=== PATIENT | female | born 1960 | race Caucasian/White ===

== ENCOUNTER → 2016-03-23 | Outpatient (CLI) | payer OTHER ==
[~2016-03-23] MED LIST: FAMO20TA5 PO
--- NOTE | 2016-03-23 12:45 | Diagnostic Imaging Report ---
PROCEDURE: US Thyroid. TECHNIQUE: Multiple real-time grayscale images were obtained of the thyroid in various projections. INDICATION: Enlarged thyroid nodule. FINDINGS: The right thyroid lobe is 6.0 x 2.9 x 2.7 cm. The left lobe is 4.8 x 2.0 x 2.1 cm. The thyroid gland is heterogeneous. There is suggestion of a focal mass in the right thyroid lobe measuring 4.5 x 3.1 x 2.7 cm. The borders are not clearly evident and blend somewhat to the adjacent heterogeneous thyroid tissue. Exact comparison to 10/18/2015, exam is difficult as this nodule is not well defined. There is internal vascularity seen. IMPRESSION: Enlarged heterogeneous thyroid gland with prominent area in the right lobe presumably related to a poorly defined underlying mass not well from the rest of the thyroid gland and measures about 4.5 cm. Evaluation with an ultrasound-guided biopsy is suggested. Dictated by: Dictated on workstation # [id number]
== END ==
LOC: RAD 10:31
PROVIDERS: ATTEND Nurse Practitioner Family
DX: E04.9 Nontoxic goiter, unspecified (principal)
CPT/HCPCS: 76536

== ENCOUNTER → 2016-04-10 | Outpatient (CLI) | payer OTHER ==
[~2016-04-10] VITALS: Ht 152.4 cm; Wt 72.6 kg
[~2016-04-10] MED LIST changes: +LIDOCAINE 1% INJ 20 ML (XYLOCAINE) VIAL INJ ONE; +LIDOCAINE 1% INJ 20 ML (XYLOCAINE) VIAL ONE
[2016-04-10 13:15] VITALS: BP 134/72
[2016-04-10 13:41] VITALS: BP 128/80
--- NOTE | 2016-04-10 16:17 | Diagnostic Imaging Report ---
EXAMINATION: US-guided core biopsy-thyroid. INDICATION: Large heterogenous right thyroid lobe with question of an underlying mass. Current history and physical and other medical records are reviewed prior to the procedure. CONSENT: Informed consent was obtained from the patient. The risks, benefits, potential complications and alternatives were reviewed and all questions answered to the patient's satisfaction. The patient's vital signs, cardiac rhythm, and pulse oximetry with observed throughout the procedure by qualified nursing personnel. Sedation/medications: none. FINDINGS: Heterogenous the large solid appearing thyroid mass versus goiter. PROCEDURE: After maximal sterile barrier technique preparation and draping, 1% lidocaine was utilized for local anesthesia. With the patient in supine position, and via anterior approach, a 19-gauge guide needle is introduced into the right thyroid lobe mass under live ultrasound guidance. After confirming adequate positioning with saved ultrasound images, multiple 20 gauge core biopsy specimens were obtained. The patient tolerated the procedure well with no immediate complications. IMPRESSION: Successful US-guided core biopsy of right thyroid lobe/mass. Dictated by: Dictated on workstation # [id number]
== END ==
LOC: RAD 11:50
PROVIDERS: ATTEND Nurse Practitioner Family
DX: E04.1 Nontoxic single thyroid nodule (principal)
CPT/HCPCS: 76942; 88305

== ENCOUNTER 2017-05-12 10:18 | Inpatient (IN) | payer OTHER ==
[~2017-05-12] VITALS: Ht 152.4 cm; Wt 55.8 kg
[~2017-05-12 10:18] MED LIST changes: -LIDOCAINE 1% INJ 20 ML (XYLOCAINE) VIAL INJ ONE; -LIDOCAINE 1% INJ 20 ML (XYLOCAINE) VIAL ONE
--- NOTE | 2017-05-12 11:27 | Diagnostic Imaging Report ---
EXAM: HIP, LEFT, 2 VIEWS INDICATION: Left hip pain. COMPARISON: None. FINDINGS: Examination is mildly limited by internal rotation. Although there are no convincing lucencies seen, there is some irregularity of the cortex of the head neck junction. IMPRESSION: Limited examination. There is indeterminate irregularity of the cortex at the head neck junction. A fracture cannot be excluded. Recommend further evaluation with dedicated cross-sectional imaging. Dictated by: Dictated on workstation # [id number]
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
--- NOTE | 2017-05-12 11:51 | Diagnostic Imaging Report ---
INDICATION: Preoperative, hip fracture. COMPARISON: 10/03/2014 TECHNIQUE: Single frontal radiograph of the chest dated 05/12/2017. FINDINGS: The cardiac silhouette is within normal limits. No significant pulmonary vascular congestion. The lungs are clear of focal pulmonary opacity. No pleural effusion. No pneumothorax. No acute osseous abnormality. IMPRESSION: Stable examination without acute cardiopulmonary abnormality. Dictated by: Dictated on workstation # [id number]
--- NOTE | 2017-05-12 11:58 | Diagnostic Imaging Report ---
INDICATION: Fall, pain. COMPARISON: Radiographs of left hip from same day. TECHNIQUE: Single radiograph of the pelvis dated 05/12/2017. FINDINGS: Acute appearing left subcapital femoral neck fracture is identified. This does not appear significantly displaced. No acute fracture or dislocation. No destructive osseous process. Mild degenerative change of the left hip. The sacroiliac joints appear intact. Pubic symphysis intact. IMPRESSION: Essentially nondisplaced left subcapital femoral neck fracture appearing acute in nature. Report was called to Denia Serrano, [facility] ER by graciela at 11:58 AM. Dictated by: Dictated on workstation # [id number]
[2017-05-12 12:22] LABS: BASOPHILS % (AUTO) 0 % (0-10); EOSINOPHILS # (AUTO) 0.2 10^3/uL (0.0-0.3); EOSINOPHILS % (AUTO) 2 % (0-10); HEMATOCRIT 36 % (35-52); HEMOGLOBIN 12.4 G/DL (11.5-16.0); LYMPHOCYTES # (AUTO) 2.1 X 10^3 (1.0-4.0); LYMPHOCYTES % (AUTO) 22 % (12-44); MEAN CORPUSCULAR HEMOGLOBIN 28 PG (25-34); MEAN CORPUSCULAR HGB CONC 35 G/DL (32-36); MEAN CORPUSCULAR VOLUME 81 FL (80-99); MEAN PLATELET VOLUME 11.1 FL (7.4-10.4); MONOCYTES # (AUTO) 0.5 X 10^3 (0.0-1.0); MONOCYTES % (AUTO) 6 % (0-12); NEUTROPHILS # (AUTO) 6.6 X 10^3 (1.8-7.8); NEUTROPHILS % (AUTO) 70 % (42-75); PLATELET COUNT 211 10^3/uL (130-400); RED BLOOD COUNT 4.38 10^6/uL (4.35-5.85); WHITE BLOOD COUNT 9.5 10^3/uL (4.3-11.0)
[2017-05-12 12:32] LABS: PROTHROMBIN TIME PATIENT 13.3 SEC (12.2-14.7)
[2017-05-12 12:40] LABS: BILIRUBIN,URINE NEGATIVE (NEGATIVE); CLARITY,URINE SLIGHTLY CLOUDY; COLOR,URINE YELLOW; GLUCOSE, URINE (UA) 4+ (NEGATIVE); KETONES,URINE NEGATIVE (NEGATIVE); LEUKOCYTE ESTERASE ,URINE NEGATIVE (NEGATIVE); NITRITE,URINE NEGATIVE (NEGATIVE); PH,URINE 5 (5-9); PROTEIN,URINE 2+ (NEGATIVE); UROBILINOGEN,URINE NORMAL (NORMAL)
[2017-05-12 12:49] LABS: AMORPHOUS SEDIMENT,UR LARGE AMOR URATES /LPF; BACTERIA,URINE FEW /HPF; RBC,URINE 0-2 /HPF
--- NOTE | 2017-05-12 13:32 | Diagnostic Imaging Report ---
PROCEDURE: CT pelvis without contrast. TECHNIQUE: Multiple contiguous axial images were obtained through the pelvis without the use of intravenous contrast. Sagittal and coronal reformations were performed. INDICATION: Fall on left hip. COMPARISON: Left hip radiographs from earlier today. FINDINGS: There is a nondisplaced mildly impacted left subcapital hip fracture. The pelvis and proximal right femur are intact. Mild scattered atherosclerotic calcifications. Holliday catheter. Hysterectomy. The visualized pelvic contents are otherwise unremarkable. IMPRESSION: Mildly impacted left subcapital hip fracture. Dictated by: Dictated on workstation # [id number]
[2017-05-12 14:04] LABS: ALANINE AMINOTRANSFERASE 25 U/L (0-55); ALKALINE PHOSPHATASE 150 U/L (40-136); BILIRUBIN,TOTAL 0.3 MG/DL (0.1-1.0); BUN/CREATININE RATIO 27; CALCIUM 9.3 MG/DL (8.5-10.1); CARBON DIOXIDE 18 MMOL/L (21-32); CHLORIDE 98 MMOL/L (98-107); CREATININE SERUM 0.95 MG/DL (0.60-1.30); GFR ESTIMATED > 60; POTASSIUM 4.1 MMOL/L (3.6-5.0); SODIUM 130 MMOL/L (135-145); TOTAL PROTEIN 8.1 GM/DL (6.4-8.2)
[2017-05-12 14:05] LABS: GLUCOSE 464 MG/DL (70-105)
[2017-05-12] MEDS ORDERED: inSUlin (REGULAR) HUMAN 1 UNIT/0.01 ML (CHARGE PER UNIT) IV STA (14:06)
[2017-05-12] MEDS ORDERED: NS IV 1000 ML 1,000 ML IV ONE (14:06)
[2017-05-12 15:09] VITALS: BP 126/63
[2017-05-12] MEDS ORDERED: CATHETER FLUSH 10 ML SYR IV PRN (15:30)
[2017-05-12] MEDS ORDERED: morphine INJ 4 MG/ML 1 ML (VIAL/SYRINGE) IV PRN (15:30)
[2017-05-12] MEDS: NS IV 1000 ML 1,000 ML IV SCH (15:51)
[2017-05-12] MEDS ORDERED: inSUlin (REGULAR) HUMAN 1 UNIT/0.01 ML (CHARGE PER UNIT) SC SCH (16:00)
--- NOTE | 2017-05-12 16:27 | Admission Progress Note ---
Brief Admission Note Complete H&P must still be completed. Current Records and Clinic Records Reviewed Patient admitted with hip fracture. Possible UTI present on admission, given one dose of PO cipro in ED; pt without allergy, will change to IV rocephin pending culture results. Hyperglycemia; accuchecks AC and HS with sliding scale insulin also AC and HS. Patient will be NPO in AM for surgery. Clinic chart reviewed, patient apparently was former patient of Sarah Mohr APRN, however on 05/04/16 she dropped off a ziplock bag containing all of her medications and stated she wasn't taking them anymore and Sejal Mohr APRN was no longer her provider. Patient reported to ED she had not taken any medication in a few months, however it appears to have been at least 1 year. History from clinic records: -remote history of drug abuse -Type II Diabetes with renal complications -Diabetic Neuropathy -Thyroid Nodule - right -Acquired Hypothyroidism -Severe Hyperlipidemia -HTN -Proteinuria -Renal Insufficiency -Ventral Hernia Will recheck lipids with AM labs. Clinic records indicate patient was referred to Dr. Nascimento, but patient did not keep follow up appointment. Will turn over care to Dr. Chi tomorrow morning. Time Seen by Provider: 16:18 (patient was not seen; chart and clinic chart reviewed) GONZALO NORRIS DO May 12, 2017 16:27
[2017-05-12] MEDS: inSUlin (REGULAR) HUMAN 1 UNIT/0.01 ML (CHARGE PER UNIT) SC SCH ×2 (16:28→21:20)
[2017-05-12] MEDS: cefTRIAXone INJECTION 1,000 MG in NS (IVPB) 100 ML IV SCH (16:33)
[2017-05-12] MEDS ORDERED: INFLUENZA TRIvalent 2017-2018 0.5 ML/45 MCG SYR IM ONE (16:45)
[2017-05-12] MEDS ORDERED: CIPROFLOXACIN 500 MG (CIPRO) TABLET PO SCH (18:00)
[2017-05-12 20:00] VITALS: BP 134/63
[2017-05-12] MEDS ORDERED: FAMOTIDINE 20 MG (PEPCID) TABLET PO SCH (21:00)
[2017-05-12] MEDS: FAMOTIDINE 20 MG (PEPCID) TABLET PO SCH (21:20)
[2017-05-12 23:45] VITALS: BP 156/86
[2017-05-13 03:11] VITALS: BP 135/65
[2017-05-13] MEDS: NS IV 1000 ML 1,000 ML IV SCH ×2 (05:27→06:09)
[2017-05-13] MEDS: inSUlin (REGULAR) HUMAN 1 UNIT/0.01 ML (CHARGE PER UNIT) SC SCH ×4 (05:37→20:56)
[2017-05-13 05:59] LABS: BASOPHILS % (AUTO) 0 % (0-10); EOSINOPHILS # (AUTO) 0.3 10^3/uL (0.0-0.3); EOSINOPHILS % (AUTO) 4 % (0-10); HEMATOCRIT 35 % (35-52); HEMOGLOBIN 11.9 G/DL (11.5-16.0); LYMPHOCYTES # (AUTO) 1.8 X 10^3 (1.0-4.0); LYMPHOCYTES % (AUTO) 24 % (12-44); MEAN CORPUSCULAR HEMOGLOBIN 28 PG (25-34); MEAN CORPUSCULAR HGB CONC 34 G/DL (32-36); MEAN CORPUSCULAR VOLUME 81 FL (80-99); MEAN PLATELET VOLUME 10.9 FL (7.4-10.4); MONOCYTES # (AUTO) 0.5 X 10^3 (0.0-1.0); MONOCYTES % (AUTO) 7 % (0-12); NEUTROPHILS # (AUTO) 4.9 X 10^3 (1.8-7.8); NEUTROPHILS % (AUTO) 65 % (42-75); PLATELET COUNT 198 10^3/uL (130-400); RED BLOOD COUNT 4.25 10^6/uL (4.35-5.85); RED CELL DISTRIBUTION WIDTH 13.6 % (10.0-14.5); WHITE BLOOD COUNT 7.5 10^3/uL (4.3-11.0)
[2017-05-13 06:25] LABS: BUN/CREATININE RATIO 18; CALCIUM 8.9 MG/DL (8.5-10.1); CARBON DIOXIDE 18 MMOL/L (21-32); CHLORIDE 103 MMOL/L (98-107); CHOLESTEROL 424 MG/DL (< 200); CREATININE SERUM 0.71 MG/DL (0.60-1.30); GFR ESTIMATED > 60; GLUCOSE 293 MG/DL (70-105); HDL CHOLESTEROL 32 MG/DL (40-60); MAGNESIUM 1.8 MG/DL (1.8-2.4); POTASSIUM 3.8 MMOL/L (3.6-5.0); SODIUM 132 MMOL/L (135-145); TRIGLYCERIDES 1599 MG/DL (<150); VLDL CHOLESTEROL 320 MG/DL (5-40)
[2017-05-13] MEDS ORDERED: FAMOTIDINE 20MG/2ML IV (PEPCID) IV ONE (07:15)
[2017-05-13 07:27] VITALS: BP 152/74
--- OUTSIDE RECORDS SUMMARY | 2017-05-13 08:57 | XMS REPORT ---
Author Author ROZINA SWANSON [facility] Address [address] [place] [address] Care Team Providers Care Regional Medical Director Name Role Phone ROZINA SWANSON Unavailable PROBLEMS Type Condition ICD9-CM Code MXS76-HQ Code Onset Dates Condition Status SNOMED Code Problem Hypertriglyceridemia E78.1 Active 785705857 Problem Renal insufficiency N28.9 Active 486670791 Problem Acquired hypothyroidism E03.9 Active 012812256 Problem Diabetic polyneuropathy associated with type 2 diabetes mellitus E11.42 Active 61158158 Problem Encounter for well woman exam Z01.419 Active 677274384 Problem Screening for STD (sexually transmitted disease) Z11.3 Active 346570187 Problem Encounter for screening breast examination Z12.39 Active 951784756 Problem Screening mammogram, encounter for Z12.31 Active 352447339 Problem Ventral hernia without obstruction or gangrene K43.9 Active 831804565 Problem Right thyroid nodule E04.1 Active 756195639 Problem Mixed hyperlipidemia E78.2 Active 160797390 Problem Heartburn R12 Active 30292353 Problem Essential hypertension I10 Active 51865202 Problem 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
--- OUTSIDE RECORDS SUMMARY | 2017-05-13 08:57 | XMS REPORT ---
Author Author MATEO BROWN Organization [employer] Address Unknown Phone Unavailable Care Team Providers Care [place] Copyist Name Role Phone MATEO BROWN CP Unavailable Allergies, Adverse Reactions, Alerts Substance Reaction Event Type Victoza 0.6 Mg/0.1 Ml (18 Mg/3 Ml) Pen Injector nausea Non Drug Allergy Problems Problem Type Condition Code Onset Dates Condition Status Problem Essential hypertension I10 Active Problem Hypertriglyceridemia E78.1 Active Problem Type 2 diabetes mellitus with other diabetic kidney complication E11.29 Active Problem Screening for STD (sexually transmitted disease) Z11.3 Active Problem Encounter for screening breast examination Z12.39 Active Problem Encounter for well woman exam Z01.419 Active Problem Acquired hypothyroidism E03.9 Active Problem Renal insufficiency N28.9 Active Problem Screening mammogram, encounter for Z12.31 Active Problem Ventral hernia without obstruction or gangrene K43.9 Active Assessment Mixed hyperlipidemia E78.2 Active Assessment Essential hypertension I10 Active Assessment Type 2 diabetes mellitus with other diabetic kidney complication E11.29 Active Problem Mixed hyperlipidemia E78.2 Active Problem Abnormal thyroid blood test R94.6 Active Assessment Chest pain, unspecified type R07.9 Active Problem Heartburn R12 Active Problem Enlargement of thyroid E04.9 Active Problem Proteinuria, unspecified R80.9 Active Medications Medication Code System Code Instructions Start Date End Date Status Dosage Gemfibrozil [facility] [address]-23 600 MG Orally Twice a day 1 tablet Omeprazole [facility] [address]-55 40 mg Orally Once a day 1 capsule Losartan Potassium [facility] [address]-27 100 MG Orally Once a day 1/2 tablet MetFORMIN HCl ER [facility] [address]-64 500 MG Orally twice a day 2 tablets Garcinia Cambogia-Chromium [facility] 76878-82890 500-200 MG-MCG Orally not defined Levothyroxine Sodium [facility] [address]-40 50 MCG Orally Once a day 1 tablet on an empty stomach in the morning Zetia [facility] [address]-04 10 mg Orally Once a day Dec 09, 2015 1 tablet Glimepiride [facility] [address]-95 1 MG Orally 2 times a day Nov 25, 2015 1 tablet with breakfast or the first main meal of the day One Touch Delica Lancets ND 0 Test Strips One touch Verio Flex .... Glimepiride [facility] [address]-50 1 MG Orally twice a day Nov 25, 2015 1 tablet with meals Crestor [facility] [address]-84 10 mg Orally Once a day Dec 09, 2015 1 tablet Procedures Procedure Coding System Code Date Office Visit, New Pt., Level 4 CPT-4 28639 Dec 09, 2015 Vital Signs Date/Time: Dec 09, 2015 Cardiac Monitoring Heart Rate 88 bpm Weight 154 lbs Height 61.5 in BMI 28.62 Index Blood Pressure Diastolic 72 mmHg Blood Pressure Systolic 142 mmHg Results No Known Results Summary Purpose [employer] Submission
--- OUTSIDE RECORDS SUMMARY | 2017-05-13 08:57 | XMS REPORT ---
Author Author ROZINA SWANSON [facility] Address [address] [place] [address] Care Team Providers Care Bowl Turner Name Role Phone ROZINA SWANSON Unavailable PROBLEMS Type Condition ICD9-CM Code [id number] Code Onset Dates Condition Status SNOMED Code Problem Hypertriglyceridemia E78.1 Active 392787555 Problem Renal insufficiency N28.9 Active 538160732 Problem Acquired hypothyroidism E03.9 Active 751680724 Problem Diabetic polyneuropathy associated with type 2 diabetes mellitus E11.42 Active 81811091 Problem Encounter for well woman exam Z01.419 Active 983726594 Problem Screening for STD (sexually transmitted disease) Z11.3 Active 453931371 Problem Encounter for screening breast examination Z12.39 Active 193172191 Problem Screening mammogram, encounter for Z12.31 Active 444282243 Problem Ventral hernia without obstruction or gangrene K43.9 Active 108472771 Problem Right thyroid nodule E04.1 Active 566813253 Problem Mixed hyperlipidemia E78.2 Active 595238469 Problem Heartburn R12 Active 34024331 Problem Essential hypertension I10 Active 18628673 Problem Type 2 diabetes mellitus with other diabetic kidney complication E11.29 Active 60102763 Problem Abnormal thyroid blood test R94.6 Active 722748963 Problem Proteinuria, unspecified R80.9 Active 88991735 Problem Enlargement of thyroid E04.9 Active 5467152 ALLERGIES Unknown Allergies SOCIAL HISTORY No smoking Hx information available PLAN OF CARE VITAL SIGNS MEDICATIONS Unknown Medications RESULTS No Results PROCEDURES No Known procedures IMMUNIZATIONS No Known Immunizations
--- OUTSIDE RECORDS SUMMARY | 2017-05-13 08:57 | XMS REPORT ---
Author Author ROZINA SWANSON Organization [employer] Address Unknown Phone Unavailable Care Team Providers Care Bulb Grader Name Role Phone ROZINA SWANSON CP Unavailable Allergies No Known Allergies Problems Problem Type Condition Code Onset Dates [...] hernia without obstruction or gangrene K43.9 Active Problem Mixed hyperlipidemia E78.2 Active Problem Abnormal thyroid blood test R94.6 Active Problem Heartburn R12 Active Problem Enlargement of thyroid E04.9 Active Problem Proteinuria, unspecified R80.9 Active Medications Medication Code System Code Instructions Start Date End Date Status Dosage MetFORMIN HCl ER [facility] [address]-95 500 MG Orally twice a day 2 tablets Results No Known Results Summary Purpose eClinicalWorks Submission
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
--- OUTSIDE RECORDS SUMMARY | 2017-05-13 08:58 | XMS REPORT ---
Author Author ROZINA SWANSON Organization [employer] Address Unknown Phone Unavailable Care Team Providers Care Setter Cold Rolling Machine Name Role Phone ROZINA SWANSON CP Unavailable [...] Instructions Start Date End Date Status Dosage Levothyroxine Sodium [facility] [address]-15 50 MCG Orally Once a day 1 tablet on an empty stomach in the morning Results No Known Results Summary Purpose eClinicalWorks Submission
--- OUTSIDE RECORDS SUMMARY | 2017-05-13 08:58 | XMS REPORT ---
Author Author YAHIR LERMA [employer] Address Unknown Phone Unavailable Care Team Providers Care Prosthetic Aides Teacher Name Role Phone YAHIR LERMA CP Unavailable Allergies, Adverse Reactions, Alerts Substance Reaction Event Type Victoza 0.6 Mg/0.1 Ml (18 Mg/3 Ml) Pen Injector nausea Non Drug Allergy Problems Problem Type Condition Code Onset Dates Condition Status Assessment Dental examination Z01.20 Active Medications Medication Code System Code Instructions Start Date End Date Status Dosage Amoxicillin [facility] [address]-52 500 MG Orally 3 times a day Oct 07, 2015 Oct 14, 2015 1 capsule Procedures Procedure Coding System Code Date INTRAORL-PERIAPICAL 1 FILM 80210 CPT-4 D0220 Oct 07, 2015 LTD ORAL EVALUATION - PROBLEM FOCUS CPT-4 D0140 Oct 07, 2015 Vital Signs Date/Time: Oct 07, 2015 Blood Pressure Diastolic 107 mmHg Blood Pressure Systolic 151 mmHg Height 61.5 in Results No Known Results Summary Purpose eClinicalWorks Submission
--- OUTSIDE RECORDS SUMMARY | 2017-05-13 08:58 | XMS REPORT ---
Author Author ROZINA SWANSON [facility] Address [address] [place] [address] Care Team Providers Care Electrician Substation Name Role Phone ROZINA SWANSON Unavailable PROBLEMS Type Condition ICD9-CM Code [id number] Code Onset Dates Condition Status SNOMED Code Problem Type 2 diabetes mellitus with other diabetic kidney complication E11.29 Active 94479182 Problem Renal insufficiency N28.9 Active 156973520 Problem Hypertriglyceridemia E78.1 Active 399701193 Problem Encounter for well woman exam Z01.419 Active 143454427 Problem Screening for STD (sexually transmitted disease) Z11.3 Active 970319086 Problem Ventral hernia without obstruction or gangrene K43.9 Active 330316912 Problem Acquired hypothyroidism E03.9 Active 382336914 Problem Encounter for screening breast examination Z12.39 Active 933112113 Problem Screening mammogram, encounter for Z12.31 Active 518769755 Assessment Renal insufficiency N28.9 21 Nov, 2015 Active 01504235 Problem Abnormal thyroid blood test R94.6 Active 580414750 Problem Heartburn R12 Active 70320388 Problem Enlargement of thyroid E04.9 Active 6710377 Problem Proteinuria, unspecified R80.9 Active 09253620 Problem Mixed hyperlipidemia E78.2 Active 693953606 Problem Essential hypertension I10 Active 64377350 ALLERGIES Unknown Allergies SOCIAL HISTORY No smoking Hx information available PLAN OF CARE VITAL SIGNS MEDICATIONS Unknown Medications RESULTS Name Result Date Reference Range CMP 2015-11-23 Glucose, Serum 475 65-99 BUN 29 6-24 Creatinine, Serum 1.02 0.57-1.00 eGFR If NonAfricn Am 63 >59 eGFR If Africn Am 72 >59 BUN/Creatinine Ratio 28 9-23 Sodium, Serum 132 134-144 Potassium, Serum 5.2 3.5-5.2 Chloride, Serum 92 97-108 Carbon Dioxide, Total 19 18-29 Calcium, Serum 9.7 8.7-10.2 Protein, Total, Serum 7.6 6.0-8.5 Albumin, Serum 4.6 3.5-5.5 Globulin, Total 3.0 1.5-4.5 A/G Ratio 1.5 1.1-2.5 Bilirubin, Total 0.2 0.0-1.2 Alkaline Phosphatase, S 110 39-117 AST (SGOT) 18 0-40 ALT (SGPT) 28 0-32 PROCEDURES Procedure Date Ordered Related Diagnosis Body Site COMPREHEN METABOLIC PANEL Nov 23, 2015 VENIPUNCT, ROUTINE* Nov 23, 2015 IMMUNIZATIONS No Known Immunizations
--- OUTSIDE RECORDS SUMMARY | 2017-05-13 08:58 | XMS REPORT ---
Author Author ROZINA SWANSON [facility] Address [address] [place] [address] Care Team Providers Care Commissioner Of Internal Revenue Name Role Phone ROZINA SWANSON Unavailable PROBLEMS Type Condition ICD9-CM Code [id number] Code Onset Dates Condition Status SNOMED Code Problem Hypertriglyceridemia E78.1 Active 971941613 Problem Acquired hypothyroidism E03.9 Active 085167759 Problem Renal insufficiency N28.9 Active 095976474 Problem Diabetic polyneuropathy associated with type 2 diabetes mellitus E11.42 Active 19137189 Problem Encounter for well woman exam Z01.419 Active 265680127 Problem Screening mammogram, encounter for Z12.31 Active 380991165 Problem Ventral hernia without obstruction or gangrene K43.9 Active 985366051 Problem Screening for STD (sexually transmitted disease) Z11.3 Active 299540642 Problem Encounter for screening breast examination Z12.39 Active 384076464 Problem Right thyroid nodule E04.1 Active 220372401 Problem Enlargement of thyroid E04.9 Active 1118747 Problem Heartburn R12 Active 61894679 Problem Proteinuria, unspecified R80.9 Active 82531518 Problem Mixed hyperlipidemia E78.2 Active 970641710 Problem Essential hypertension I10 Active 41765906 Problem Abnormal thyroid blood test R94.6 Active 167039523 Problem Type 2 diabetes mellitus with other diabetic kidney complication E11.29 Active 89629727 ALLERGIES Substance Reaction Event Type Date Status Victoza 0.6 Mg/0.1 Ml (18 Mg/3 Ml) Pen Injector nausea Non Drug Allergy Feb, Active SOCIAL HISTORY No smoking Hx information available PLAN OF CARE Activity Details Follow Up 4 Weeks Reason:neuropathy VITAL SIGNS Height 61.5 in 2016-02-16 Weight 155.0 lbs 2016-02-16 Temperature 97.9 degrees Fahrenheit 2016-02-16 Heart Rate 86 bpm 2016-02-16 Respiratory Rate 20 2016-02-16 BMI 28.81 kg/m2 2016-02-16 Blood pressure systolic 118 mmHg 2016-02-16 Blood pressure diastolic 72 mmHg 2016-02-16 MEDICATIONS Medication Instructions Dosage Frequency Start Date End Date Duration Status Omeprazole 40 mg Orally Once a day 1 capsule 24h 30 day(s) Active Levothyroxine Sodium 50 MCG Orally Once a day 1 tablet on an empty stomach in the morning 24h Active Glimepiride 1 MG Orally 2 times a day 1 tablet with breakfast or the first main meal of the day 12h Nov, 30 day(s) Active One Touch Delica Lancets Test Strips .... Active Lovastatin 40 mg Orally Once a day 1 tablet with a meal 24h 90 days Active Gabapentin 300 MG Orally at bedtime 1 capsule Feb, Active Crestor 10 mg Orally Once a day 1 tablet 24h Dec, Active Zetia 10 mg Orally Once a day 1 tablet 24h Dec, Active Fish Oil 1200 MG Orally twice a day 2 capsule 12h Active Gemfibrozil 600 MG Orally Twice a day 1 tablet 12h Active MetFORMIN HCl ER 500 MG Orally twice a day 2 tablets 12h Active Losartan Potassium 100 MG Orally Once a day 1/2 tablet 24h Active RESULTS Name Result Date Reference Range A1C (IN HOUSE) 2016-02-16 A1C IN HOUSE 9.0% 4.3 - 5.6 % Previous A1c 9.5% Lot [id number] Exp date TSH 2016-02-16 TSH 3.520 0.450-4.500 LIPID PANEL 2016-02-16 Cholesterol, Total 164 100-199 Triglycerides 367 0-149 HDL Cholesterol 32 >39 VLDL Cholesterol Ady 73 5-40 LDL Cholesterol Calc 59 0-99 Comment: [facility] 2016-02-16 Glucose, Serum 137 65-99 BUN 19 6-24 Creatinine, Serum 0.65 0.57-1.00 eGFR If NonAfricn Am 101 >59 eGFR If Africn Am 116 >59 BUN/Creatinine Ratio 29 9-23 Sodium, Serum 141 134-144 Potassium, Serum 4.7 3.5-5.2 Chloride, Serum 100 96-106 Carbon Dioxide, Total 21 18-29 Calcium, Serum 9.8 8.7-10.2 Protein, Total, Serum 7.5 6.0-8.5 Albumin, Serum 4.9 3.5-5.5 Globulin, Total 2.6 1.5-4.5 A/G Ratio 1.9 1.1-2.5 Bilirubin, Total <0.2 0.0-1.2 Alkaline Phosphatase, S 99 39-117 AST (SGOT) 27 0-40 ALT (SGPT) 24 0-32 PROCEDURES Procedure Date Ordered Related Diagnosis Body Site GLYCATED HEMOGLOBIN TEST Feb 16, 2016 ASSAY THYROID STIM HORMONE Feb 16, 2016 COMPREHEN METABOLIC PANEL Feb 16, 2016 LIPID PANEL Feb 16, 2016 Office Visit, Est Pt., Level 4 Feb 16, 2016 VENIPUNCT, ROUTINE* Feb 16, 2016 IMMUNIZATIONS No Known Immunizations
--- OUTSIDE RECORDS SUMMARY | 2017-05-13 08:58 | XMS REPORT ---
Author Author ROZINA SWANSON [facility] eClinicalWorks Address Unknown Phone Unavailable Care Team Providers Care Ict Account Manager Name Role Phone ROZINA SWANSON CP Unavailable Allergies No Known Allergies Problems Problem Type Condition Code Onset Dates Condition Status Assessment Enlargement of thyroid E04.9 Active Problem Essential hypertension I10 Active Problem Proteinuria, unspecified R80.9 Active Problem Type 2 diabetes mellitus with other diabetic kidney complication E11.29 Active Problem Mixed hyperlipidemia E78.2 Active Problem Enlargement of thyroid E04.9 Active Problem Heartburn R12 Active Problem Abnormal thyroid blood test R94.6 Active Medications No Known Medications Results No Known Results Summary Purpose eClinicalWorks Submission
--- OUTSIDE RECORDS SUMMARY | 2017-05-13 08:58 | XMS REPORT ---
Author Author ROZINA SWANSON [facility] Address [address] [place] [address] Care Team Providers Care Trash Collector Supervisor Name Role Phone ROZINA SWANSON Unavailable PROBLEMS Type Condition ICD9-CM Code [id number] Code Onset Dates Condition Status SNOMED Code Problem Type 2 diabetes mellitus with other diabetic kidney complication E11.29 Active 46366760 Problem Renal insufficiency N28.9 Active 792253923 Problem Hypertriglyceridemia E78.1 Active 079276402 Problem Encounter for well woman exam Z01.419 Active 521604907 Problem Screening for STD (sexually transmitted disease) Z11.3 Active 264537697 Problem Ventral hernia without obstruction or gangrene K43.9 Active 008685995 Problem Acquired hypothyroidism E03.9 Active 109124666 Problem Encounter for screening breast examination Z12.39 Active 731687351 Problem Screening mammogram, encounter for Z12.31 Active 919980618 Problem Abnormal thyroid blood test R94.6 Active 180291724 Problem Heartburn R12 Active 98013507 Problem Enlargement of thyroid E04.9 Active 5210812 Problem Proteinuria, unspecified R80.9 Active 89382741 Problem Mixed hyperlipidemia E78.2 Active 116454307 Problem Essential hypertension I10 Active 40884528 ALLERGIES Unknown Allergies SOCIAL HISTORY No smoking Hx information available PLAN OF CARE VITAL SIGNS MEDICATIONS Medication Instructions Dosage Frequency Start Date End Date Duration Status Glimepiride 1 MG Orally twice a day 1 tablet with breakfast or the first main meal of the day 12h 23 Nov, 2015 Active RESULTS No Results PROCEDURES No Known procedures IMMUNIZATIONS No Known Immunizations
--- OUTSIDE RECORDS SUMMARY | 2017-05-13 08:58 | XMS REPORT ---
Author Author ROZINA SWANSON [facility] eClinicalWorks Address Unknown Phone Unavailable Care Team Providers Care Program Eligibility Specialist Name Role Phone ROZINA SWANSON CP Unavailable [...] Instructions Start Date End Date Status Dosage Glimepiride [facility] [address]-34 1 MG Orally twice a day-Must keep appt for further refills Nov 25, 2015 1 tablet with meals Results No Known Results Summary Purpose eClinicalWorks Submission
--- OUTSIDE RECORDS SUMMARY | 2017-05-13 08:58 | XMS REPORT ---
Author Author ROZINA SWANSON [facility] Address [address] [place] [address] Care Team Providers Care Retail Key Holder Name Role Phone ROZINA SWANSON Unavailable PROBLEMS Type Condition ICD9-CM Code [id number] Code Onset Dates Condition Status SNOMED Code Problem Hypertriglyceridemia E78.1 Active 498837567 Problem Renal insufficiency N28.9 Active 606570034 Problem Acquired hypothyroidism E03.9 Active 377096020 Problem Diabetic polyneuropathy associated with type 2 diabetes mellitus E11.42 Active 73508549 Problem Encounter for well woman exam Z01.419 Active 335343908 Problem Screening for STD (sexually transmitted disease) Z11.3 Active 988864764 Problem Encounter for screening breast examination Z12.39 Active 770037757 Problem Screening mammogram, encounter for Z12.31 Active 118753338 Problem Ventral hernia without obstruction or gangrene K43.9 Active 028753593 Problem Right thyroid nodule E04.1 Active 516677639 Problem Mixed hyperlipidemia E78.2 Active 334957742 Problem Heartburn R12 Active 54560780 Problem Essential hypertension I10 Active 93969427 Problem Type 2 diabetes mellitus with other diabetic kidney complication E11.29 Active 44742681 Problem Abnormal thyroid blood test R94.6 Active 298490712 Problem Proteinuria, unspecified R80.9 Active 24064716 Problem Enlargement of thyroid E04.9 Active 9929120 ALLERGIES Unknown Allergies SOCIAL HISTORY No smoking Hx information available PLAN OF CARE VITAL SIGNS MEDICATIONS Medication Instructions Dosage Frequency Start Date End Date Duration Status Zetia 10 mg Orally Once a day 1 tablet 24h Dec, Active RESULTS No Results PROCEDURES No Known procedures IMMUNIZATIONS No Known Immunizations
--- OUTSIDE RECORDS SUMMARY | 2017-05-13 08:58 | XMS REPORT ---
Author Author ROZINA SWANSON [facility] Address [address] [place] [address] Care Team Providers Care Broke Beater Operator Name Role Phone ROZINA SWANSON Unavailable PROBLEMS Type Condition ICD9-CM Code [id number] Code Onset Dates Condition Status SNOMED Code Problem Hypertriglyceridemia E78.1 Active 603523074 Problem Renal insufficiency N28.9 Active 605347940 Problem Acquired hypothyroidism E03.9 Active 485037506 Problem Diabetic polyneuropathy associated with type 2 diabetes mellitus E11.42 Active 05302586 Problem Encounter for well woman exam Z01.419 Active 000912843 Problem Screening for STD (sexually transmitted disease) Z11.3 Active 712061323 Problem Encounter for screening breast examination Z12.39 Active 635910667 Problem Screening mammogram, encounter for Z12.31 Active 267289869 Problem Ventral hernia without obstruction or gangrene K43.9 Active 451364897 Problem Right thyroid nodule E04.1 Active 855769727 Problem Mixed hyperlipidemia E78.2 Active 599867489 Problem Heartburn R12 Active 45415493 Problem Essential hypertension I10 Active 36043457 Problem Type 2 diabetes mellitus with other diabetic kidney complication E11.29 Active 40814360 Problem Abnormal thyroid blood test R94.6 Active 513345216 Problem Proteinuria, unspecified R80.9 Active 27981487 Problem Enlargement of thyroid E04.9 Active 2682965 ALLERGIES Unknown Allergies SOCIAL HISTORY No smoking Hx information available PLAN OF CARE VITAL SIGNS MEDICATIONS Medication Instructions Dosage Frequency Start Date End Date Duration Status MetFORMIN HCl ER 500 MG Orally twice a day 2 tablets 12h Active RESULTS No Results PROCEDURES No Known procedures IMMUNIZATIONS No Known Immunizations
--- OUTSIDE RECORDS SUMMARY | 2017-05-13 08:58 | XMS REPORT ---
Author Author ROZINA SWANSON Organization e[employer] Address Unknown Phone Unavailable Care Team Providers Care Front Desk Admin Name Role Phone ROZINA SWANSON CP Unavailable [...] Active Problem Proteinuria, unspecified R80.9 Active Medications No Known Medications Results No Known Results Summary Purpose eClinicalWorks Submission
--- OUTSIDE RECORDS SUMMARY | 2017-05-13 08:58 | XMS REPORT ---
Author Author ROZINA SWANSON [facility] eClinicalWorks Address Unknown Phone Unavailable Care Team Providers Care Progressive Care Manager Name Role Phone ROZINA SWANSON CP Unavailable Allergies, Adverse Reactions, Alerts Substance Reaction Event Type Victoza 0.6 Mg/0.1 Ml (18 Mg/3 Ml) Pen Injector nausea Non Drug Allergy Problems Problem Type Condition Code Onset Dates Condition Status Assessment Type 2 diabetes mellitus with other diabetic kidney complication E11.29 Active Problem Enlargement of thyroid E04.9 Active Assessment Essential hypertension I10 Active Problem Type 2 diabetes mellitus with other diabetic kidney complication E11.29 Active Problem Essential hypertension I10 Active Problem Hypertriglyceridemia E78.1 Active Problem Abnormal thyroid blood test R94.6 Active Problem Mixed hyperlipidemia E78.2 Active Problem Proteinuria, unspecified R80.9 Active Problem Heartburn R12 Active Assessment Enlargement of thyroid E04.9 Active Assessment Abnormal thyroid blood test R94.6 Active Assessment Heartburn R12 Active Assessment Mixed hyperlipidemia E78.2 Active Assessment Proteinuria, unspecified R80.9 Active Medications Medication Code System Code Instructions Start Date End Date Status Dosage One Touch Delica Lancets ND 0 Test Strips One touch Verio Flex .... Omeprazole [facility] [address]-50 40 mg Orally Once a day [address] [facility] [address]-37 600 MG Orally Twice a day Oct 21, 2015 1 tablet Levothyroxine Sodium [facility] [address]-78 50 MCG Orally Once a day Oct 21, 2015 1 tablet on an empty stomach in the morning MetFORMIN HCl ER [facility] [address]-10 500 MG Orally twice a day 1 tablet daily x 7 days then 1 bid x 7 days, then2 am and 1 pm x 7 days then 2 tabs bid Lisinopril [facility] [address]-90 10 mg Orally Once a day 1 tablet Garcinia Cambogia-Chromium [facility] [address]84 500-200 MG-MCG Orally not defined Lovastatin [facility] [address]-98 40 mg Orally Once a day Oct 27, 2015 1 tablet with a meal Procedures Procedure Coding System Code Date Office Visit, Est Pt., Level 5 CPT-4 97466 Oct 27, 2015 Vital Signs Date/Time: Oct 27, 2015 Cardiac Monitoring Heart Rate 90 bpm Weight 143.6 lbs Height 61.5 in BMI 26.69 Index Blood Pressure Diastolic 84 mmHg Blood Pressure Systolic 132 mmHg Results No Known Results Summary Purpose eClinicalWorks Submission
--- OUTSIDE RECORDS SUMMARY | 2017-05-13 08:58 | XMS REPORT ---
Author Author ROZINA SWANSON [facility] Address [address] [place] [address] Care Team Providers Care Director Home Health Name Role Phone ROZINA SWANSON Unavailable PROBLEMS Type Condition ICD9-CM Code [id number] Code Onset Dates Condition Status SNOMED Code Problem Hypertriglyceridemia E78.1 Active 877680932 Problem Renal insufficiency N28.9 Active 932205328 Problem Acquired hypothyroidism E03.9 Active 464873995 Problem Diabetic polyneuropathy associated with type 2 diabetes mellitus E11.42 Active 92320846 Problem Encounter for well woman exam Z01.419 Active 528662031 Problem Screening for STD (sexually transmitted disease) Z11.3 Active 956107918 Problem Encounter for screening breast examination Z12.39 Active 863798071 Problem Screening mammogram, encounter for Z12.31 Active 162284415 Problem Ventral hernia without obstruction or gangrene K43.9 Active 229828830 Problem Right thyroid nodule E04.1 Active 553059724 Problem Mixed hyperlipidemia E78.2 Active 538225700 Problem Heartburn R12 Active 24695764 Problem Essential hypertension I10 Active 14270084 Problem Type 2 diabetes mellitus with other diabetic kidney complication E11.29 Active 32273274 Problem Abnormal thyroid blood test R94.6 Active 562252316 Problem Proteinuria, unspecified R80.9 Active 36282308 Problem Enlargement of thyroid E04.9 Active 2469247 ALLERGIES Substance Reaction Event Type Date Status Victoza 0.6 Mg/0.1 Ml (18 Mg/3 Ml) Pen Injector nausea Non Drug Allergy 18 Mar, 2016 Active SOCIAL HISTORY No smoking Hx information available PLAN OF CARE Activity Details Follow Up 2 Months Reason:DM VITAL SIGNS Height 61.5 in 2016-03-21 Weight 156.7 lbs 2016-03-21 Temperature 97.8 degrees Fahrenheit 2016-03-21 Heart Rate 86 bpm 2016-03-21 Respiratory Rate 18 2016-03-21 BMI 29.13 kg/m2 2016-03-21 Blood pressure systolic 131 mmHg 2016-03-21 Blood pressure diastolic 67 mmHg 2016-03-21 MEDICATIONS Medication Instructions Dosage Frequency Start Date End Date Duration Status Levothyroxine Sodium 50 MCG Orally Once a day 1 tablet on an empty stomach in the morning 24h 90 Active Gemfibrozil 600 MG Orally Twice a day 1 tablet 12h Active MetFORMIN HCl ER 500 MG Orally twice a day 2 tablets 12h Active Fish Oil 1200 MG Orally twice a day 2 capsule 12h Active Crestor 10 mg Orally Once a day 1 tablet 24h Dec, Active Gabapentin 300 MG Orally at bedtime 1 capsule Active Lovastatin 40 mg Orally Once a day 1 tablet with a meal 24h 90 days Active Losartan Potassium 100 MG Orally Once a day 1/2 tablet 24h Active Omeprazole 40 mg Orally Once a day 1 capsule 24h 30 day(s) Active Zetia 10 mg Orally Once a day 1 tablet 24h Dec, Active One Touch Delica Lancets Test Strips .... Active Glimepiride 1 MG Orally 2 times a day 1 tablet with breakfast or the first main meal of the day 12h Nov, 30 day(s) Active RESULTS Name Result Date Reference Range LIPID PANEL 2016-03-21 Cholesterol, Total 271 100-199 Triglycerides 536 0-149 HDL Cholesterol 31 >39 VLDL Cholesterol Ady 5-40 LDL Cholesterol Calc 0-99 Comment: CMP 2016-03-21 Glucose, Serum 101 65-99 BUN 22 6-24 Creatinine, Serum 0.93 0.57-1.00 eGFR If NonAfricn Am 70 >59 eGFR If Africn Am 81 >59 BUN/Creatinine Ratio 24 9-23 Sodium, Serum 141 134-144 Potassium, Serum 4.5 3.5-5.2 Chloride, Serum 98 96-106 Carbon Dioxide, Total 20 18-29 Calcium, Serum 10.4 8.7-10.2 Protein, Total, Serum 7.6 6.0-8.5 Albumin, Serum 5.1 3.5-5.5 Globulin, Total 2.5 1.5-4.5 A/G Ratio 2.0 1.1-2.5 Bilirubin, Total 0.3 0.0-1.2 Alkaline Phosphatase, S 106 39-117 AST (SGOT) 31 0-40 ALT (SGPT) 27 0-32 Ultrasound : Thyroid 2016-03-23 PROCEDURES Procedure Date Ordered Related Diagnosis Body Site COMPREHEN METABOLIC PANEL Mar 21, 2016 LIPID PANEL Mar 21, 2016 VENIPUNCT, ROUTINE* Mar 21, 2016 Office Visit, Est Pt., Level 5 Mar 21, 2016 IMMUNIZATIONS No Known Immunizations
--- OUTSIDE RECORDS SUMMARY | 2017-05-13 08:58 | XMS REPORT ---
Author Author ROZINA SWANSON Organization [employer] Address Unknown Phone Unavailable Care Team Providers Care Fire Management Specialist Name Role Phone ROZINA SWANSON CP Unavailable Allergies No Known Allergies Problems Problem Type Condition Code Onset Dates Condition Status Problem Essential hypertension I10 Active Problem Proteinuria, unspecified R80.9 Active Problem Type 2 diabetes mellitus with other diabetic kidney complication E11.29 Active Problem Mixed hyperlipidemia E78.2 Active Problem Enlargement of thyroid E04.9 Active Problem Heartburn R12 Active Problem Abnormal thyroid blood test R94.6 Active Medications Medication Code System Code Instructions Start Date End Date Status Dosage Levothyroxine Sodium [facility] [address]-83 50 MCG Orally Once a day Oct 21, 2015 1 tablet on an empty stomach in the morning Gemfibrozil [facility] [address]-08 600 MG Orally Twice a day Oct 21, 2015 1 tablet Results No Known Results Summary Purpose [employer] Submission
--- OUTSIDE RECORDS SUMMARY | 2017-05-13 08:58 | XMS REPORT ---
Author Author ROZINA SWANSON [facility] Address [address] [place] [address] Care Team Providers Care Packaging Inspector Name Role Phone ROZINA SWANSON Unavailable PROBLEMS Type Condition ICD9-CM Code [id number] Code Onset Dates Condition Status SNOMED Code Problem Type 2 diabetes mellitus with other diabetic kidney complication E11.29 Active 51655642 Problem Renal insufficiency N28.9 Active 484642693 Problem Hypertriglyceridemia E78.1 Active 903995144 Problem Encounter for well woman exam Z01.419 Active 247700527 Problem Screening for STD (sexually transmitted disease) Z11.3 Active 087893077 Problem Ventral hernia without obstruction or gangrene K43.9 Active 781822374 Problem Acquired hypothyroidism E03.9 Active 243943865 Problem Encounter for screening breast examination Z12.39 Active 364940155 Problem Screening mammogram, encounter for Z12.31 Active 183699510 Problem Abnormal thyroid blood test R94.6 Active 626048079 Problem Heartburn R12 Active 40623289 Problem Enlargement of thyroid E04.9 Active 6354589 Problem Proteinuria, unspecified R80.9 Active 65881032 Problem Mixed hyperlipidemia E78.2 Active 385163997 Problem Essential hypertension I10 Active 93876274 ALLERGIES Unknown Allergies SOCIAL HISTORY No smoking Hx information available PLAN OF CARE VITAL SIGNS MEDICATIONS Medication Instructions Dosage Frequency Start Date End Date Duration Status Glimepiride 1 MG Orally 2 times a day 1 tablet with breakfast or the first main meal of the day 12h 23 Nov, 2015 30 day(s) Active RESULTS No Results PROCEDURES No Known procedures IMMUNIZATIONS No Known Immunizations
--- OUTSIDE RECORDS SUMMARY | 2017-05-13 08:59 | XMS REPORT ---
Author Author TELLO CARTER [facility] [employer] Address Unknown Phone Unavailable Care Team Providers Care Tool Marker Name Role Phone TELLO CARTER CP Unavailable Allergies No Known Allergies Problems [...]
--- OUTSIDE RECORDS SUMMARY | 2017-05-13 08:59 | XMS REPORT ---
Author Author ROZINA SWANSON [facility] Address [address] [place] [address] Care Team Providers Care Steel Analyst Name Role Phone ROZINA SWANSON Unavailable PROBLEMS Type Condition ICD9-CM Code [id number]-CY Code Onset Dates Condition Status SNOMED Code Problem Hypertriglyceridemia E78.1 Active 217724988 Problem Renal insufficiency N28.9 Active 690176900 Problem Acquired hypothyroidism E03.9 Active 177365982 Problem Diabetic polyneuropathy associated with type 2 diabetes mellitus E11.42 Active 97819210 Problem Encounter for well woman exam Z01.419 Active 775788811 Problem Screening for STD (sexually transmitted disease) Z11.3 Active 404994581 Problem Encounter for screening breast examination Z12.39 Active 906135064 Problem Screening mammogram, encounter for Z12.31 Active 302575485 Problem Ventral hernia without obstruction or gangrene K43.9 Active 138580307 Problem Right thyroid nodule E04.1 Active 997160366 Problem Mixed hyperlipidemia E78.2 Active 359128887 Problem Heartburn R12 Active 35510697 Problem Essential hypertension I10 Active 05475094 Problem Type 2 diabetes mellitus with other diabetic kidney complication E11.29 Active 45323786 Problem Abnormal thyroid blood test R94.6 Active 759179847 Problem Proteinuria, unspecified R80.9 Active 06291898 Problem Enlargement of thyroid E04.9 Active 7904091 ALLERGIES Unknown Allergies SOCIAL HISTORY No smoking Hx information available PLAN OF CARE VITAL SIGNS MEDICATIONS Medication Instructions Dosage Frequency Start Date End Date Duration Status MetFORMIN HCl ER 500 MG Orally twice a day 2 tablets 12h Active Levothyroxine Sodium 50 MCG Orally Once a day 1 tablet on an empty stomach in the morning 24h 30 days Active RESULTS No Results PROCEDURES No Known procedures IMMUNIZATIONS No Known Immunizations
--- OUTSIDE RECORDS SUMMARY | 2017-05-13 08:59 | XMS REPORT ---
Author Author ROZINA SWANSON [facility] Address [address] [place] [address] Care Team Providers Care Cvt Rn Name Role Phone ROZINA SWANSON Unavailable PROBLEMS Type Condition ICD9-CM Code QZI83-TO Code Onset Dates Condition Status SNOMED Code Problem Hypertriglyceridemia E78.1 Active 270386321 Problem Renal insufficiency N28.9 Active 021596715 Problem Acquired hypothyroidism E03.9 Active 342419322 Problem Diabetic polyneuropathy associated with type 2 diabetes mellitus E11.42 Active 99487921 Problem Encounter for well woman exam Z01.419 Active 300752919 Problem Screening for STD (sexually transmitted disease) Z11.3 Active 675590744 Problem Encounter for screening breast examination Z12.39 Active 575104498 Problem Screening mammogram, encounter for Z12.31 Active 956758454 Problem Ventral hernia without obstruction or gangrene K43.9 Active 203253145 Problem Right thyroid nodule E04.1 Active 237209280 Problem Mixed hyperlipidemia E78.2 Active 131995079 Problem Heartburn R12 Active 96599961 Problem Essential hypertension I10 Active 99029338 Problem Type 2 diabetes mellitus with other diabetic kidney complication E11.29 Active 49897851 Problem Abnormal thyroid blood test R94.6 Active 604313177 Problem Proteinuria, unspecified R80.9 Active 59786244 Problem Enlargement of thyroid E04.9 Active 7170982 ALLERGIES Unknown Allergies SOCIAL HISTORY No smoking Hx information available PLAN OF CARE VITAL SIGNS MEDICATIONS Unknown Medications RESULTS Name Result Date Reference Range Ultrasound : Guide for Biopsy 2016-04-10 PROCEDURES No Known procedures IMMUNIZATIONS No Known Immunizations
--- OUTSIDE RECORDS SUMMARY | 2017-05-13 08:59 | XMS REPORT | Continuity of Care Document ---
Author Author [facility] Address Unknown Phone Unavailable Allergies Active Description Code Type Severity Reaction Onset Reported/Identified Relationship to Patient Clinical Status Yes Adama Inhibitors Drug Allergy 10/26/2010 Yes lisinopril Drug Allergy 10/26/2010 Yes Victoza 0.6 mg/0.1 mL (18 mg/3 mL) Pen Injector Drug Allergy 2011 Yes No Known Drug Allergies [id number] Drug Allergy Unknown N/A 10/03/2014 Medications There is no data. Problems Date Dx Coded Attending Type Code Diagnosis Diagnosed By 10/26/2010 250.00 DIABETES MELLITUS TYPE 2 10/26/2010 272.4 HYPERLIPIDEMIA 10/26/2010 401.9 HYPERTENSION ( SYSTEMIC) 10/26/2010 V69.2 sexually active with persons at risk for HIV-related disease 10/26/2010 250.00 DIABETES MELLITUS TYPE 2 10/26/2010 272.4 HYPERLIPIDEMIA 10/26/2010 401.9 HYPERTENSION ( SYSTEMIC) 10/26/2010 V69.2 sexually active with persons at risk for HIV-related disease 10/26/2010 TELLO CARTER DO 250.00 DIABETES MELLITUS TYPE 2 10/26/2010 TELLO CARTER DO 272.4 HYPERLIPIDEMIA 10/26/2010 TELLO CARTER DO 401.9 HYPERTENSION (SYSTEMIC) 10/26/2010 TELLO CARTER DO V69.2 sexually active with persons at risk for HIV-related disease 02/28/2011 786.50 UNSPECIFIED CHEST PAIN 02/28/2011 786.50 UNSPECIFIED CHEST PAIN 02/28/2011 TELLO CARTER DO 786.50 UNSPECIFIED CHEST PAIN 05/07/2011 244.9 UNSPECIFIED ACQUIRED HYPOTHYROIDISM 05/07/2011 780.79 OTHER MALAISE AND FATIGUE 05/07/2011 244.9 UNSPECIFIED ACQUIRED HYPOTHYROIDISM 05/07/2011 780.79 OTHER MALAISE AND FATIGUE 05/07/2011 TELLO CARTER DO 244.9 UNSPECIFIED ACQUIRED HYPOTHYROIDISM 05/07/2011 TELLO CARTER DO 780.79 OTHER MALAISE AND FATIGUE 02/15/2012 057.9 VIRAL EXANTHEM UNSPECIFIED 02/15/2012 782.1 RASH 02/15/2012 TELLO CARTER DO 057.9 VIRAL EXANTHEM UNSPECIFIED 02/15/2012 TELLO CARTER DO 782.1 RASH 06/04/2012 TELLO CARTER DO K 239.3 BREAST MASS 06/04/2012 TELLO CARTER DO Barbara 611.71 BREAST PAIN 10/03/2014 Ot 240.9 10/03/2014 Ot 723.1 10/03/2014 Ot 611.71 10/03/2014 Ot 611.72 10/03/2014 DALLAS BURKS DO Ot 250.00 DIAB GENNARO WO COMPL, TYPE II OR UNSPEC TY 10/03/2014 DALLAS BURKS DO Ot 786.50 CHEST PAIN NOS 10/03/2014 DALLAS BURKS DO Ot 786.59 CHEST PAIN NEC 10/03/2014 DALLAS BURKS DO Ot V15.81 HX OF PAST NONCOMPLIANCE 10/03/2014 Ot 240.9 10/03/2014 Ot 723.1 10/03/2014 Ot 611.71 10/03/2014 Ot 611.72 10/04/2014 Ot 240.9 10/04/2014 Ot 723.1 10/04/2014 Ot 611.71 10/04/2014 Ot 611.72 10/06/2014 DALLAS BURKS DO Ot 250.00 10/06/2014 DALLAS BURKS DO Ot 786.50 10/06/2014 DALLAS BURKS DO Ot 786.59 10/06/2014 DALLAS BURKS DO Ot V15.81 02/12/2015 Ot 240.9 02/12/2015 Ot 723.1 02/12/2015 Ot 611.71 02/12/2015 Ot 611.72 10/18/2015 MADLJOSE JUANA L VOCAL TEACHER Ot I10 ESSENTIAL (PRIMARY) HYPERTENSION 10/19/2015 MADL ROZINA L VOCAL TEACHER Ot I10 ESSENTIAL (PRIMARY) HYPERTENSION 10/19/2015 MADLJOSE JUANA L VOCAL TEACHER Ot I10 ESSENTIAL (PRIMARY) HYPERTENSION 10/21/2015 Ot 611.71 MASTODYNIA 10/21/2015 Ot 611.72 LUMP OR MASS IN BREAST 10/21/2015 MADL, ROZINA L VOCAL TEACHER Ot I10 ESSENTIAL (PRIMARY) HYPERTENSION 10/24/2015 MADL, ROZINA L VOCAL TEACHER Ot I10 ESSENTIAL (PRIMARY) HYPERTENSION 11/16/2015 Ot 611.71 MASTODYNIA 11/16/2015 Ot 611.72 LUMP OR MASS IN BREAST 11/16/2015 MADL, ROZINA L VOCAL TEACHER Ot I10 ESSENTIAL (PRIMARY) HYPERTENSION 11/24/2015 Ot 611.71 MASTODYNIA 11/24/2015 Ot 611.72 LUMP OR MASS IN BREAST 11/24/2015 MADL, ROZINA L VOCAL TEACHER Ot I10 ESSENTIAL (PRIMARY) HYPERTENSION 11/25/2015 TERRENCE MONTALVO APRN Ot Z12.31 ENCNTR SCREEN MAMMOGRAM FOR MALIGNANT NE 03/23/2016 Ot 611.71 MASTODYNIA 03/23/2016 Ot 611.72 LUMP OR MASS IN BREAST 03/23/2016 MADL, ROZINA L VOCAL TEACHER Ot I10 ESSENTIAL (PRIMARY) HYPERTENSION 03/23/2016 TERRENCE MONTALVO APRN Ot Z12.31 ENCNTR SCREEN MAMMOGRAM FOR MALIGNANT NE 03/28/2016 MADL, ROZINA L VOCAL TEACHER Ot E04.9 NONTOXIC GOITER, UNSPECIFIED 04/05/2016 MADL, ROZINA L VOCAL TEACHER Ot E04.9 NONTOXIC GOITER, UNSPECIFIED 04/05/2016 Ot 611.71 MASTODYNIA 04/05/2016 Ot 611.72 LUMP OR MASS IN BREAST 04/05/2016 MADL, ROZINA L VOCAL TEACHER Ot I10 ESSENTIAL (PRIMARY) HYPERTENSION 04/05/2016 TERRENCE MONTALVO APRN Ot Z12.31 ENCNTR SCREEN MAMMOGRAM FOR MALIGNANT NE 04/05/2016 MADL, ROZINA L VOCAL TEACHER Ot E04.9 NONTOXIC GOITER, UNSPECIFIED 04/06/2016 MADL, ROZINA L VOCAL TEACHER Ot E04.9 NONTOXIC GOITER, UNSPECIFIED 05/03/2016 MADL, ROZINA L VOCAL TEACHER Ot E04.9 NONTOXIC GOITER, UNSPECIFIED 05/03/2016 MADL, ROZINA L VOCAL TEACHER Ot E04.1 NONTOXIC SINGLE THYROID NODULE 05/08/2016 ROZINA SWANSON VOCAL TEACHER Ot E04.1 NONTOXIC SINGLE THYROID NODULE 03/11/2017 ROZINA SWANSONP Ot E04.1 NONTOXIC SINGLE THYROID NODULE Procedures Code Description [place] [address] A1C (IN-HOUSE) 02/15/2012 98323 ROUTINE VENIPUNCTURE 02/18/2012 29493 MAMMOGRAM DX, THOMAS 02/18/2012 78729 MAMMOGRAM, SCREENING 02/18/2012 60533 A1C (RML) 02/19/2012 55561 TSH 02/19/2012 01180 CMP 02/19/2012 0841060 GFR CALC (RESULT ONLY) 02/19/2012 94174 CBC 02/19/2012 12042 LIPID PANEL 02/19/2012 Results There is no data. Encounters ACCT No. Visit Date/Time Discharge Status Pt. Type Provider Facility Loc./Unit Complaint [id number] 02/18/2012 08:02:00 02/18/2012 23:59:59 CLS Outpatient TELLO CARTER DO [id number] 02/15/2012 10:47:00 02/15/2012 23:59:59 CLS Outpatient [id number] 09/11/2011 08:12:00 09/11/2011 23:59:59 CLS Outpatient [id number] 04/10/2016 11:50:00 04/10/2016 23:59:59 CLS Outpatient ROZINA SWANSON VOCAL TEACHER [facility] RAD RT THYROID NODULE [id number] 03/23/2016 10:31:00 03/23/2016 23:59:59 CLS Outpatient TORYAnujROZINA Anuj VOCAL TEACHER [facility] RAD ENLARGEMENT OF THYROID [id number] 11/24/2015 10:31:00 11/24/2015 23:59:59 CLS Outpatient TERRENCE MONTALVO APRN [facility] RAD SCREENING [id number] 10/18/2015 08:39:00 10/18/2015 23:59:59 CLS Outpatient KIKI ROZINA L VOCAL TEACHER [facility] RAD ESSENTIAL HTN [id number] 10/03/2014 19:35:00 10/03/2014 22:45:00 DIS Emergency DALLAS BURKS DO [facility] ER CHEST PAIN [id number] 06/04/2012 09:29:00 Document Registration [id number] 12/21/2009 11:56:00 Document Registration
--- OUTSIDE RECORDS SUMMARY | 2017-05-13 08:59 | XMS REPORT ---
Author Author ROZINA SWANSON [facility] Address [address] [place] [address] Care Team Providers Care Hourly Caregiver Name Role Phone ROZINA SWANSON Unavailable PROBLEMS Type Condition ICD9-CM Code [id number] Code Onset Dates Condition Status SNOMED Code Problem Hypertriglyceridemia E78.1 Active 554376567 Problem Renal insufficiency N28.9 Active 975397660 Problem Acquired hypothyroidism E03.9 Active 745469951 Problem Diabetic polyneuropathy associated with type 2 diabetes mellitus E11.42 Active 75944813 Problem Encounter for well woman exam Z01.419 Active 320715412 Problem Screening for STD (sexually transmitted disease) Z11.3 Active 938515095 Problem Encounter for screening breast examination Z12.39 Active 703621316 Problem Screening mammogram, encounter for Z12.31 Active 493886530 Problem Ventral hernia without obstruction or gangrene K43.9 Active 149000404 Problem Right thyroid nodule E04.1 Active 618024307 Problem Mixed hyperlipidemia E78.2 Active 455340125 Problem Heartburn R12 Active 98500736 Problem Essential hypertension I10 Active 02153650 Problem Type 2 diabetes mellitus with other diabetic kidney complication E11.29 Active 10448845 Problem Abnormal thyroid blood test R94.6 Active 298828216 Problem Proteinuria, unspecified R80.9 Active 52076609 Problem Enlargement of thyroid E04.9 Active 2408806 ALLERGIES No Information SOCIAL HISTORY Never Assessed [...]
--- OUTSIDE RECORDS SUMMARY | 2017-05-13 08:59 | XMS REPORT ---
Author Author ROIZNA SWANSON Organization [employer] Address Unknown Phone Unavailable Care Team Providers Care Director Child Name Role Phone ROZINA SWANSON CP Unavailable [...]
--- OUTSIDE RECORDS SUMMARY | 2017-05-13 08:59 | XMS REPORT ---
Author Author ROZINA SWANSON [facility] Address [address] [place] [address] Care Team Providers Care Printing Supervisor Name Role Phone ROZINA SWANSON Unavailable PROBLEMS Type Condition ICD9-CM Code [id number] Code Onset Dates Condition Status SNOMED Code Problem Hypertriglyceridemia E78.1 Active 052546065 Problem Renal insufficiency N28.9 Active 092543489 Problem Acquired hypothyroidism E03.9 Active 888541205 Problem Diabetic polyneuropathy associated with type 2 diabetes mellitus E11.42 Active 38506103 Problem Encounter for well woman exam Z01.419 Active 553059979 Problem Screening for STD (sexually transmitted disease) Z11.3 Active 443748005 Problem Encounter for screening breast examination Z12.39 Active 733756224 Problem Screening mammogram, encounter for Z12.31 Active 820151165 Problem Ventral hernia without obstruction or gangrene K43.9 Active 466934731 Problem Right thyroid nodule E04.1 Active 377356695 Problem Mixed hyperlipidemia E78.2 Active 515976838 Problem Heartburn R12 Active 95365134 Problem Essential hypertension I10 Active 81570047 Problem Type 2 diabetes mellitus with other diabetic kidney complication E11.29 Active 86921604 Problem Abnormal thyroid blood test R94.6 Active 424626212 Problem Proteinuria, unspecified R80.9 Active 03561263 Problem Enlargement of thyroid E04.9 Active 7724294 ALLERGIES Unknown Allergies SOCIAL HISTORY No smoking Hx information available PLAN OF CARE VITAL SIGNS MEDICATIONS Medication Instructions Dosage Frequency Start Date End Date Duration Status Gabapentin 300 MG Orally at bedtime 1 capsule Active RESULTS No Results PROCEDURES No Known procedures IMMUNIZATIONS No Known Immunizations
--- OUTSIDE RECORDS SUMMARY | 2017-05-13 08:59 | XMS REPORT ---
Author Author ROZINA SWANSON [facility] Address [address] [place] [address] Care Team Providers Care Treating Plant Supervisor Name Role Phone ROZINA SWANSON Unavailable PROBLEMS Type Condition ICD9-CM Code HTO51-XT Code Onset Dates Condition Status SNOMED Code Problem Hypertriglyceridemia E78.1 Active 173219731 Problem Renal insufficiency N28.9 Active 402676462 Problem Acquired hypothyroidism E03.9 Active 768173807 Problem Diabetic polyneuropathy associated with type 2 diabetes mellitus E11.42 Active 64221758 Problem Encounter for well woman exam Z01.419 Active 977704489 Problem Screening for STD (sexually transmitted disease) Z11.3 Active 251874992 Problem Encounter for screening breast examination Z12.39 Active 959479196 Problem Screening mammogram, encounter for Z12.31 Active 188376329 Problem Ventral hernia without obstruction or gangrene K43.9 Active 790732035 Problem Right thyroid nodule E04.1 Active 996728418 Problem Mixed hyperlipidemia E78.2 Active 149729063 Problem Heartburn R12 Active 69167359 Problem Essential hypertension I10 Active 02527014 Problem Type 2 diabetes mellitus with other diabetic kidney complication E11.29 Active 64869061 Problem Abnormal thyroid blood test R94.6 Active 942758547 Problem Proteinuria, unspecified R80.9 Active 87604474 Problem Enlargement of thyroid E04.9 Active 9334420 ALLERGIES No Information SOCIAL HISTORY Never Assessed PLAN OF CARE VITAL SIGNS MEDICATIONS Medication Instructions Dosage Frequency Start Date End Date Duration Status Gemfibrozil 600 MG Orally Twice a day 1 tablet 12h 30 days Active RESULTS No Results PROCEDURES [...] hypothyroidism Medical History [place] of eyes in 2012 noted during eye exam Medical History renal insufiency Medical History abdominal hernia Surgical History hysterectomy Surgical History hernia Surgical History tonsils Surgical History appendix Surgical History section Hospitalization History Surgery(s)/Childbirth(s) only
--- OUTSIDE RECORDS SUMMARY | 2017-05-13 08:59 | XMS REPORT ---
Author Author ROZINA SWANSON [facility] eClinicalWorks Address Unknown Phone Unavailable Care Team Providers Care Composing Machine Operator Name Role Phone ROZINA SWANSON CP Unavailable [...] for STD (sexually transmitted disease) Z11.3 Active Assessment Mixed hyperlipidemia E78.2 Active Problem Encounter for screening breast examination Z12.39 Active Assessment Acquired hypothyroidism E03.9 Active Assessment Renal insufficiency N28.9 Active Problem Encounter for well woman exam Z01.419 Active Problem Acquired hypothyroidism E03.9 Active Problem Renal insufficiency N28.9 Active Problem Screening mammogram, encounter for Z12.31 Active Problem Ventral hernia without obstruction or gangrene K43.9 Active Assessment Proteinuria, unspecified R80.9 Active Assessment Type 2 diabetes mellitus with other diabetic kidney complication E11.29 Active Assessment Enlargement of thyroid E04.9 Active Assessment Heartburn R12 Active Problem Mixed hyperlipidemia E78.2 Active Problem Abnormal thyroid blood test R94.6 Active Assessment Essential hypertension I10 Active Problem Heartburn R12 Active Problem Enlargement of thyroid E04.9 Active Problem Proteinuria, unspecified R80.9 Active Medications Medication Code System Code Instructions Start Date End Date Status Dosage Omeprazole [facility] [address]-08 40 mg Orally Once a day 1 capsule Levothyroxine Sodium [facility] [address]-63 50 MCG Orally Once a day 1 tablet on an empty stomach in the morning Glimepiride [facility] [address]-76 1 MG Orally twice a day Nov 25, 2015 1 tablet with meals MetFORMIN HCl ER [facility] [address]-65 500 MG Orally twice a day 2 tablets Gemfibrozil [facility] [address]-64 600 MG Orally Twice a day 1 tablet Lovastatin [facility] [address]-28 40 mg Orally Once a day 1 tablet with a meal Vivienne Wagner-Chromium [facility] 42507-44582 500-200 MG-MCG Orally not defined One Touch Delica Lancets [facility] 0 Test Strips One touch Verio Flex .... Losartan Potassium [facility] [address]-16 100 MG Orally Once a day 1/2 tablet Procedures Procedure Coding System Code Date Office Visit, Est Pt., Level 4 CPT-4 55648 Dec 01, 2015 VENIPUNCT, ROUTINE* CPT-4 01343 Dec 01, 2015 COMPREHEN METABOLIC PANEL CPT-4 48638 Dec 01, 2015 Vital Signs Date/Time: Dec 01, 2015 Cardiac Monitoring Heart Rate 90 bpm Weight 148.5 lbs Height 61.5 in BMI 27.60 Index Blood Pressure Diastolic 76 mmHg Blood Pressure Systolic 134 mmHg Results Name Result Date Reference Range Unit Abnormality Flag ROUTINE VENIPUNCTURE CMP ----Sodium, Serum 140 20151201 134-144 mmol/L ----BUN/Creatinine Ratio 28 20151201 9-23 H ----Chloride, Serum 99 20151201 97-108 mmol/L ----Potassium, Serum 4.6 20151201 3.5-5.2 mmol/L ----Calcium, Serum 10.5 20151201 8.7-10.2 mg/dL H ----Protein, Total, Serum 7.7 20151201 6.0-8.5 g/dL ----Carbon Dioxide, Total 21 20151201 18-29 mmol/L ----A/G Ratio 1.8 20151201 1.1-2.5 ----eGFR If NonAfricn Am 92 [id number] >59 mL/min/1.73 ----Bilirubin, Total 0.3 14975737 0.0-1.2 mg/dL ----eGFR If Africn Am 106 [id number] >59 mL/min/1.73 ----BUN 21 20151201 6-24 mg/dL ----Albumin, Serum 4.9 20151201 3.5-5.5 g/dL ----Globulin, Total 2.8 [id number] 1.5-4.5 g/dL ----Creatinine, Serum 0.74 20151201 0.57-1.00 mg/dL ----ALT (SGPT) 50 20151201 0-32 IU/L H ----Glucose, Serum 174 20151201 65-99 mg/dL H ----Alkaline Phosphatase, S 104 20151201 39-117 IU/L ----AST (SGOT) 39 20151201 0-40 IU/L Summary Purpose eClinicalWorks Submission
--- OUTSIDE RECORDS SUMMARY | 2017-05-13 08:59 | XMS REPORT ---
Author Author ROZINA SWANSON [facility] eClinicalWorks Address Unknown Phone Unavailable Care Team Providers Care Hotel Guest Service Agent Name Role Phone ROZINA SWANSON CP Unavailable Allergies, Adverse Reactions, Alerts Substance Reaction Event Type Victoza 0.6 Mg/0.1 Ml (18 Mg/3 Ml) Pen Injector nausea Non Drug Allergy Problems Problem Type Condition Code Onset Dates Condition Status Assessment Proteinuria, unspecified R80.9 Active Assessment Essential hypertension I10 Active Assessment Type 2 diabetes mellitus with other diabetic kidney complication E11.29 Active Problem Essential hypertension I10 Active Problem Proteinuria, unspecified R80.9 Active Problem Type 2 diabetes mellitus with other diabetic kidney complication E11.29 Active Problem Mixed hyperlipidemia E78.2 Active Problem Enlargement of thyroid E04.9 Active Problem Heartburn R12 Active Problem Abnormal thyroid blood test R94.6 Active Assessment Enlargement of thyroid E04.9 Active Assessment Mixed hyperlipidemia E78.2 Active Assessment Abnormal thyroid blood test R94.6 Active Assessment Heartburn R12 Active Medications Medication Code System Code Instructions Start Date End Date Status Dosage Lucilainia Karlosogia-Chromium [facility] 9[address]54-[address]195 500-200 MG-MCG Orally not defined One Touch Delica Lancets [facility] 0 Test Strips One touch Verio Flex Oct 13, 2015 .... Omeprazole [facility] [address]-07 40 mg Orally Once a day Oct 13, 2015 1 capsule Lisinopril [facility] [address]-29 10 mg Orally Once a day Oct 13, 2015 1 tablet MetFORMIN HCl ER [facility] [address]-02 500 MG Orally twice a day Oct 13, 2015 1 tablet daily x 7 days then 1 bid x 7 days, then2 am and 1 pm x 7 days then 2 tabs bid Amoxicillin [facility] [address]-96 500 MG Orally 3 times a day Oct 07, 2015 Oct 14, 2015 1 capsule Procedures Procedure Coding System Code Date Office Visit, Est Pt., Level 5 CPT-4 81360 Oct 13, 2015 VENIPUNCT, ROUTINE* CPT-4 51796 Oct 13, 2015 MICROALBUMIN, SEMIQUANT CPT-4 56898 Oct 13, 2015 ASSAY OF URINE CREATININE CPT-4 17410 Oct 13, 2015 GLYCATED HEMOGLOBIN TEST CPT-4 22188 Oct 13, 2015 LIPID PANEL CPT-4 91206 Oct 13, 2015 COMPLETE CBC W/AUTO DIFF WBC CPT-4 25243 Oct 13, 2015 IMMUNOASSAY,INFECTIOUS AGENT CPT-4 31593 Oct 13, 2015 COMPREHEN METABOLIC PANEL CPT-4 10119 Oct 13, 2015 MICROALBUMIN, QUANTITATIVE CPT-4 56185 Oct 13, 2015 ASSAY OF FREE THYROXINE CPT-4 44494 Oct 13, 2015 ASSAY THYROID STIM HORMONE CPT-4 76629 Oct 13, 2015 Vital Signs Date/Time: Oct 13, 2015 Cardiac Monitoring Heart Rate 98 bpm Weight 150.6 lbs Height 61.5 in BMI 27.99 Index Blood Pressure Diastolic 102 mmHg Blood Pressure Systolic 172 mmHg Results No Known Results Summary Purpose eClinicalWorks Submission
--- OUTSIDE RECORDS SUMMARY | 2017-05-13 08:59 | XMS REPORT ---
Author Author ROZINA SWANSON [facility] Address [address] [place] [address] Care Team Providers Care Community Relations Advisor Name Role Phone ROZINA SWANSON Unavailable PROBLEMS Type Condition ICD9-CM Code [id number] Code Onset Dates Condition Status SNOMED Code Problem Type 2 diabetes mellitus with other diabetic kidney complication E11.29 Active 84007990 Problem Renal insufficiency N28.9 Active 867962224 Problem Hypertriglyceridemia E78.1 Active 148974996 Problem Encounter for well woman exam Z01.419 Active 294898645 Problem Screening for STD (sexually transmitted disease) Z11.3 Active 204669522 Problem Ventral hernia without obstruction or gangrene K43.9 Active 612212711 Problem Acquired hypothyroidism E03.9 Active 254902549 Problem Encounter for screening breast examination Z12.39 Active 707436246 Problem Screening mammogram, encounter for Z12.31 Active 048681149 Assessment Renal insufficiency N28.9 19 Nov, 2016 Active 882113657 Problem Abnormal thyroid blood test R94.6 Active 950731834 Problem Heartburn R12 Active 32878285 Problem Enlargement of thyroid E04.9 Active 1094667 Problem Proteinuria, unspecified R80.9 Active 81738102 Problem Mixed hyperlipidemia E78.2 Active 728963261 Problem Essential hypertension I10 Active 96892358 ALLERGIES Unknown Allergies SOCIAL HISTORY No smoking Hx information available PLAN OF CARE VITAL SIGNS MEDICATIONS Unknown Medications RESULTS No Results PROCEDURES No Known procedures IMMUNIZATIONS No Known Immunizations
--- NOTE | 2017-05-13 11:38 | History & Physicial (CHS) ---
HPI History of Present Illness: 56 yo F that presented to ER after fall on Saturday morning. Patient states that she was standing on a stool to change the time on the clock when she feel off the stool. Patient states that she landed on her Left hip and scraped her hand. Denies hitting her head. States that her pain is well controlled right now. Patient states that she has been diagnosed with HTN and DM in the past but that she stopped all medications last year. Source: patient, family, old records Exam Limitations: no limitations Date seen by provider: May 13, 2017 Time Seen by Provider: 10:15 Attending Physician Yelena Christine DO [facility] [place] Consult Date of Admission May 12, 2017 at 12:30 Home Medications Home Medications Reviewed patient Home Medication Reconciliation Form Allergies Coded Allergies: liraglutide (Verified Allergy, Mild, NAUSEA, 05/12/17) AYH-Sudloi-Ddnlln Hx Patient Social History Living Status: Lives at home with Alcohol Use: Denies Use Recreational Drug Use: No Smoking Status: Former Smoker Former smoker/When Quit: Oct 28, 2006 Recent Foreign Travel: No Contact w/other who traveled: No Recent Infectious Disease Expo: No Physical Abuse Screen: No Sexual Abuse: No Past Medical History HTN NIDDM Thyroid Goiter Family Medical History Family History: Alcoholism Arthritis Asthma Cardiovascular disease Congenital heart disease Coronary thrombosis Dementia Diabetes mellitus Hypertension Myocardial infarction Parkinson's disease Respiratory disorder Thyroid disease Visual disorder Review of Systems ([facility]) Constitutional: no symptoms reported EENTM: no symptoms reported Respiratory: no symptoms reported, No cough, No dyspnea on exertion, No short of breath Cardiovascular: no symptoms reported, No chest pain, No palpitations Gastrointestinal: no symptoms reported, No abdominal pain, No constipation, No diarrhea, No melena, No nausea Genitourinary: No dysuria, frequency, No hematuria : No Musculoskeletal: joint pain (Occassional left hip pain) Skin: no symptoms reported Psychiatric/Neurological: No Symptoms Reported, Denies Anxiety, Denies Depressed, Denies Weakness Reviewed Test Results Reviewed Test Results Lab Laboratory Tests Test 05/12/17 11:50 05/12/17 12:30 05/12/17 13:07 05/12/17 14:59 Range/Units White Blood Count 9.5 4.3-11.0 10^3/uL Red Blood Count 4.38 4.35-5.85 10^6/uL Hemoglobin 12.4 11.5-16.0 G/DL Hematocrit 36 35-52 % Mean Corpuscular Volume 81 80-99 FL Mean Corpuscular Hemoglobin 28 25-34 PG Mean Corpuscular Hemoglobin Concent 35 32-36 G/DL Red Cell Distribution Width 14.0 10.0-14.5 % Platelet Count 211 130-400 10^3/uL Mean Platelet Volume 11.1 H 7.4-10.4 FL Neutrophils (%) (Auto) 70 42-75 % Lymphocytes (%) (Auto) 22 12-44 % Monocytes (%) (Auto) 6 0-12 % Eosinophils (%) (Auto) 2 0-10 % Basophils (%) (Auto) 0 0-10 % Neutrophils # (Auto) 6.6 1.8-7.8 X 10^3 Lymphocytes # (Auto) 2.1 1.0-4.0 X 10^3 Monocytes # (Auto) 0.5 0.0-1.0 X 10^3 Eosinophils # (Auto) 0.2 0.0-0.3 10^3/uL Basophils # (Auto) 0.0 0.0-0.1 10^3/uL Prothrombin Time 13.3 12.2-14.7 SEC INR Comment 1.0 0.8-1.4 Activated Partial Thromboplast Time 26 24-35 SEC Urine Color YELLOW Urine Clarity SLIGHTLY CLOUDY Urine pH 5 5-9 Urine Specific Teague 1.015 L 1.016-1.022 Urine Protein 2+ H NEGATIVE Urine Glucose (UA) 4+ H NEGATIVE Urine Ketones NEGATIVE NEGATIVE Urine Nitrite NEGATIVE NEGATIVE Urine Bilirubin NEGATIVE NEGATIVE Urine Urobilinogen NORMAL NORMAL MG/DL Urine Leukocyte Esterase NEGATIVE NEGATIVE Urine RBC (Auto) NEGATIVE NEGATIVE Urine RBC 0-2 /HPF Urine WBC 5-10 H /HPF Urine Crystals PRESENT H /LPF Urine Amorphous Sediment LARGE СВЕТЛАНА URATES H /LPF Urine Bacteria FEW H /HPF Urine Casts NONE /LPF Urine Mucus NEGATIVE /LPF Urine Culture Indicated YES Sodium Level 130 L 135-145 MMOL/L Potassium Level 4.1 3.6-5.0 MMOL/L Chloride Level 98 98-107 MMOL/L Carbon Dioxide Level 18 L 21-32 MMOL/L Anion Gap 14 5-14 MMOL/L Blood Urea Nitrogen 26 H 7-18 MG/DL Creatinine 0.95 0.60-1.30 MG/DL Estimat Glomerular Filtration Rate > 60 BUN/Creatinine Ratio 27 Glucose Level 464 *H 70-105 MG/DL Calcium Level 9.3 8.5-10.1 MG/DL Total Bilirubin 0.3 0.1-1.0 MG/DL Aspartate Amino Transf (AST/SGOT) 20 5-34 U/L Alanine Aminotransferase (ALT/SGPT) 25 0-55 U/L Alkaline Phosphatase 150 H 40-136 U/L Total Protein 8.1 6.4-8.2 GM/DL Albumin 4.0 3.2-4.5 GM/DL Thyroid Stimulating Hormone (TSH) 2.12 0.35-4.94 UIU/ML Glucometer 296 H 70-110 MG/DL Test 05/12/17 15:15 05/12/17 19:22 05/12/17 20:36 05/13/17 01:28 Range/Units Glucometer 292 H 329 H 358 H 236 H 70-110 MG/DL Test 05/13/17 05:26 05/13/17 10:33 Range/Units White Blood Count 7.5 4.3-11.0 10^3/uL Red Blood Count 4.25 L 4.35-5.85 10^6/uL Hemoglobin 11.9 11.5-16.0 G/DL Hematocrit 35 35-52 % Mean Corpuscular Volume 81 80-99 FL Mean Corpuscular Hemoglobin 28 25-34 PG Mean Corpuscular Hemoglobin Concent 34 32-36 G/DL Red Cell Distribution Width 13.6 10.0-14.5 % Platelet Count 198 130-400 10^3/uL Mean Platelet Volume 10.9 H 7.4-10.4 FL Neutrophils (%) (Auto) 65 42-75 % Lymphocytes (%) (Auto) 24 12-44 % Monocytes (%) (Auto) 7 0-12 % Eosinophils (%) (Auto) 4 0-10 % Basophils (%) (Auto) 0 0-10 % Neutrophils # (Auto) 4.9 1.8-7.8 X 10^3 Lymphocytes # (Auto) 1.8 1.0-4.0 X 10^3 Monocytes # (Auto) 0.5 0.0-1.0 X 10^3 Eosinophils # (Auto) 0.3 0.0-0.3 10^3/uL Basophils # (Auto) 0.0 0.0-0.1 10^3/uL Sodium Level 132 L 135-145 MMOL/L Potassium Level 3.8 3.6-5.0 MMOL/L Chloride Level 103 98-107 MMOL/L Carbon Dioxide Level 18 L 21-32 MMOL/L Anion Gap 11 5-14 MMOL/L Blood Urea Nitrogen 13 7-18 MG/DL Creatinine 0.71 0.60-1.30 MG/DL Estimat Glomerular Filtration Rate > 60 BUN/Creatinine Ratio 18 Glucose Level 293 H 70-105 MG/DL Calcium Level 8.9 8.5-10.1 MG/DL Magnesium Level 1.8 1.8-2.4 MG/DL Triglycerides Level 1599 H <150 MG/DL Cholesterol Level 424 H < 200 MG/DL LDL Cholesterol Direct 88 1-129 MG/DL VLDL Cholesterol 320 H 5-40 MG/DL HDL Cholesterol 32 L 40-60 MG/DL Glucometer 302 H 70-110 MG/DL Radiology Date of Exam: 05/12/17 CT PELVIS WO PROCEDURE: CT pelvis without contrast. TECHNIQUE: Multiple contiguous axial images were obtained through the pelvis without the use of intravenous contrast. Sagittal and coronal reformations were performed. INDICATION: Fall on left hip. COMPARISON: Left hip radiographs from earlier today. FINDINGS: There is a nondisplaced mildly impacted left subcapital hip fracture. The pelvis and proximal right femur are intact. Mild scattered atherosclerotic calcifications. Holliday catheter. Hysterectomy. The visualized pelvic contents are otherwise unremarkable. IMPRESSION: Mildly impacted left subcapital hip fracture. Physical Exam-([facility]) Physical Exam Vital Signs VS - Last 72 Hours, by Label 05/12/17 05/12/17 05/12/17 05/12/17 10:35 13:25 15:01 15:09 Temp 98.5 97.1 Pulse 97 82 87 97 Resp 20 20 20 20 B/P (MAP) 148/91 (110) 135/89 (110) 131/70 126/63 (84) Pulse Ox 99 99 98 98 O2 Delivery Room Air 05/12/17 05/12/17 05/12/17 05/13/17 16:04 20:00 23:45 03:11 Temp 77.1 97.9 97.7 Pulse 99 95 91 Resp 16 16 14 B/P (MAP) 134/63 (86) 156/86 (109) 135/65 (88) Pulse Ox 97 97 96 O2 Delivery Room Air Room Air Room Air Room Air 05/13/17 05/13/17 07:27 09:00 Temp 99.2 Pulse 86 Resp 20 B/P (MAP) 152/74 (100) Pulse Ox 95 O2 Delivery Room Air Room Air Capillary Refill : Less Than 3 SecondsLess Than 3 Seconds General Appearance: WD/WN, no apparent distress HEENT: PERRL/EOMI Neck: non-tender, full range of motion, supple Respiratory: chest non-tender, no respiratory distress, no accessory muscle use Cardiovascular: normal peripheral pulses, regular rate, rhythm, no edema, no murmur Gastrointestinal: normal bowel sounds, non tender, soft, no organomegaly, no pulsatile mass Back: no CVA tenderness, no vertebral tenderness Extremities: no pedal edema, no calf tenderness, normal capillary refill, other (Left hip with point tenderness) Neurologic/Psychiatric: 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 health clinician II-XII nml as tested, no motor/sensory deficits, alert, normal mood/affect, oriented x 3 Skin: normal color, warm/dry Lymphatic: no adenopathy Assessment/Plan Assessment/Plan Admission Status: Inpatient Order (span 2 midnights) Reason for Inpatient Admission: Surgery to repair left hip fracture (1) Closed left hip fracture Status: Acute Assessment & Plan: - Plan for surgery today - Will have Rehab evaluate patient in AM Qualifiers: Qualified Codes: S72.002A - Fracture of unspecified part of neck of left femur, initial encounter for closed fracture (2) HTN (hypertension) Status: Chronic Assessment & Plan: - Continue to monitor, Will likely need medication at discharge Qualifiers: Qualified Codes: I10 - Essential (primary) hypertension (3) Non-insulin dependent type 2 diabetes mellitus Status: Chronic Assessment & Plan: - A1c pending - SSI ordered (4) Thyroid goiter Status: Chronic Clinical Quality Measures DVT/VTE Risk/Contraindication: Risk Factor Score Per Nursin RFS Level Per Nursing on Admit: 4+=Very High Copy Copies To 1: ANDREW PLATT MD, HOLLY R MD May 13, 2017 11:37
[2017-05-13 12:00] VITALS: BP 151/67
[2017-05-13] MEDS ORDERED: LACTATED RINGERS 1,000 ML IV PRN (12:00)
[2017-05-13] MEDS: ONDANSETRON 4 MG/2 ML (SDV) Z0FRAN IV PRN (12:29)
[2017-05-13 12:31] LABS: AMPHETAMINE SCREEN, URINE NEGATIVE (NEGATIVE); BARBITURATE SCREEN URINE NEGATIVE (NEGATIVE); BENZODIAZEPINES SCREEN URINE NEGATIVE (NEGATIVE); CANNABINOID SCREEN, URINE NEGATIVE (NEGATIVE); COCAINE SCREEN URINE NEGATIVE (NEGATIVE); METHADONE STAT NEGATIVE (NEGATIVE); METHAMPHETAMINE SCREEN URINE S NEGATIVE (NEGATIVE); OPIATE SCREEN URINE NEGATIVE (NEGATIVE); OXYCODONE STAT NEGATIVE (NEGATIVE); PROPOXYPHENE STAT NEGATIVE (NEGATIVE); TRICYCLIC ANTIDEPRESSANTS SCRE NEGATIVE (NEGATIVE)
[2017-05-13] MEDS ORDERED: morphine INJ 10 MG/ML 1ML (SYR OR VIAL) ONE (16:04)
[2017-05-13] MEDS ORDERED: MEPERIDINE (DEMEROL) INJ 50 MG/ML ONE (16:04)
[2017-05-13] MEDS: cefTRIAXone INJECTION 1,000 MG in NS (IVPB) 100 ML IV SCH (16:08)
[2017-05-13 16:30] VITALS: BP 130/78
[2017-05-13] MEDS ORDERED: MIDAZOLAM 2 MG/2 ML (VERSED) VIAL ONE (16:47)
[2017-05-13] MEDS ORDERED: fentaNYL INJECTION 100 MCG/2 ML AMP ONE (16:47)
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
[2017-05-13] MEDS ORDERED: proPOfol 200 MG/20 ML (DIPRIVAN) VIAL IV ONE (18:05)
[2017-05-13] MEDS ORDERED: PHENYLEPHRINE 100 MCG/ML 10 ML (ANESTHESIA) SYR ONE (18:06)
[2017-05-13] MEDS ORDERED: ROCURONIUM 10 MG/ML 5 ML SYRINGE IV ONE (18:06)
[2017-05-13] MEDS ORDERED: SEVOFLURANE (ULTANE) 15 ML INHAL SOLN ONE (18:06)
[2017-05-13] MEDS ORDERED: ONDANSETRON 4 MG/2 ML (SDV) Z0FRAN ONE (18:06)
[2017-05-13] MEDS ORDERED: SUCCINYLCHOLINE INJ 100 MG/5 ML SYR ONE (18:06)
[2017-05-13] MEDS ORDERED: HYDROmorphone (DILAUDID) 2 MG/ML VIAL IVP PRN (18:30)
[2017-05-13] MEDS ORDERED: ONDANSETRON 4 MG/2 ML (SDV) Z0FRAN IVP PRN (18:30)
[2017-05-13] MEDS ORDERED: MEPERIDINE (DEMEROL) INJ 50 MG/ML IVP PRN (18:30)
[2017-05-13] MEDS: morphine INJ 10 MG/ML 1ML (SYR OR VIAL) IVP PRN ×3 (18:30→18:38)
--- NOTE | 2017-05-13 18:33 | Progress Note-Post Operative ---
Post-Operative Progess Note Surgeon (s)/Supervisor Grips (s) Surgeon SHEYLA TREJO DO Supervisor Grips: None Pre-Operative Diagnosis Valgus impacted fracture Left femoral neck, Garden type 1 Post-Operative Diagnosis Same Procedure & Operative Findings Date of Procedure 05/13/17 Procedure Performed/Findings Procedure: In Situ fixation valgus impacted fracture Left femoral neck. Complications: None Disposition: Stable, to PACU Anesthesia Type GETA Estimated Blood Loss Estimated blood loss (mL): 25 mL Specimens/Packing Specimens Removed None SHEYLA TREJO DO May 13, 2017 18:33
--- NOTE | 2017-05-13 18:40 | Diagnostic Imaging Report ---
INDICATION: Left hip pinning. FINDINGS: Two spot intraoperative views demonstrate 3 screws in the left femoral neck fracture. Fracture fragments are in excellent alignment. Joint space appears unremarkable. A total of 138 seconds of fluoroscopy time was utilized. IMPRESSION: Intraoperative fluoroscopy for pinning of the left femoral neck fracture. Dictated by: Dictated on workstation # [id number]
[2017-05-13] MEDS: LACTATED RINGERS 1,000 ML IV SCH (19:59)
[2017-05-13] MEDS: ceFAZolin 2 GM IV Premixed 50 ML IV SCH (20:00)
[2017-05-13 20:44] VITALS: BP 175/81
[2017-05-13] MEDS: FAMOTIDINE 20 MG (PEPCID) TABLET PO SCH (20:56)
[2017-05-14] VITALS: BP 132/65
[2017-05-14] MEDS: ONDANSETRON 4 MG/2 ML (SDV) Z0FRAN IV PRN ×2 (02:05→08:48)
[2017-05-14] MEDS: ACETAMINOPHEN 325 MG TABLET/CAPLET (TYLENOL) PO PRN ×3 (02:06→16:05)
[2017-05-14] MEDS: ceFAZolin 2 GM IV Premixed 50 ML IV SCH ×2 (03:11→10:39)
[2017-05-14] MEDS: LACTATED RINGERS 1,000 ML IV SCH (03:55)
[2017-05-14 04:00] VITALS: BP 146/69
[2017-05-14] MEDS: inSUlin (REGULAR) HUMAN 1 UNIT/0.01 ML (CHARGE PER UNIT) SC SCH ×4 (06:11→20:47)
[2017-05-14 06:32] LABS: BASOPHILS % (AUTO) 0 % (0-10); EOSINOPHILS # (AUTO) 0.1 10^3/uL (0.0-0.3); EOSINOPHILS % (AUTO) 1 % (0-10); HEMATOCRIT 33 % (35-52); HEMOGLOBIN 11.1 G/DL (11.5-16.0); LYMPHOCYTES # (AUTO) 1.5 X 10^3 (1.0-4.0); LYMPHOCYTES % (AUTO) 19 % (12-44); MEAN CORPUSCULAR HEMOGLOBIN 28 PG (25-34); MEAN CORPUSCULAR HGB CONC 34 G/DL (32-36); MEAN CORPUSCULAR VOLUME 83 FL (80-99); MEAN PLATELET VOLUME 10.9 FL (7.4-10.4); MONOCYTES # (AUTO) 0.5 X 10^3 (0.0-1.0); MONOCYTES % (AUTO) 6 % (0-12); NEUTROPHILS # (AUTO) 6.1 X 10^3 (1.8-7.8); NEUTROPHILS % (AUTO) 75 % (42-75); PLATELET COUNT 187 10^3/uL (130-400); RED BLOOD COUNT 3.97 10^6/uL (4.35-5.85); RED CELL DISTRIBUTION WIDTH 13.6 % (10.0-14.5); WHITE BLOOD COUNT 8.2 10^3/uL (4.3-11.0)
[2017-05-14 06:50] LABS: ALANINE AMINOTRANSFERASE 19 U/L (0-55); ALBUMIN 3.5 GM/DL (3.2-4.5); ALKALINE PHOSPHATASE 103 U/L (40-136); BILIRUBIN,TOTAL 0.3 MG/DL (0.1-1.0); BUN/CREATININE RATIO 12; CALCIUM 8.8 MG/DL (8.5-10.1); CARBON DIOXIDE 22 MMOL/L (21-32); CHLORIDE 102 MMOL/L (98-107); CREATININE SERUM 0.76 MG/DL (0.60-1.30); GFR ESTIMATED > 60; GLUCOSE 281 MG/DL (70-105); POTASSIUM 3.7 MMOL/L (3.6-5.0); SODIUM 133 MMOL/L (135-145); TOTAL PROTEIN 6.5 GM/DL (6.4-8.2)
[2017-05-14 08:00] VITALS: BP 160/79
[2017-05-14] MEDS: ENOXAPARIN 40 MG/0.4 ML (LOVENOX) SYR SC SCH (08:31)
[2017-05-14] MEDS: NS IV 1000 ML 1,000 ML IV SCH (08:41)
--- NOTE | 2017-05-14 10:16 | Physical Therapy Evaluation ---
PT Evaluation-General Medical Diagnosis Admission Date May 12, 2017 at 12:30 Medical Diagnosis: left hip fracture Onset Date: May 12, 2017 Therapy Diagnosis Therapy Diagnosis: debility Height/Weight Height (Feet): 5 Height (Inches): 0.00 Weight (Pounds): 123 Weight (Ounces): 0.0 Precautions Precautions/Isolations: Fall Prevention, Standard Precautions Weight Bear Status Right Lower Extremity: Right Full Weight Bearing Left Lower Extremity: Left Non Weight Bearing Referral Physician: Alek Reason for Referral: Evaluation/Treatment Medical History Pertinent Medical History: DM, HTN Additional Medical History patient has ceased taking her DM medication, taking blood sugars, etc. months prior Current History ED secondary to fall at home adjusting a wall clock. Reviewed History: Yes Social History Home: Single Level Current Living Status: Spouse Entry Into Home: Stairs With Railing PT Steps Into Home: 2 Prior/Core FIM Prior Level of Function Functional [place] Measure 0=Not Assessed/NA 4=Minimal Assistance 1=Total Assistance 5=Supervision or Setup 2=Maximal Assistance 6=Modified [place] 3=Moderate Assistance 7=Complete [place] Bed Mobility: 7 Transfers (B,C,W/C) (FIM): 7 Gait: 7 PT Evaluation-Current Subjective Patient rates left LE pain 5/10. Pain Numeric Pain Scale: 5-Moderate Pain Location: Left Location Body Site: Hip Pain Description: Acute Objective Patient Orientation: Normal For Age Problem Solving: Good Attachments: IV ROM/Strength ROM Lower Extremities bilateral LE WNL Strength Lower Extremities right knee flexion/extension 5/5; hip flexion 5/5; DF/PF 5/5 left LE WN Integumentary/Posture Integumentary refer to nursing notes Bowel Incontinence: No Bladder Incontinence: No Posture WNL Neuromuscular (Tone, Coordination, Reflexes) grossly intact Sensory Vision: Wears Glasses Hearing: Functional Sensation Right Lower Extremit: Intact Sensation Left Lower Extremity: Intact Transfers Functional [place] Measure 0=Not Assessed/NA 4=Minimal Assistance 1=Total Assistance 5=Supervision or Setup 2=Maximal Assistance 6=Modified [place] 3=Moderate Assistance 7=Complete [place] Transfers (B, C, W/C) (FIM): 5 Scootin Rollin Supine to/from Sit: 5 Sit to/from Stand: 5 Gait Mode of Locomotion: Walk Anticipated Mode of Locomotion: Walk Gait (FIM): 1 Distance (FIM): 1=up to 49 ft Distance: 30' Gait Level of Assist: 5 Gait Assistive Device: FWW Comments/Gait Description Patient is able to comply with NWB left LE Balance Sitting Static: Normal Sitting Dynamic: Normal Standing Static: Good Standing Dynamic: Good Assessment/Needs 56 y.o. female, will benefit from skilled PT to address functional mobility to return to home safely with spouse. Patient is currently at [facility]. Rehab Potential: Good PT Jail Goals Newsroom Intern Goals PT Jail Goals Time Frame: May 22, 2017 Transfers (B,C,W/C) (FIM): 5 Gait (FIM): 2 Gait distance (FIM): 9=010-65 ft Distance: 75' Gait Level of Assist: 5 Gait Assistive Device: FWW Stairs (FIM): 2 # of Steps: 2 Stairs Level Of Assist: 5 PT Plan Treatment/Plan Treatment Plan: Continue Plan of Care Treatment Plan: Education, Functional Activity Melonie, Functional Strength, Gait , Safety, Therapeutic Exercise, Transfers Treatment Duration: May 22, 2017 Frequency: 11 times per week Estimated Hrs Per Day: .5 hour per day Patient and/or Family Agrees t: Yes Safety Risks/Education Patient Education: Gait Training Teaching Recipient: Patient Teaching Methods: Demonstration, Discussion Response to Teaching: Verbalize Understanding, Return Demonstration Discharge Recommendations Therapy D/C Recommendations: Home w/ Family Support Time/GCodes Time In: 820 Time Out: 840 Total Billed Treatment Time: 20 Total Billed Treatment 1 visit EVMod 20 min MART GRAHAM PT May 14, 2017 10:16
[2017-05-14] MEDS: LOSARTAN 50 MG (COZAAR) TAB PO SCH (10:39)
--- NOTE | 2017-05-14 11:18 | Progress Note (SOAP) ---
Subjective Subjective/Events-last exam Patient states that she is doing well this AM. Pain is well controlled. Tolerating diet. BM last night Review of Systems Date Seen by Provider: May 14, 2017 Time Seen by Provider: 10:11 Pulmonary: No Dyspnea, Cough Cardiovascular: No: Chest Pain, Palpitations Gastrointestinal: No: Nausea, Vomiting, Abdominal Pain Objective Exam Last Set of Vital Signs Vital Signs Date Time Temp Pulse Resp B/P (MAP) Pulse Ox O2 Delivery O2 Flow Rate FiO2 05/14/17 09:23 Room Air 05/14/17 08:00 98.4 95 20 160/79 (106) 95 Capillary Refill : Less Than 3 SecondsLess Than 3 Seconds I&O Intake and Output 05/14/17 00:00 Intake Total 1200 ml Output Total 4365 ml Balance -3165 ml Intake Oral 1200 ml Output Urine Total 4365 ml General: Alert, Oriented X3, Cooperative, No Acute Distress HEENT: Mucous Memb Moist/[place] Neck: Supple, No JVD Lungs: Clear to Auscultation, Normal Air Movement Heart: Regular Rate, No Murmurs Abdomen: Normal Bowel Sounds, Soft, No Tenderness, No Masses Extremities: No Edema, No Tenderness/Swelling Results/Procedures Lab Laboratory Tests 05/13/17 12:15: Urine Opiates Screen NEGATIVE, Urine Oxycodone Screen NEGATIVE, Urine Methadone Screen NEGATIVE, Urine Propoxyphene Screen NEGATIVE, Urine Barbiturates Screen NEGATIVE, Ur Tricyclic Antidepressants Screen NEGATIVE, Urine Phencyclidine Screen NEGATIVE, Urine Amphetamines Screen NEGATIVE, Urine Methamphetamines Screen NEGATIVE, Urine Benzodiazepines Screen NEGATIVE, Urine Cocaine Screen NEGATIVE, Urine Cannabinoids Screen NEGATIVE 05/13/17 16:08: Glucometer 255H 05/13/17 20:44: Glucometer 394H 05/14/17 05:28: Glucometer 287H 05/14/17 05:40: White Blood Count 8.2, Red Blood Count 3.97L, Hemoglobin 11.1L, Hematocrit 33L, Mean Corpuscular Volume 83, Mean Corpuscular Hemoglobin 28, Mean Corpuscular Hemoglobin Concent 34, Red Cell Distribution Width 13.6, Platelet Count 187, Mean Platelet Volume 10.9H, Neutrophils (%) (Auto) 75, Lymphocytes (%) (Auto) 19 , Monocytes (%) (Auto) 6, Eosinophils (%) (Auto) 1, Basophils (%) (Auto) 0, Neutrophils # (Auto) 6.1, Lymphocytes # (Auto) 1.5, Monocytes # (Auto) 0.5, Eosinophils # (Auto) 0.1, Basophils # (Auto) 0.0, Sodium Level 133L, Potassium Level 3.7, Chloride Level 102, Carbon Dioxide Level 22, Anion Gap 9, Blood Urea Nitrogen 9, Creatinine 0.76, Estimat Glomerular Filtration Rate > 60, BUN/ Creatinine Ratio 12, Glucose Level 281H, Calcium Level 8.8, Total Bilirubin 0.3 , Aspartate Amino Transf (AST/SGOT) 13, Alanine Aminotransferase (ALT/SGPT) 19, Alkaline Phosphatase 103, Total Protein 6.5, Albumin 3.5 Microbiology 05/12/17 Urine Culture - Preliminary, Resulted Neda Braga Neg (DRUG PURCHASER) Radiology Date of Exam: 05/12/17 CT PELVIS WO PROCEDURE: CT pelvis without contrast. TECHNIQUE: Multiple contiguous axial images were obtained through the pelvis without the use of intravenous contrast. Sagittal and coronal reformations were performed. INDICATION: Fall on left hip. COMPARISON: Left hip radiographs from earlier today. FINDINGS: There is a nondisplaced mildly impacted left subcapital hip fracture. The pelvis and proximal right femur are intact. Mild scattered atherosclerotic calcifications. Holliday catheter. Hysterectomy. The visualized pelvic contents are otherwise unremarkable. IMPRESSION: Mildly impacted left subcapital hip fracture. Assessment/Plan Assessment/Plan Admission Status: Inpatient Order (span 2 midnights) Reason for Inpatient Admission: Post op from surgery (1) Closed left hip fracture Status: Acute Assessment & Plan: - Rehab consult today, PT to work with patient - Continue IS - Switch to PO meds, will add bowel medications Qualifiers: Qualified Codes: S72.002A - Fracture of unspecified part of neck of left femur, initial encounter for closed fracture (2) HTN (hypertension) Status: Chronic Assessment & Plan: - Restart Losartan 50 mg Daily, continue to monitor blood pressure Qualifiers: Qualified Codes: I10 - Essential (primary) hypertension (3) Non-insulin dependent type 2 diabetes mellitus Status: Chronic Assessment & Plan: - A1c 13.1, Will add PO meds when patient transfers to rehab - Continue SSI - DM ed (4) Thyroid goiter Status: Chronic (5) UTI (urinary tract infection) Status: Acute Assessment & Plan: - Continue antibiotics for total of 5 days Qualifiers: Qualified Codes: N30.01 - Acute cystitis with hematuria Clinical Quality Measures DVT/VTE Risk/Contraindication: Risk Factor Score Per Nursin RFS Level Per Nursing on Admit: 4+=Very High ANDREW PLATT MD May 14, 2017 11:18 am
[2017-05-14 12:00] VITALS: BP 127/61
--- NOTE | 2017-05-14 13:14 | Occupational Therapy Eval ---
OT Evaluation-General/PLF Medical Diagnosis Admission Date May 12, 2017 at 12:30 Medical Diagnosis: left hip fracture Onset Date: May 12, 2017 Therapy Diagnosis Therapy Diagnosis: decreased self care skills Height/Weight Height (Feet): 5 Height (Inches): 0.00 Weight (Pounds): 123 Weight (Ounces): 0.0 Precautions Precautions/Isolations: Fall Prevention, Standard Precautions Safety Interventions: Bed Exit Alarm, Reorient-PRN Weight Bear Status Weight Bearing Restriction: Non Weight Bearing Location Restriction: L LE Referral Physician: Alek Medical History Pertinent Medical History: DM, HTN Additional Medical History High cholesterol, hernia repair, GERD Current History Pt had fall at home with left hip fracture. NWB left LE. Reviewed History: Yes Social History Home: Single Level Current Living Status: Spouse Entry Into Home: Stairs With Railing Steps Into Home: 3 ADL-Prior Level of Function ADL PLOF Comments Pt reports being independent with basic self care and mobility. Does not use any assistive devices. Spouse assists with storm door maker. DME/Equipment: Tub/Shower Drive Self: No OT Current Status Subjective Pt agreeable to therapy. Would like to sit up in the chair. Pt has no c/o pain. Mental Status/Objective Patient Orientation: Person, Place, Situation Attachments: IV Current Glasses/Contacts: Yes Hearing Aids: No Dentures/Partials: Yes Hand Dominance: Right Upper Extremity ROM Grossly WFL Upper Extremity Coordination Intact Upper Extremity Strength Grossly 4/5 ADL-Treatment ADL-Current Pt supine to sit with minimal assistance and cues for technique. Pt sit to stand with supervision, skilled cues for hand placement. Transfer to chair with CGA using FWW, able to maintain NWB left LE. Education provided regarding ADL safety and role of OT. Pt states understanding and is in agreement with plan of care. Pt sitting in chair with needs met after session. Functional [place] Measure 0=Not Assessed/NA 4=Minimal Assistance 1=Total Assistance 5=Supervision or Setup 2=Maximal Assistance 6=Modified [place] 3=Moderate Assistance 7=Complete IndependenceIRFPAI Quality Coding Scale 6 Independent with activity with or without an assistive device 5 Patient requires set up or clean up by helper. Patient completes activity by themselves 4 Supervision or touching assist (CGA). [place] provide cues , steadying assist 3 The helper provides less than half the effort to complete the activity 2 The helper provides more than half the effort to complete the activity 1 Dependent. The helper does all the effort to complete an activity 7 Patient refused to complete or attempt activity 9 The patient did not perform the activity before the current illness or injury 88 Not attempted due to Medical conditions or safety concerns Eating (FIM): 5 (Pt reports no difficulty feeding herself) Transfers (B, C, W/C) (FIM): 4 Education OT Patient Education: Rehab process Teaching Recipient: Patient Teaching Methods: Discussion Response to Teaching: Verbalize Understanding OT Short Term Goals Short Term Goals 1=Demonstrate adherence to instructed precautions during ADL tasks. 2=Patient will verbalize/demonstrate understanding of assistive devices/ modifications for ADL. 3=Patient will improve strength/tolerance for activity to enable patient to perform ADL's. OT Nuclear Supervising Operator Goals Nuclear Supervising Operator Goals Time Frame: May 28, 2017 Grooming(FIM): 6 Bathing(FIM): 5 Upper Body Dressing(FIM): 6 Lower Body Dressing(FIM): 5 Toileting(FIM): 6 Toilet/Commode Transfer(FIM): 6 Additional Goals: 2-Verbalize Understanding, 3-ImproveStrength/Melonie 1=Demonstrate adherence to instructed precautions during ADL tasks. 2=Patient will verbalize/demonstrate understanding of assistive devices/ modifications for ADL. 3=Patient will improve strength/tolerance for activity to enable patient to perform ADL's. OT Education/Plan Problem List/Assessment Assessment: Decreased Activ Tolerance, Dependent Transfers, Impaired Self-Care Skills Pt to benefit from skilled OT intervention for ADL training, transfers, strengthening, and home safety education to maximize level of function and allow safe discharge plan. Discharge Recommendations Plan/Recommendations: Continue POC Treatment Plan/Plan of Care Treatment,Training & Education: Yes Patient would benefit from OT for education, treatment and training to promote independence in ADL's, mobility, safety and/or upper extremity function for ADL' s. Plan of Care: ADL Retraining, Functional Mobility, UE Funct Exercise/Act Treatment Duration: May 28, 2017 Frequency: 5 times per week Estimated Hrs Per Day: .25 hour per day Rehab Potential: Good Time/GCodes Start Time: 10:43 Stop Time: 11:05 Total Time Billed (hr/min): 22 Billed Treatment Time 1 visit, DILEEP(22minutes) PATY CONNELL OT May 14, 2017 13:14
--- NOTE | 2017-05-14 14:47 | Anesthesia-General Post-Op ---
General Patient Condition Mental Status/LOC: Same as Preop Cardiovascular: Satisfactory Nausea/Vomiting: Absent Respiratory: Satisfactory Pain: Controlled Complications: Absent Post Op Complications Complications None Follow Up Care/Instructions Patient Instructions None needed. Anesthesia/Patient Condition Patient Condition Patient is doing well, had some nausea earlier but better now, no complaints, stable vital signs, no apparent adverse anesthesia problems. ALVARO SOLIS DO May 14, 2017 14:47
--- NOTE | 2017-05-14 15:41 | Physical Therapy Daily Note ---
PT Daily Note-Current Subjective Pt laying Supine in bed upon arrival. Pt reports pain of 5/10 in L hip with activity. Pt agrees to PT. Pain Numeric Pain Scale: 5-Moderate Pain Location: Left Location Body Site: Hip Pain Description: Ache Mental Status Patient Orientation: Person, Place, Situation Transfers Functional [place] Measure 0=Not Assessed/NA 4=Minimal Assistance 1=Total Assistance 5=Supervision or Setup 2=Maximal Assistance 6=Modified [place] 3=Moderate Assistance 7=Complete IndependenceIRFPAI Quality Coding Scale 6 Independent with activity with or without an assistive device 5 Patient requires set up or clean up by helper. Patient completes activity by themselves 4 Supervision or touching assist (CGA). [place] provide cues , steadying assist 3 The helper provides less than half the effort to complete the activity 2 The helper provides more than half the effort to complete the activity 1 Dependent. The helper does all the effort to complete an activity 7 Patient refused to complete or attempt activity 9 The patient did not perform the activity before the current illness or injury 88 Not attempted due to Medical conditions or safety concerns Weight Bearing Right Lower Extremity: Right Full Weight Bearing Left Lower Extremity: Left Non Weight Bearing Exercises Supine Ex: Ankle pumps, Quad Set, Heel Slides, Hip abd/add Supine Reps: 10 Treatments Pt gives MICROFILMER medical history upon arrival. MICROFILMER has pt complete Supine Ex in bed. Pt asks MICROFILMER questions such as reps of EX to complete, if its okay that there is an increase in pain with Ex & when can pt go belly dancing or horseback riding? Pt rests at end of Ex with all needs met. Assessment Current Status: Good Progress Pt able to complete Supine Ex. MICROFILMER goes over hip precautions with pt. PT Nursing Home Goals Bleacher Lard Goals PT Bleacher Lard Goals Time Frame: May 22, 2017 Transfers (B,C,W/C) (FIM): 5 Gait (FIM): 2 Gait distance (FIM): 9=517-53 ft Distance: 75' Gait Level of Assist: 5 Gait Assistive Device: FWW Stairs (FIM): 2 # of Steps: 2 Stairs Level Of Assist: 5 PT Plan Problem List Problem List: Activity Tolerance, Functional Strength, Safety, Balance, Gait, Transfer Treatment/Plan Treatment Plan: Continue Plan of Care Treatment Plan: Education, Functional Activity Melonie, Functional Strength, Gait , Safety, Therapeutic Exercise, Transfers Treatment Duration: May 22, 2017 Frequency: 11 times per week Estimated Hrs Per Day: .5 hour per day Patient and/or Family Agrees t: Yes Safety Risks/Education Patient Education: Transfer Techniques, Correct Positioning, Safety Issues Teaching Recipient: Patient Teaching Methods: Discussion Response to Teaching: Verbalize Understanding Time/GCodes Time In: 1430 Time Out: 1455 Total Billed Treatment Time: 25 Total Billed Treatment 1, EX (15m) & FA (10m) LEIGHA NUNEZ MICROFILMER May 14, 2017 15:41
[2017-05-14] MEDS: cefTRIAXone INJECTION 1,000 MG in NS (IVPB) 100 ML IV SCH (16:06)
[2017-05-14 16:50] VITALS: BP 142/65
--- NOTE | 2017-05-14 17:56 | Progress Note-Standard ---
Standard Progress Note Progress Notes/Assess & Plan Date Seen by Provider: May 14, 2017 Time Seen by Provider: 17:45 Progress/Assessment & Plan Pt ELVIRA, pain controlled, no overnight events, no complaints. VSSAF Labs stable: Hb at 11.1 Abd soft/NT Pulm: breathing well on RA LLE: dressing left hip c/d/i, all compartments soft/compressible, motor/ sensation grossly intact, foot well perfused. S/P in situ fixation valgus impacted fracture Left femoral neck, POD#1 Continue PT/OT, strict NWB LLE Lovenox for VTE prophylaxis Bowel regimen ISB/SCDs Orthopedically stable D/C planning: case management. SHEYLA TREJO DO May 14, 2017 17:56
[2017-05-14 20:00] VITALS: BP 127/72
[2017-05-14] MEDS: FAMOTIDINE 20 MG (PEPCID) TABLET PO SCH (20:47)
[2017-05-14] MEDS: oxyCODONE/APAP 5/325MG (PERCOCET 5) TABLET PO PRN (20:47)
[2017-05-15 00:35] VITALS: BP 131/64
[2017-05-15] MEDS: oxyCODONE/APAP 5/325MG (PERCOCET 5) TABLET PO PRN ×3 (02:33→17:40)
[2017-05-15 04:00] VITALS: BP 128/66
[2017-05-15 06:00] LABS: BASOPHILS % (AUTO) 0 % (0-10); EOSINOPHILS # (AUTO) 0.3 10^3/uL (0.0-0.3); EOSINOPHILS % (AUTO) 4 % (0-10); HEMATOCRIT 31 % (35-52); HEMOGLOBIN 10.3 G/DL (11.5-16.0); LYMPHOCYTES % (AUTO) 27 % (12-44); MEAN CORPUSCULAR HEMOGLOBIN 28 PG (25-34); MEAN CORPUSCULAR HGB CONC 33 G/DL (32-36); MEAN CORPUSCULAR VOLUME 84 FL (80-99); MEAN PLATELET VOLUME 10.3 FL (7.4-10.4); MONOCYTES # (AUTO) 0.6 X 10^3 (0.0-1.0); MONOCYTES % (AUTO) 8 % (0-12); NEUTROPHILS # (AUTO) 4.6 X 10^3 (1.8-7.8); NEUTROPHILS % (AUTO) 61 % (42-75); PLATELET COUNT 163 10^3/uL (130-400); RED BLOOD COUNT 3.71 10^6/uL (4.35-5.85); RED CELL DISTRIBUTION WIDTH 13.5 % (10.0-14.5); WHITE BLOOD COUNT 7.4 10^3/uL (4.3-11.0)
[2017-05-15] MEDS: inSUlin (REGULAR) HUMAN 1 UNIT/0.01 ML (CHARGE PER UNIT) SC SCH ×4 (06:02→20:27)
[2017-05-15 06:21] LABS: ALANINE AMINOTRANSFERASE 14 U/L (0-55); ALBUMIN 3.3 GM/DL (3.2-4.5); ALKALINE PHOSPHATASE 106 U/L (40-136); BILIRUBIN,TOTAL 0.4 MG/DL (0.1-1.0); BUN/CREATININE RATIO 14; CALCIUM 8.7 MG/DL (8.5-10.1); CARBON DIOXIDE 23 MMOL/L (21-32); CHLORIDE 103 MMOL/L (98-107); CREATININE SERUM 0.74 MG/DL (0.60-1.30); GFR ESTIMATED > 60; GLUCOSE 291 MG/DL (70-105); POTASSIUM 3.5 MMOL/L (3.6-5.0); SODIUM 136 MMOL/L (135-145)
[2017-05-15] MEDS: LOSARTAN 50 MG (COZAAR) TAB PO SCH (07:53)
[2017-05-15] MEDS: ENOXAPARIN 40 MG/0.4 ML (LOVENOX) SYR SC SCH (07:53)
[2017-05-15 08:00] VITALS: BP 112/54
[2017-05-15] MEDS ORDERED: KCL 20 MEQ TAB (K-DUR) PO NR (09:49)
--- NOTE | 2017-05-15 10:05 | Physical Therapy Daily Note ---
PT Daily Note-Current Subjective Pt laying Supine in bed upon arrival. Pt agrees to PT. ORDER SCHEDULE CLERK gives pt HEP for Supine Ex that have been worked on during tx per pt's request. Pain Numeric Pain Scale: 5-Moderate Pain Location: Left Location Body Site: Hip Pain Description: Ache Mental Status Patient Orientation: Person, Place, Situation Transfers Functional [place] Measure 0=Not Assessed/NA 4=Minimal Assistance 1=Total Assistance 5=Supervision or Setup 2=Maximal Assistance 6=Modified [place] 3=Moderate Assistance 7=Complete IndependenceIRFPAI Quality Coding Scale 6 Independent with activity with or without an assistive device 5 Patient requires set up or clean up by helper. Patient completes activity by themselves 4 Supervision or touching assist (CGA). [place] provide cues , steadying assist 3 The helper provides less than half the effort to complete the activity 2 The helper provides more than half the effort to complete the activity 1 Dependent. The helper does all the effort to complete an activity 7 Patient refused to complete or attempt activity 9 The patient did not perform the activity before the current illness or injury 88 Not attempted due to Medical conditions or safety concerns Scootin Supine to/from Sit: 4 Sit to/from Stand: 5 Weight Bearing Right Lower Extremity: Right Full Weight Bearing Left Lower Extremity: Left Non Weight Bearing Gait Training Distance (FIM): 1=up to 49 ft Distance: 40' Gait Level of Assist: 5 Gait Persons Needed: 1 Gait Assistive Device: FWW Pt has hopping gait due to NWB on LLE. Pt fatigues easily and reports increasing WBing through UE. Exercises Seated Therapy Exercises: Sit to stand Treatments Pt transfers from Supine to EOB at A then EOB to Standing at OCCUPATIONAL HYGIENIST using FWW. Pt ambulates in hallway using FWW at SBA before returning to room to rest. Pt transfers back to Supine in bed using R hooking of LLE to lift into bed independently. Pt & ORDER SCHEDULE CLERK verbally go over Supine Ex HEP given. Pt resting in bed at end of tx with all needs met. Assessment Current Status: Good Progress Pt ambulates farther and transferring better than previous tx. PT Administrative Officer Goals Administrative Officer Goals PT Administrative Officer Goals Time Frame: May 22, 2017 Transfers (B,C,W/C) (FIM): 5 Gait (FIM): 2 Gait distance (FIM): 6=627-77 ft Distance: 75' Gait Level of Assist: 5 Gait Assistive Device: FWW Stairs (FIM): 2 # of Steps: 2 Stairs Level Of Assist: 5 PT Plan Problem List Problem List: Activity Tolerance, Functional Strength, Gait, Transfer Treatment/Plan Treatment Plan: Continue Plan of Care Treatment Plan: Education, Functional Activity Melonie, Functional Strength, Gait , Safety, Therapeutic Exercise, Transfers Treatment Duration: May 22, 2017 Frequency: 11 times per week Estimated Hrs Per Day: .5 hour per day Patient and/or Family Agrees t: Yes Safety Risks/Education Patient Education: Gait Training, Transfer Techniques, Issued Written HEP, Correct Positioning, Safety Issues Teaching Recipient: Patient Teaching Methods: Discussion Response to Teaching: Verbalize Understanding Time/GCodes Time In: 850 Time Out: 915 Total Billed Treatment Time: 25 Total Billed Treatment 1, GT (15m) & FA (10m) LEIGHA NUNEZ PTA May 15, 2017 10:04
--- NOTE | 2017-05-15 11:30 | Occupational Ther Daily Note ---
OT Current Status-Daily Note Subjective Pt alert, lying in bed. Pt agreed to therapy. No c/o pain at this time. Pt stated that she was going home tomorrow and had to make phone calls to make sure she had everything she needed. Mental Status/Objective Patient Orientation: Person, Place, Time, Situation Functional [place] Measure 0=Not Assessed/NA 4=Minimal Assistance 1=Total Assistance 5=Supervision or Setup 2=Maximal Assistance 6=Modified [place] 3=Moderate Assistance 7=Complete [place] ADL-Treatment Pt was able to go from supine to sitting EOB with min A using bedrail and HOB raised. Pt then completed sponge bath on EOB after set up. Pt was able to reach all areas except lower legs. Leaning side to side to reach buttocks. Pt was able to don/doff pants over feet then assist to hike pants over hips. Using FWW pt was able to stand and adhere to wt bearing status though would lose balance easily when attempting to hike pants over hips. Pt stated that she had someone who had a pediatric ophthalmologist that she could use. Pt was educated on equipment needed for lower body dressing. Pt appeared worried about leaving hospital and discussed all aspects with PIÑA. After therapy, pt lying in bed with call light/phone in reach. All needs met in room. Bathing (FIM): 4 Bathing Location: L Arm, R Arm, L Upper Leg, R Upper Leg, Chest, Abdomen, Buttocks, Perineal Area Upper Body (FIM): 5 (After setup, pt able to complete.) Lower Body Dressing (FIM): 3 Education OT Patient Education: Use of adapted equipment Teaching Recipient: Patient Teaching Methods: Discussion Response to Teaching: Verbalize Understanding, Reinforcement Needed OT Short Term Goals Short Term Goals 1=Demonstrate adherence to instructed precautions during ADL tasks. 2=Patient will verbalize/demonstrate understanding of assistive devices/ modifications for ADL. 3=Patient will improve strength/tolerance for activity to enable patient to perform ADL's. OT Retirement Goals Retirement Goals Time Frame: May 28, 2017 Grooming(FIM): 6 Bathing(FIM): 5 Upper Body Dressing(FIM): 6 Lower Body Dressing(FIM): 5 Toileting(FIM): 6 Toilet/Commode Transfer(FIM): 6 Additional Goals: 2-Verbalize Understanding, 3-ImproveStrength/Melonie 1=Demonstrate adherence to instructed precautions during ADL tasks. 2=Patient will verbalize/demonstrate understanding of assistive devices/ modifications for ADL. 3=Patient will improve strength/tolerance for activity to enable patient to perform ADL's. OT Education/Plan Problem List/Assessment Pt to benefit from skilled OT intervention for ADL training, transfers, strengthening, and home safety education to maximize level of function and allow safe discharge plan. Discharge Recommendations Plan/Recommendations: Continue POC Treatment Plan/Plan of Care Patient would benefit from OT for education, treatment and training to promote independence in ADL's, mobility, safety and/or upper extremity function for ADL' s. Plan of Care: ADL Retraining, Functional Mobility, UE Funct Exercise/Act Treatment Duration: May 28, 2017 Frequency: 5 times per week Estimated Hrs Per Day: .25 hour per day Rehab Potential: Good Time/GCodes Start Time: 10:30 Stop Time: 11:26 Total Time Billed (hr/min): 56 Billed Treatment Time 1 visit-ADL 4 (56 min) MALIK GODOY May 15, 2017 11:30
--- NOTE | 2017-05-15 11:46 | Progress Note (SOAP) ---
Subjective Subjective/Events-last exam Patient doing well in PT. States that pain is well controlled. Tolerating PO diet, no BM since surgery. Review of Systems Date Seen by Provider: May 15, 2017 Time Seen by Provider: 10:05 Pulmonary: No Dyspnea, No Cough Cardiovascular: No: Chest Pain, Palpitations, Edema Gastrointestinal: Constipation, No: Nausea, Vomiting, Diarrhea Musculoskeletal: leg pain Objective Exam Last Set of Vital Signs Vital Signs Date Time Temp Pulse Resp B/P (MAP) Pulse Ox O2 Delivery O2 Flow Rate FiO2 05/15/17 08:00 99.1 89 20 112/54 (73) 96 Room Air Capillary Refill : Less Than 3 SecondsLess Than 3 Seconds I&O Intake and Output 05/15/17 00:00 Intake Total 3070 ml Output Total 780 ml Balance 2290 ml Intake Oral 2120 ml IV Total 950 ml Output Urine Total 780 ml # Voids 7 # Bowel Movements 1 General: Alert, Oriented X3, Cooperative, No Acute Distress Lungs: Clear to Auscultation, Normal Air Movement Heart: Regular Rate, No Murmurs Abdomen: Normal Bowel Sounds, Soft, No Tenderness, No Masses Extremities: No Edema, No Tenderness/Swelling Neuro: Normal Speech, Sensation Intact, Cranial Nerves 3-12 NL Results/Procedures Lab Laboratory Tests 05/14/17 15:59: Glucometer 304H 05/14/17 20:30: Glucometer 245H 05/15/17 05:46: Glucometer 284H 05/15/17 05:50: White Blood Count 7.4, Red Blood Count 3.71L, Hemoglobin 10.3L, Hematocrit 31L, Mean Corpuscular Volume 84, Mean Corpuscular Hemoglobin 28, Mean Corpuscular Hemoglobin Concent 33, Red Cell Distribution Width 13.5, Platelet Count 163, Mean Platelet Volume 10.3, Neutrophils (%) (Auto) 61, Lymphocytes (%) (Auto) 27 , Monocytes (%) (Auto) 8, Eosinophils (%) (Auto) 4, Basophils (%) (Auto) 0, Neutrophils # (Auto) 4.6, Lymphocytes # (Auto) 2.0, Monocytes # (Auto) 0.6, Eosinophils # (Auto) 0.3, Basophils # (Auto) 0.0, Sodium Level 136, Potassium Level 3.5L, Chloride Level 103, Carbon Dioxide Level 23, Anion Gap 10, Blood Urea Nitrogen 10, Creatinine 0.74, Estimat Glomerular Filtration Rate > 60, BUN/ Creatinine Ratio 14, Glucose Level 291H, Calcium Level 8.7, Total Bilirubin 0.4 , Aspartate Amino Transf (AST/SGOT) 13, Alanine Aminotransferase (ALT/SGPT) 14, Alkaline Phosphatase 106, Total Protein 6.0L, Albumin 3.3 05/15/17 10:58: Glucometer 281H Microbiology 05/13/17 MRSA Screen - Final, Complete MRSA not isolated 05/12/17 Urine Culture - Final, Complete Staph, 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 TECHNIQUE: Multiple contiguous axial images were obtained through the pelvis without the use of intravenous contrast. Sagittal and coronal reformations were performed. INDICATION: Fall on left hip. COMPARISON: Left hip radiographs from earlier today. FINDINGS: There is a nondisplaced mildly impacted left subcapital hip fracture. The pelvis and proximal right femur are intact. Mild scattered atherosclerotic calcifications. Holliday catheter. Hysterectomy. The visualized pelvic contents are otherwise unremarkable. IMPRESSION: Mildly impacted left subcapital hip fracture. Assessment/Plan Assessment/Plan (1) Closed left hip fracture Status: Acute Assessment & Plan: - Continue daily PT, IRF eval complete and they recommend patient go home with PT - Continue IS, encourage OOB - Pain well controlled on PO meds Qualifiers: Qualified Codes: S72.002A - Fracture of unspecified part of neck of left femur, initial encounter for closed fracture (2) HTN (hypertension) Status: Chronic Assessment & Plan: - Restart Losartan 50 mg Daily, continue to monitor blood pressure Qualifiers: Qualified Codes: I10 - Essential (primary) hypertension (3) Non-insulin dependent type 2 diabetes mellitus Status: Chronic Assessment & Plan: - A1c 13.1, Start Metformin at discharge - Continue SSI - DM ed (4) Thyroid goiter Status: Chronic Assessment & Plan: - Outpatient workup (5) UTI (urinary tract infection) Status: Acute Assessment & Plan: - Continue antibiotics for total of 5 days Qualifiers: Qualified Codes: N30.01 - Acute cystitis with hematuria (6) Normocytic anemia Status: Acute Assessment & Plan: - LIkely 2/2 to surgery, no signs of active bleeding - Continue to monitor Clinical Quality Measures DVT/VTE Risk/Contraindication: Risk Factor Score Per Nursin RFS Level Per Nursing on Admit: 4+=Very High ANDREW PLATT MD May 15, 2017 11:46
[2017-05-15 11:53] VITALS: BP 151/74
[2017-05-15] MEDS: cefTRIAXone INJECTION 1,000 MG in NS (IVPB) 100 ML IV SCH (15:29)
--- NOTE | 2017-05-15 15:43 | Physical Therapy Daily Note ---
PT Daily Note-Current Subjective Pt asleep Supine in bed upon arrival. Pt agrees to Supine Ex from HEP. Pain Numeric Pain Scale: 5-Moderate Pain Location: Left Location Body Site: Hip Pain Description: Ache Mental Status Patient Orientation: Person, Place, Situation Transfers Functional [place] Measure 0=Not Assessed/NA 4=Minimal Assistance 1=Total Assistance 5=Supervision or Setup 2=Maximal Assistance 6=Modified [place] 3=Moderate Assistance 7=Complete IndependenceIRFPAI Quality Coding Scale 6 Independent with activity with or without an assistive device 5 Patient requires set up or clean up by helper. Patient completes activity by themselves 4 Supervision or touching assist (CGA). [place] provide cues , steadying assist 3 The helper provides less than half the effort to complete the activity 2 The helper provides more than half the effort to complete the activity 1 Dependent. The helper does all the effort to complete an activity 7 Patient refused to complete or attempt activity 9 The patient did not perform the activity before the current illness or injury 88 Not attempted due to Medical conditions or safety concerns Weight Bearing Right Lower Extremity: Right Full Weight Bearing Left Lower Extremity: Left Non Weight Bearing Exercises Supine Ex: Ankle pumps, Quad Set, Glut sets, Heel Slides, Short Arc Quads, Straight leg raise, Hip abd/add Supine Reps: 10 Treatments Pt completes Supine Ex from HEP given this morning. Pt takes a couple short rest breaks during EX. Pt rests Supine in bed at end of tx with all needs met. Assessment Current Status: Good Progress Pt needs VC to stay on task/focus during tx. Pt reports pain difficult to get to push herself. PT Intermediate Goals Intermediate Goals PT Section Crews Activities Clerk Goals Time Frame: May 22, 2017 Transfers (B,C,W/C) (FIM): 5 Gait (FIM): 2 Gait distance (FIM): 5=041-50 ft Distance: 75' Gait Level of Assist: 5 Gait Assistive Device: FWW Stairs (FIM): 2 # of Steps: 2 Stairs Level Of Assist: 5 PT Plan Problem List Problem List: Activity Tolerance, Functional Strength, Safety, Balance, Gait, Transfer Treatment/Plan Treatment Plan: Continue Plan of Care Treatment Plan: Education, Functional Activity Melonie, Functional Strength, Gait , Safety, Therapeutic Exercise, Transfers Treatment Duration: May 22, 2017 Frequency: 11 times per week Estimated Hrs Per Day: .5 hour per day Patient and/or Family Agrees t: Yes Safety Risks/Education Patient Education: Issued Written HEP, Correct Positioning, Safety Issues Teaching Recipient: Patient Teaching Methods: Discussion Response to Teaching: Verbalize Understanding Time/GCodes Time In: 1307 Time Out: 1332 Total Billed Treatment Time: 25 Total Billed Treatment 1, EX x2 (25m) LEIGHA NUNEZ INCLUSION SPECIALIST May 15, 2017 15:43
[2017-05-15 16:00] VITALS: BP 147/56
[2017-05-15 19:46] VITALS: BP 133/60
[2017-05-15] MEDS: SENNA W/DOCUSATE (SENOKOT S) TABLET PO SCH (20:26)
[2017-05-15] MEDS: FAMOTIDINE 20 MG (PEPCID) TABLET PO SCH (20:26)
[2017-05-16 00:05] VITALS: BP 145/68
[2017-05-16] MEDS: oxyCODONE/APAP 5/325MG (PERCOCET 5) TABLET PO PRN ×2 (01:49→08:39)
[2017-05-16] MEDS: inSUlin (REGULAR) HUMAN 1 UNIT/0.01 ML (CHARGE PER UNIT) SC SCH ×2 (05:39→12:07)
[2017-05-16 05:53] LABS: BASOPHILS % (AUTO) 0 % (0-10); EOSINOPHILS # (AUTO) 0.3 10^3/uL (0.0-0.3); EOSINOPHILS % (AUTO) 4 % (0-10); HEMATOCRIT 31 % (35-52); HEMOGLOBIN 10.5 G/DL (11.5-16.0); LYMPHOCYTES % (AUTO) 26 % (12-44); MEAN CORPUSCULAR HEMOGLOBIN 28 PG (25-34); MEAN CORPUSCULAR HGB CONC 34 G/DL (32-36); MEAN CORPUSCULAR VOLUME 83 FL (80-99); MEAN PLATELET VOLUME 10.5 FL (7.4-10.4); MONOCYTES # (AUTO) 0.6 X 10^3 (0.0-1.0); MONOCYTES % (AUTO) 7 % (0-12); NEUTROPHILS # (AUTO) 4.6 X 10^3 (1.8-7.8); NEUTROPHILS % (AUTO) 62 % (42-75); PLATELET COUNT 170 10^3/uL (130-400); RED BLOOD COUNT 3.74 10^6/uL (4.35-5.85); RED CELL DISTRIBUTION WIDTH 13.5 % (10.0-14.5); WHITE BLOOD COUNT 7.4 10^3/uL (4.3-11.0)
[2017-05-16 06:39] LABS: ALANINE AMINOTRANSFERASE 21 U/L (0-55); ALBUMIN 3.4 GM/DL (3.2-4.5); ALKALINE PHOSPHATASE 139 U/L (40-136); BILIRUBIN,TOTAL 0.4 MG/DL (0.1-1.0); BUN/CREATININE RATIO 14; CALCIUM 9.3 MG/DL (8.5-10.1); CARBON DIOXIDE 21 MMOL/L (21-32); CHLORIDE 101 MMOL/L (98-107); CREATININE SERUM 0.71 MG/DL (0.60-1.30); GFR ESTIMATED > 60; GLUCOSE 307 MG/DL (70-105); POTASSIUM 4.1 MMOL/L (3.6-5.0); SODIUM 133 MMOL/L (135-145); TOTAL PROTEIN 6.5 GM/DL (6.4-8.2)
[2017-05-16 08:30] VITALS: BP 110/57
[2017-05-16] MEDS: LOSARTAN 50 MG (COZAAR) TAB PO SCH (08:38)
[2017-05-16] MEDS: ENOXAPARIN 40 MG/0.4 ML (LOVENOX) SYR SC SCH (08:38)
[2017-05-16] MEDS: SENNA W/DOCUSATE (SENOKOT S) TABLET PO SCH (08:39)
--- NOTE | 2017-05-16 11:28 | Physical Therapy Daily Note ---
PT Daily Note-Current Subjective Patient agrees to PT. Pain Numeric Pain Scale: 5-Moderate Pain Location: Left Location Body Site: Hip Pain Description: Acute Mental Status Patient Orientation: Normal For Age Transfers Functional [place] Measure 0=Not Assessed/NA 4=Minimal Assistance 1=Total Assistance 5=Supervision or Setup 2=Maximal Assistance 6=Modified [place] 3=Moderate Assistance 7=Complete IndependenceIRFPAI Quality Coding Scale 6 Independent with activity with or without an assistive device 5 Patient requires set up or clean up by helper. Patient completes activity by themselves 4 Supervision or touching assist (CGA). [place] provide cues , steadying assist 3 The helper provides less than half the effort to complete the activity 2 The helper provides more than half the effort to complete the activity 1 Dependent. The helper does all the effort to complete an activity 7 Patient refused to complete or attempt activity 9 The patient did not perform the activity before the current illness or injury 88 Not attempted due to Medical conditions or safety concerns Transfers (B, C, W/C) (FIM): 5 Scootin Rollin Supine to/from Sit: 5 Sit to/from Stand: 5 Weight Bearing Right Lower Extremity: Right Full Weight Bearing Left Lower Extremity: Left Non Weight Bearing Gait Training Gait (FIM): 2 Distance (FIM): 2=893-79 ft Distance: 125' Gait Level of Assist: 5 Gait Assistive Device: FWW Patient is able to comply with NWB left LE without difficulty Exercises Supine Ex: Ankle pumps, Quad Set, Heel Slides Seated Therapy Exercises: Ankle pumps, Long arc quads Seated Reps: 10 Assessment Reviewed HEP with patient. Patient tolerated treatment well and, from a PT standpoint, patient is safe to return to home with family. PT [place]ter Goals Group Home Goals PT Group Home Goals Time Frame: May 22, 2017 Transfers (B,C,W/C) (FIM): 5 Gait (FIM): 2 Gait distance (FIM): 3=460-61 ft Distance: 75' Gait Level of Assist: 5 Gait Assistive Device: FWW Stairs (FIM): 2 # of Steps: 2 Stairs Level Of Assist: 5 PT Plan Treatment/Plan Treatment Plan: Continue Plan of Care Treatment Plan: Education, Functional Activity Melonie, Functional Strength, Gait , Safety, Therapeutic Exercise, Transfers Treatment Duration: May 22, 2017 Frequency: 11 times per week Estimated Hrs Per Day: .5 hour per day Patient and/or Family Agrees t: Yes Time/GCodes Time In: 1020 Time Out: 1033 Total Billed Treatment Time: 13 Total Billed Treatment 1 visit GT 13 min MART GRAHAM PT May 16, 2017 11:28
--- NOTE | 2017-05-16 11:30 | Discharge Summary ---
Diagnosis/Chief Complaint Date of Admission May 12, 2017 at 12:30 pm Date of Discharge 05/16/2017 Admission Diagnosis Admission Diagnosis Left closed hip fracture HTN NIDDM Thyroid Goiter UTI Normocytic Anemia Discharge Diagnosis See Above Chief Complaint/HPI Chief Complaint/HPI 56 yo F that presented to ER after fall on Saturday morning. Patient states that she was standing on a stool to change the time on the clock when she feel off the stool. Patient states that she landed on her Left hip and scraped her hand. Denies hitting her head. States that her pain is well controlled right now. Patient states that she has been diagnosed with HTN and DM in the past but that she stopped all medications last year. Discharge Summary-Simple/Stand Consultations Ortho Surgery Discharge Physical Examination Allergies: Coded Allergies: liraglutide (Verified Allergy, Mild, NAUSEA, 05/12/17) Vitals & I&Os Vital Sign - Last 12Hours Date Time Temp Pulse Resp B/P (MAP) Pulse Ox O2 Delivery O2 Flow Rate FiO2 05/16/17 09:09 96.8 05/16/17 08:30 93 18 110/57 (74) 95 Room Air Intake and Output 05/16/17 00:00 Intake Total 1020 ml Balance 1020 ml General Appearance: Alert, Oriented X3, Cooperative, No Acute Distress HEENT: Mucous Memb Moist/[place] Respiratory: Clear to Auscultation, Normal Air Movement Cardiovascular: Regular Rate, No Murmurs Abdominal: Normal Bowel Sounds, Soft, No Tenderness, No Hepatosplenomegaly, No Masses Extremities: No Edema, No Tenderness/Swelling Neuro: Normal Speech, Sensation Intact, Cranial Nerves 3-12 NL Psych/Mental Status: Mental Status NL, Mood NL Hospital Course See final discharge diagnosis. Labs A1c 13.1 Radiology Reviewed Date of Exam: 05/12/17 CT PELVIS WO PROCEDURE: CT pelvis without contrast. TECHNIQUE: Multiple contiguous axial images were obtained through the pelvis without the use of intravenous contrast. Sagittal and coronal reformations were performed. INDICATION: Fall on left hip. COMPARISON: Left hip radiographs from earlier today. FINDINGS: There is a nondisplaced mildly impacted left subcapital hip fracture. The pelvis and proximal right femur are intact. Mild scattered atherosclerotic calcifications. Holliday catheter. Hysterectomy. The visualized pelvic contents are otherwise unremarkable. IMPRESSION: Mildly impacted left subcapital hip fracture. Discussion & Recommendations 56 yo F that fell in her home and suffered a left hip fracture Left Hip fracture: Repaired during admission. Patient was doing well and was evaluated for IRF and did not qualify for services. She did well with PT and the plan was to D/c patient with home health for PT. She will have outpatient followup with ortho surgery HTN: Prior to admission patient has stopped taking all her medications for about the last year. Blood pressure was uncontrolled upon admission. She was restarted on Losartan NIDDM: A1c during admission was 13.1. Will restart metformin. DM nurse educator saw patient during admission. Glucometer to pick pack worker at clinic. Discussed with patient that she will likely need insulin but she would like to start with pills at this time. Thryoid Goiter: Will review records and has outpatient followup Normocytic Anemia: likely 2/2 to surgery. Discharge Condition at discharge stable Instructions to patient/family Please see electronic discharge instructions given to patient. Discharge Medications Reviewed and agree with Discharge Medication list on patient's Discharge Instruction sheet Clinical Quality Measures DVT/VTE Risk/Contraindication: Risk Factor Score Per Nursin RFS Level Per Nursing on Admit: 4+=Very High Copy Copies To 1: ANDREW PLATT MD, HOLLY R MD May 16, 2017 11:30
[2017-05-16] MEDS ORDERED: METF500T8 PO (11:37)
[2017-05-16] MEDS ORDERED: LOSA50TA36 PO (11:37)
--- NOTE | 2017-05-16 11:45 | D/C HH Face to Face Order ---
D/C Face to Face Orders Instructions for Patient Patient Instructions/FollowUp: - You will have a follow up appt with Dr Chi on May 23 @ 140 PM Physician to follow Patient: Alon Discharge Diet for Home: ADA Diet Patient Problems: Left hip fracture Non insulin dependent DM HTN Debilty Goals for Patient: - Improved mobility and self indepence Patient Data-Allergies,Ht & Wt Patient Allergies: Coded Allergies: liraglutide (Verified Allergy, Mild, NAUSEA, 05/12/17) Height (Feet): 5 Height (Inches): 0.00 Weight (Pounds): 123 Weight (Ounces): 0.0 Home Health Need/Face to Face Date of Face to Face: May 16, 2017 Clinical Findings: Generalized weakness and fatigue, Instability, Muscle weakness, Unsteady gait I have seen Pt [id number]: Yes Discharged To: Home Diagnosis/Conditions: Left hip fracture Non Insulin Dependent DM HTN Problems/Diagnosis/Condition: Patient is Homebound due to: [place] fall risk due to instabilty, Muscle weakness Homebound Status Due to the above stated illness, injury or surgical procedure (medical condition or diagnosis) and associated clinical findings, the patient is homebound because of his/her inability to leave home except with aid of a supportive device and/or person AND leaving the home requires a considerable and taxing effort or is medically contraindicated. Pt req the following assistanc: Aid of another person, Walker Home Health Nursing Orders Home Health Services Order: Nursing Services, Hides And Skins Colorer-Evaluate & Treat, Physical Therapy-Evaluate & Treat Home Health Infusion Therapy Line Start Date: May 12, 2017 Line Start Time: 1150 Site Location: Forearm Therapy Orders Therapy Orders: OT (must have SN or PT order), Physical Therapy, PT to assess for OT Therapy Specific Orders: Teach enviro modifications/safety, Increase strength/ endurance, Restore ROM Certify Stmt I certify that this patient is under my care and that I, a nurse practitioner or a physician; a museum assistant working with me, had a face to face encounter that - meets the physician face to face encounter requirements with this patient as dated. ANDREW CHI MD May 16, 2017 11:45 am
[2017-05-16 12:30] VITALS: BP 141/63
[2017-05-16 13:35] VITALS: BP 141/63
--- NOTE | 2017-05-21 00:24 | OPERATIVE REPORT ---
DATE OF SERVICE: 05/13/2017 PREOPERATIVE DIAGNOSIS: Valgus impacted fracture of left femoral neck, [place] type 1. POSTPROCEDURE DIAGNOSIS: Valgus impacted fracture of left femoral neck, [place] type 1. PROCEDURE PERFORMED: In situ fixation of valgus impacted fracture of left femoral neck. ATTENDING SURGEON: Dr. Sheyla Gaston. IMPLANTS: Three Synthes partially threaded, cannulated screws; 26.5 mm partially threaded screws and one 7.3 mm partially threaded screw. ANESTHESIA: General endotracheal. ESTIMATED BLOOD LOSS: 20 mL. COMPLICATIONS: None. SPECIMENS: None. DRAINS: None. BRIEF HISTORY AND INDICATIONS: The patient is a 56-year-old female who sustained a mechanical fall from standing height onto her left hip on 05/12/2017. She subsequently had severe left hip pain and inability to bear weight or ambulate on her left lower extremity. She subsequently presented to [facility] ED for evaluation. Upon presentation, plain radiographs of the patient's left hip demonstrated a valgus impacted fracture of the left femoral neck. I discussed the nature of the patient's injury in detail with her including the natural history and prognosis as well as the indications for surgery. I discussed the surgical plan in detail including the risks, benefits, potential complications and expected outcomes. The risks that were discussed included bleeding, infection, malunion, nonunion, potential avascular necrosis of the femoral head, hardware irritation or failure, and potential need for secondary surgical procedures. Upon presentation, her left lower extremity was stable otherwise, she did have pain with any attempted range of motion, motor and sensory function was grossly intact. Her skin was intact and there were no open wounds and her left foot was well perfused. PROCEDURE NOTE: After correctly identifying the patient as the patient in the preoperative holding area and after her left hip was appropriately marked, she was transferred to the operating room. Once in the operating room, she had successful induction of general endotracheal anesthesia. Then, she was transferred to radiolucent fracture table and placed in the supine position. All bony prominences were meticulously padded. Both of her lower extremities were secured to the fracture table and well-padded in a standard fashion. Her extremities were placed in a scissor position. AP and lateral C-arm fluoroscopic images confirmed acceptable position of the fracture prior to prepping the extremity for surgery. The left leg was then prepped and draped in the routine sterile fashion. Prior to making incisions, we completed an operating room timeout with all parties involved in the case and agreement and verified appropriate infusion of prophylactic antibiotics. Using a 10 blade scalpel, I made a small incision of approximately 3 cm in length on the proximal lateral aspect of the greater trochanter incising through the skin and subcutaneous tissue. Bovie cautery was then used to incise through the fascia of the IT band exposing the proximal lateral femur. Then, under fluoroscopic guidance, 3 guide pins for the partially threaded cannulated screw set were inserted into the femoral head and neck in the inverted triangle position to the appropriate depth. All screw lengths were measured and the screws were put in sequentially with the 7.3 mm partially threaded screw in the inferior position and two 6.5 mm partially threaded screws in the superior position both anterior and posterior to complete the inverted triangle. We achieved very good purchase with all screws and the screws were inserted to the appropriate depth. All of the screws were confirmed to be in the appropriate position within the femoral head and neck through C-arm fluoroscopic views. The wound was then irrigated with copious sterile saline followed by standard closure including 0 Vicryl for the deep fascia, 2-0 Vicryl for the subcutaneous tissue and terence for the skin. The patient had a sterile dressing applied followed by being awakened and extubated in the operative room without complications. She was transferred to the PACU in stable condition and she tolerated this procedure quite well. All counts were correct at the end of the case. Job ID: [id number] DocumentID: [id number] Dictated Date: 05/20/2017 16:54:57 Asbestos Microscopist Date: 05/21/2017 00:23:54 Dictated By: SHEYLA REYES
== END 2017-05-16 13:35 | disposition home health service (06) | DRG 481 ==
LOC: EDUNIT# 10:18 → ER 10:20 → 4TH 12:30
PROVIDERS: ADMIT Family Medicine; ATTEND Family Medicine
PROC: 0QS704Z Reposition Left Upper Femur with Internal Fixation Device, Open Approach (ICD-10-PCS; principal; 2017-05-13 17:01)
DX: S72.012A Unspecified intracapsular fracture of left femur, initial encounter for closed fracture (principal); N30.01 Acute cystitis with hematuria; I10 Essential (primary) hypertension; E11.9 Type 2 diabetes mellitus without complications; E78.00 Pure hypercholesterolemia, unspecified; E04.9 Nontoxic goiter, unspecified; K21.9 Gastro-esophageal reflux disease without esophagitis; Z87.891 Personal history of nicotine dependence; D64.9 Anemia, unspecified; W19.XXXA Unspecified fall, initial encounter
CPT/HCPCS: 36415; 51702; 71045; 72170; 72192; 73502; 80048; 80053; 80061; 80306; 81000; 82962; 83036; 83735; 84443; 85025; 85610; 85730; 86850; 86900; 86901; 87077; 87081; 87088; 87186; 93005; 94664; 96374

== ENCOUNTER 2017-08-20 08:18 | Outpatient (RCR) | payer OTHER ==
[~2017-08-20 08:18] MED LIST changes: +LOSA50TA36 PO; +METF500T8 PO
== END 2017-09-02 14:41 | disposition home or self-care (01) ==
PROVIDERS: ATTEND Orthopaedic Surgery Orthopaedic Trauma
DX: S72.012D Unspecified intracapsular fracture of left femur, subsequent encounter for closed fracture with routine healing (principal); W19.XXXD Unspecified fall, subsequent encounter

== ENCOUNTER 2017-10-15 05:35 | Outpatient (CLI) | payer SELFPAY ==
[~2017-10-15] VITALS: Ht 152.4 cm; Wt 59.0 kg
[2017-10-15] MEDS ORDERED: CALC600T12 PO (09:40)
[2017-10-15] MEDS ORDERED: GLIM1TAB PO (09:40)
[2017-10-15] MEDS ORDERED: MULT-35 PO (09:40)
[2017-10-15] MEDS ORDERED: CHOL500049 PO (09:40)
[2017-10-15] MEDS ORDERED: METF10002 PO (09:40)
== END 2017-10-15 09:47 | disposition home or self-care (01) ==
LOC: PREOP 05:35
PROVIDERS: ATTEND Surgery
DX: Z01.818 Encounter for other preprocedural examination (principal)

== ENCOUNTER → 2018-04-07 | Outpatient (CLI) | payer MEDICAID ==
[~2018-04-07] MED LIST changes: +CALC600T12 PO; +CHOL500049 PO; +GLIM1TAB PO; -LOSA50TA36 PO; +LOSA50TA63 PO; +METF-399 PO; +MULT-35 PO; +PANT40TA2 PO
--- NOTE | 2018-04-07 15:34 | Diagnostic Imaging Report ---
PROCEDURE: US Thyroid. TECHNIQUE: Multiple real-time grayscale images were obtained of the thyroid in various projections. INDICATION: Thyroid nodule. COMPARISON: Comparison is made with prior thyroid ultrasound from 03/23/2016. FINDINGS: The right lobe of the thyroid measures 5.7 x 3.1 x 3.3 cm and the left lobe measures 4.7 x 2.1 x 2.4 cm. Both lobes again show marked parenchymal heterogeneity. The previously noted nodule in the right lobe measures approximately 5.0 x 3.1 x 3.0 cm compared with 4.5 x 3.1 x 2.7 cm. No other masses are identified. IMPRESSION: Right lobe thyroid nodule is similar to perhaps slightly increased when compared with study from 2017. Continued followup could be performed to confirm stability. Dictated by: Dictated on workstation # [id number]
== END ==
LOC: RAD 14:17
PROVIDERS: ATTEND Family Medicine
DX: E04.1 Nontoxic single thyroid nodule (principal)
CPT/HCPCS: 76536

== ENCOUNTER → 2018-12-12 | Outpatient (CLI) | payer OTHER ==
--- NOTE | 2018-12-12 12:58 | Diagnostic Imaging Report ---
INDICATION: Routine screening. COMPARISON: Comparison is made with prior mammograms 11/24/2015 and 06/04/2012. 2-D and 3-D bilateral screening mammography was performed. The current study was also evaluated with a Computer Aided Detection (CAD) system. 3-D tomosynthesis was also performed and reviewed. FINDINGS: Both breasts remain heterogeneously dense, limiting the sensitivity of mammography. Previously noted circumscribed nodules in upper outer right breast are not well seen on today's exam. No new mass or malignant appearing microcalcifications are identified. Axillae are unremarkable. IMPRESSION: No mammographic features suspicious for malignancy are identified. ACR BI-RADS Category 1: Negative. Result letter will be mailed to the patient. Note: At least 10% of breast cancer is not imaged by mammography. Dictated by: Dictated on workstation # [id number]
== END ==
LOC: RAD 10:24
PROVIDERS: ATTEND Family Medicine
DX: Z12.31 Encounter for screening mammogram for malignant neoplasm of breast (principal)
CPT/HCPCS: 77067

== ENCOUNTER 2019-02-15 17:47 | Emergency (ER) | payer MEDICAID, OTHER ==
[~2019-02-15] VITALS: Ht 152 cm; Wt 73.0 kg
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
--- NOTE | 2019-02-15 18:44 | Diagnostic Imaging Report ---
PATIENT HISTORY: Productive cough and shortness of air. TECHNIQUE: Two views of the chest. COMPARISON: 05/12/2017 FINDINGS: The lung volumes are normal. No focal consolidation is seen. No large pleural effusion or pneumothorax is seen. The cardiomediastinal silhouette is normal in size and contour. No acute osseous abnormality is seen. IMPRESSION: No acute pulmonary abnormality seen. Dictated by: Dictated on workstation # [id number]
[2019-02-15] MEDS ORDERED: LEVOFLOXACIN 750 MG TAB (LEVAQUIN) PO ONE (18:45)
[2019-02-15] MEDS ORDERED: predniSONE 20 MG TAB PO ONE (18:45)
[2019-02-15] MEDS ORDERED: CEFU250T80 PO (18:56)
[2019-02-15] MEDS ORDERED: PRD20T PO (18:56)
[2019-02-15] MEDS ORDERED: LEVOFLOXACIN 500 MG TAB (LEVAQUIN) ONE (18:57)
[2019-02-15 19:02] VITALS: BP 145/76
== END 2019-02-15 19:02 | disposition home or self-care (01) ==
LOC: EDUNIT# 17:47 → ER 17:48
DX: J44.1 Chronic obstructive pulmonary disease with (acute) exacerbation (principal); I10 Essential (primary) hypertension; E11.9 Type 2 diabetes mellitus without complications; E78.00 Pure hypercholesterolemia, unspecified; K21.9 Gastro-esophageal reflux disease without esophagitis; F41.9 Anxiety disorder, unspecified; F32.9 Major depressive disorder, single episode, unspecified; Z88.8 Allergy status to other drugs, medicaments and biological substances; Z79.84 Long term (current) use of oral hypoglycemic drugs; Z87.891 Personal history of nicotine dependence; Z90.49 Acquired absence of other specified parts of digestive tract; Z90.710 Acquired absence of both cervix and uterus; Z90.89 Acquired absence of other organs; Z82.49 Family history of ischemic heart disease and other diseases of the circulatory system
CPT/HCPCS: 71046; 87804

== ENCOUNTER → 2019-04-01 | Outpatient (CLI) | payer MEDICAID ==
[~2019-04-01] MED LIST changes: +CEFU250T80 PO; -GLIM1TAB PO; +GLIM1TAB2 PO; +LIDOCAINE 1% INJ 20 ML 20 ML VIAL INJ ONE; +METF500T19 PO; -METF500T8 PO; +PRD20T PO
--- NOTE | 2019-04-01 11:13 | Diagnostic Imaging Report ---
PROCEDURE: US Thyroid. TECHNIQUE: Multiple real-time grayscale images were obtained of the thyroid in various projections. INDICATION: Hypothyroidism. Patient presented for thyroid biopsy. COMPARISON: Correlation is made with prior thyroid ultrasounds dating back to 2017. FINDINGS: Right lobe of thyroid is enlarged measuring 6.3 x 2.9 x 3.0 cm. Left lobe is enlarged measuring 5.3 x 1.8 x 1.9 cm. Both lobes show marked parenchymal heterogeneity. The area of heterogeneous and slightly decreased echogenicity in the lower pole of the right lobe posteriorly appears very similar to prior ultrasounds. This is the area of concern on outside ultrasound. This is unchanged. Since this has not changed, biopsy was not performed. No discrete mass is seen within the right or left lobe. IMPRESSION: Thyromegaly and thyroid heterogeneity. Thyroid is similar in appearance to prior exams dating back to 2017. No discrete mass is detected. The area of concern noted on outside ultrasound most likely represents heterogeneous thyroid tissue. Even so, follow-up thyroid ultrasound in six months is recommended to show continued stability. Dictated by: Dictated on workstation # [id number]
== END ==
LOC: RAD 07:20
PROVIDERS: ATTEND Family Medicine
DX: E01.0 Iodine-deficiency related diffuse (endemic) goiter (principal); E07.89 Other specified disorders of thyroid
CPT/HCPCS: 76536

== ENCOUNTER 2019-08-25 16:50 | Emergency (ER) | payer MEDICAID ==
[~2019-08-25] VITALS: Ht 152 cm; Wt 75.2 kg
[~2019-08-25 16:50] MED LIST changes: -GLIM1TAB2 PO; +GLIM1TAB4 PO; -LIDOCAINE 1% INJ 20 ML 20 ML VIAL INJ ONE; +METF-865 PO; -METF500T19 PO
[2019-08-25 17:29] LABS: BASOPHILS % (AUTO) 0 % (0-10); EOSINOPHILS # (AUTO) 0.4 10^3/uL (0.0-0.3); EOSINOPHILS % (AUTO) 5 % (0-10); HEMATOCRIT 38 % (35-52); HEMOGLOBIN 12.4 G/DL (11.5-16.0); LYMPHOCYTES # (AUTO) 2.8 X 10^3 (1.0-4.0); LYMPHOCYTES % (AUTO) 31 % (12-44); MEAN CORPUSCULAR HEMOGLOBIN 27 PG (25-34); MEAN CORPUSCULAR HGB CONC 33 G/DL (32-36); MEAN CORPUSCULAR VOLUME 82 FL (80-99); MEAN PLATELET VOLUME 10.4 FL (7.4-10.4); MONOCYTES # (AUTO) 0.5 X 10^3 (0.0-1.0); MONOCYTES % (AUTO) 6 % (0-12); NEUTROPHILS # (AUTO) 5.3 X 10^3 (1.8-7.8); NEUTROPHILS % (AUTO) 58 % (42-75); PLATELET COUNT 209 10^3/uL (130-400)
[2019-08-25 17:40] LABS: ALBUMIN 4.4 GM/DL (3.2-4.5); CHLORIDE 102 MMOL/L (98-107); POTASSIUM 4.4 MMOL/L (3.6-5.0); SODIUM 134 MMOL/L (135-145)
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
[2019-08-25 17:41] LABS: CALCIUM 9.8 MG/DL (8.5-10.1)
[2019-08-25 17:42] LABS: GLUCOSE 143 MG/DL (70-105)
[2019-08-25 17:43] LABS: TOTAL PROTEIN 8.1 GM/DL (6.4-8.2)
[2019-08-25 17:44] LABS: BILIRUBIN,TOTAL 0.4 MG/DL (0.1-1.0); CARBON DIOXIDE 19 MMOL/L (21-32)
[2019-08-25 17:46] LABS: ALKALINE PHOSPHATASE 118 U/L (40-136); GFR ESTIMATED > 60
[2019-08-25 17:47] LABS: BUN/CREATININE RATIO 17
[2019-08-25 17:49] LABS: ALANINE AMINOTRANSFERASE 24 U/L (0-55)
[2019-08-25 18:07] LABS: BILIRUBIN,URINE NEGATIVE (NEGATIVE); CLARITY,URINE CLEAR; COLOR,URINE YELLOW; GLUCOSE, URINE (UA) 3+ (NEGATIVE); KETONES,URINE NEGATIVE (NEGATIVE); LEUKOCYTE ESTERASE ,URINE NEGATIVE (NEGATIVE); NITRITE,URINE NEGATIVE (NEGATIVE); PH,URINE 5.5 (5-9); PROTEIN,URINE 2+ (NEGATIVE)
[2019-08-25 18:25] LABS: FREE T4 (FREE THYROXINE) 0.81 NG/DL (0.70-1.48)
[2019-08-25 18:27] LABS: BACTERIA,URINE TRACE /HPF
[2019-08-25 18:28] LABS: AMORPHOUS SEDIMENT,UR FEW AMOR URATES /LPF; SQUAMOUS EPITHELIAL CELL,UR 0-2 /HPF; YEAST,URINE FEW /HPF
[2019-08-25] MEDS ORDERED: KETOROLAC 30 MG/ML VIAL IVP ONE (18:45)
[2019-08-25 19:11] VITALS: BP 143/77
--- OUTSIDE RECORDS SUMMARY | 2019-08-25 22:07 | XMS REPORT ---
Author Author Nieves LEMOS Organization [facility] Address [address] [place] [address] Care Team Providers Care Chronic Manager Name Role Phone CHIKIS LEMOS Unavailable PROBLEMS Type Condition ICD9-CM Code FGH17-XA Code Onset Dates Condition S tatus SNOMED Code Problem Essential hypertension I10 Active 04180614 Problem Type 2 diabetes mellitus with other diabetic kid bela complication E11.29 Active 93959199 Problem Mixed hyperlipidemia E78.2 Active 892141677 Problem Ventral hernia without obstruction or gangrene K43 .9 Active 780413705 Problem Acquired hypothyroidism E03.9 Active 454844729 Problem Vitamin D deficiency E55.9 Active 52052312 Problem Memory loss R41.3 Active 17355761 6 Problem Polyneuropathy G62.9 Active 26181 000 Problem Thyroid nodule E04.1 Active 01324 5005 Problem Non-insulin dependent type 2 diabetes mellitus E11 .9 Active 62918908 Problem Primary osteoarthritis of left hip M16.12 Active [id number] Problem Diabetic polyneuropathy associated with type 2 d iabetes mellitus E11.42 Active 32014530 Problem Moderate episode of recurrent major depressive disorder F33.1 Active 199459092 Problem Dementia without behavioral disturbance, unspeci fied dementia type F03.90 Active 82108104 Problem Gastroesophageal reflux disease without esophagitis K21.9 Active 493372357 Problem BMI 30.0-30.9,adult Z68.30 Active 141588354 ALLERGIES No Information ENCOUNTERS Encounter Location Date Diagnosis [facility] [address] [facility] [id number] [address] [place] [id number] 04 Aug, 2019 [facility] [address] [facility] [id number] [address] [place] [id number] 14 Jul, 2019 [facility] [address] [facility] [id number] [address] [place] [id number] 08 Jul, 2019 [facility] [address] [id number] [address] [place] [id number] Jun, [facility] [address] [id number] [address] [place] [phone] Jun, [facility] [address] [id number] [address] [place] [id number] Jun, [facility] [address] [id number] [address] [place] [phone] Jun, Moderate episode of recurren t major depressive disorder F33.1 [facility] [address] [id number] [address] [place] [id number] Jun, [facility] [address] [id number] [address] [place] [phone] Jun, Type 2 diabetes mellitus wit h other diabetic kidney complication E11.29 [facility] [address] [id number] [address] [place] [phone] Jun, Type 2 diabetes mellitus wit h other diabetic kidney complication E11.29 and Essential hypertension I10 [facility] [address] [id number] [address] [place] [id number] Jun, Moderate episode of recurren t major depressive disorder F33.1 [facility] [address] [id number] [address] [place] [id number] Jun, [facility] [address] [id number] [address] [place] [phone] Jun, Primary osteoarthritis of le ft hip M16.12 and Well woman exam with routine gynecological exam Z01.419 [facility] [address] [id number] [address] [place] [phone] May, [facility] [address] [id number] [address] [place] [phone] May, Moderate episode of recurren t major depressive disorder F33.1 [facility] [address] [id number] [address] [place] [phone] Apr, Moderate episode of recurren t major depressive disorder F33.1 [place] [address] [facility] [id number] [address] [place] [id number] Apr, Thyroid nodule E04.1 [place] [address] [facility] [id number] [address] [place] [id number] Apr, [place] [address] [facility] [id number] [address] [place] [id number] Mar, Well woman exam with routine gynecological exam Z01.419 [place] [address] [facility] [id number] [address] [place] [id number] Mar, Dementia without behavioral disturbance, unspecified dementia type F03.90 and Moderate episode of recurrent major depressive disorder F33.1 [place] [address] [facility] [id number] [address] [place] [phone] Mar, Memory loss R41.3 ; Dementia without behavioral disturbance, unspecified dementia type F03.90 ; Non-insulin dependent type 2 diabetes mellitus E11.9 ; Vitamin D deficiency E55.9 ; Primary osteoarthritis of left hip M16.12 and BMI 30.0-30.9,adult Z68.30 [place] [address] [facility] [id number] [address] [place] [id number] Feb, Moderate episode of recurren t major depressive disorder F33.1 and Dementia without behavioral disturbance, unspecified dementia type F03.90 [place] [address] [facility] [id number] [address] [place] [phone] Feb, Type 2 diabetes mellitus wit h other diabetic kidney complication E11.29 ; Non-insulin dependent type 2 diabetes mellitus E11.9 ; Essential hypertension I10 ; Thyroid nodule E04.1 ; Memory loss R41.3 and BMI 30.0- 30.9,adult Z68.30 [place] [address] [facility] [id number] [address] [place] [address] Jan, Hx of fracture of left hip Z 87.81 ; Primary osteoarthritis of left hip M16.12 ; Type 2 diabetes mellitus with other diabetic kidney complication E11.29 ; Non-insulin dependent type 2 diabetes mellitus E11.9 ; Essential hypertension I10 ; Vitamin D deficiency E55.9 ; Thyroid nodule E04.1 and BMI 29.0-29.9,adult Z68.29 [facility] [address] [id number] [address] [place] [id number] Jan, [place] [address] [id number] [address] [place] [phone] Jan, [place] [address] [facility] [id number] [address] [place] [id number] Jan, Moderate episode of recurren t major depressive disorder F33.1 and Dementia without behavioral disturbance, unspecified dementia type F03.90 [place] [address] [facility] [id number] [address] [place] [address] Jan, Acquired hypothyroidism E03. 9 [place] [address] [facility] [id number] [address] [place] [address] Jan, Encounter for immunization Z 23 [place] [address] [id number] [address] [place] [phone] Dec, [place] [address] [facility] [id number] [address] [place] [id number] Dec, Dementia without behavioral disturbance, unspecified dementia type F03.90 and Moderate episode of recurrent major depressive disorder F33.1 [place] [address] [facility] [id number] [address] [place] [id number] 14 Dec, 2018 Screening for STD sexually t ransmitted disease Z11.3 [place] [address] [id number] [address] [place] [id number] Dec, Screening for STD sexually t ransmitted disease Z11.3 [place] [address] [facility] [id number] [address] [place] [address] Dec, Well woman exam with routine gynecological exam Z01.419 ; Screening for breast cancer Z12.39 ; Type 2 diabetes mellitus with other diabetic kidney complication E11.29 ; Non-insulin dependent type 2 diabetes mellitus E11.9 ; Thyroid nodule E04.1 and BMI 29.0-29.9,adult Z68.29 [facility] [address] [id number] [address] [place] [phone] Nov, [facility] [address] [id number] [address] [place] [id number] Nov, Acquired hypothyroidism E03. 9 [facility] [address] [id number] [address] [place] [id number] Nov, [facility] [address] [id number] [address] [place] [id number] Nov, [facility] [address] [id number] [address] [place] [phone] Nov, [facility] [address] [id number] [address] [place] [phone] Nov, [facility] [address] [id number] [address] [place] [id number] Nov, [facility] [address] [id number] [address] [place] [id number] Nov, Thyroid nodule E04.1 [facility] [address] [id number] [address] [place] [id number] 03 Nov, 2018 Left hip pain M25.552 ; Type 2 diabetes mellitus with other diabetic kidney complication E11.29 ; Mixed hyperlipidemia E78.2 ; Essential hypertension I10 and Foc-mxsd-ffzo 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 associated with diabetes mellitus due to underlying condition E08.3599 [facility] [address] [id number] [address] [place] [id number] Oct, Dementia without behavioral disturbance, unspecified dementia type F03.90 and Moderate episode of recurrent major depressive disorder F33.1 [facility] [address] [id number] [address] [place] [id number] Oct, Right thyroid nodule E04.1 [facility] [address] [id number] [address] [place] [phone] Oct, Right thyroid nodule E04.1 ; Acute right ankle pain M25.571 ; BMI 30.0-30.9,adult Z68.30 ; Type 2 diabetes mellitus with other diabetic kidney complication E11.29 ; Essential hypertension I10 ; Acquired hypothyroidism E03.9 and Hemoptysis R04.2 [facility] [address] [id number] [address] [place] [id number] Oct, [facility] [address] [id number] [address] [place] [id number] Sep, [facility] [address] [id number] [address] [place] [address] Sep, Acute right ankle pain M25.5 71 ; Type 2 diabetes mellitus with other diabetic kidney complication E11.29 ; Essential hypertension I10 ; Acquired hypothyroidism E03.9 ; Hemoptysis R04.2 ; BMI 30.0-30.9,adult Z68.30 and Dementia without behavioral disturbance, unspecified dementia type F03.90 [facility] [address] [id number] [address] [place] [id number] Sep, [facility] [address] [id number] [address] [place] [id number] Sep, [facility] [address] [id number] [address] [place] [id number] Sep, Moderate episode of recurren t major depressive disorder F33.1 and Dementia without behavioral disturbance, unspecified dementia type F03.90 [facility] [address] [id number] [address] [place] [phone] Aug, [facility] [address] [id number] [address] [place] [phone] Aug, [facility] [address] [id number] [address] [place] [id number] Aug, [facility] [address] [id number] [address] [place] [phone] Aug, [facility] [address] [facility] [id number] [address] [place] [id number] Aug, [facility] [address] [facility] [id number] [address] [place] [id number] July, Exercise counseling Z71.82 [facility] [address] [facility] [id number] [address] [place] [id number] July, Acquired hypothyroidism E03. 9 ; Neck muscle spasm M62.838 and Thyroid nodule E04.1 [facility] [address] [id number] [address] [place] [phone] July, [place] [address] [facility] [id number] [address] [place] [id number] July, Vitamin D deficiency E55.9 a nd Acquired hypothyroidism E03.9 [place] [address] [facility] [id number] [address] [place] [phone] July, [facility] [address] [facility] [id number] [address] [place] [id number] July, Dementia without behavioral disturbance, unspecified dementia type F03.90 and Moderate episode of recurrent major depressive disorder F33.1 [place] [address] [facility] [id number] [address] [place] [id number] July, Cough R05 ; Vitamin D defici ency E55.9 ; Type 2 diabetes mellitus with other diabetic kidney complication E11.29 and Mixed hyperlipidemia E78.2 [place] [address] [facility] [id number] [address] [place] [id number] July, Vitamin D deficiency E55.9 ; Type 2 diabetes mellitus with other diabetic kidney complication E11.29 and Mixed hyperlipidemia E78.2 [place] [address] [facility] [id number] [address] [place] [id number] July, Exercise counseling Z71.82 [facility] [address] [facility] [id number] [address] [place] [phone] July, [facility] [address] [facility] [id number] [address] [place] [phone] July, Cough R05 [place] [address] [id number] [address] [place] [id number] July, Exercise counseling Z71.82 [facility] [address] [facility] [id number] [address] [place] [phone] July, [place] [address] [facility] [id number] [address] [place] [id number] July, [place] [address] [facility] [id number] [address] [place] [address] July, Cough R05 ; Type 2 diabetes mellitus with other diabetic kidney complication E11.29 ; BMI 30.0-30.9,adult Z68.30 ; Mixed hyperlipidemia E78.2 ; Essential hypertension I10 and Acquired hypothyroidism E03.9 [place] [address] [facility] [id number] [address] [place] [id number] Jun, [place] [address] [facility] [id number] [address] [place] [id number] Jun, Dementia without behavioral disturbance, unspecified dementia type F03.90 and Moderate episode of recurrent major depressive disorder F33.1 [place] [address] [facility] [id number] [address] [place] [id number] Jun, [place] [address] [facility] [id number] [address] [place] [id number] Jun, Exercise counseling Z71.82 [place] [address] [facility] [id number] [address] [place] [phone] Jun, [place] [address] [id number] [address] [place] [phone] Jun, [place] [address] [facility] [id number] [address] [place] [phone] Jun, [place] [address] [facility] [id number] [address] [place] [phone] Jun, Moderate episode of recurren t major depressive disorder F33.1 and Dementia without behavioral disturbance, unspecified dementia type F03.90 [facility] [address] [id number] [address] [place] [id number] Jun, [facility] [address] [facility] [id number] [address] [place] [phone] May, [facility] [address] [id number] [address] [place] [phone] May, [facility] [address] [id number] [address] [place] [id number] May, Type 2 diabetes mellitus wit h other diabetic kidney complication E11.29 [facility] [address] [id number] [address] [place] [phone] May, [facility] [address] [facility] [id number] [address] [place] [id number] May, [facility] [address] [facility] [id number] [address] [place] [id number] May, Type 2 diabetes mellitus wit h other diabetic kidney complication E11.29 [facility] [address] [id number] [address] [place] [phone] May, [facility] [address] [facility] [id number] [address] [place] [id number] May, [facility] [address] [facility] [id number] [address] [place] [phone] May, [facility] [address] [facility] [id number] [address] [place] [address] May, Type 2 diabetes mellitus wit h other diabetic kidney complication E11.29 ; Right thyroid nodule E04.1 ; Essential hypertension I10 and Acquired hypothyroidism E03.9 [facility] [address] [facility] [id number] [address] [place] [id number] 18 Apr, 2018 Right thyroid nodule E04.1 [facility] [address] [facility] [id number] [address] [place] [id number] 07 Apr, 2018 Thyroid mass E07.9 [place] [address] [facility] [id number] [address] [place] [id number] 04 Apr, 2018 Vitamin D deficiency E55.9 [place] [address] [facility] [id number] [address] [place] [id number] Mar, Non-insulin dependent type 2 diabetes mellitus E11.9 ; Moderate episode of recurrent major depressive disorder F33.1 ; Gastroesophageal reflux disease without esophagitis K21.9 ; Dementia without behavioral disturbance, unspecified dementia type F03.90 ; Right thyroid nodule E04.1 and Vitamin D deficiency E55.9 [place] [address] [facility] [id number] [address] [place] [id number] Mar, Moderate episode of recurren t major depressive disorder F33.1 and Dementia without behavioral disturbance, unspecified dementia type F03.90 [place] [address] [facility] [id number] [address] [place] [address] Mar, Dementia without behavioral disturbance, unspecified dementia type F03.90 and Moderate episode of recurrent major depressive disorder F33.1 [place] [address] [facility] [id number] [address] [place] [id number] Feb, [place] [address] [facility] [id number] [address] [place] [phone] Feb, Dementia without behavioral disturbance, unspecified dementia type F03.90 and Moderate episode of recurrent major depressive disorder F33.1 [place] [address] [facility] [id number] [address] [place] [id number] Jan, Dementia without behavioral disturbance, unspecified dementia type F03.90 and Moderate episode of recurrent major depressive disorder F33.1 [place] [address] [facility] [id number] [address] [place] [id number] Jan, Non-insulin dependent type 2 diabetes mellitus E11.9 ; Memory loss R41.3 ; Vitamin D deficiency E55.9 ; Moderate episode of recurrent major depressive disorder F33.1 ; Diabetic polyneuropathy associated with type 2 diabetes mellitus E11.42 and Tremor R25.1 [place] [address] [id number] [address] [place] [address] Jan, Dementia without behavioral disturbance, unspecified dementia type F03.90 [facility] [address] [id number] [address] [place] [phone] Dec, Vitamin D deficiency E55.9 [facility] [address] [id number] [address] [place] [id number] Dec, [facility] [address] [id number] [address] [place] [phone] Dec, Vitamin D deficiency E55.9 [facility] [address] [id number] [address] [place] [id number] Dec, [facility] [address] [facility] [id number] [address] [place] [id number] Dec, [facility] [address] [facility] [id number] [address] [place] [id number] Oct, [facility] [address] [id number] [address] [place] [id number] Oct, Non-insulin dependent type 2 diabetes mellitus E11.9 ; Memory loss R41.3 and Mixed hyperlipidemia E78.2 [facility] [address] [facility] [id number] [address] [place] [id number] Oct, [place] [address] [facility] [id number] [address] [place] [phone] Sep, [facility] [address] [id number] [address] [place] [address] Sep, Vitamin D deficiency E55.9 [facility] [address] [id number] [address] [place] [id number] Sep, [facility] [address] [facility] [id number] [address] [place] [address] Aug, Non-insulin dependent type 2 diabetes mellitus E11.9 ; Vitamin D deficiency E55.9 ; Memory loss R41.3 ; Polyneuropathy G62.9 ; Status post fracture of hip Z87.81 and Rectal bleeding K62.5 [place] [id number] [place] [address] July, Vitamin D deficiency E55.9 [place] [address] [place] [id number] [address] [place] [id number] July, Tongue swelling R22.0 [facility] [address] [place], [place] [address] [place] [address] July, [place] [address] [place] [address] July, Tongue swelling R22.0 [place] [address] [place] [address] July, Non-insulin dependent type 2 diabetes mellitus E11.9 ; Mixed hyperlipidemia E78.2 ; Closed fracture of left hip, sequela S72.002S ; Wheezing R06.2 ; Thyromegaly E01.0 and Dizziness R42 [place] [address] [place] [id number] [address] [place] [address] July, Non-insulin dependent type 2 diabetes mellitus E11.9 [place] [address] [place] [id number] [address] [place] [address] July, Non-insulin dependent type 2 diabetes mellitus E11.9 ; Mixed hyperlipidemia E78.2 ; Closed fracture of left hip, sequela S72.002S ; Wheezing R06.2 ; Thyromegaly E01.0 and Dizziness R42 [place] [address] [place] [address] Jun, [place] [address] [address] Jun, [place] [address] [place] [id number] [address] [place] [address] May, Type 2 diabetes mellitus wit h other diabetic kidney complication E11.29 ; Diabetic polyneuropathy associated with type 2 diabetes mellitus E11.42 ; Mixed hyperlipidemia E78.2 ; Essential hypertension I10 and Closed fracture of left hip with routine healing, subsequent encounter S72.002D [facility] [address] [facility] [id number] [address] [place] [id number] May, [facility] [address] [facility] [id number] [address] [place] [id number] May, [facility] [address] [facility] [id number] [address] [place] [id number] May, [facility] [address] [facility] [id number] [address] [place] [id number] Apr, [facility] [address] [facility] [id number] [address] [place] [id number] Apr, Mixed hyperlipidemia E78.2 [facility] [address] [facility] [id number] [address] [place] [id number] Apr, Type 2 diabetes mellitus wit h other diabetic kidney complication E11.29 [facility] [address] [facility] [id number] [address] [place] [id number] Mar, Right thyroid nodule E04.1 [facility] [address] [facility] [id number] [address] [place] [phone] Mar, [facility] [address] [facility] [id number] [address] [place] [phone] Mar, [facility] [address] [facility] [id number] [address] [place] [phone] Mar, Diabetic polyneuropathy asso ciated with type 2 diabetes mellitus E11.42 [facility] [address] [facility] [id number] [address] [place] [id number] Mar, Essential hypertension I10 ; Type 2 diabetes mellitus with other diabetic kidney complication E11.29 ; Heartburn R12 ; Mixed hyperlipidemia E78.2 ; Acquired hypothyroidism E03.9 ; Renal insufficiency N28.9 ; Diabetic polyneuropathy associated with type 2 diabetes mellitus E11.42 and Enlargement of thyroid E04.9 [facility] [address] [id number] [address] [place] [phone] Mar, [facility] [address] [facility] [id number] [address] [place] [id number] Mar, Acquired hypothyroidism E03. 9 [facility] [address] [facility] [id number] [address] [place] [phone] 15 Feb, 2016 Essential hypertension I10 ; Type 2 diabetes mellitus with other diabetic kidney complication E11.29 ; Heartburn R12 ; Enlargement of thyroid E04.9 ; Mixed hyperlipidemia E78.2 ; Acquired hypothyroidism E03.9 ; Renal insufficiency N28.9 and Diabetic polyneuropathy associated with type 2 diabetes mellitus E11.42 [facility] [address] [facility] [id number] [address] [place] [id number] 07 Feb, 2016 [facility] [address] [facility] [id number] [address] [place] [phone] Jan, [facility] [address] [facility] [id number] [address] [place] [phone] Jan, [facility] [address] [facility] [id number] [address] [place] [phone] Jan, [facility] [address] [facility] [id number] [address] [place] [phone] Dec, Chest pain, unspecified type R07.9 ; Essential hypertension I10 ; Mixed hyperlipidemia E78.2 and Type 2 diabetes mellitus with other diabetic kidney complication E11.29 [facility] [address] [facility] [id number] [address] [place] [phone] 05 Dec, 2015 [facility] [address] [facility] [id number] [address] [place] [id number] 30 Nov, 2015 [facility] [address] [facility] [id number] [address] [place] [id number] Nov, [facility] [address] [facility] [id number] [address] [place] [id number] Nov, Essential hypertension I10 ; Type 2 diabetes mellitus with other diabetic kidney complication E11.29 ; Proteinuria, unspecified R80.9 ; Heartburn R12 ; Enlargement of thyroid E04.9 ; Mixed hyperlipidemia E78.2 ; Acquired hypothyroidism E03.9 and Renal insufficiency N28.9 [place] [address] [facility] [id number] [address] [place] [id number] Nov, [place] [address] [place] [id number] [address] [place] [id number] Nov, [place] [address] [facility] [id number] [address] [place] [phone] Nov, [place] [address] [facility] [id number] [address] [place] [phone] Nov, Renal insufficiency N28.9 [place] [id number] [place] [id number] Nov, Renal insufficiency N28.9 [place] [address] [place] [id number] [address] [place] [phone] 16 Nov, 2015 Encounter for well woman exa m Z01.419 ; Screening for STD sexually transmitted disease Z11.3 ; Encounter for screening breast examination Z12.39 ; Screening mammogram, encounter for Z12.31 and Ventral hernia without obstruction or gangrene K43.9 [place] [address] [place] [phone] 13 Nov, 2015 Essential hypertension I10 ; Type 2 diabetes mellitus with other diabetic kidney complication E11.29 ; Proteinuria, unspecified R80.9 ; Heartburn R12 ; Enlargement of thyroid E04.9 ; Mixed hyperlipidemia E78.2 ; Acquired hypothyroidism E03.9 and Renal insufficiency N28.9 [place] [address] [place] [id number] [address] [place] [phone] Oct, Essential hypertension I10 ; Type 2 diabetes mellitus with other diabetic kidney complication E11.29 ; Proteinuria, unspecified R80.9 ; Heartburn R12 ; Abnormal thyroid blood test R94.6 ; Enlargement of thyroid E04.9 and Mixed hyperlipidemia E78.2 [place] [address] [place] [id number] [address] [place] [phone] Oct, [facility] [address] [facility] [id number] [address] [place] [id number] Oct, Enlargement of thyroid E04.9 [facility] [address] [id number] [address] [place] [phone] Oct, [facility] [address] [facility] [id number] [address] [place] [phone] Oct, Essential hypertension I10 ; Type 2 diabetes mellitus with other diabetic kidney complication E11.29 ; Proteinuria, unspecified R80.9 ; Heartburn R12 ; Abnormal thyroid blood test R94.6 ; Mixed hyperlipidemia E78.2 and Enlargement of thyroid E04.9 [facility] [address] [id number] [address] [place] [id number] 05 Oct, 2015 Dental examination Z01.20 [facility] [address] [facility] [id number] [address] [place] [phone] 14 Jun, 2014 [facility] [address] [facility] [id number] [address] [place] [phone] 13 Jun, 2014 [facility] [address] [facility] [id number] [address] [place] [phone] Jun, [facility] [address] [facility] [id number] [address] [place] [phone] May, [facility] [address] [facility] [id number] [address] [place] [phone] May, [facility] [address] [facility] [id number] [address] [place] [phone] Feb, [facility] [address] [facility] [id number] [address] [place] [phone] Feb, [facility] [address] [facility] [id number] [address] [place] [phone] Feb, [facility] [address] [facility] [id number] [address] [place] [id number] Feb, [facility] [address] [id number] [address] [place] [address], [place] [phone] 14 Feb, 2012 [facility] [address] [id number] [address] [place] [address], [place] [phone] 14 Feb, 2012 [facility] [address] [id number] [address] [place] [address], [place] [phone] Feb, [facility] [address] [id number] [address] [place] [address], [place] [phone] Feb, [facility] [address] [id number] [address] [place] [address], [place] [id number] Dec, [facility] [address] [id number] [address] [place] [address], [place] [phone] Dec, [facility] [address] [id number] [address] [place] [address], [place] [id number] Dec, [facility] [address] [id number] [address] [place] [address], [place] [id number] Dec, [facility] [address] [id number] [address] [place] [address], [place] [id number] Sep, [facility] [address] [id number]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
--- OUTSIDE RECORDS SUMMARY | 2019-08-25 22:07 | XMS REPORT ---
Author Author [employer] 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 [employer] [facility] [employer] [facility] Address [address] [place] [address] Care Team Providers Care Rn Procedures Name Role Phone MADL, ROZINA Unavailable Unavailable YAHIR LERMA Unavailable Unavailable MADL, ROZINA Unavailable MADL, ROZINA Unavailable MATEO BROWN Unavailable Unavailable NO, LOCAL PHYSICIAN Unavailable Unavailable MADL, ROZINA Unavailable MADL, ROZINA Unavailable MADL, ROZINA Unavailable MADL, ROZINA Unavailable MADL, ROZINA Unavailable MADL, ROZINA Unavailable MADL, ROZINA Unavailable MADL, ROZINA Unavailable MADL, ROZINA Unavailable SHEYLA TREJO Unavailable GAULT, ANDREW Unavailable MADL, ROZINA Unavailable GAULT, ANDREW Unavailable GAULT, ANDREW Unavailable GAULT, ANDREW Unavailable GAULT, ANDREW Unavailable GAULT, ANDREW Unavailable GAULT, ANDREW Unavailable zzRATHINAMANICKAM, NATASHA Unavailable zzRATHINAMANICKAM, NATASHA Unavailable GAULT, ANDREW Unavailable BOCANEGRA DO, SREE D Unavailable Unavailable GAULT, ANDREW Unavailable [facility] Unavailable [phone] GAULT, ANDREW Unavailable GAULT, ANDREW Unavailable DALLAS BURKS DO Unavailable Unavailable GAULT, ANDREW Unavailable TERRENCE MONTALVO STONECUTTER HAND Unavailable Unavailable CHIKIS LEMOS MD Unavailable Unavailable ROZINA SWANSON Unavailable Unavailable GAULT, ANDREW Unavailable GAULT, ANDREW Unavailable GAULT, ANDREW Unavailable GAULT, ANDREW Unavailable GAULT, ANDREW Unavailable GAULT, ANDREW Unavailable GAULT, ANDREW Unavailable GAULT, ANDREW Unavailable BONE, RODGER Unavailable BONE, RODGER Unavailable GAULT, ANDREW Unavailable BONE, RODGER Unavailable GAULT, ANDREW Unavailable Unavailable Migration, Doctor Unavailable Unavailable Migration, Doctor Unavailable Unavailable CHIKIS LEMOS Unavailable VALERIE CASANOVA Unavailable GAULT, ANDREW Unavailable DALLAS BURKS DO Unavailable Unavailable TERRENCE MONTALVO STONECUTTER HAND Unavailable Unavailable ROZINA SWANSONP Unavailable Unavailable GONZALO NORRIS DO Unavailable Unavailable GONZALO NORRIS DO Unavailable Unavailable ANDREW PLATT MD Unavailable Unavailable MANUEL CORONADO MARJORIE K Unavailable Unavailable EVERETT ESPINAL APRN Unavailable Unavailable EVERETT ESPINAL APRN Unavailable Unavailable [facility] PCP SHEYLA TREJO DO Unavailable Unavailable Unavailable Unavailable GAULT, ANDREW Unavailable GAULT, ANDREW Unavailable GAULT, ANDREW Unavailable GAULT, ANDREW Unavailable CHIKIS LEMOS Unavailable CHIKIS LEMOS Unavailable ANDREW PLATT Unavailable Unavailable Unavailable Unavailable Unavailable Unavailable Unavailable Unavailable Unavailable Unavailable Unavailable Allergies Normalized Allergy Reported Date of Reaction(s) Care Provider Facility Allergy Type classification allergen Allergy Onset Propensity to Unclassified cilantro 09-19-2017 - hives [facility] reactions (1 of [facility] source.) [place] ([address]) Allergy to liraglutide liraglutide 05-12-2017 - Nausea alone MAR JANNETTE Not Available Substance (22 Translations: DO MYRNA (12142) sources.) [ liraglutide] Drug Allergy Angiotensin 2 losartan 09-19-2017 - [facility] (1 source.) Receptor Translations: swelling [address] [facility] Blockers (ARB) [ losartan] of [facility] (35355) DA (17 Unclassified No Known Drug 10-03-2014 - no information CHIKIS LEMOS Not Available sources.) Allergies MD (07271) Medications Current Medications Medication Ingredient Drug Dose Dates Status Sig Sig Care Class(es) (Normalized) (Original) Provid er 8 hr acetaminoph no 1300 Active no Arthritis no acetaminoph en information mg information Pain 650 M G name en 650 mg Translation Orally every extended s: [ 8 hrs 2 release Arthritis tablets as oral tablet Pain 650 needed 8h (2 MG, Active sources.) Arthritis Pain 650 MG] no Calcium Phosphate 600 mg Active take 1 no no information Translation Binder, tablet by information name (1 source.) s: [ Calcium mouth twice Calcium 600 daily at MG] mealtime canaglifloz canaglifloz Sodium-Gluc 100 mg 05-30-19 Active no Invokana 100 no in 100 mg in ose 19 information mg 1 tablet na me oral tablet Translation Cotransport May, (1 source.) s: [ er 2 30 day(s) Invokana Inhibitor Active 100 mg] citalopram Citalopram Serotonin 5 mg Active no no no 10 mg oral Translation Reuptake information information name tablet (1 s: [ Celexa Inhibitor source.) 10 mg] no Daily no Active no no no information Vitamins information information information na me (3 for Women - sources.) Active no Daily no name inform Vitamins ation for Women - Active omeprazole Omeprazole Proton Pump Active take 1 no no 40 mg / / Sodium Inhibitor capsule by information name sodium Bicarbonate mouth once bicarbonate Translation daily 1100 mg s: [ oral Omeprazole- capsule (1 Sodium source.) Bicarbonate 40-1100 MG] [place] [address] 07-20-19 Active take 1 no no information (Ergocalcif information [IU] 18 capsule by info rmation name (1 source.) tiffanie) 06112 mouth every UNIT week Completed/Discontinued Medications Medication Ingredient Drug Dose Dates Status Sig Sig Care Class(es) (Normalized) (Original) Provid er calcium calcium no 1500 no no Calcium no carbonate carbonate information mg informat information Carbo kyree name 1500 mg Translation ion Active 600 oral tablet s: [ ORAL Daily (5 Calcium 600 sources.) MG, Calcium 600 MG] 1500 mg Active no Calcium no name inform 600 MG ation Orally Twice a day 1 tablet with meals 12h Active cefuroxime Cefuroxime Cephalospor 02-16-20 Complete no Cefur oxime no 250 mg oral in 19 - d information Axetil na me tablet (1 Antibacteri 02-16-20 Discontinued source.) al 19 - 250 ORAL 02-16-20 Twice A Day 20 12February 15, 2019 6:56pm (One-Time) no Cholecalcif Vitamin D no no Cholecalcife no information tiffanie informat information rol (Vitamin name (1 source.) ion D3) Active 35438 [place] [address] Complete take 1 Cholecalcife (n o information tiffanie information [IU] d capsule by rol (Carissa min phone) (2 (Vitamin mouth every D3) (Vitamin sources.) D3) week, then D) 50,000 (Vitamin D) take 1 Unit Capsule 50,000 Unit capsule by 50,000 Unit Capsule mouth ORAL Weekly no Multivitami no Complete take 1 Multivitamin (n o information n (Daily information d tablet by (Daily phone) (2 Multiple mouth once Multiple sources.) Vitamin) 1 daily, then Vitamin) 1 Each Tablet take 1 Each Tablet tablet by 1 Each ORAL mouth Daily no Multivitami no no no Multivitamin no information n information informat information Active 1 name (1 source.) preparation ion ORAL Daily pantoprazol pantoprazol Proton Pump 40 mg 10-23-19 Complete take 1 Pantoprazole Sree e 40 mg e Inhibitor 18 - d tablet by Sodium D delayed 10-23-19 mouth once (Protonix) Bocanegra release 18 daily 40 Mg (no oral tablet Tablet.dr Tyler phone) (2 Mg ORAL sources.) Daily 30 Tab 10/22/17 Problems Active Problems Problem Normalized Date Last Normalized Normalized Provider James nuñez Classification Problem(s) Recorded Problem Problem Sta tus Duration Residual Acquired Episodic Active PETER ESPINAL [facility] Via codes; absence of [place] unclassified both cervix Hospital - (7 sources.) and uterus [place] (18211) Residual Acquired Episodic Active PETER ESPINAL [facility] Via codes; absence of [place] unclassified other organs Hospital - (7 sources.) [place] (39496) Residual Acquired Episodic Active PETER ESPINAL [facility] Via codes; absence of [place] unclassified other Hospital - (7 sources.) specified [place] parts of (28714) digestive tract Allergic Allergy status Episodic Active PETER ESPINAL [facility] V ia reactions (7 to other [facility] sources.) drugs, Hospital - medicaments [place] and biological (95526) substances status Deficiency and Anemia, Episodic Active GONZALO [facility] Via other anemia unspecified BARN[place]GE , DO Mcgrawi (13 sources.) Hospital - [place] (34849) Anxiety Anxiety Chronic Active PETER ESPINAL [facility] Via disorders (7 disorder, [place] sources.) unspecified Hospital - [place] (57416) Other and Benign Episodic Active SREE BOCANEGRA , [facility] Via unspecified neoplasm of [facility] benign rectum Hospital - neoplasm (13 [place] sources.) (30095) Chronic Chronic Chronic Active PETER ESPINAL [facility] Via obstructive obstructive [facility] pulmonary pulmonary Hospital - disease and disease with [place] bronchiectasis (acute) (19474) (8 sources.) exacerbation Translations: [ Acute exacerbation of chronic obstructive pulmonary disease] Diabetes Diabetes no information Active SHEYLA TREJO Via Chr isti mellitus mellitus [facility] Hospital without without [place] complication complication (59374) (3 sources.) Residual Family history Episodic Active EVERETT ESPINAL [facility] V ia codes; of ischemic [facility] unclassified heart disease Hospital - (7 sources.) and other [place] diseases of (41575) the circulatory system Other Fracture of Episodic Active [facility] [place] Via fractures (1 bone of hip [facility] [place] source.) region [address] Hospital (72721) Gastritis and Gastritis, Episodic Active SREE BOCANEGRA , [facility] Via duodenitis (13 unspecified, DO [place] sources.) without Hospital - bleeding [place] (56897) Other custodial Episodic Active SREE BOCANEGRA , [facility] Via aftercare (11 (current) use DO [place] sources.) of oral Hospital - hypoglycemic [place] drugs (59366) Noninfectious Noninfective Episodic Active SREE BOCANEGRA , [facility] Via gastroenteriti gastroenteriti DO Yenifer s (13 s and colitis, Hospital - sources.) unspecified [place] (20159) Deficiency and Normocytic Episodic Active SHEYLA TREJO Via C hristi other anemia anemia 35446 Hospital (4 sources.) Translations: [place] [ Normocytic (00922) anemia] Screening and Personal Episodic Active GONZALO [facility] Via history of history of BARNIDGE , DO [place]en[place] mental health nicotine Hospital - and substance dependence [place] abuse codes (95904) (20 sources.) Residual Personal Episodic Active DALLAS BURKS [facility] Via codes; history of , DO [place] unclassified noncompliance Hospital - (4 sources.) with medical [place] treatment, (61148) presenting hazards to health Other Personal Episodic Active SREE BOCANEGRA , [facility] Via infections; history of [place] including other Hospital - parasitic (13 infectious and [place] sources.) parasitic (51972) diseases Other diseases Renal Epis[facility] kidney and impairment [address] [facility] ureters (16 Translations: of [facility] sources.) [ Renal [place] (01942) insufficiency, Renal insufficiency] Hemorrhoids Residual Episodic Active SREE BOCANEGRA , [facility] Vi a (13 sources.) hemorrhoidal DO [place] skin tags [facility] [address] (09621) External cause Unspecified Episodic Active GONZALO [facility] V ia codes: Fall (8 fall, initial BARNIDGE , DO Yenifer sources.) encounter Hospital - Translations: [place] [ UNSPECIFIED (46840) FALL, SUBSEQUENT ENCOUNTER] Urinary tract Urinary tract Episodic Active GONZALO [facility] Via infections (17 infectious BARNIDGE , DO Yenifer sources.) disease Hospital - Translations: [place] [ ACUTE (45070) CYSTITIS WITH HEMATURIA, Urinary tract infection] Past or Other Problems Problem Normalized Date Last Normalized Normalized Provider Fa cility Classification Problem(s) Recorded Problem Problem Sta tus Duration 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 SREEEV BOCANEGRA , Not Available aftercare (9 (current) use DO (71028) sources.) of oral hypoglycemic drugs Nonmalignant Lump or mass Episodic Completed CHIKIS LEMOS No t Available breast in breast MD (89321) conditions (9 Translations: sources.) [ MASTODYNIA] Disorders of Pure no information no information GONZALO Not Available lipid hypercholester BARNIDGE , DO (45884) metabolism (9 olemia, sources.) unspecified External Unspecified no information no information GONZALO Not Available Injury - Fall fall, BARNIDGE , DO (86126) (20 sources.) subsequent encounter Translations: [ UNSPECIFIED FALL, INITIAL ENCOUNTER] Procedures Procedure Normalized Procedure Procedure Result Performer Facility Date 08-27-2017 25 hydroxy includes no information no name [facility] fractions if performed [facility] (09932) 10-22-2017 Administration of no information SREE BOCANEGRA Vi a [facility] anesthesia [place] (57680) 08-27-2017 Collection venous no information no name Count includes the [facility] blood venipuncture [facility] (42332) 02-15-2019 Diagnostic radiography no information no name [place] [facility] of chest, combined [facility] (17016) and lateral 10-22-2017 Esophagogastroduodenos no information SREE JUAREZ R Via [facility] copy [place] (71182) 08-27-2017 Hemoglobin no information no name [facility] ealt glycosylated a1c [facility] (60078) 12-26-2017 LAB NOT BILLED BY no information no name Count includes the [facility] (14539) 01-20-2018 Psychiatric diagnostic no information no name Counts Include [address] [facility] evaluation [facility] (79214) 01-31-2018 Psychological testing no information no name [facility] admn by tech pr hr [facility] (06621) 02-05-2018 Psychotherapy no information no name On License Of [facility] Health w/patient 60 minutes [facility] (05560) 05-13-2017 REPOSITION LEFT UPPER no information no name V CH Via [facility] FEMUR WITH INT FIX Hospital - [place] (32346) REPOSITION LEFT UPPER no information no name Not Avai lable (21415) FEMUR WITH INT FIX Immunizations Normalized Immunization Date Notes Care Provider Facili ty Immunization NEGATED: Highlighted 05-15-2017 - no information SHEYLA TREJO [address] [facility] row has not 05-15-2017 [place] (61117) occurred! influenza virus vaccine, split virus (incl. purified surface antigen)-retired CODE influenza, seasonal, 01-02-2019 no information no name [facility] (34840) pneumococcal 01-02-2019 no information no name Counts Include [address] [facility] polysaccharide [facility] vaccine, 23 valent [facility] (22151) Results Test Name Value Interpretation Reference Range Date Time Fa cility (Normalized) (Normalized) (Medline Reference) other on null no information no information (no code) Via [facility] (14123) metabolic panel on null Sodium no information (no code) Via [facility] (34693) not yet categorized on 2019-08-06 Exp date 02/2021 (no code) [facility] (22039) Lot 9.6~8.7~0610 (no code) [facility] (40952) not yet categorized on 2019-03-12 A:C (IN HOUSE) 12/21~clear~yell (no code) [facility] ow~150 mg/L~50 [facility] mg/ dL~>300 mg/g [facility] (34864) Lot # [id number] (no code) [facility] (34615) MICROALBUMIN High Abnormal (no code) [facility] (06411) not yet categorized on 2019-02-05 Exp date 01-22 (no code) [facility] (63582) Lot 8.7~10.1~[id number] (no code) [facility] 4 [facility] (55394) not yet categorized on 2018-12-03 Clinical no information (N) [facility] information [facility] (18369) COMMENT no information (no code) [facility] (63785) Date of previous no information (N) [facility] biopsy [facility] (15730) Date of previous no information (N) [facility] PAP smear [facility] (05924) Last menstrual no information (N) [facility] period start [facility] date [facility] (40368) laboratory on 2018-12-03 Bacteria SEE NOTE (no code) [facility] identified Aer [facility] cx Nom (Genital [facility] specimen) (01808) Prosthetic Assistant Cyto no information (N) [facility] stain Nom [facility] (Cvx/Vag) [ID] [facility] (22239) HPV E6+E7 mRNA Not Detected (N) [facility] GERRI+probe Ql [facility] (Cvx) [facility] (40151) Microscopic no information (N) [facility] observation Cyto [facility] stain Nom (Cvx) [facility] (23982) Specimen source Cervix (N) [facility] Cyto stain Nom [facility] (Cvx/Vag) [facility] (54947) Statement of no information (N) [facility] adequacy Cyto [facility] (Cvx/Vag) [facility] [Interp] (07765) not yet categorized on 2018-12-02 Control neg~+ (no code) [facility] (79561) Exp date 07/21 (no code) [facility] (44114) Exp date 01/2019 (no code) [facility] (38100) Lot # [id number] (no code) [facility] (57162) Lot # [id number] (no code) [facility] (70708) not yet categorized on 2018-11-04 Exp date 05/2020 (no code) [facility] (49554) Lot 10.1~10.5~0993 (no code) [facility] (00680) laboratory on 2018-07-15 Albumin 4.4 g/dL (N) 3.4 - 5.4 g/dL Counts Include [facility] [Mass/Vol] [facility] (32893) Albumin DL <= 20 49.4 mg/dL (N) 0.2 - 1.9 mg/dL [facility] mg/L (U) [facility] [Mass/Vol] [facility] (52432) Albumin/Creatini 1074 (H) On License Of [facility] Hea lth ne (U) [Mass [facility] () Albumin/Globulin 1.5 {ratio} (N) 1 - 2.5 {ratio} Comm [facility] [Mass ratio] [facility] (96802) ALP [Catalytic 99 U/L (N) 44 - 147 U/L On License Of [facility] Health activity/Vol] [facility] () ALT [Catalytic 12 U/L (N) 4 - 40 U/L Community ealt activity/Vol] [facility] (84271) AST [Catalytic 15 U/L (N) 10 - 34 U/L On License Of [facility] Health activity/Vol] [facility] () Basophils (Bld) 0.038 10*3/uL (N) 0 - 0.3 10*3/uL [facility] Health [#/Vol] [facility] () Basophils/100 0.4 % (N) 0.5 - 1 % On License [facility] He alth WBC (Bld) [facility] () Bilirubin 0.4 mg/dL (N) 0.1 - 1.2 mg/dL Counts Include [address] [facility] [Mass/Vol] [facility] (27795) Calcidiol 21 ng/mL (L) 20 - 50 ng/mL [facility] [Mass/Vol] [facility] (12837) Calcium 9.6 mg/dL (N) 8.5 - 10.2 mg/dL [facility] [Mass/Vol] [facility] (42802) Chloride 98 mmol/L (N) 95 - 106 mmol/L Counts Include [facility] [Moles/Vol] [facility] (10520) Cholesterol 251 mg/dL (H) 180 - 200 mg/dL Counts Include [address] [facility] [Mass/Vol] [facility] (53370) Cholesterol in 36 mg/dL (L) [facility] HDL [Mass/Vol] [facility] (32990) Cholesterol in 0 mg/dL (no code) 0 - 100 mg/dL [facility] LDL [Mass/Vol] [facility] (48430) Cholesterol non 215 mg/dL (H) [facility] HDL [Mass/Vol] [facility] (28857) Cholesterol.tota 7.0 {ratio} (H) On License Of [facility] He lt l/Cholesterol in [facility] HDL [Mass ratio] [facility] (81669) CO2 [Moles/Vol] 23 mmol/L (N) 23 - 29 mmol/L [facility] (86931) Creatinine (U) 46 mg/dL (N) [facility] h [Mass/Vol] [facility] (99120) Creatinine 0.80 mg/dL (N) [facility] h [Mass/Vol] [facility] (34255) Eosinophils 0.385 10*3/uL (N) 0.05 - 0.5 [facility] alth (Bld) [#/Vol] 10*3/uL [facility] (00807) Eosinophils/100 4.1 % (N) 1 - 4 % Counts Include [facility] WBC (Bld) [facility] (38876) Erythrocyte 13.8 % (N) 11.6 - 14.6 % [facility] ealth distribution [facility] width (RBC) [facility] [Ratio] (89708) Free T4 0.8 ng/dL (N) 0.9 - 2.2 ng/dL Counts Include [facility] [Mass/Vol] [facility] (78862) GFR/1.73 sq M 96 (N) 90 - 120 [facility] predicted among mL/min/{1.73_m2} mL/min/{1.73_m2} [facility] MDRD [facility] (S/P/Bld) [Vol (09547) rate/Area] GFR/1.73 sq 82 (N) 90 - 120 [facility] th M.predicted MDRD mL/min/{1.73_m2} mL/min/{1.73_m2} [facility] (S/P/Bld) [Vol [facility] rate/Area] (46052) Globulin (S) 2.9 g/dL (N) 2 - 3.5 g/dL [facility] ealth [Mass/Vol] [facility] (52941) Glucose 144 mg/dL (H) 60 - 125 mg/dL Counts Include [address] [facility] [Mass/Vol] [facility] (90967) HbA1c (Bld) 9.5 (H) [facility] [Mass fraction] [facility] (38260) Hematocrit (Bld) 37.6 % (N) 36.1 - 50.3 % [facility] [[facility]] [facility] (13026) Hemoglobin (Bld) 12.1 g/dL (N) 12.1 - 17.2 g/dL [facility] [Mass/Vol] [facility] (38299) Lymphocytes 2.98 10*3/uL (N) 0.9 - 2.9 [facility] lth (Bld) [#/Vol] 10*3/uL [facility] (06099) Lymphocytes/100 31.7 % (N) 20 - 40 % Counts Include [facility] WBC (Bld) [facility] (68802) MCH (RBC) 27.4 pg (N) 27 - 31 pg [facility] th [Entitic mass] [facility] (26990) MCHC (RBC) 32.2 g/dL (N) 32 - 36 g/dL [facility] [Mass/Vol] [facility] (92069) MCV (RBC) 85.1 fL (N) 80 - 100 fL [facility] lt [Entitic vol] [facility] (53427) Monocytes (Bld) 0.649 10*3/uL (N) 0.3 - 0.9 [facility] Health [#/Vol] 10*3/uL [facility] (86225) Monocytes/100 6.9 % (N) 2 - 8 % [facility] alth WBC (Bld) [facility] (75602) Neutrophils 5.349 10*3/uL (N) 1.7 - 7 10*3/uL [facility] (Bld) [#/Vol] [facility] (09134) Neutrophils/100 56.9 % (N) 40 - 60 % Counts Include [address] [facility] WBC (Bld) [facility] (54176) Platelet mean 10.7 fL (N) 7.2 - 11.7 fL [facility] volume (Bld) [facility] [Entitic vol] [facility] (07090) Platelets (Bld) 229 10*3/uL (N) 150 - 450 On License Of [facility] Health [#/Vol] 10*3/uL [facility] (24333) Potassium 4.3 mmol/L (N) 3.7 - 5.2 mmol/L [facility] [Moles/Vol] [facility] (58612) Protein 7.3 g/dL (N) 6.4 - 8.3 g/dL Counts Include [address] [facility] [Mass/Vol] [facility] (23499) RBC (Bld) 4.42 10*6/uL (N) 4.2 - 6.1 Community He[facility] lth [#/Vol] 10*6/uL [facility] (09057) Sodium 131 mmol/L (L) 135 - 145 mmol/L [facility] [Moles/Vol] [facility] (76323) Triglyceride 1410 mg/dL (H) 0 - 150 mg/dL Counts Include [facility] [Mass/Vol] [facility] (10960) TSH Qn 5.03 m[IU]/L (H) 0.4 - 4 m[IU]/L [facility] (34405) Urea nitrogen 24 mg/dL (N) 7 - 20 mg/dL Counts Include [facility] At [facility] [Mass/Vol] [facility] (96283) Urea NOT APPLICABLE (no code) [facility] nitrogen/Creatin [facility] (51770[facility] WBC (Bld) 9.4 10*3/uL (N) 3.5 - 10.5 On License Of [facility] Heal th [#/Vol] 10*3/uL [facility] (44851) not yet categorized on 2018-05-08 Exp date 12/2019 (no code) [facility] (72891) Lot 10.5~8.8~0941 (no code) [facility] (20534) other on 2018-01-29 Exp date 05/2019 (no code) [facility] (29805) Lot 8.8~7.9~0856 (no code) [facility] (59423) capillary blood glucose measurement by glucometer (mass/volume) on 2017-10-22 Glucose mass 128 mg/dL (H) 60 - 125 mg/dL [facility] (59997) other on 2017-08-27 Calcidiol mass 24 ng/mL (L) 20 - 50 ng/mL Not Avai lable conc (11351) Exp date (no code) no information Lot 7.9~9.0~0856 (no code) no information urinalysis on 2017-07-04 Albumin DL <= 20 28.5 mg/dL (N) 0.2 - 1.9 mg/dL no i nformation mg/L mass conc (U) Creatinine mass 101 mg/dL (N) no information conc (U) thyroid on 2017-07-04 T4 free mass 1.0 ng/dL (N) 0.9 - 2.2 ng/dL [facility] (08125) Thyrotropin Qn 5.02 m[IU]/L (H) 0.4 - 4 m[IU]/L [facility] (69301) other on 2017-07-04 Albumin/Globulin 1.4 (N) [facility] lt mass ratio [facility] (40397) Cholesterol in no information (no code) [facility] LDL mass [facility] (60493) Cholesterol non 342 (H) [facility] HDL mass [facility] (91978) Cholesterol.tota 9.8 (H) [facility] l/Cholesterol in [facility] HDL mass ratio [facility] (62167) Globulin 2.9 (N) [facility] Calculated mass [facility] (S) [facility] (43157) MICROALBUMIN/CRE 282 (H) no informatio n ATININE RATIO, RANDOM URINE metabolic panel on 2017-07-04 Albumin mass 4.1 g/dL (N) 3.4 - 5.4 g/dL [facility] (26976) ALP enzyme 112 U/L (N) 44 - 147 U/L On [facility]th act[facility] (77962) ALT enzyme 16 U/L (N) 4 - 40 U/L [facility] act/[facility] (99168) AST enzyme 14 U/L (N) 10 - 34 U/L [facility] act/[facility] (33246) Bilirubin mass 0.3 mg/dL (N) 0.1 - 1.2 mg/dL [facility] (21922) Calcium mass 9.5 mg/dL (N) 8.5 - 10.2 mg/dL [facility] (54811) Chloride molar 105 mmol/L (N) 95 - 106 mmol/L [facility] (70396) CO2 molar conc 22 mmol/L (N) 23 - 29 mmol/L [facility] (16523) Creatinine mass 0.72 mg/dL (N) [facility] (79247) GFR/1.73 sq M 109 (N) 90 - 120 [facility] predicted among mL/min/{1.73_m2} mL/min/{1.73_m2} [facility] MDRD [facility] rate/area (57934) (S/P/Bld) GFR/1.73 sq 94 (N) 90 - 120 [facility].predicted MDRD mL/min/{1.73_m2} mL/min/{1.73_m2} [facility] rate/area [facility] (58024) Glucose mass 177 mg/dL (H) 60 - 125 mg/dL [facility] (30934) Potassium molar 4.5 mmol/L (N) 3.7 - 5.2 mmol/L [facility] (01433) Protein mass 7.0 g/dL (N) 6.4 - 8.3 g/dL [facility] (68727) Sodium molar 136 mmol/L (N) 135 - 145 mmol/L [facility] (05185) Urea nitrogen 21 mg/dL (N) 7 - 20 mg/dL [facility] (26834) Urea NOT APPLICABLE (no code[facility]in [facility] (61310) cardiac on 2017-07-04 Cholesterol in 39 mg/dL (L) [facility] HDL mass [facility] (87382) Cholesterol mass 381 mg/dL (H) 180 - 200 mg/dL [facility] (36177) Triglyceride 1611 mg/dL (H) 0 - 150 mg/dL [facility] (18099) other on 2016-03-22 Albumin/Globulin 2.0 {ratio} (no code) 1 - 2.5 {ratio} 7 Not Available [Mass ratio] 09:52-0500 (71745) Cholesterol in Comment (no code) 03-22-2016 Not Availab le VLDL [Mass/Vol] 09:52-0500 (00772) Globulin (S) 2.5 g/dL (no code) 2 - 3.5 g/dL 03-22-2016 Not Av ailable [Mass/Vol] 09:52-0500 (56880) metabolic panel on 2016-03-22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
--- OUTSIDE RECORDS SUMMARY | 2019-08-25 22:07 | XMS REPORT ---
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 Name Role Phone ANDREW PLATT Unavailable PROBLEMS Type Condition ICD9-CM Code [id number] Code Onset Dates Condition S tatus SNOMED Code Problem Essential hypertension I10 Active 63416409 Problem Type 2 diabetes mellitus with other diabetic kid bela complication E11.29 Active 12174640 Problem Mixed hyperlipidemia E78.2 Active 319152892 Problem Ventral hernia without obstruction or gangrene K43 .9 Active 384984694 Problem Acquired hypothyroidism E03.9 Active 723705604 Problem Vitamin D deficiency E55.9 Active 87564979 Problem Memory loss R41.3 Active 18453368 6 Problem Polyneuropathy G62.9 Active 55461 000 Problem Thyroid nodule E04.1 Active 76038 5005 Problem Non-insulin dependent type 2 diabetes mellitus E11 .9 Active 25788483 Problem Primary osteoarthritis of left hip M16.12 Active [id number] Problem Diabetic polyneuropathy associated with type 2 d iabetes mellitus E11.42 Active 62904087 Problem Moderate episode of recurrent major depressive disorder F33.1 Active 854365129 Problem Dementia without behavioral disturbance, unspeci fied dementia type F03.90 Active 08560537 Problem Gastroesophageal reflux disease without esophagitis K21.9 Active 206540354 Problem BMI 30.0-30.9,adult Z68.30 Active 054590074 ALLERGIES No Information ENCOUNTERS Encounter Location Date Diagnosis [facility] [address] [facility] [id number] [address] [place] [address] Aug, [facility] [address] [facility] [id number] [address] [place] [address] July, [facility] [address] [facility] [id number] [address] [place] [address] Jun, [facility] [address] [id number] [address] [place] [address] Jun, [facility] [address] [id number] [address] [place] [address] Jun, [facility] [address] [id number] [address] [place] [address] Jun, Moderate episode of recurren t major depressive disorder F33.1 [facility] [address] [id number] [address] [place] [address] Jun, [facility] [address] [id number] [address] [place] [address] Jun, Type 2 diabetes mellitus wit h other diabetic kidney complication E11.29 [facility] [address] [id number] [address] [place] [address] Jun, Type 2 diabetes mellitus wit h other diabetic kidney complication E11.29 and Essential hypertension I10 [facility] [address] [id number] [address] [place] [address] Jun, Moderate episode of recurren t major depressive disorder F33.1 [facility] [address] [id number] [address] [place] [address] Jun, [facility] [address] [id number] [address] [place] [address] Jun, Primary osteoarthritis of le ft hip M16.12 and Well woman exam with routine gynecological exam Z01.419 [facility] [address] [id number] [address] [place] [address] May, [facility] [address] [id number] [address] [place] [address] May, Moderate episode of recurren t major depressive disorder F33.1 [facility] [address] [id number] [address] [place] [address] Apr, Moderate episode of recurren t major depressive disorder F33.1 [facility] [address] [place] [id number] [address] [place] [address] 06 Apr, 2019 Thyroid nodule E04.1 [place] [address] [address] Apr, [place] [address] [address] Mar, Well woman exam with routine gynecological exam Z01.419 [place] [address] [address] Mar, Dementia without behavioral disturbance, unspecified dementia type F03.90 and Moderate episode of recurrent major depressive disorder F33.1 [place] [address] [address] Mar, Memory loss R41.3 ; Dementia without behavioral disturbance, unspecified dementia type F03.90 ; Non-insulin dependent type 2 diabetes mellitus E11.9 ; Vitamin D deficiency E55.9 ; Primary osteoarthritis of left hip M16.12 and BMI 30.0-30.9,adult Z68.30 [place] [address] [place] [id number] [address] [place] [address] 11 Feb, 2019 Moderate episode of recurren t major depressive disorder F33.1 and Dementia without behavioral disturbance, unspecified dementia type F03.90 [place] [address] [place] [id number] [address] [place] [address] 05 Feb, 2019 Type 2 diabetes mellitus wit h other diabetic kidney complication E11.29 ; Non-insulin dependent type 2 diabetes mellitus E11.9 ; Essential hypertension I10 ; Thyroid nodule E04.1 ; Memory loss R41.3 and BMI 30.0- 30.9,adult Z68.30 [place] [address] [address] Jan, Hx of fracture of left hip Z 87.81 ; Primary osteoarthritis of left hip M16.12 ; Type 2 diabetes mellitus with other diabetic kidney complication E11.29 ; Non-insulin dependent type 2 diabetes mellitus E11.9 ; Essential hypertension I10 ; Vitamin D deficiency E55.9 ; Thyroid nodule E04.1 and BMI 29.0-29.9,adult Z68.29 [place] [address] [id number] [address] [place] [address] Jan, [place] [address] [id number] [address] [place] [address] Jan, [place] [address] [id number] [address] [place] [address] Jan, Moderate episode of recurren t major depressive disorder F33.1 and Dementia without behavioral disturbance, unspecified dementia type F03.90 [place] [address] [id number] [address] [place] [address] 12 Jan, 2019 Acquired hypothyroidism E03. 9 [place] [address] [id number] [address] [place] [address] Jan, Encounter for immunization Z 23 [place] [address] [id number] [address] [place] [address] Dec, [place] [address] [id number] [address] [place] [address] Dec, Dementia without behavioral disturbance, unspecified dementia type F03.90 and Moderate episode of recurrent major depressive disorder F33.1 [place] [address] [id number] [address] [place] [address] 14 Dec, 2018 Screening for STD sexually t ransmitted disease Z11.3 [place] [address] [id number] [address] [place] [address] 09 Dec, 2018 Screening for STD sexually t ransmitted disease Z11.3 [place] [address] [id number] [address] [place] [address] Dec, Well woman exam with routine gynecological exam Z01.419 ; Screening for breast cancer Z12.39 ; Type 2 diabetes mellitus with other diabetic kidney complication E11.29 ; Non-insulin dependent type 2 diabetes mellitus E11.9 ; Thyroid nodule E04.1 and BMI 29.0-29.9,adult Z68.29 [place] [address] [id number] [address] [place] [address] Nov, [facility] [address] [id number] [address] [place] [address] Nov, Acquired hypothyroidism E03. 9 [facility] [address] [id number] [address] [place] [address] Nov, [facility] [address] [id number] [address] [place] [address] Nov, [facility] [address] [id number] [address] [place] [address] Nov, [facility] [address] [id number] [address] [place] [address] Nov, [facility] [address] [id number] [address] [place] [address] Nov, [facility] [address] [facility] [id number] [address] [place] [address] Nov, Thyroid nodule E04.1 [facility] [address] [id number] [address] [place] [address] 03 Nov, 2018 Left hip pain M25.552 ; Type 2 diabetes mellitus with other diabetic kidney complication E11.29 ; Mixed hyperlipidemia E78.2 ; Essential hypertension I10 and Nqu-wjsj-ydqd 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 associated with diabetes mellitus due to underlying condition E08.3599 [facility] [address] [facility] [id number] [address] [place] [address] Oct, Dementia without behavioral disturbance, unspecified dementia type F03.90 and Moderate episode of recurrent major depressive disorder F33.1 [facility] [address] [facility] [id number] [address] [place] [address] Oct, Right thyroid nodule E04.1 [facility] [address] [facility] [id number] [address] [place] [address] Oct, Right thyroid nodule E04.1 ; Acute right ankle pain M25.571 ; BMI 30.0-30.9,adult Z68.30 ; Type 2 diabetes mellitus with other diabetic kidney complication E11.29 ; Essential hypertension I10 ; Acquired hypothyroidism E03.9 and Hemoptysis R04.2 [facility] [address] [id number] [address] [place] [address] Oct, [facility] [address] [id number] [address] [place] [address] Sep, [facility] [address] [id number] [address] [place] [address] Sep, Acute right ankle pain M25.5 71 ; Type 2 diabetes mellitus with other diabetic kidney complication E11.29 ; Essential hypertension I10 ; Acquired hypothyroidism E03.9 ; Hemoptysis R04.2 ; BMI 30.0-30.9,adult Z68.30 and Dementia without behavioral disturbance, unspecified dementia type F03.90 [facility] [address] [facility] [id number] [address] [place] [address] Sep, [facility] [address] [id number] [address] [place] [address] Sep, [facility] [address] [facility] [id number] [address] [place] [address] Sep, Moderate episode of recurren t major depressive disorder F33.1 and Dementia without behavioral disturbance, unspecified dementia type F03.90 [facility] [address] [id number] [address] [place] [address] Aug, [facility] [address] [id number] [address] [place] [address] Aug, [facility] [address] [id number] [address] [place] [address] Aug, [facility] [address] [facility] [id number] [address] [place] [address] Aug, [facility] [address] [facility] [id number] [address] [place] [address] Aug, [facility] [address] [facility] [id number] [address] [place] [address] July, Exercise counseling Z71.82 [facility] [address] [facility] [id number] [address] [place] [address] July, Acquired hypothyroidism E03. 9 ; Neck muscle spasm M62.838 and Thyroid nodule E04.1 [facility] [address] [facility] [id number] [address] [place] [address] July, [facility] [address] [facility] [id number] [address] [place] [address] July, Vitamin D deficiency E55.9 a nd Acquired hypothyroidism E03.9 [facility] [address] [facility] [id number] [address] [place] [address] July, [place] [address] [facility] [id number] [address] [place] [address] July, Dementia without behavioral disturbance, unspecified dementia type F03.90 and Moderate episode of recurrent major depressive disorder F33.1 [place] [address] [facility] [id number] [address] [place] [address] July, Cough R05 ; Vitamin D defici ency E55.9 ; Type 2 diabetes mellitus with other diabetic kidney complication E11.29 and Mixed hyperlipidemia E78.2 [place] [address] [facility] [id number] [address] [place] [address] July, Vitamin D deficiency E55.9 ; Type 2 diabetes mellitus with other diabetic kidney complication E11.29 and Mixed hyperlipidemia E78.2 [facility] [address] [facility] [id number] [address] [place] [address] July, Exercise counseling Z71.82 [facility] [address] [facility] [id number] [address] [place] [address] July, [facility] [address] [facility] [id number] [address] [place] [address] July, Cough R05 [facility] [address] [id number] [address] [place] [address] July, Exercise counseling Z71.82 [facility] [address] [id number] [address] [place] [address] July, [facility] [address] [id number] [address] [place] [address] July, [facility] [address] [facility] [id number] [address] [place] [address] July, Cough R05 ; Type 2 diabetes mellitus with other diabetic kidney complication E11.29 ; BMI 30.0-30.9,adult Z68.30 ; Mixed hyperlipidemia E78.2 ; Essential hypertension I10 and Acquired hypothyroidism E03.9 [facility] [address] [id number] [address] [place] [address] Jun, [facility] [address] [facility] [id number] [address] [place] [address] Jun, Dementia without behavioral disturbance, unspecified dementia type F03.90 and Moderate episode of recurrent major depressive disorder F33.1 [facility] [address] [id number] [address] [place] [address] Jun, [facility] [address] [facility] [id number] [address] [place] [address] Jun, Exercise counseling Z71.82 [place] [address] [id number] [address] [place] [address] Jun, [facility] [address] [id number] [address] [place] [address] Jun, [facility] [address] [id number] [address] [place] [address] Jun, [facility] [address] [facility] [id number] [address] [place] [address] Jun, Moderate episode of recurren t major depressive disorder F33.1 and Dementia without behavioral disturbance, unspecified dementia type F03.90 [facility] [address] [id number] [address] [place] [address] Jun, [facility] [address] [id number] [address] [place] [address] May, [facility] [address] [id number] [address] [place] [address] May, [facility] [address] [id number] [address] [place] [address] May, Type 2 diabetes mellitus wit h other diabetic kidney complication E11.29 [facility] [address] [id number] [address] [place] [address] May, [facility] [address] [id number] [address] [place] [address] May, [facility] [address] [id number] [address] [place] [address] May, Type 2 diabetes mellitus wit h other diabetic kidney complication E11.29 [facility] [address] [id number] [address] [place] [address] May, [facility] [address] [id number] [address] [place] [address] May, [facility] [address] [id number] [address] [place] [address] May, [facility] [address] [id number] [address] [place] [address] May, Type 2 diabetes mellitus wit h other diabetic kidney complication E11.29 ; Right thyroid nodule E04.1 ; Essential hypertension I10 and Acquired hypothyroidism E03.9 [facility] [address] [id number] [address] [place] [address] 18 Apr, 2018 Right thyroid nodule E04.1 [facility] [address] [facility] [id number] [address] [place] [address] 07 Apr, 2018 Thyroid mass E07.9 [facility] [address] [facility] [id number] [address] [place] [address] Apr, Vitamin D deficiency E55.9 [facility] [address] [facility] [id number] [address] [place] [address] Mar, Non-insulin dependent type 2 diabetes mellitus E11.9 ; Moderate episode of recurrent major depressive disorder F33.1 ; Gastroesophageal reflux disease without esophagitis K21.9 ; Dementia without behavioral disturbance, unspecified dementia type F03.90 ; Right thyroid nodule E04.1 and Vitamin D deficiency E55.9 [place] [address] [id number] [address] [place] [address] Mar, Moderate episode of recurren t major depressive disorder F33.1 and Dementia without behavioral disturbance, unspecified dementia type F03.90 [place] [address] [facility] [id number] [address] [place] [address] Mar, Dementia without behavioral disturbance, unspecified dementia type F03.90 and Moderate episode of recurrent major depressive disorder F33.1 [place] [address] [facility] [id number] [address] [place] [address] Feb, [place] [address] [id number] [address] [place] [address] Feb, Dementia without behavioral disturbance, unspecified dementia type F03.90 and Moderate episode of recurrent major depressive disorder F33.1 [place] [address] [facility] [id number] [address] [place] [address] Jan, Dementia without behavioral disturbance, unspecified dementia type F03.90 and Moderate episode of recurrent major depressive disorder F33.1 [place] [address] [id number] [address] [place] [address] Jan, Non-insulin dependent type 2 diabetes mellitus E11.9 ; Memory loss R41.3 ; Vitamin D deficiency E55.9 ; Moderate episode of recurrent major depressive disorder F33.1 ; Diabetic polyneuropathy associated with type 2 diabetes mellitus E11.42 and Tremor R25.1 [place] [address] [facility] [id number] [address] [place] [address] Jan, Dementia without behavioral disturbance, unspecified dementia type F03.90 [facility] [address] [id number] [address] [place] [address] Dec, Vitamin D deficiency E55.9 [facility] [address] [id number] [address] [place] [address] Dec, [facility] [address] [id number] [address] [place] [address] Dec, Vitamin D deficiency E55.9 [facility] [address] [id number] [address] [place] [address] Dec, [facility] [address] [id number] [address] [place] [address] Dec, [facility] [address] [facility] [id number] [address] [place] [address] Oct, [facility] [address] [facility] [id number] [address] [place] [address] Oct, Non-insulin dependent type 2 diabetes mellitus E11.9 ; Memory loss R41.3 and Mixed hyperlipidemia E78.2 [place] [address] [id number] [address] [place] [address] Oct, [facility] [address] [facility] [id number] [address] [place] [address] Sep, [place] [address] [facility] [id number] [address] [place] [address] Sep, Vitamin D deficiency E55.9 [facility] [address] [id number] [address] [place] [address] Sep, [facility] [address] [facility] [id number] [address] [place] [address] Aug, Non-insulin dependent type 2 diabetes mellitus E11.9 ; Vitamin D deficiency E55.9 ; Memory loss R41.3 ; Polyneuropathy G62.9 ; Status post fracture of hip Z87.81 and Rectal bleeding K62.5 [facility] [id number] [place] [address] July, Vitamin D deficiency E55.9 [facility] [address] [place] [id number] [address] [place] [address] July, Tongue swelling R22.0 [facility] [address] [id number] [place] [address] July, [facility] [address] [place] [id number] [address] [place] [address] July, Tongue swelling R22.0 [facility] [address] [place] [address] July, Non-insulin dependent type 2 diabetes mellitus E11.9 ; Mixed hyperlipidemia E78.2 ; Closed fracture of left hip, sequela S72.002S ; Wheezing R06.2 ; Thyromegaly E01.0 and Dizziness R42 [facility] [address] [place] [address] July, Non-insulin dependent type 2 diabetes mellitus E11.9 [facility] [address] [place] [address] July, Non-insulin dependent type 2 diabetes mellitus E11.9 ; Mixed hyperlipidemia E78.2 ; Closed fracture of left hip, sequela S72.002S ; Wheezing R06.2 ; Thyromegaly E01.0 and Dizziness R42 [facility] [address] [place] [address] Jun, [facility] [address] [place] [address] Jun, [facility] [address] [place] [id number] [address] [place] [address] May, Type 2 diabetes mellitus wit h other diabetic kidney complication E11.29 ; Diabetic polyneuropathy associated with type 2 diabetes mellitus E11.42 ; Mixed hyperlipidemia E78.2 ; Essential hypertension I10 and Closed fracture of left hip with routine healing, subsequent encounter S72.002D [facility] [address] [facility] [id number] [address] [place] [address] May, [facility] [address] [facility] [id number] [address] [place] [id number] May, [facility] [address] [facility] [id number] [address] [place] [id number] May, [facility] [address] [facility] [facility] [id number] [address] [place] [id number] Apr, [facility] [address] [facility] [id number] [address] [place] [address] Apr, Mixed hyperlipidemia E78.2 [facility] [address] [facility] [id number] [address] [place] [address] Apr, Type 2 diabetes mellitus wit h other diabetic kidney complication E11.29 [facility] [address] [place] [id number] [address] [place] [id number] Mar, Right thyroid nodule E04.1 [facility] [address] [facility] [id number] [address] [place] [phone] Mar, [facility] [address] [facility] [id number] [address] [place] [id number] Mar, [facility] [address] [place] [id number] [address] [place] [address] Mar, Diabetic polyneuropathy asso ciated with type 2 diabetes mellitus E11.42 [facility] [address] [facility] [id number] [address] [place] [address] Mar, Essential hypertension I10 ; Type 2 diabetes mellitus with other diabetic kidney complication E11.29 ; Heartburn R12 ; Mixed hyperlipidemia E78.2 ; Acquired hypothyroidism E03.9 ; Renal insufficiency N28.9 ; Diabetic polyneuropathy associated with type 2 diabetes mellitus E11.42 and Enlargement of thyroid E04.9 [facility] [address] [facility] [id number] [address] [place] [address] Mar, [facility] [address] [facility] [id number] [address] [place] [phone] Mar, Acquired hypothyroidism E03. 9 [facility] [address] [facility] [id number] [address] [place] [id number] Feb, Essential hypertension I10 ; Type 2 diabetes mellitus with other diabetic kidney complication E11.29 ; Heartburn R12 ; Enlargement of thyroid E04.9 ; Mixed hyperlipidemia E78.2 ; Acquired hypothyroidism E03.9 ; Renal insufficiency N28.9 and Diabetic polyneuropathy associated with type 2 diabetes mellitus E11.42 [facility] [address] [facility] [id number] [address] [place] [address] Feb, [facility] [address] [facility] [id number] [address] [place] [phone] Jan, [facility] [address] [place] [id number] [address] [place] [phone] Jan, [facility] [address] [facility] [id number] [address] [place] [phone] Jan, [facility] [address] [facility] [id number] [address] [place] [address] Dec, Chest pain, unspecified type R07.9 ; Essential hypertension I10 ; Mixed hyperlipidemia E78.2 and Type 2 diabetes mellitus with other diabetic kidney complication E11.29 [facility] [address] [facility] [id number] [address] [place] [phone] Dec, [facility] [address] [facility] [id number] [address] [place] [id number] 30 Nov, 2015 [facility] [address] [facility] [id number] [address] [place] [phone] Nov, [facility] [address] [facility] [id number] [address] [place] [address] Nov, Essential hypertension I10 ; Type 2 diabetes mellitus with other diabetic kidney complication E11.29 ; Proteinuria, unspecified R80.9 ; Heartburn R12 ; Enlargement of thyroid E04.9 ; Mixed hyperlipidemia E78.2 ; Acquired hypothyroidism E03.9 and Renal insufficiency N28.9 [facility] [address] [facility] [id number] [address] [place] [phone] Nov, [facility] [address] [facility] [id number] [address] [place] [phone] Nov, [facility] [address] [facility] [id number] [address] [place] [phone] Nov, [facility] [address] [facility] [id number] [address] [place] [id number] Nov, Renal insufficiency N28.9 [facility] [address] [facility] [id number] [address] [place] [id number] Nov, Renal insufficiency N28.9 [place] [address] [facility] [id number] [address] [place] [id number] 16 Nov, 2015 Encounter for well woman exa m Z01.419 ; Screening for STD sexually transmitted disease Z11.3 ; Encounter for screening breast examination Z12.39 ; Screening mammogram, encounter for Z12.31 and Ventral hernia without obstruction or gangrene K43.9 [place] [id number] [place] [address] Nov, Essential hypertension I10 ; Type 2 diabetes mellitus with other diabetic kidney complication E11.29 ; Proteinuria, unspecified R80.9 ; Heartburn R12 ; Enlargement of thyroid E04.9 ; Mixed hyperlipidemia E78.2 ; Acquired hypothyroidism E03.9 and Renal insufficiency N28.9 [facility] [address] [facility] [id number] [address] [place] [phone] Oct, Essential hypertension I10 ; Type 2 diabetes mellitus with other diabetic kidney complication E11.29 ; Proteinuria, unspecified R80.9 ; Heartburn R12 ; Abnormal thyroid blood test R94.6 ; Enlargement of thyroid E04.9 and Mixed hyperlipidemia E78.2 [facility] [address] [facility] [id number] [address] [place] [phone] Oct, [facility] [address] [facility] [id number] [address] [place] [id number] Oct, Enlargement of thyroid E04.9 [facility] [address] [id number] [address] [place] [id number] Oct, [facility] [address] [facility] [id number] [address] [place] [id number] Oct, Essential hypertension I10 ; Type 2 diabetes mellitus with other diabetic kidney complication E11.29 ; Proteinuria, unspecified R80.9 ; Heartburn R12 ; Abnormal thyroid blood test R94.6 ; Mixed hyperlipidemia E78.2 and Enlargement of thyroid E04.9 [facility] [address] [id number] [address] [place] [id number] 05 Oct, 2015 Dental examination Z01.20 [facility] [address] [facility] [id number] [address] [place] [id number] 14 Jun, 2014 [facility] [address] [facility] [id number] [address] [place] [id number] 13 Jun, 2014 [facility] [address] [facility] [id number] [address] [place] [phone] Jun, [facility] [address] [facility] [id number] [address] [place] [phone] May, [facility] [address] [facility] [id number] [address] [place] [phone] May, [facility] [address] [facility] [id number] [address] [place] [phone] 18 Feb, 2012 [facility] [address] [id number] [address] [place] [id number] 18 Feb, 2012 [facility] [address] [facility] [id number] [address] [place] [phone] Feb, [facility] [address] [facility] [id number] [address] [place] [phone] 17 Feb, 2012 [facility] [address] [facility] [id number] [address] [place] [id number] 14 Feb, 2012 [facility] [address] [id number] [address] [place] [address], [place] [id number] 14 Feb, 2012 [facility] [address] [id number] [address] [place] [address], [place] [address] Feb, [facility] [address] [id number] [address] [place] [address], [place] [id number] Feb, [facility] [address] [id number] [address] [place] [address], [place] [address] Dec, [facility] [address] [id number] [address] [place] [address], [place] [address] Dec, [facility] [address] [id number] [address] [place] [address], [place] [address] Dec, [facility] [address] [id number] [address] [place] [address], [place] [address] Dec, [facility] [address] [id number] [address] [place] [address], [place] [address] Sep, [facility] [address] [id number] [address] [place] [address], [place] [address] Sep, [facility] [address] [id number] [address] [place] [address], [place] [address] Sep, [facility] [address] [id number] [address] [place] [address], [place] [id number] 24 Jun, 2011 [facility] [address] [id number] [address] [place] [address], [place] [address] May, [facility] [address] [id number] [address] [place] [address], [place] [id number] 08 May, 2011 [facility] [address] [id number] [address] [place] [address], [place] [address] May, [facility] [address] [id number] [address] [place] [address], [place] [address] 05 May, 2011 [facility] [address] [id number] [address] [place] [address], [place] [id number] May, [facility] [address] [id number] [address] [place] [id number] Apr, [facility] [address] [id number] [address] [place] [id number] Mar, [facility] [address] [id number] [address] [place] [id number] Mar, [facility] [address] [id number] [address] [place] [id number] Mar, [facility] [address] [id number] [address] [place] [id number] Mar, [facility] [address] [id number] [address] [place] [id number] Feb, [facility] [address] [id number] [address] [place] [id number] Feb, [facility] [address] [id number] [address] [place] [id number] Feb, [facility] [address] [id number] [address] [place] [id number] Feb, [facility] [address] [id number] [address] [place] [id number] Feb, [facility] [address] [id number] [address] [place] [phone] Feb, [facility] [address] [id number] [address] [place] [phone] Feb, [facility] [address] [id number] [address] [place] [id number] Feb, IMMUNIZATIONS No Known Immunizations SOCIAL HISTORY Never Assessed REASON FOR VISIT PA [employer]-Approved PLAN OF CARE VITAL SIGNS MEDICATIONS Unknown Medications RESULTS No Results PROCEDURES No Known procedures INSTRUCTIONS MEDICATIONS ADMINISTERED No Known Medications MEDICAL (GENERAL) HISTORY Type Description Date Medical History type 2 diabetes Medical History heart attack (unconfirmed) Medical History thyroid nodule/goiter via will start medication and recheck 2-3 months [...]
--- OUTSIDE RECORDS SUMMARY | 2019-08-25 22:08 | XMS REPORT ---
Author Author Nieves PLATT Organization [facility] Address [address] [place] [address] Care Team Providers Care Layboy Tender Name Role Phone ANDREW PLATT Unavailable PROBLEMS Type Condition ICD9-CM Code NSG01-WC Code Onset Dates Condition S tatus SNOMED Code Problem Essential hypertension I10 Active 55041305 Problem Type 2 diabetes mellitus with other diabetic kid bela complication E11.29 Active 27101683 Problem Mixed hyperlipidemia E78.2 Active 182976071 Problem Ventral hernia without obstruction or gangrene K43 .9 Active 955099340 Problem Acquired hypothyroidism E03.9 Active 655729627 Problem Vitamin D deficiency E55.9 Active 41630256 Problem Memory loss R41.3 Active 61258634 6 Problem Polyneuropathy G62.9 Active 18954 000 Problem Thyroid nodule E04.1 Active 41302 5005 Problem Non-insulin dependent type 2 diabetes mellitus E11 .9 Active 65227500 Problem Primary osteoarthritis of left hip M16.12 Active 051499001098123 Problem Diabetic polyneuropathy associated with type 2 d iabetes mellitus E11.42 Active 37466819 Problem Moderate episode of recurrent major depressive disorder F33.1 Active 016700618 Problem Dementia without behavioral disturbance, unspeci fied dementia type F03.90 Active 23482469 Problem Gastroesophageal reflux disease without esophagitis K21.9 Active 043571291 Problem BMI 30.0-30.9,adult Z68.30 Active 338914006 ALLERGIES No Information ENCOUNTERS Encounter Location Date Diagnosis [facility] [id number] [place] [address] May, [facility] [address] [address] Apr, [facility] [id number] [place] [address] Apr, Moderate episode of recurrent major depr essive disorder F33.1 [address] [address] [address] 06 Apr, 2019 Thyroid nodule E04.1 [place] [address] [address] Apr, [place] [address] [address] Mar, Well woman exam with routine gynecologic al exam Z01.419 [place] [address] [address] Mar, Dementia without behavioral disturbance, unspecified dementia type F03.90 and Moderate episode of recurrent major depressive disorder F33.1 [place] [address] [address] Mar, Memory loss R41.3 ; Dementia without beh avioral disturbance, unspecified dementia type F03.90 ; Non-insulin dependent type 2 diabetes mellitus E11.9 ; Vitamin D deficiency E55.9 ; Primary osteoarthritis of left hip M16.12 and BMI 30.0-30.9,adult Z68.30 [place] [address] [address] Feb, Moderate episode of recurrent major depr essive disorder F33.1 and Dementia without behavioral disturbance, unspecified dementia type F03.90 [place] [address] [address] Feb, Type 2 diabetes mellitus with other diab etic kidney complication E11.29 ; Non-insulin dependent type 2 diabetes mellitus E11.9 ; Essential hypertension I10 ; Thyroid nodule E04.1 ; Memory loss R41.3 and BMI 30.0- 30.9,adult Z68.30 [place] [address] [address] Jan, Hx of fracture of left hip Z87.81 ; Prim aurora osteoarthritis of left hip M16.12 ; Type 2 diabetes mellitus with other diabetic kidney complication E11.29 ; Non-insulin dependent type 2 diabetes mellitus E11.9 ; Essential hypertension I10 ; Vitamin D deficiency E55.9 ; Thyroid nodule E04.1 and BMI 29.0-29.9,adult Z68.29 [place] [address] [address] Jan, [place] [address] [address] Jan, [place] [address] [address] Jan, Moderate episode of recurrent major depr essive disorder F33.1 and Dementia without behavioral disturbance, unspecified dementia type F03.90 [place] [address] [address] Jan, Acquired hypothyroidism E03.9 [place] [address] [address] Jan, Encounter for immunization Z23 [place] [address] [address] Dec, [place] [address] [address] Dec, Dementia without behavioral disturbance, unspecified dementia type F03.90 and Moderate episode of recurrent major depressive disorder F33.1 [place] [address] [address] Dec, Screening for STD sexually transmitted d isease Z11.3 [place] [address] [address] Dec, Screening for STD sexually transmitted d isease Z11.3 [place] [address] [address] Dec, Well woman exam with routine gynecologic al exam Z01.419 ; Screening for breast cancer Z12.39 ; Type 2 diabetes mellitus with other diabetic kidney complication E11.29 ; Non-insulin dependent type 2 diabetes mellitus E11.9 ; Thyroid nodule E04.1 and BMI 29.0-29.9,adult Z68.29 [place] [address] [address] Nov, [facility] [address] [address] Nov, Acquired hypothyroidism E03.9 [facility] [address] [address] Nov, [facility] [address] [address] Nov, [facility] [address] [address] Nov, [place] [address] [address] Nov, [place] [address] [address] Nov, [place] [address] [address] Nov, Thyroid nodule E04.1 [place] [address] [address] Nov, Left hip pain M25.552 ; Type 2 diabetes mellitus with other diabetic kidney complication E11.29 ; Mixed hyperlipidemia E78.2 ; Essential hypertension I10 and Ptc-pyaq-nfqj 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 associated with diabetes mellitus due to underlying condition E08.3599 [place] [address] [address] Oct, Dementia without behavioral disturbance, unspecified dementia type F03.90 and Moderate episode of recurrent major depressive disorder F33.1 [place] [address] [address] Oct, Right thyroid nodule E04.1 [place] [address] [address] Oct, Right thyroid nodule E04.1 ; Acute right ankle pain M25.571 ; BMI 30.0-30.9,adult Z68.30 ; Type 2 diabetes mellitus with other diabetic kidney complication E11.29 ; Essential hypertension I10 ; Acquired hypothyroidism E03.9 and Hemoptysis R04.2 [place] [address] [address] Oct, [place] [address] [address] Sep, [place] [address] [address] Sep, Acute right ankle pain M25.571 ; Type 2 diabetes mellitus with other diabetic kidney complication E11.29 ; Essential hypertension I10 ; Acquired hypothyroidism E03.9 ; Hemoptysis R04.2 ; BMI 30.0-30.9,adult Z68.30 and Dementia without behavioral disturbance, unspecified dementia type F03.90 [place] [address] [address] Sep, [place] [address] [address] Sep, [place] [address] [address] Sep, Moderate episode of recurrent major depr essive disorder F33.1 and Dementia without behavioral disturbance, unspecified dementia type F03.90 [place] [address] [address] Aug, [place] [address] [address] Aug, [place] [address] [address] Aug, [place] [address] [address] Aug, [place] [address] [address] Aug, [place] [address] [address] July, Exercise counseling Z71.82 [place] [address] [address] July, Acquired hypothyroidism E03.9 ; Neck mus daniela spasm M62.838 and Thyroid nodule E04.1 [place] [address] [address] July, [place] [address] [address] July, Vitamin D deficiency E55.9 and Acquired hypothyroidism E03.9 [place] [address] [address] July, [place] [address] [address] July, Dementia without behavioral disturbance, unspecified dementia type F03.90 and Moderate episode of recurrent major depressive disorder F33.1 [place] [address] [address] July, Cough R05 ; Vitamin D deficiency E55.9 ; Type 2 diabetes mellitus with other diabetic kidney complication E11.29 and Mixed hyperlipidemia E78.2 [place] [address] [address] July, Vitamin D deficiency E55.9 ; Type 2 diab etes mellitus with other diabetic kidney complication E11.29 and Mixed hyperlipidemia E78.2 [place] [address] [address] July, Exercise counseling Z71.82 [place] [address] [address] July, [place] [address] [address] July, Cough R05 [place] [address] [address] July, Exercise counseling Z71.82 [place] [address] [address] July, [place] [address] [address] July, [place] [address] [address] July, Cough R05 ; Type 2 diabetes mellitus wit h other diabetic kidney complication E11.29 ; BMI 30.0-30.9,adult Z68.30 ; Mixed hyperlipidemia E78.2 ; Essential hypertension I10 and Acquired hypothyroidism E03.9 [place] [address] [address] Jun, [place] [address] [address] Jun, Dementia without behavioral disturbance, unspecified dementia type F03.90 and Moderate episode of recurrent major depressive disorder F33.1 [place] [address] [address] Jun, [place] [address] [address] Jun, Exercise counseling Z71.82 [place] [address] [address] Jun, [place] [address] [address] Jun, [place] [address] [address] Jun, [place] [address] [address] Jun, Moderate episode of recurrent major depr essive disorder F33.1 and Dementia without behavioral disturbance, unspecified dementia type F03.90 [place] [address] [address] Jun, [place] [address] [address] May, [place] [address] [address] May, [place] [address] [address] May, Type 2 diabetes mellitus with other diab etic kidney complication E11.29 [facility] [address] [address] May, [facility] [address] [address] May, [facility] [address] [address] May, Type 2 diabetes mellitus with other diab etic kidney complication E11.29 [facility] [address] [address] May, [facility] [address] [address] May, [facility] [address] [address] May, [place] [address] [address] May, Type 2 diabetes mellitus with other diab etic kidney complication E11.29 ; Right thyroid nodule E04.1 ; Essential hypertension I10 and Acquired hypothyroidism E03.9 [place] [address] [address] 18 Apr, 2018 Right thyroid nodule E04.1 [place] [address] [address] Apr, Thyroid mass E07.9 [place] [address] [address] Apr, Vitamin D deficiency E55.9 [place] [address] [address] Mar, Non-insulin dependent type 2 diabetes me llitus E11.9 ; Moderate episode of recurrent major depressive disorder F33.1 ; Gastroesophageal reflux disease without esophagitis K21.9 ; Dementia without behavioral disturbance, unspecified dementia type F03.90 ; Right thyroid nodule E04.1 and Vitamin D deficiency E55.9 [place] [address] [address] Mar, Moderate episode of recurrent major depr essive disorder F33.1 and Dementia without behavioral disturbance, unspecified dementia type F03.90 [place] [address] [address] Mar, Dementia without behavioral disturbance, unspecified dementia type F03.90 and Moderate episode of recurrent major depressive disorder F33.1 [place] [address] [address] Feb, [place] [address] [address] Feb, Dementia without behavioral disturbance, unspecified dementia type F03.90 and Moderate episode of recurrent major depressive disorder F33.1 [place] [address] [address] Jan, Dementia without behavioral disturbance, unspecified dementia type F03.90 and Moderate episode of recurrent major depressive disorder F33.1 [place] [address] [address] Jan, Non-insulin dependent type 2 diabetes me llitus E11.9 ; Memory loss R41.3 ; Vitamin D deficiency E55.9 ; Moderate episode of recurrent major depressive disorder F33.1 ; Diabetic polyneuropathy associated with type 2 diabetes mellitus E11.42 and Tremor R25.1 [place] [address] [address] Jan, Dementia without behavioral disturbance, unspecified dementia type F03.90 [place] [address] [address] Dec, Vitamin D deficiency E55.9 [place] [address] [address] Dec, [place] [address] [address] Dec, Vitamin D deficiency E55.9 [place] [address] [address] Dec, [place] [id number] [place] [address] Dec, [place] [address] [address] Oct, [place] [id number] [place] [address] Oct, Non-insulin dependent type 2 diabetes me llitus E11.9 ; Memory loss R41.3 and Mixed hyperlipidemia E78.2 [place] [address] [address] Oct, [place] [address] [address] Sep, [place] [address] [address] Sep, Vitamin D deficiency E55.9 [place] [address] [address] Sep, [place] [id number] [place] [address] Aug, Non-insulin dependent type 2 diabetes me llitus E11.9 ; Vitamin D deficiency E55.9 ; Memory loss R41.3 ; Polyneuropathy G62.9 ; Status post fracture of hip Z87.81 and Rectal bleeding K62.5 [place] [id number] [place] [address] July, Vitamin D deficiency E55.9 [place] [id number] [place] [address] July, Tongue swelling R22.0 [facility] [address] [id number] [place] [address] July, [place] [id number] [place] [address] July, Tongue swelling R22.0 [place] [address] [address] July, Non-insulin dependent type 2 diabetes me llitus E11.9 ; Mixed hyperlipidemia E78.2 ; Closed fracture of left hip, sequela S72.002S ; Wheezing R06.2 ; Thyromegaly E01.0 and Dizziness R42 [place] [address] [address] July, Non-insulin dependent type 2 diabetes me llitus E11.9 [place] [address] [address] July, Non-insulin dependent type 2 diabetes me llitus E11.9 ; Mixed hyperlipidemia E78.2 ; Closed fracture of left hip, sequela S72.002S ; Wheezing R06.2 ; Thyromegaly E01.0 and Dizziness R42 [place] [address] [address] Jun, [place] [address] [address] Jun, [place] [address] [address] May, Type 2 diabetes mellitus with other diab etic kidney complication E11.29 ; Diabetic polyneuropathy associated with type 2 diabetes mellitus E11.42 ; Mixed hyperlipidemia E78.2 ; Essential hypertension I10 and Closed fracture of left hip with routine healing, subsequent encounter S72.002D [place] [address] [address] May, [place] [address] [address] May, [place] [address] [address] May, [place] [address] [address] Apr, [place] [address] [address] Apr, Mixed hyperlipidemia E78.2 [place] [address] [address] Apr, Type 2 diabetes mellitus with other diab etic kidney complication E11.29 [facility] [address] [address] Mar, Right thyroid nodule E04.1 [facility] [address] [address] Mar, [facility] [address] [address] Mar, [facility] [address] [address] Mar, Diabetic polyneuropathy associated with type 2 diabetes mellitus E11.42 [facility] [address] [address] Mar, Essential hypertension I10 ; Type 2 diab etes mellitus with other diabetic kidney complication E11.29 ; Heartburn R12 ; Mixed hyperlipidemia E78.2 ; Acquired hypothyroidism E03.9 ; Renal insufficiency N28.9 ; Diabetic polyneuropathy associated with type 2 diabetes mellitus E11.42 and Enlargement of thyroid E04.9 [facility] [address] [address] Mar, [facility] [address] [address] Mar, Acquired hypothyroidism E03.9 [facility] [address] [address] Feb, Essential hypertension I10 ; Type 2 diab etes mellitus with other diabetic kidney complication E11.29 ; Heartburn R12 ; Enlargement of thyroid E04.9 ; Mixed hyperlipidemia E78.2 ; Acquired hypothyroidism E03.9 ; Renal insufficiency N28.9 and Diabetic polyneuropathy associated with type 2 diabetes mellitus E11.42 [facility] [address] [address] 07 Feb, 2016 [facility] [address] [address] Jan, [facility] [address] [address] Jan, [facility] [address] [address] Jan, [facility] [address] [address] Dec, Chest pain, unspecified type R07.9 ; Ess ential hypertension I10 ; Mixed hyperlipidemia E78.2 and Type 2 diabetes mellitus with other diabetic kidney complication E11.29 [facility] [address] [address] Dec, [facility] [address] [address] 30 Nov, 2015 [facility] [address] [address] Nov, [place] [address] [address] Nov, Essential hypertension I10 ; Type 2 diab etes mellitus with other diabetic kidney complication E11.29 ; Proteinuria, unspecified R80.9 ; Heartburn R12 ; Enlargement of thyroid E04.9 ; Mixed hyperlipidemia E78.2 ; Acquired hypothyroidism E03.9 and Renal insufficiency N28.9 [place] [address] [address] Nov, [facility] [address] [address] Nov, [facility] [address] [address] Nov, [facility] [address] [address] Nov, Renal insufficiency N28.9 [place] [address] [address] 19 Nov, 2015 Renal insufficiency N28.9 [facility] [address] [address] 16 Nov, 2015 Encounter for well woman exam Z01.419 ; Screening for STD sexually transmitted disease Z11.3 ; Encounter for screening breast examination Z12.39 ; Screening mammogram, encounter for Z12.31 and Ventral hernia without obstruction or gangrene K43.9 [place] [address] [address] 13 Nov, 2015 Essential hypertension I10 ; Type 2 diab etes mellitus with other diabetic kidney complication E11.29 ; Proteinuria, unspecified R80.9 ; Heartburn R12 ; Enlargement of thyroid E04.9 ; Mixed hyperlipidemia E78.2 ; Acquired hypothyroidism E03.9 and Renal insufficiency N28.9 [place] [address] [address] Oct, Essential hypertension I10 ; Type 2 diab etes mellitus with other diabetic kidney complication E11.29 ; Proteinuria, unspecified R80.9 ; Heartburn R12 ; Abnormal thyroid blood test R94.6 ; Enlargement of thyroid E04.9 and Mixed hyperlipidemia E78.2 [place] [address] [address] Oct, [place] [address] [address] Oct, Enlargement of thyroid E04.9 [place] [address] [address] Oct, [place] [address] [address] Oct, Essential hypertension I10 ; Type 2 diab etes mellitus with other diabetic kidney complication E11.29 ; Proteinuria, unspecified R80.9 ; Heartburn R12 ; Abnormal thyroid blood test R94.6 ; Mixed hyperlipidemia E78.2 and Enlargement of thyroid E04.9 [facility] [id number] [place] [id number] 05 Oct, 2015 Dental examination Z01.20 [facility] [address] [address] 14 Jun, 2014 [place] [address] [address] Jun, [facility] [id number] [place] [address] 03 Jun, 2012 [facility] [id number] [place] [address] 25 May, 2012 [facility] [id number] [place] [address] May, [facility] [id number] [place] [address] 18 Feb, 2012 [facility] [id number] [place] [address] 18 Feb, 2012 [facility] [id number] [place] [address] 17 Feb, 2012 [facility] [id number] [place] [address] Feb, [facility] [id number] [place] [address] 14 Feb, 2012 [facility] [id number] [place] [address] 14 Feb, 2012 [facility] [id number] [place] [address] Feb, [facility] [id number] [place] [address] 06 Feb, 2012 [facility] [id number] [place] [address] Dec, [facility] [id number] [place] [address] 17 Dec, 2011 [facility] [id number] [place] [address] Dec, [facility] [id number] [place] [address] Dec, [facility] [id number] [place] [address] 17 Sep, 2011 [facility] [id number] [place] [address] Sep, [facility] [id number] [place] [address] Sep, [facility] [id number] [place] [address] Jun, [facility] [id number] [place] [address] May, [facility] [id number] [place] [address] May, [facility] [id number] [place] [address] May, [facility] [id number] [place] [address] May, [facility] [id number] [place] [address] May, [facility] [id number] [place] [address] Apr, [facility] [id number] [place] [address] Mar, [facility] [id number] [place] [address] Mar, [facility] [id number] [place] [address] Mar, [facility] [id number] [place] [address] Mar, [facility] [id number] [place] [address] Feb, [facility] [id number] [place] [address] Feb, [facility] [id number] [place] [address] Feb, [facility] [id number] [place] [address] Feb, [facility] [id number] [place] [address] Feb, [facility] [place] [id number] [place] [address] Feb, [facility] [place] [id number] [place] [address] Feb, [facility] [place] [id number] [place] [address] Feb, IMMUNIZATIONS No Known Immunizations SOCIAL HISTORY Never Assessed REASON FOR VISIT 1 wk f/u DM Ed PLAN OF CARE VITAL SIGNS MEDICATIONS Medication Instructions Dosage Frequency Start Date End Date Duration S tatus Invokana 100 mg 1 tablet May, 30 day(s) Active RESULTS No Results PROCEDURES [...]
--- OUTSIDE RECORDS SUMMARY | 2019-08-25 22:08 | XMS REPORT ---
Author Author Nieves PLATT Organization [facility] Address [address] [place] [address] Care Team Providers Care Horticultural Nursery Assistant Name Role Phone ANDREW PLATT Unavailable PROBLEMS Type Condition ICD9-CM Code UDA23-FA Code Onset Dates Condition S tatus SNOMED Code Problem Essential hypertension I10 Active 13858494 Problem Type 2 diabetes mellitus with other diabetic kid bela complication E11.29 Active 68009735 Problem Mixed hyperlipidemia E78.2 Active 658906748 Problem Ventral hernia without obstruction or gangrene K43 .9 Active 713189834 Problem Acquired hypothyroidism E03.9 Active 011770715 Problem Vitamin D deficiency E55.9 Active 74587059 Problem Memory loss R41.3 Active 80262961 6 Problem Polyneuropathy G62.9 Active 25391 000 Problem Thyroid nodule E04.1 Active 05912 5005 Problem Non-insulin dependent type 2 diabetes mellitus E11 .9 Active 84556995 Problem Primary osteoarthritis of left hip M16.12 Active 587367068649494 Problem Diabetic polyneuropathy associated with type 2 d iabetes mellitus E11.42 Active 26872953 Problem Moderate episode of recurrent major depressive disorder F33.1 Active 057479419 Problem Dementia without behavioral disturbance, unspeci fied dementia type F03.90 Active 76065384 Problem Gastroesophageal reflux disease without esophagitis K21.9 Active 142394686 Problem BMI 30.0-30.9,adult Z68.30 Active 408277118 ALLERGIES No Information ENCOUNTERS Encounter Location Date Diagnosis [facility] [id number] [place] [address] May, [facility] [address] [address] Apr, [facility] [id number] [place] [address] Apr, Moderate episode of recurrent major depr essive disorder F33.1 [address] [place] [address] [address] 06 Apr, 2019 Thyroid nodule E04.1 [address] [address] [address] Apr, [address] [address] [address] Mar, Well woman exam with routine gynecologic al exam Z01.419 [address] [address] [address] Mar, Dementia without behavioral disturbance, unspecified dementia type F03.90 and Moderate episode of recurrent major depressive disorder F33.1 [address] [address] [address] Mar, Memory loss R41.3 ; Dementia without beh avioral disturbance, unspecified dementia type F03.90 ; Non-insulin dependent type 2 diabetes mellitus E11.9 ; Vitamin D deficiency E55.9 ; Primary osteoarthritis of left hip M16.12 and BMI 30.0-30.9,adult Z68.30 [address] [address] [address] Feb, Moderate episode of recurrent major depr essive disorder F33.1 and Dementia without behavioral disturbance, unspecified dementia type F03.90 [address] [address] [address] Feb, Type 2 diabetes mellitus with other diab etic kidney complication E11.29 ; Non-insulin dependent type 2 diabetes mellitus E11.9 ; Essential hypertension I10 ; Thyroid nodule E04.1 ; Memory loss R41.3 and BMI 30.0- 30.9,adult Z68.30 [address] [address] [address] Jan, Hx of fracture of left hip Z87.81 ; Prim aurora osteoarthritis of left hip M16.12 ; Type 2 diabetes mellitus with other diabetic kidney complication E11.29 ; Non-insulin dependent type 2 diabetes mellitus E11.9 ; Essential hypertension I10 ; Vitamin D deficiency E55.9 ; Thyroid nodule E04.1 and BMI 29.0-29.9,adult Z68.29 [address] [address] [address] Jan, [address] [address] [address] Jan, [address] [address] [address] Jan, Moderate episode of recurrent major depr essive disorder F33.1 and Dementia without behavioral disturbance, unspecified dementia type F03.90 [address] [address] [address] Jan, Acquired hypothyroidism E03.9 [place] [address] [address] Jan, Encounter for immunization Z23 [place] [address] [address] Dec, [address] [address] [address] Dec, Dementia without behavioral disturbance, unspecified dementia type F03.90 and Moderate episode of recurrent major depressive disorder F33.1 [address] [address] [address] Dec, Screening for STD sexually transmitted d isease Z11.3 [address] [address] [address] Dec, Screening for STD sexually transmitted d isease Z11.3 [place] [address] [address] Dec, Well woman exam with routine gynecologic al exam Z01.419 ; Screening for breast cancer Z12.39 ; Type 2 diabetes mellitus with other diabetic kidney complication E11.29 ; Non-insulin dependent type 2 diabetes mellitus E11.9 ; Thyroid nodule E04.1 and BMI 29.0-29.9,adult Z68.29 [address] [address] [address] Nov, [facility] [address] [address] Nov, Acquired hypothyroidism E03.9 [facility] [address] [address] Nov, [facility] [address] [address] Nov, [facility] [address] [address] Nov, [address] [address] [address] Nov, [place] [address] [address] Nov, [address] [address] [address] Nov, Thyroid nodule E04.1 [address] [address] [address] Nov, Left hip pain M25.552 ; Type 2 diabetes mellitus with other diabetic kidney complication E11.29 ; Mixed hyperlipidemia E78.2 ; Essential hypertension I10 and Koe-uvul-vyav 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 associated with diabetes mellitus due to underlying condition E08.3599 [address] [address] [address] Oct, Dementia without behavioral disturbance, unspecified dementia type F03.90 and Moderate episode of recurrent major depressive disorder F33.1 [address] [address] [address] Oct, Right thyroid nodule E04.1 [address] [address] [address] Oct, Right thyroid nodule E04.1 ; Acute right ankle pain M25.571 ; BMI 30.0-30.9,adult Z68.30 ; Type 2 diabetes mellitus with other diabetic kidney complication E11.29 ; Essential hypertension I10 ; Acquired hypothyroidism E03.9 and Hemoptysis R04.2 [address] [address] [address] Oct, [place] [address] [address] Sep, [place] [address] [address] Sep, Acute right ankle pain M25.571 ; Type 2 diabetes mellitus with other diabetic kidney complication E11.29 ; Essential hypertension I10 ; Acquired hypothyroidism E03.9 ; Hemoptysis R04.2 ; BMI 30.0-30.9,adult Z68.30 and Dementia without behavioral disturbance, unspecified dementia type F03.90 [address] [address] [address] Sep, [place] [address] [address] Sep, [place] [address] [address] Sep, Moderate episode of recurrent major depr essive disorder F33.1 and Dementia without behavioral disturbance, unspecified dementia type F03.90 [address] [address] [address] Aug, [place] [address] [address] Aug, [place] [address] [address] Aug, [address] [address] [address] Aug, [place] [address] [address] Aug, [place] [address] [address] July, Exercise counseling Z71.82 [place] [address] [address] July, Acquired hypothyroidism E03.9 ; Neck mus daniela spasm M62.838 and Thyroid nodule E04.1 [place] [address] [address] July, [place] [address] [address] July, Vitamin D deficiency E55.9 and Acquired hypothyroidism E03.9 [address] [address] [address] July, [place] [address] [address] July, Dementia without behavioral disturbance, unspecified dementia type F03.90 and Moderate episode of recurrent major depressive disorder F33.1 [address] [address] [address] July, Cough R05 ; Vitamin D deficiency E55.9 ; Type 2 diabetes mellitus with other diabetic kidney complication E11.29 and Mixed hyperlipidemia E78.2 [place] [address] [address] July, Vitamin D deficiency E55.9 ; Type 2 diab etes mellitus with other diabetic kidney complication E11.29 and Mixed hyperlipidemia E78.2 [place] [address] [address] July, Exercise counseling Z71.82 [place] [address] [address] July, [place] [address] [address] July, Cough R05 [place] [address] [address] July, Exercise counseling Z71.82 [place] [address] [address] July, [place] [address] [address] July, [place] [address] [address] July, Cough R05 ; Type 2 diabetes mellitus wit h other diabetic kidney complication E11.29 ; BMI 30.0-30.9,adult Z68.30 ; Mixed hyperlipidemia E78.2 ; Essential hypertension I10 and Acquired hypothyroidism E03.9 [place] [address] [address] Jun, [place] [address] [address] Jun, Dementia without behavioral disturbance, unspecified dementia type F03.90 and Moderate episode of recurrent major depressive disorder F33.1 [address] [address] [address] Jun, [place] [address] [address] Jun, Exercise counseling Z71.82 [address] [address] [address] Jun, [place] [address] [address] Jun, [place] [address] [address] Jun, [place] [address] [address] Jun, Moderate episode of recurrent major depr essive disorder F33.1 and Dementia without behavioral disturbance, unspecified dementia type F03.90 [address] [address] [address] Jun, [place] [address] [address] May, [place] [address] [address] May, [place] [address] [address] May, Type 2 diabetes mellitus with other diab etic kidney complication E11.29 [facility] [address] [address] May, [facility] [address] [address] May, [facility] [address] [address] May, Type 2 diabetes mellitus with other diab etic kidney complication E11.29 [facility] [address] [address] May, [facility] [address] [address] May, [facility] [address] [address] May, [place] [address] [address] May, Type 2 diabetes mellitus with other diab etic kidney complication E11.29 ; Right thyroid nodule E04.1 ; Essential hypertension I10 and Acquired hypothyroidism E03.9 [place] [address] [address] 18 Apr, 2018 Right thyroid nodule E04.1 [address] [address] [address] Apr, Thyroid mass E07.9 [address] [address] [address] Apr, Vitamin D deficiency E55.9 [place] [address] [address] Mar, Non-insulin dependent type 2 diabetes me llitus E11.9 ; Moderate episode of recurrent major depressive disorder F33.1 ; Gastroesophageal reflux disease without esophagitis K21.9 ; Dementia without behavioral disturbance, unspecified dementia type F03.90 ; Right thyroid nodule E04.1 and Vitamin D deficiency E55.9 [address] [address] [address] Mar, Moderate episode of recurrent major depr essive disorder F33.1 and Dementia without behavioral disturbance, unspecified dementia type F03.90 [address] [address] [address] Mar, Dementia without behavioral disturbance, unspecified dementia type F03.90 and Moderate episode of recurrent major depressive disorder F33.1 [address] [address] [address] Feb, [address] [address] [address] Feb, Dementia without behavioral disturbance, unspecified dementia type F03.90 and Moderate episode of recurrent major depressive disorder F33.1 [address] [address] [address] Jan, Dementia without behavioral disturbance, unspecified dementia type F03.90 and Moderate episode of recurrent major depressive disorder F33.1 [address] [address] [address] Jan, Non-insulin dependent type 2 diabetes me llitus E11.9 ; Memory loss R41.3 ; Vitamin D deficiency E55.9 ; Moderate episode of recurrent major depressive disorder F33.1 ; Diabetic polyneuropathy associated with type 2 diabetes mellitus E11.42 and Tremor R25.1 [address] [place] [address] [address] Jan, Dementia without behavioral disturbance, unspecified dementia type F03.90 [address] [address] [address] Dec, Vitamin D deficiency E55.9 [address] [place] [address] [address] Dec, [address] [address] [address] Dec, Vitamin D deficiency E55.9 [address] [address] [address] Dec, [address] [id number] [place] [address] Dec, [address] [place] [address] Oct, [address] [id number] [place] [address] Oct, Non-insulin dependent type 2 diabetes me llitus E11.9 ; Memory loss R41.3 and Mixed hyperlipidemia E78.2 [address] [place] [address] [address] Oct, [address] [place] [address] [address] Sep, [address] [address] [address] Sep, Vitamin D deficiency E55.9 [address] [address] [address] Sep, [address] [address] [place] [address] Aug, Non-insulin dependent type 2 diabetes me llitus E11.9 ; Vitamin D deficiency E55.9 ; Memory loss R41.3 ; Polyneuropathy G62.9 ; Status post fracture of hip Z87.81 and Rectal bleeding K62.5 [address] [id number] [place] [address] July, Vitamin D deficiency E55.9 [address] [address] [place] [address] July, Tongue swelling R22.0 [facility] [address] [id number] [place] [address] July, [address] [place] [address] [place] [address] July, Tongue swelling R22.0 [address] [place] [address] July, Non-insulin dependent type 2 diabetes me llitus E11.9 ; Mixed hyperlipidemia E78.2 ; Closed fracture of left hip, sequela S72.002S ; Wheezing R06.2 ; Thyromegaly E01.0 and Dizziness R42 [address] [address] July, Non-insulin dependent type 2 diabetes me llitus E11.9 [address] [place] [address] July, Non-insulin dependent type 2 diabetes me llitus E11.9 ; Mixed hyperlipidemia E78.2 ; Closed fracture of left hip, sequela S72.002S ; Wheezing R06.2 ; Thyromegaly E01.0 and Dizziness R42 [address] [place] [address] [address] Jun, [address] [address] [address] Jun, [address] [address] [address] May, Type 2 diabetes mellitus with other diab etic kidney complication E11.29 ; Diabetic polyneuropathy associated with type 2 diabetes mellitus E11.42 ; Mixed hyperlipidemia E78.2 ; Essential hypertension I10 and Closed fracture of left hip with routine healing, subsequent encounter S72.002D [address] [address] May, [address] [address] May, [address] [address] [address] May, [address] [address] Apr, [address] [address] [address] Apr, Mixed hyperlipidemia E78.2 [address] [place] [address] Apr, Type 2 diabetes mellitus with other diab etic kidney complication E11.29 [facility] [address] [address] Mar, Right thyroid nodule E04.1 [facility] [address] [address] Mar, [facility] [address] [address] Mar, [facility] [address] [address] Mar, Diabetic polyneuropathy associated with type 2 diabetes mellitus E11.42 [facility] [address] [address] Mar, Essential hypertension I10 ; Type 2 diab etes mellitus with other diabetic kidney complication E11.29 ; Heartburn R12 ; Mixed hyperlipidemia E78.2 ; Acquired hypothyroidism E03.9 ; Renal insufficiency N28.9 ; Diabetic polyneuropathy associated with type 2 diabetes mellitus E11.42 and Enlargement of thyroid E04.9 [facility] [address] [address] Mar, [facility] [address] [address] Mar, Acquired hypothyroidism E03.9 [facility] [address] [address] Feb, Essential hypertension I10 ; Type 2 diab etes mellitus with other diabetic kidney complication E11.29 ; Heartburn R12 ; Enlargement of thyroid E04.9 ; Mixed hyperlipidemia E78.2 ; Acquired hypothyroidism E03.9 ; Renal insufficiency N28.9 and Diabetic polyneuropathy associated with type 2 diabetes mellitus E11.42 [facility] [address] [address] 07 Feb, 2016 [facility] [address] [address] Jan, [facility] [address] [address] Jan, [facility] [address] [address] Jan, [facility] [address] [address] Dec, Chest pain, unspecified type R07.9 ; Ess ential hypertension I10 ; Mixed hyperlipidemia E78.2 and Type 2 diabetes mellitus with other diabetic kidney complication E11.29 [facility] [address] [address] Dec, [facility] [address] [address] 30 Nov, 2015 [facility] [address] [address] Nov, [address] [place] [address] [address] Nov, Essential hypertension I10 ; Type 2 diab etes mellitus with other diabetic kidney complication E11.29 ; Proteinuria, unspecified R80.9 ; Heartburn R12 ; Enlargement of thyroid E04.9 ; Mixed hyperlipidemia E78.2 ; Acquired hypothyroidism E03.9 and Renal insufficiency N28.9 [address] [place] [address] Nov, [facility] [address] [address] Nov, [facility] [address] [address] Nov, [facility] [address] [address] Nov, Renal insufficiency N28.9 [address] [address] [address] 19 Nov, 2015 Renal insufficiency N28.9 [facility] [address] [address] 16 Nov, 2015 Encounter for well woman exam Z01.419 ; Screening for STD sexually transmitted disease Z11.3 ; Encounter for screening breast examination Z12.39 ; Screening mammogram, encounter for Z12.31 and Ventral hernia without obstruction or gangrene K43.9 [address] [address] [address] 13 Nov, 2015 Essential hypertension I10 ; Type 2 diab etes mellitus with other diabetic kidney complication E11.29 ; Proteinuria, unspecified R80.9 ; Heartburn R12 ; Enlargement of thyroid E04.9 ; Mixed hyperlipidemia E78.2 ; Acquired hypothyroidism E03.9 and Renal insufficiency N28.9 [address] [address] [address] Oct, Essential hypertension I10 ; Type 2 diab etes mellitus with other diabetic kidney complication E11.29 ; Proteinuria, unspecified R80.9 ; Heartburn R12 ; Abnormal thyroid blood test R94.6 ; Enlargement of thyroid E04.9 and Mixed hyperlipidemia E78.2 [place] [address] [address] Oct, [address] [address] [address] Oct, Enlargement of thyroid E04.9 [address] [address] [address] Oct, [address] [address] [address] Oct, Essential hypertension I10 ; Type 2 diab etes mellitus with other diabetic kidney complication E11.29 ; Proteinuria, unspecified R80.9 ; Heartburn R12 ; Abnormal thyroid blood test R94.6 ; Mixed hyperlipidemia E78.2 and Enlargement of thyroid E04.9 [facility] [id number] [place] [id number] 05 Oct, 2015 Dental examination Z01.20 [facility] [address] [address] 14 Jun, 2014 [place] [address] [address] Jun, [facility] [address] [id number] [place] [address] 03 Jun, 2012 [facility] [address] [id number] [place] [address] 25 May, 2012 [facility] [address] [id number] [place] [address] May, [facility] [address] [id number] [place] [address] 18 Feb, 2012 [facility] [address] [id number] [place] [address] 18 Feb, 2012 [facility] [address] [id number] [place] [address] 17 Feb, 2012 [facility] [address] [id number] [place] [address] Feb, [facility] [id number] [place] [address] 14 Feb, 2012 [facility] [address] [id number] [place] [address] 14 Feb, 2012 [facility] [address] [id number] [place] [address] Feb, [facility] [address] [id number] [place] [address] 06 Feb, 2012 [facility] [address] [id number] [place] [address] Dec, [facility] [address] [id number] [place] [address] 17 Dec, 2011 [facility] [address] [id number] [place] [address] Dec, [facility] [address] [id number] [place] [address] Dec, [facility] [address] [id number] [place] [address] 17 Sep, 2011 [facility] [address] [id number] [place] [address] Sep, [facility] [address] [id number] [place] [address] Sep, [facility] [address] [id number] [place] [address] Jun, [facility] [address] [id number] [place] [address] May, [facility] [address] [id number] [place] [address] May, [facility] [address] [id number] [place] [address] May, [facility] [address] [id number] [place] [address] May, [facility] [address] [id number] [place] [address] May, [facility] [address] [id number] [place] [address] Apr, [facility] [address] [id number] [place] [address] Mar, [facility] [address] [id number] [place] [address] Mar, [facility] [address] [id number] [place] [address] Mar, [facility] [address] [id number] [place] [address] Mar, [facility] [address] [id number] [place] [address] Feb, [facility] [address] [id number] [place] [address] Feb, [facility] [address] [id number] [place] [address] Feb, [facility] [address] [id number] [place] [address] Feb, [facility] [address] [id number] [place] [address] Feb, [facility] [address] [facility] [id number] [place] [address] Feb, [facility] [address] [id number] [place] [address] Feb, [facility] [address] [facility] [id number] [place] [address] Feb, IMMUNIZATIONS No Known Immunizations SOCIAL HISTORY Never Assessed REASON FOR VISIT DM Nutrition Education PLAN OF CARE VITAL SIGNS MEDICATIONS Medication Instructions Dosage Frequency Start Date End Date Duration S tatus Levothyroxine Sodium 50 MCG Orally Once a day 1 tablet on an empty stomach in the morning 24h 90 Unknown Crestor 10 mg Orally Once a day 1 tablet 24h 07 Dec, 2015 90 days Unknown Ergocalciferol 01974 UNIT Orally once weekly 1 capsule 2018 12 Weeks Unknown Calcium 600 MG Orally Twice a day 1 tablet with meals 12h Unknown Metformin HCl 1000 MG Orally Twice a day 1 tablet with meals 12h Unknown Vitamin D (Ergocalciferol) 75343 UNIT Orally once a week x12 weeks once weekly 1 capsule July, 12 weeks Unknown Daily Vitamins for Women - Unknown Celexa 10 mg Orally Once a day 0.5 tablets for one week then one table t 24h 30 Unknown Omeprazole-Sodium Bicarbonate 40-1100 MG Orally Once a day 1 capsule on an empty stomach 24h Unknown Glimepiride 2 MG Orally 2 times a day 1 tablet 12h 23 Nov, 2015 30 days Unknown RESULTS No Results PROCEDURES No Known procedures [...]
--- OUTSIDE RECORDS SUMMARY | 2019-08-25 22:08 | XMS REPORT ---
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 Name Role Phone ANDREW PLATT Unavailable PROBLEMS Type Condition ICD9-CM Code CCP92-PU Code Onset Dates Condition S tatus SNOMED Code Problem Essential hypertension I10 Active 77109391 Problem Type 2 diabetes mellitus with other diabetic kid bela complication E11.29 Active 34866590 Problem Mixed hyperlipidemia E78.2 Active 885237675 Problem Ventral hernia without obstruction or gangrene K43 .9 Active 291660072 Problem Acquired hypothyroidism E03.9 Active 515702785 Problem Vitamin D deficiency E55.9 Active 33347360 Problem Memory loss R41.3 Active 05778977 6 Problem Polyneuropathy G62.9 Active 40989 000 Problem Thyroid nodule E04.1 Active 46204 5005 Problem Non-insulin dependent type 2 diabetes mellitus E11 .9 Active 07797284 Problem Primary osteoarthritis of left hip M16.12 Active [id number] Problem Diabetic polyneuropathy associated with type 2 d iabetes mellitus E11.42 Active 32399793 Problem Moderate episode of recurrent major depressive disorder F33.1 Active 497007857 Problem Dementia without behavioral disturbance, unspeci fied dementia type F03.90 Active 62004231 Problem Gastroesophageal reflux disease without esophagitis K21.9 Active 290429505 Problem BMI 30.0-30.9,adult Z68.30 Active 069960407 ALLERGIES No Information ENCOUNTERS Encounter Location Date Diagnosis [facility] [id number] [place] [address] May, [facility] [address] [address] Apr, [facility] [id number] [place] [address] Apr, Moderate episode of recurrent major depr essive disorder F33.1 [address] [place] [address] 06 Apr, 2019 Thyroid nodule E04.1 [place] [address] [address] Apr, [place] [address] [address] Mar, Well woman exam with routine gynecologic al exam Z01.419 [place] [address] [address] Mar, Dementia without behavioral disturbance, unspecified dementia type F03.90 and Moderate episode of recurrent major depressive disorder F33.1 [place] [address] [address] Mar, Memory loss R41.3 ; Dementia without beh avioral disturbance, unspecified dementia type F03.90 ; Non-insulin dependent type 2 diabetes mellitus E11.9 ; Vitamin D deficiency E55.9 ; Primary osteoarthritis of left hip M16.12 and BMI 30.0-30.9,adult Z68.30 [place] [address] [address] Feb, Moderate episode of recurrent major depr essive disorder F33.1 and Dementia without behavioral disturbance, unspecified dementia type F03.90 [place] [address] [address] Feb, Type 2 diabetes mellitus with other diab etic kidney complication E11.29 ; Non-insulin dependent type 2 diabetes mellitus E11.9 ; Essential hypertension I10 ; Thyroid nodule E04.1 ; Memory loss R41.3 and BMI 30.0- 30.9,adult Z68.30 [place] [address] [address] Jan, Hx of fracture of left hip Z87.81 ; Prim aurora osteoarthritis of left hip M16.12 ; Type 2 diabetes mellitus with other diabetic kidney complication E11.29 ; Non-insulin dependent type 2 diabetes mellitus E11.9 ; Essential hypertension I10 ; Vitamin D deficiency E55.9 ; Thyroid nodule E04.1 and BMI 29.0-29.9,adult Z68.29 [place] [address] [address] Jan, [place] [address] [address] Jan, [place] [address] [address] Jan, Moderate episode of recurrent major depr essive disorder F33.1 and Dementia without behavioral disturbance, unspecified dementia type F03.90 [place] [address] [address] Jan, Acquired hypothyroidism E03.9 [place] [address] [address] Jan, Encounter for immunization Z23 [place] [address] [address] Dec, [place] [address] [address] Dec, Dementia without behavioral disturbance, unspecified dementia type F03.90 and Moderate episode of recurrent major depressive disorder F33.1 [place] [address] [address] Dec, Screening for STD sexually transmitted d isease Z11.3 [place] [address] [address] Dec, Screening for STD sexually transmitted d isease Z11.3 [place] [address] [address] Dec, Well woman exam with routine gynecologic al exam Z01.419 ; Screening for breast cancer Z12.39 ; Type 2 diabetes mellitus with other diabetic kidney complication E11.29 ; Non-insulin dependent type 2 diabetes mellitus E11.9 ; Thyroid nodule E04.1 and BMI 29.0-29.9,adult Z68.29 [place] [address] [address] Nov, [facility] [address] [address] Nov, Acquired hypothyroidism E03.9 [facility] [address] [address] Nov, [facility] [address] [address] Nov, [facility] [address] [address] Nov, [place] [address] [address] Nov, [place] [address] [address] Nov, [place] [address] [address] Nov, Thyroid nodule E04.1 [place] [address] [address] Nov, Left hip pain M25.552 ; Type 2 diabetes mellitus with other diabetic kidney complication E11.29 ; Mixed hyperlipidemia E78.2 ; Essential hypertension I10 and Poq-iohq-kzgm 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 associated with diabetes mellitus due to underlying condition E08.3599 [place] [address] [address] Oct, Dementia without behavioral disturbance, unspecified dementia type F03.90 and Moderate episode of recurrent major depressive disorder F33.1 [place] [address] [address] Oct, Right thyroid nodule E04.1 [place] [address] [address] Oct, Right thyroid nodule E04.1 ; Acute right ankle pain M25.571 ; BMI 30.0-30.9,adult Z68.30 ; Type 2 diabetes mellitus with other diabetic kidney complication E11.29 ; Essential hypertension I10 ; Acquired hypothyroidism E03.9 and Hemoptysis R04.2 [place] [address] [address] Oct, [place] [address] [address] Sep, [place] [address] [address] Sep, Acute right ankle pain M25.571 ; Type 2 diabetes mellitus with other diabetic kidney complication E11.29 ; Essential hypertension I10 ; Acquired hypothyroidism E03.9 ; Hemoptysis R04.2 ; BMI 30.0-30.9,adult Z68.30 and Dementia without behavioral disturbance, unspecified dementia type F03.90 [place] [address] [address] Sep, [place] [address] [address] Sep, [place] [address] [address] Sep, Moderate episode of recurrent major depr essive disorder F33.1 and Dementia without behavioral disturbance, unspecified dementia type F03.90 [place] [address] [address] Aug, [place] [address] [address] Aug, [place] [address] [address] Aug, [place] [address] [address] Aug, [place] [address] [address] Aug, [place] [address] [address] July, Exercise counseling Z71.82 [place] [address] [address] July, Acquired hypothyroidism E03.9 ; Neck mus daniela spasm M62.838 and Thyroid nodule E04.1 [place] [address] [address] July, [place] [address] [address] July, Vitamin D deficiency E55.9 and Acquired hypothyroidism E03.9 [place] [address] [address] July, [place] [address] [address] July, Dementia without behavioral disturbance, unspecified dementia type F03.90 and Moderate episode of recurrent major depressive disorder F33.1 [place] [address] [address] July, Cough R05 ; Vitamin D deficiency E55.9 ; Type 2 diabetes mellitus with other diabetic kidney complication E11.29 and Mixed hyperlipidemia E78.2 [place] [address] [address] July, Vitamin D deficiency E55.9 ; Type 2 diab etes mellitus with other diabetic kidney complication E11.29 and Mixed hyperlipidemia E78.2 [place] [address] [address] July, Exercise counseling Z71.82 [place] [address] [address] July, [place] [address] [address] July, Cough R05 [place] [address] [address] July, Exercise counseling Z71.82 [place] [address] [address] July, [place] [address] [address] July, [place] [address] [address] July, Cough R05 ; Type 2 diabetes mellitus wit h other diabetic kidney complication E11.29 ; BMI 30.0-30.9,adult Z68.30 ; Mixed hyperlipidemia E78.2 ; Essential hypertension I10 and Acquired hypothyroidism E03.9 [place] [address] [address] Jun, [place] [address] [address] Jun, Dementia without behavioral disturbance, unspecified dementia type F03.90 and Moderate episode of recurrent major depressive disorder F33.1 [place] [address] [address] Jun, [place] [address] [address] Jun, Exercise counseling Z71.82 [place] [address] [address] Jun, [place] [address] [address] Jun, [place] [address] [address] Jun, [place] [address] [address] Jun, Moderate episode of recurrent major depr essive disorder F33.1 and Dementia without behavioral disturbance, unspecified dementia type F03.90 [place] [address] [address] Jun, [place] [address] [address] May, [place] [address] [address] May, [place] [address] [address] May, Type 2 diabetes mellitus with other diab etic kidney complication E11.29 [facility] [address] [address] May, [facility] [address] [address] May, [facility] [address] [address] May, Type 2 diabetes mellitus with other diab etic kidney complication E11.29 [facility] [address] [address] May, [facility] [address] [address] May, [facility] [address] [address] May, [place] [address] [address] May, Type 2 diabetes mellitus with other diab etic kidney complication E11.29 ; Right thyroid nodule E04.1 ; Essential hypertension I10 and Acquired hypothyroidism E03.9 [place] [address] [address] 18 Apr, 2018 Right thyroid nodule E04.1 [place] [address] [address] Apr, Thyroid mass E07.9 [place] [address] [address] Apr, Vitamin D deficiency E55.9 [address] [address] [address] Mar, Non-insulin dependent type 2 diabetes me llitus E11.9 ; Moderate episode of recurrent major depressive disorder F33.1 ; Gastroesophageal reflux disease without esophagitis K21.9 ; Dementia without behavioral disturbance, unspecified dementia type F03.90 ; Right thyroid nodule E04.1 and Vitamin D deficiency E55.9 [place] [address] [address] Mar, Moderate episode of recurrent major depr essive disorder F33.1 and Dementia without behavioral disturbance, unspecified dementia type F03.90 [place] [address] [address] Mar, Dementia without behavioral disturbance, unspecified dementia type F03.90 and Moderate episode of recurrent major depressive disorder F33.1 [address] [address] [address] Feb, [place] [address] [address] Feb, Dementia without behavioral disturbance, unspecified dementia type F03.90 and Moderate episode of recurrent major depressive disorder F33.1 [address] [address] [address] Jan, Dementia without behavioral disturbance, unspecified dementia type F03.90 and Moderate episode of recurrent major depressive disorder F33.1 [address] [address] [address] Jan, Non-insulin dependent type 2 diabetes me llitus E11.9 ; Memory loss R41.3 ; Vitamin D deficiency E55.9 ; Moderate episode of recurrent major depressive disorder F33.1 ; Diabetic polyneuropathy associated with type 2 diabetes mellitus E11.42 and Tremor R25.1 [address] [place] [address] [address] Jan, Dementia without behavioral disturbance, unspecified dementia type F03.90 [address] [place] [address] [address] Dec, Vitamin D deficiency E55.9 [address] [place] [address] [address] Dec, [address] [address] [address] Dec, Vitamin D deficiency E55.9 [address] [place] [address] [address] Dec, [place] [id number] [place] [address] Dec, [address] [place] [address] Oct, [address] [id number] [place] [address] Oct, Non-insulin dependent type 2 diabetes me llitus E11.9 ; Memory loss R41.3 and Mixed hyperlipidemia E78.2 [address] [place] [address] Oct, [address] [address] [address] Sep, [address] [place] [address] [address] Sep, Vitamin D deficiency E55.9 [address] [place] [address] Sep, [address] [id number] [place] [address] Aug, Non-insulin dependent type 2 diabetes me llitus E11.9 ; Vitamin D deficiency E55.9 ; Memory loss R41.3 ; Polyneuropathy G62.9 ; Status post fracture of hip Z87.81 and Rectal bleeding K62.5 [place] [id number] [place] [address] July, Vitamin D deficiency E55.9 [place] [id number] [place] [address] July, Tongue swelling R22.0 [facility] [address] [facility] [id number] [place] [address] July, [address] [place] [id number] [place] [address] July, Tongue swelling R22.0 [address] [place] [address] [address] July, Non-insulin dependent type 2 diabetes me llitus E11.9 ; Mixed hyperlipidemia E78.2 ; Closed fracture of left hip, sequela S72.002S ; Wheezing R06.2 ; Thyromegaly E01.0 and Dizziness R42 [address] [place] [address] July, Non-insulin dependent type 2 diabetes me llitus E11.9 [address] [place] [address] [address] July, Non-insulin dependent type 2 diabetes me llitus E11.9 ; Mixed hyperlipidemia E78.2 ; Closed fracture of left hip, sequela S72.002S ; Wheezing R06.2 ; Thyromegaly E01.0 and Dizziness R42 [address] [place] [address] [address] Jun, [address] [address] [address] Jun, [address] [address] May, Type 2 diabetes mellitus with other diab etic kidney complication E11.29 ; Diabetic polyneuropathy associated with type 2 diabetes mellitus E11.42 ; Mixed hyperlipidemia E78.2 ; Essential hypertension I10 and Closed fracture of left hip with routine healing, subsequent encounter S72.002D [address] [address] May, [address] [address] [address] May, [address] [address] [address] May, [address] [address] [address] Apr, [address] [address] [address] Apr, Mixed hyperlipidemia E78.2 [address] [place] [address] [address] Apr, Type 2 diabetes mellitus with other diab etic kidney complication E11.29 [facility] [address] [address] Mar, Right thyroid nodule E04.1 [facility] [address] [address] Mar, [facility] [address] [address] Mar, [facility] [address] [address] Mar, Diabetic polyneuropathy associated with type 2 diabetes mellitus E11.42 [facility] [address] [address] Mar, Essential hypertension I10 ; Type 2 diab etes mellitus with other diabetic kidney complication E11.29 ; Heartburn R12 ; Mixed hyperlipidemia E78.2 ; Acquired hypothyroidism E03.9 ; Renal insufficiency N28.9 ; Diabetic polyneuropathy associated with type 2 diabetes mellitus E11.42 and Enlargement of thyroid E04.9 [facility] [address] [address] Mar, [facility] [address] [address] Mar, Acquired hypothyroidism E03.9 [facility] [address] [address] Feb, Essential hypertension I10 ; Type 2 diab etes mellitus with other diabetic kidney complication E11.29 ; Heartburn R12 ; Enlargement of thyroid E04.9 ; Mixed hyperlipidemia E78.2 ; Acquired hypothyroidism E03.9 ; Renal insufficiency N28.9 and Diabetic polyneuropathy associated with type 2 diabetes mellitus E11.42 [facility] [address] [address] 07 Feb, 2016 [facility] [address] [address] Jan, [facility] [address] [address] Jan, [facility] [address] [address] Jan, [facility] [address] [address] Dec, Chest pain, unspecified type R07.9 ; Ess ential hypertension I10 ; Mixed hyperlipidemia E78.2 and Type 2 diabetes mellitus with other diabetic kidney complication E11.29 [facility] [address] [address] Dec, [facility] [address] [address] 30 Nov, 2015 [facility] [address] [address] Nov, [address] [address] [address] Nov, Essential hypertension I10 ; Type 2 diab etes mellitus with other diabetic kidney complication E11.29 ; Proteinuria, unspecified R80.9 ; Heartburn R12 ; Enlargement of thyroid E04.9 ; Mixed hyperlipidemia E78.2 ; Acquired hypothyroidism E03.9 and Renal insufficiency N28.9 [address] [address] [address] Nov, [facility] [address] [address] Nov, [facility] [address] [address] Nov, [facility] [address] [address] Nov, Renal insufficiency N28.9 [address] [address] [address] 19 Nov, 2015 Renal insufficiency N28.9 [facility] [address] [address] 16 Nov, 2015 Encounter for well woman exam Z01.419 ; Screening for STD sexually transmitted disease Z11.3 ; Encounter for screening breast examination Z12.39 ; Screening mammogram, encounter for Z12.31 and Ventral hernia without obstruction or gangrene K43.9 [address] [address] [address] 13 Nov, 2015 Essential hypertension I10 ; Type 2 diab etes mellitus with other diabetic kidney complication E11.29 ; Proteinuria, unspecified R80.9 ; Heartburn R12 ; Enlargement of thyroid E04.9 ; Mixed hyperlipidemia E78.2 ; Acquired hypothyroidism E03.9 and Renal insufficiency N28.9 [place] [address] [address] Oct, Essential hypertension I10 ; Type 2 diab etes mellitus with other diabetic kidney complication E11.29 ; Proteinuria, unspecified R80.9 ; Heartburn R12 ; Abnormal thyroid blood test R94.6 ; Enlargement of thyroid E04.9 and Mixed hyperlipidemia E78.2 [place] [address] [address] Oct, [place] [address] [address] Oct, Enlargement of thyroid E04.9 [place] [address] [address] Oct, [place] [address] [address] Oct, Essential hypertension I10 ; Type 2 diab etes mellitus with other diabetic kidney complication E11.29 ; Proteinuria, unspecified R80.9 ; Heartburn R12 ; Abnormal thyroid blood test R94.6 ; Mixed hyperlipidemia E78.2 and Enlargement of thyroid E04.9 [facility] [id number] [place] [id number] 05 Oct, 2015 Dental examination Z01.20 [facility] [address] [address] 14 Jun, 2014 [place] [address] [address] Jun, [facility] [address] [id number] [place] [address] 03 Jun, 2012 [facility] [address] [id number] [place] [address] 25 May, 2012 [facility] [address] [id number] [place] [address] May, [facility] [address] [id number] [place] [address] 18 Feb, 2012 [facility] [address] [id number] [place] [address] 18 Feb, 2012 [facility] [address] [id number] [place] [address] 17 Feb, 2012 [facility] [address] [id number] [place] [address] Feb, [facility] [id number] [place] [address] 14 Feb, 2012 [facility] [address] [id number] [place] [address] 14 Feb, 2012 [facility] [address] [id number] [place] [address] Feb, [facility] [address] [id number] [place] [address] 06 Feb, 2012 [facility] [address] [id number] [place] [address] Dec, [facility] [address] [id number] [place] [address] 17 Dec, 2011 [facility] [address] [id number] [place] [address] Dec, [facility] [address] [id number] [place] [address] Dec, [facility] [address] [id number] [place] [address] 17 Sep, 2011 [facility] [address] [id number] [place] [address] Sep, [facility] [address] [id number] [place] [address] Sep, [facility] [address] [id number] [place] [address] Jun, [facility] [address] [id number] [place] [address] May, [facility] [address] [id number] [place] [address] May, [facility] [address] [id number] [place] [address] May, [facility] [address] [id number] [place] [address] May, [facility] [address] [id number] [place] [address] May, [facility] [address] [id number] [place] [address] Apr, [facility] [address] [id number] [place] [address] Mar, [facility] [address] [id number] [place] [address] Mar, [facility] [address] [id number] [place] [address] Mar, [facility] [address] [id number] [place] [address] Mar, [facility] [address] [id number] [place] [address] Feb, [facility] [address] [id number] [place] [address] Feb, [facility] [address] [id number] [place] [address] Feb, [facility] [address] [id number] [place] [address] Feb, [facility] [address] [id number] [place] [address] Feb, [facility] [address] [id number] [place] [address] Feb, [facility] [address] [id number] [place] [address] Feb, [facility] [address] [id number] [place] [address] Feb, IMMUNIZATIONS No Known Immunizations SOCIAL HISTORY Never Assessed REASON FOR VISIT Referral request PLAN OF CARE VITAL SIGNS MEDICATIONS Unknown [...]
--- OUTSIDE RECORDS SUMMARY | 2019-08-25 22:08 | XMS REPORT ---
Author Author Nieves LEMOS Organization [facility] Address [address] [place] [address] Care Team Providers [employer]mo Name Role Phone CHIKIS LEMOS Unavailable PROBLEMS Type Condition ICD9-CM Code SHG47-OG Code Onset Dates Condition S tatus SNOMED Code Problem Essential hypertension I10 Active 99976161 Problem Type 2 diabetes mellitus with other diabetic kid bela complication E11.29 Active 00156504 Problem Mixed hyperlipidemia E78.2 Active 886430496 Problem Ventral hernia without obstruction or gangrene K43 .9 Active 373161786 Problem Acquired hypothyroidism E03.9 Active 400083010 Problem Vitamin D deficiency E55.9 Active 04653303 Problem Memory loss R41.3 Active 83711686 6 Problem Polyneuropathy G62.9 Active 18805 000 Problem Thyroid nodule E04.1 Active 06306 5005 Problem Non-insulin dependent type 2 diabetes mellitus E11 .9 Active 20285853 Problem Primary osteoarthritis of left hip M16.12 Active [id number] Problem Diabetic polyneuropathy associated with type 2 d iabetes mellitus E11.42 Active 47540698 Problem Moderate episode of recurrent major depressive disorder F33.1 Active 421716918 Problem Dementia without behavioral disturbance, unspeci fied dementia type F03.90 Active 90457511 Problem Gastroesophageal reflux disease without esophagitis K21.9 Active 625693485 Problem BMI 30.0-30.9,adult Z68.30 Active [id number] ALLERGIES No Information ENCOUNTERS Encounter Location Date Diagnosis [facility] [address] [facility] [id number] [address] [place] [phone] 04 Aug, 2019 [facility] [address] [facility] [id number] [address] [place] [id number] 14 Jul, 2019 [facility] [address] [facility] [id number] [address] [place] [phone] 08 Jul, 2019 [facility] [address] [id number] [address] [place] [phone] Jun, [facility] [address] [id number] [address] [place] [phone] Jun, [facility] [address] [id number] [address] [place] [phone] Jun, [facility] [address] [id number] [address] [place] [phone] Jun, Moderate episode of recurren t major depressive disorder F33.1 [facility] [address] [id number] [address] [place] [phone] Jun, [facility] [address] [id number] [address] [place] [phone] Jun, Type 2 diabetes mellitus wit h other diabetic kidney complication E11.29 [facility] [address] [id number] [address] [place] [phone] Jun, Type 2 diabetes mellitus wit h other diabetic kidney complication E11.29 and Essential hypertension I10 [facility] [address] [id number] [address] [place] [phone] Jun, Moderate episode of recurren t major depressive disorder F33.1 [facility] [address] [id number] [address] [place] [address] Jun, [facility] [address] [id number] [address] [place] [phone] Jun, Primary osteoarthritis of le ft hip M16.12 and Well woman exam with routine gynecological exam Z01.419 [facility] [address] [id number] [address] [place] [phone] May, [facility] [address] [id number] [address] [place] [phone] May, Moderate episode of recurren t major depressive disorder F33.1 [facility] [address] [id number] [address] [place] [phone] Apr, Moderate episode of recurren t major depressive disorder F33.1 [place] [address] [facility] [id number] [address] [place] [phone] Apr, Thyroid nodule E04.1 [place] [address] [facility] [id number] [address] [place] [phone] Apr, [place] [address] [facility] [id number] [address] [place] [phone] Mar, Well woman exam with routine gynecological exam Z01.419 [place] [address] [facility] [id number] [address] [place] [phone] Mar, Dementia without behavioral disturbance, unspecified dementia type F03.90 and Moderate episode of recurrent major depressive disorder F33.1 [place] [address] [facility] [id number] [address] [place] [phone] Mar, Memory loss R41.3 ; Dementia without behavioral disturbance, unspecified dementia type F03.90 ; Non-insulin dependent type 2 diabetes mellitus E11.9 ; Vitamin D deficiency E55.9 ; Primary osteoarthritis of left hip M16.12 and BMI 30.0-30.9,adult Z68.30 [place] [address] [facility] [id number] [address] [place] [phone] Feb, Moderate episode of recurren t major depressive disorder F33.1 and Dementia without behavioral disturbance, unspecified dementia type F03.90 [place] [address] [facility] [id number] [address] [place] [address] Feb, Type 2 diabetes mellitus wit h other diabetic kidney complication E11.29 ; Non-insulin dependent type 2 diabetes mellitus E11.9 ; Essential hypertension I10 ; Thyroid nodule E04.1 ; Memory loss R41.3 and BMI 30.0- 30.9,adult Z68.30 [place] [address] [facility] [id number] [address] [place] [phone] Jan, Hx of fracture of left hip Z 87.81 ; Primary osteoarthritis of left hip M16.12 ; Type 2 diabetes mellitus with other diabetic kidney complication E11.29 ; Non-insulin dependent type 2 diabetes mellitus E11.9 ; Essential hypertension I10 ; Vitamin D deficiency E55.9 ; Thyroid nodule E04.1 and BMI 29.0-29.9,adult Z68.29 [facility] [address] [id number] [address] [place] [phone] Jan, [place] [address] [id number] [address] [place] [phone] Jan, [place] [address] [facility] [id number] [address] [place] [phone] Jan, Moderate episode of recurren t major depressive disorder F33.1 and Dementia without behavioral disturbance, unspecified dementia type F03.90 [place] [address] [facility] [id number] [address] [place] [phone] Jan, Acquired hypothyroidism E03. 9 [place] [address] [facility] [id number] [address] [place] [phone] Jan, Encounter for immunization Z 23 [place] [address] [id number] [address] [place] [phone] Dec, [place] [address] [facility] [id number] [address] [place] [phone] Dec, Dementia without behavioral disturbance, unspecified dementia type F03.90 and Moderate episode of recurrent major depressive disorder F33.1 [place] [address] [facility] [id number] [address] [place] [phone] 14 Dec, 2018 Screening for STD sexually t ransmitted disease Z11.3 [place] [address] [id number] [address] [place] [phone] Dec, Screening for STD sexually t ransmitted disease Z11.3 [place] [address] [facility] [id number] [address] [place] [phone] Dec, Well woman exam with routine gynecological exam Z01.419 ; Screening for breast cancer Z12.39 ; Type 2 diabetes mellitus with other diabetic kidney complication E11.29 ; Non-insulin dependent type 2 diabetes mellitus E11.9 ; Thyroid nodule E04.1 and BMI 29.0-29.9,adult Z68.29 [facility] [address] [id number] [address] [place] [phone] Nov, [facility] [address] [id number] [address] [place] [phone] Nov, Acquired hypothyroidism E03. 9 [facility] [address] [id number] [address] [place] [address] Nov, [facility] [address] [id number] [address] [place] [phone] Nov, [facility] [address] [id number] [address] [place] [phone] Nov, [facility] [address] [id number] [address] [place] [address] Nov, [facility] [address] [id number] [address] [place] [phone] Nov, [facility] [address] [id number] [address] [place] [address] Nov, Thyroid nodule E04.1 [facility] [address] [id number] [address] [place] [address] 03 Nov, 2018 Left hip pain M25.552 ; Type 2 diabetes mellitus with other diabetic kidney complication E11.29 ; Mixed hyperlipidemia E78.2 ; Essential hypertension I10 and Trb-ojhd-mlqr 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 associated with diabetes mellitus due to underlying condition E08.3599 [facility] [address] [id number] [address] [place] [address] Oct, Dementia without behavioral disturbance, unspecified dementia type F03.90 and Moderate episode of recurrent major depressive disorder F33.1 [facility] [address] [id number] [address] [place] [address] Oct, Right thyroid nodule E04.1 [facility] [address] [id number] [address] [place] [address] Oct, Right thyroid nodule E04.1 ; Acute right ankle pain M25.571 ; BMI 30.0-30.9,adult Z68.30 ; Type 2 diabetes mellitus with other diabetic kidney complication E11.29 ; Essential hypertension I10 ; Acquired hypothyroidism E03.9 and Hemoptysis R04.2 [facility] [address] [id number] [address] [place] [phone] Oct, [facility] [address] [id number] [address] [place] [phone] Sep, [facility] [address] [id number] [address] [place] [address] Sep, Acute right ankle pain M25.5 71 ; Type 2 diabetes mellitus with other diabetic kidney complication E11.29 ; Essential hypertension I10 ; Acquired hypothyroidism E03.9 ; Hemoptysis R04.2 ; BMI 30.0-30.9,adult Z68.30 and Dementia without behavioral disturbance, unspecified dementia type F03.90 [facility] [address] [id number] [address] [place] [phone] Sep, [facility] [address] [id number] [address] [place] [phone] Sep, [facility] [address] [id number] [address] [place] [phone] Sep, Moderate episode of recurren t major depressive disorder F33.1 and Dementia without behavioral disturbance, unspecified dementia type F03.90 [facility] [address] [id number] [address] [place] [phone] Aug, [facility] [address] [id number] [address] [place] [id number] Aug, [facility] [address] [id number] [address] [place] [phone] Aug, [facility] [address] [id number] [address] [place] [phone] Aug, [facility] [address] [facility] [id number] [address] [place] [phone] Aug, [facility] [address] [facility] [id number] [address] [place] [address] July, Exercise counseling Z71.82 [facility] [address] [facility] [id number] [address] [place] [phone] July, Acquired hypothyroidism E03. 9 ; Neck muscle spasm M62.838 and Thyroid nodule E04.1 [facility] [address] [id number] [address] [place] [phone] July, [place] [address] [facility] [id number] [address] [place] [phone] July, Vitamin D deficiency E55.9 a nd Acquired hypothyroidism E03.9 [place] [address] [facility] [id number] [address] [place] [phone] July, [facility] [address] [facility] [id number] [address] [place] [address] July, Dementia without behavioral disturbance, unspecified dementia type F03.90 and Moderate episode of recurrent major depressive disorder F33.1 [place] [address] [facility] [id number] [address] [place] [id number] July, Cough R05 ; Vitamin D defici ency E55.9 ; Type 2 diabetes mellitus with other diabetic kidney complication E11.29 and Mixed hyperlipidemia E78.2 [place] [address] [facility] [id number] [address] [place] [phone] July, Vitamin D deficiency E55.9 ; Type 2 diabetes mellitus with other diabetic kidney complication E11.29 and Mixed hyperlipidemia E78.2 [place] [address] [facility] [id number] [address] [place] [phone] July, Exercise counseling Z71.82 [facility] [address] [facility] [id number] [address] [place] [address] July, [facility] [address] [facility] [id number] [address] [place] [phone] July, Cough R05 [place] [address] [id number] [address] [place] [phone] July, Exercise counseling Z71.82 [facility] [address] [facility] [id number] [address] [place] [phone] July, [place] [address] [facility] [id number] [address] [place] [phone] July, [place] [address] [facility] [id number] [address] [place] [address] July, Cough R05 ; Type 2 diabetes mellitus with other diabetic kidney complication E11.29 ; BMI 30.0-30.9,adult Z68.30 ; Mixed hyperlipidemia E78.2 ; Essential hypertension I10 and Acquired hypothyroidism E03.9 [place] [address] [facility] [id number] [address] [place] [phone] Jun, [place] [address] [facility] [id number] [address] [place] [phone] Jun, Dementia without behavioral disturbance, unspecified dementia type F03.90 and Moderate episode of recurrent major depressive disorder F33.1 [place] [address] [facility] [id number] [address] [place] [phone] Jun, [place] [address] [facility] [id number] [address] [place] [phone] Jun, Exercise counseling Z71.82 [place] [address] [facility] [id number] [address] [place] [phone] Jun, [place] [address] [id number] [address] [place] [phone] Jun, [place] [address] [facility] [id number] [address] [place] [phone] Jun, [place] [address] [facility] [id number] [address] [place] [phone] Jun, Moderate episode of recurren t major depressive disorder F33.1 and Dementia without behavioral disturbance, unspecified dementia type F03.90 [facility] [address] [id number] [address] [place] [phone] Jun, [facility] [address] [facility] [id number] [address] [place] [phone] May, [facility] [address] [id number] [address] [place] [phone] May, [facility] [address] [id number] [address] [place] [phone] May, Type 2 diabetes mellitus wit h other diabetic kidney complication E11.29 [facility] [address] [id number] [address] [place] [phone] May, [facility] [address] [facility] [id number] [address] [place] [phone] May, [facility] [address] [facility] [id number] [address] [place] [phone] May, Type 2 diabetes mellitus wit h other diabetic kidney complication E11.29 [facility] [address] [id number] [address] [place] [phone] May, [facility] [address] [facility] [id number] [address] [place] [phone] May, [facility] [address] [facility] [id number] [address] [place] [phone] May, [facility] [address] [facility] [id number] [address] [place] [phone] May, Type 2 diabetes mellitus wit h other diabetic kidney complication E11.29 ; Right thyroid nodule E04.1 ; Essential hypertension I10 and Acquired hypothyroidism E03.9 [facility] [address] [facility] [id number] [address] [place] [phone] 18 Apr, 2018 Right thyroid nodule E04.1 [facility] [address] [facility] [id number] [address] [place] [phone] 07 Apr, 2018 Thyroid mass E07.9 [place] [address] [facility] [id number] [address] [place] [phone] 04 Apr, 2018 Vitamin D deficiency E55.9 [place] [address] [facility] [id number] [address] [place] [phone] Mar, Non-insulin dependent type 2 diabetes mellitus E11.9 ; Moderate episode of recurrent major depressive disorder F33.1 ; Gastroesophageal reflux disease without esophagitis K21.9 ; Dementia without behavioral disturbance, unspecified dementia type F03.90 ; Right thyroid nodule E04.1 and Vitamin D deficiency E55.9 [place] [address] [facility] [id number] [address] [place] [phone] Mar, Moderate episode of recurren t major depressive disorder F33.1 and Dementia without behavioral disturbance, unspecified dementia type F03.90 [place] [address] [facility] [id number] [address] [place] [phone] Mar, Dementia without behavioral disturbance, unspecified dementia type F03.90 and Moderate episode of recurrent major depressive disorder F33.1 [place] [address] [facility] [id number] [address] [place] [phone] Feb, [place] [address] [facility] [id number] [address] [place] [address] Feb, Dementia without behavioral disturbance, unspecified dementia type F03.90 and Moderate episode of recurrent major depressive disorder F33.1 [place] [address] [facility] [id number] [address] [place] [phone] Jan, Dementia without behavioral disturbance, unspecified dementia type F03.90 and Moderate episode of recurrent major depressive disorder F33.1 [place] [address] [facility] [id number] [address] [place] [phone] Jan, Non-insulin dependent type 2 diabetes mellitus E11.9 ; Memory loss R41.3 ; Vitamin D deficiency E55.9 ; Moderate episode of recurrent major depressive disorder F33.1 ; Diabetic polyneuropathy associated with type 2 diabetes mellitus E11.42 and Tremor R25.1 [place] [address] [id number] [address] [place] [address] Jan, Dementia without behavioral disturbance, unspecified dementia type F03.90 [facility] [address] [id number] [address] [place] [phone] Dec, Vitamin D deficiency E55.9 [facility] [address] [id number] [address] [place] [phone] Dec, [facility] [address] [id number] [address] [place] [phone] Dec, Vitamin D deficiency E55.9 [facility] [address] [id number] [address] [place] [phone] Dec, [facility] [address] [facility] [id number] [address] [place] [phone] Dec, [facility] [address] [facility] [id number] [address] [place] [phone] Oct, [facility] [address] [id number] [address] [place] [phone] Oct, Non-insulin dependent type 2 diabetes mellitus E11.9 ; Memory loss R41.3 and Mixed hyperlipidemia E78.2 [facility] [address] [facility] [id number] [address] [place] [phone] Oct, [place] [address] [facility] [id number] [address] [place] [phone] Sep, [facility] [address] [id number] [address] [place] [phone] Sep, Vitamin D deficiency E55.9 [facility] [address] [id number] [address] [place] [phone] Sep, [facility] [address] [facility] [id number] [address] [place] [phone] Aug, Non-insulin dependent type 2 diabetes mellitus E11.9 ; Vitamin D deficiency E55.9 ; Memory loss R41.3 ; Polyneuropathy G62.9 ; Status post fracture of hip Z87.81 and Rectal bleeding K62.5 [place] [id number] [place] [address] July, Vitamin D deficiency E55.9 [place] [address] [place] [id number] [address] [place] [phone] July, Tongue swelling R22.0 [facility] [address] [place], [place] [address] [place] [address] July, [place] [id number] [place] [address] July, Tongue swelling R22.0 [place] [id number] [place] [address] July, Non-insulin dependent type 2 diabetes mellitus E11.9 ; Mixed hyperlipidemia E78.2 ; Closed fracture of left hip, sequela S72.002S ; Wheezing R06.2 ; Thyromegaly E01.0 and Dizziness R42 [place] [address] [place] [id number] [place] [phone] July, Non-insulin dependent type 2 diabetes mellitus E11.9 [place] [address] [place] [id number] [address] [place] [address] July, Non-insulin dependent type 2 diabetes mellitus E11.9 ; Mixed hyperlipidemia E78.2 ; Closed fracture of left hip, sequela S72.002S ; Wheezing R06.2 ; Thyromegaly E01.0 and Dizziness R42 [place] [id number] [place] [phone] Jun, [place] [address] [phone] Jun, [place] [address] [address] [place] [id number] [address] [place] [phone] May, Type 2 diabetes mellitus wit h other diabetic kidney complication E11.29 ; Diabetic polyneuropathy associated with type 2 diabetes mellitus E11.42 ; Mixed hyperlipidemia E78.2 ; Essential hypertension I10 and Closed fracture of left hip with routine healing, subsequent encounter S72.002D [facility] [address] [facility] [id number] [address] [place] [phone] May, [facility] [address] [facility] [id number] [address] [place] [phone] May, [facility] [address] [facility] [id number] [address] [place] [phone] May, [facility] [address] [facility] [id number] [address] [place] [phone] Apr, [facility] [address] [facility] [id number] [address] [place] [place] [phone] Apr, Mixed hyperlipidemia E78.2 [facility] [address] [facility] [id number] [address] [place] [id number] Apr, Type 2 diabetes mellitus wit h other diabetic kidney complication E11.29 [facility] [address] [facility] [id number] [address] [place] [phone] Mar, Right thyroid nodule E04.1 [facility] [address] [facility] [id number] [address] [place] [phone] Mar, [facility] [address] [facility] [id number] [address] [place] [phone] Mar, [facility] [address] [facility] [id number] [address] [place] [phone] Mar, Diabetic polyneuropathy asso ciated with type 2 diabetes mellitus E11.42 [facility] [address] [facility] [id number] [address] [place] [phone] Mar, Essential hypertension I10 ; Type 2 diabetes mellitus with other diabetic kidney complication E11.29 ; Heartburn R12 ; Mixed hyperlipidemia E78.2 ; Acquired hypothyroidism E03.9 ; Renal insufficiency N28.9 ; Diabetic polyneuropathy associated with type 2 diabetes mellitus E11.42 and Enlargement of thyroid E04.9 [facility] [address] [id number] [address] [place] [phone] Mar, [facility] [address] [facility] [id number] [address] [place] [phone] Mar, Acquired hypothyroidism E03. 9 [facility] [address] [facility] [id number] [address] [place] [phone] 15 Feb, 2016 Essential hypertension I10 ; Type 2 diabetes mellitus with other diabetic kidney complication E11.29 ; Heartburn R12 ; Enlargement of thyroid E04.9 ; Mixed hyperlipidemia E78.2 ; Acquired hypothyroidism E03.9 ; Renal insufficiency N28.9 and Diabetic polyneuropathy associated with type 2 diabetes mellitus E11.42 [facility] [address] [facility] [id number] [address] [place] [phone] 07 Feb, 2016 [facility] [address] [facility] [id number] [address] [place] [phone] Jan, [facility] [address] [facility] [id number] [address] [place] [phone] Jan, [facility] [address] [facility] [id number] [address] [place] [phone] Jan, [facility] [address] [facility] [id number] [address] [place] [phone] Dec, Chest pain, unspecified type R07.9 ; Essential hypertension I10 ; Mixed hyperlipidemia E78.2 and Type 2 diabetes mellitus with other diabetic kidney complication E11.29 [facility] [address] [facility] [id number] [address] [place] [id number] 05 Dec, 2015 [facility] [address] [facility] [id number] [address] [place] [phone] 30 Nov, 2015 [facility] [address] [facility] [id number] [address] [place] [phone] Nov, [facility] [address] [facility] [id number] [address] [place] [phone] Nov, Essential hypertension I10 ; Type 2 diabetes mellitus with other diabetic kidney complication E11.29 ; Proteinuria, unspecified R80.9 ; Heartburn R12 ; Enlargement of thyroid E04.9 ; Mixed hyperlipidemia E78.2 ; Acquired hypothyroidism E03.9 and Renal insufficiency N28.9 [place] [address] [facility] [id number] [address] [place] [phone] Nov, [place] [address] [place] [id number] [address] [place] [phone] Nov, [place] [address] [facility] [id number] [address] [place] [phone] Nov, [place] [address] [facility] [id number] [address] [place] [phone] Nov, Renal insufficiency N28.9 [place] [id number] [place] [phone] Nov, Renal insufficiency N28.9 [place] [address] [place] [id number] [address] [place] [phone] 16 Nov, 2015 Encounter for well woman exa m Z01.419 ; Screening for STD sexually transmitted disease Z11.3 ; Encounter for screening breast examination Z12.39 ; Screening mammogram, encounter for Z12.31 and Ventral hernia without obstruction or gangrene K43.9 [place] [id number] [place] [phone] 13 Nov, 2015 Essential hypertension I10 ; Type 2 diabetes mellitus with other diabetic kidney complication E11.29 ; Proteinuria, unspecified R80.9 ; Heartburn R12 ; Enlargement of thyroid E04.9 ; Mixed hyperlipidemia E78.2 ; Acquired hypothyroidism E03.9 and Renal insufficiency N28.9 [place] [address] [place] [id number] [address] [place] [phone] Oct, Essential hypertension I10 ; Type 2 diabetes mellitus with other diabetic kidney complication E11.29 ; Proteinuria, unspecified R80.9 ; Heartburn R12 ; Abnormal thyroid blood test R94.6 ; Enlargement of thyroid E04.9 and Mixed hyperlipidemia E78.2 [place] [address] [place] [id number] [address] [place] [phone] Oct, [facility] [address] [facility] [id number] [address] [place] [phone] Oct, Enlargement of thyroid E04.9 [facility] [address] [id number] [address] [place] [phone] Oct, [facility] [address] [facility] [id number] [address] [place] [phone] Oct, Essential hypertension I10 ; Type 2 diabetes mellitus with other diabetic kidney complication E11.29 ; Proteinuria, unspecified R80.9 ; Heartburn R12 ; Abnormal thyroid blood test R94.6 ; Mixed hyperlipidemia E78.2 and Enlargement of thyroid E04.9 [facility] [address] [id number] [address] [place] [id number] 05 Oct, 2015 Dental examination Z01.20 [facility] [address] [facility] [id number] [address] [place] [phone] 14 Jun, 2014 [facility] [address] [facility] [id number] [address] [place] [id number] 13 Jun, 2014 [facility] [address] [facility] [id number] [address] [place] [phone] Jun, [facility] [address] [facility] [id number] [address] [place] [phone] May, [facility] [address] [facility] [id number] [address] [place] [phone] May, [facility] [address] [facility] [id number] [address] [place] [phone] Feb, [facility] [address] [facility] [id number] [address] [place] [phone] Feb, [facility] [address] [facility] [id number] [address] [place] [phone] Feb, [facility] [address] [facility] [id number] [address] [place] [phone] Feb, [facility] [address] [id number] [address] [place] [address], [place] [id number] 14 Feb, 2012 [facility] [address] [id number] [address] [place] [address], [place] [phone] 14 Feb, 2012 [facility] [address] [id number] [address] [place] [address], [place] [address] Feb, [facility] [address] [id number] [address] [place] [address], [place] [phone] Feb, [facility] [address] [id number] [address] [place] [address], [place] [address] Dec, [facility] [address] [id number] [address] [place] [address], [place] [address] Dec, [facility] [address] [id number] [address] [place] [address], [place] [address] Dec, [facility] [address] [id number] [address] [place] [address], [place] [address] Dec, [facility] [address] [id number] [address] [place] [address], [place] [address] Sep, [facility] [address] [id number] [address] [place] [address], [place] [address] Sep, [facility] [address] [id number] [address] [place] [address], [place] [address] Sep, [facility] [address] [id number] [address] [place] [address], [place] [phone] 24 Jun, 2011 [facility] [address] [id number] [address] [place] [address], [place] [address] May, [facility] [address] [id number] [address] [place] [address], [place] [address] May, [facility] [address] [id number] [address] [place] [address], [place] [address] May, [facility] [address] [id number] [address] [place] [address], [place] [address] May, [facility] [address] [id number] [address] [place] [phone] May, [facility] [address] [id number] [address] [place] [phone] Apr, [facility] [address] [id number] [address] [place] [phone] Mar, [facility] [address] [id number] [address] [place] [phone] Mar, [facility] [address] [id number] [address] [place] [phone] Mar, [facility] [address] [id number] [address] [place] [phone] Mar, [facility] [address] [id number] [address] [place] [phone] Feb, [facility] [address] [id number] [address] [place] [phone] Feb, [facility] [address] [id number] [address] [place] [phone] Feb, [facility] [address] [id number] [address] [place] [phone] Feb, [facility] [address] [id number] [address] [place] [phone] Feb, [facility] [address] [id number] [address] [place] [phone] Feb, [facility] [address] [id number] [address] [place] [phone] Feb, [facility] [address] [id number] [address] [place] [id number] Feb, IMMUNIZATIONS No Known Immunizations SOCIAL HISTORY Never Assessed REASON FOR VISIT PLAN OF CARE VITAL SIGNS MEDICATIONS Unknown Medications RESULTS No Results PROCEDURES Procedure Date Ordered Result Body Site LIPID PANEL September 11, 2011 COMPREHEN METABOLIC PANEL September 11, 2011 VENIPUNCT, ROUTINE* September 11, 2011 INSTRUCTIONS MEDICATIONS ADMINISTERED No Known Medications [...]
--- OUTSIDE RECORDS SUMMARY | 2019-08-25 22:09 | XMS REPORT ---
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 Name Role Phone ANDREW PLATT Unavailable PROBLEMS Type Condition ICD9-CM Code XCV04-VN Code Onset Dates Condition S tatus SNOMED Code Problem Essential hypertension I10 Active 08132728 Problem Type 2 diabetes mellitus with other diabetic kid bela complication E11.29 Active 31203916 Problem Mixed hyperlipidemia E78.2 Active 670823129 Problem Ventral hernia without obstruction or gangrene K43 .9 Active 774111738 Problem Acquired hypothyroidism E03.9 Active 208619194 Problem Vitamin D deficiency E55.9 Active 32977911 Problem Memory loss R41.3 Active 31221990 6 Problem Polyneuropathy G62.9 Active 64802 000 Problem Thyroid nodule E04.1 Active 49390 5005 Problem Non-insulin dependent type 2 diabetes mellitus E11 .9 Active 29087192 Problem Primary osteoarthritis of left hip M16.12 Active 292578515514904 Problem Diabetic polyneuropathy associated with type 2 d iabetes mellitus E11.42 Active 74713357 Problem Moderate episode of recurrent major depressive disorder F33.1 Active 037505012 Problem Dementia without behavioral disturbance, unspeci fied dementia type F03.90 Active 45067388 Problem Gastroesophageal reflux disease without esophagitis K21.9 Active 391413255 Problem BMI 30.0-30.9,adult Z68.30 Active 882448185 ALLERGIES No Information ENCOUNTERS Encounter Location Date Diagnosis [facility] [id number] [place] [address] May, [facility] [address] [address] Apr, [facility] [id number] [place] [address] Apr, Moderate episode of recurrent major depr essive disorder F33.1 [address] [place] [address] [address] 06 Apr, 2019 Thyroid nodule E04.1 [address] [place] [address] [address] Apr, [address] [address] [address] Mar, Well woman exam with routine gynecologic al exam Z01.419 [address] [address] [address] Mar, Dementia without behavioral disturbance, unspecified dementia type F03.90 and Moderate episode of recurrent major depressive disorder F33.1 [address] [address] [address] Mar, Memory loss R41.3 ; Dementia without beh avioral disturbance, unspecified dementia type F03.90 ; Non-insulin dependent type 2 diabetes mellitus E11.9 ; Vitamin D deficiency E55.9 ; Primary osteoarthritis of left hip M16.12 and BMI 30.0-30.9,adult Z68.30 [address] [address] [address] Feb, Moderate episode of recurrent major depr essive disorder F33.1 and Dementia without behavioral disturbance, unspecified dementia type F03.90 [address] [address] [address] Feb, Type 2 diabetes mellitus with other diab etic kidney complication E11.29 ; Non-insulin dependent type 2 diabetes mellitus E11.9 ; Essential hypertension I10 ; Thyroid nodule E04.1 ; Memory loss R41.3 and BMI 30.0- 30.9,adult Z68.30 [place] [address] [address] Jan, Hx of fracture of left hip Z87.81 ; Prim aurora osteoarthritis of left hip M16.12 ; Type 2 diabetes mellitus with other diabetic kidney complication E11.29 ; Non-insulin dependent type 2 diabetes mellitus E11.9 ; Essential hypertension I10 ; Vitamin D deficiency E55.9 ; Thyroid nodule E04.1 and BMI 29.0-29.9,adult Z68.29 [address] [address] [address] Jan, [place] [address] [address] Jan, [address] [address] [address] Jan, Moderate episode of recurrent major depr essive disorder F33.1 and Dementia without behavioral disturbance, unspecified dementia type F03.90 [place] [address] [address] Jan, Acquired hypothyroidism E03.9 [address] [address] [address] Jan, Encounter for immunization Z23 [place] [address] [address] Dec, [address] [address] [address] Dec, Dementia without behavioral disturbance, unspecified dementia type F03.90 and Moderate episode of recurrent major depressive disorder F33.1 [address] [address] [address] Dec, Screening for STD sexually transmitted d isease Z11.3 [address] [address] [address] Dec, Screening for STD sexually transmitted d isease Z11.3 [address] [address] [address] Dec, Well woman exam with routine gynecologic al exam Z01.419 ; Screening for breast cancer Z12.39 ; Type 2 diabetes mellitus with other diabetic kidney complication E11.29 ; Non-insulin dependent type 2 diabetes mellitus E11.9 ; Thyroid nodule E04.1 and BMI 29.0-29.9,adult Z68.29 [address] [address] [address] Nov, [facility] [address] [address] Nov, Acquired hypothyroidism E03.9 [facility] [address] [address] Nov, [facility] [address] [address] Nov, [facility] [address] [address] Nov, [address] [address] [address] Nov, [address] [address] [address] Nov, [place] [address] [address] Nov, Thyroid nodule E04.1 [address] [address] [address] Nov, Left hip pain M25.552 ; Type 2 diabetes mellitus with other diabetic kidney complication E11.29 ; Mixed hyperlipidemia E78.2 ; Essential hypertension I10 and Wim-mpxb-dzkj 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 associated with diabetes mellitus due to underlying condition E08.3599 [address] [address] [address] Oct, Dementia without behavioral disturbance, unspecified dementia type F03.90 and Moderate episode of recurrent major depressive disorder F33.1 [address] [place] [address] [address] Oct, Right thyroid nodule E04.1 [address] [address] [address] Oct, Right thyroid nodule E04.1 ; Acute right ankle pain M25.571 ; BMI 30.0-30.9,adult Z68.30 ; Type 2 diabetes mellitus with other diabetic kidney complication E11.29 ; Essential hypertension I10 ; Acquired hypothyroidism E03.9 and Hemoptysis R04.2 [address] [place] [address] [address] Oct, [place] [address] [address] Sep, [place] [address] [address] Sep, Acute right ankle pain M25.571 ; Type 2 diabetes mellitus with other diabetic kidney complication E11.29 ; Essential hypertension I10 ; Acquired hypothyroidism E03.9 ; Hemoptysis R04.2 ; BMI 30.0-30.9,adult Z68.30 and Dementia without behavioral disturbance, unspecified dementia type F03.90 [address] [place] [address] [address] Sep, [place] [address] [address] Sep, [place] [address] [address] Sep, Moderate episode of recurrent major depr essive disorder F33.1 and Dementia without behavioral disturbance, unspecified dementia type F03.90 [address] [address] [address] Aug, [place] [address] [address] Aug, [place] [address] [address] Aug, [place] [address] [address] Aug, [place] [address] [address] Aug, [place] [address] [address] July, Exercise counseling Z71.82 [place] [address] [address] July, Acquired hypothyroidism E03.9 ; Neck mus daniela spasm M62.838 and Thyroid nodule E04.1 [address] [address] [address] July, [place] [address] [address] July, Vitamin D deficiency E55.9 and Acquired hypothyroidism E03.9 [place] [address] [address] July, [place] [address] [address] July, Dementia without behavioral disturbance, unspecified dementia type F03.90 and Moderate episode of recurrent major depressive disorder F33.1 [address] [address] [address] July, Cough R05 ; Vitamin D deficiency E55.9 ; Type 2 diabetes mellitus with other diabetic kidney complication E11.29 and Mixed hyperlipidemia E78.2 [place] [address] [address] July, Vitamin D deficiency E55.9 ; Type 2 diab etes mellitus with other diabetic kidney complication E11.29 and Mixed hyperlipidemia E78.2 [place] [address] [address] July, Exercise counseling Z71.82 [place] [address] [address] July, [place] [address] [address] July, Cough R05 [place] [address] [address] July, Exercise counseling Z71.82 [place] [address] [address] July, [place] [address] [address] July, [place] [address] [address] July, Cough R05 ; Type 2 diabetes mellitus wit h other diabetic kidney complication E11.29 ; BMI 30.0-30.9,adult Z68.30 ; Mixed hyperlipidemia E78.2 ; Essential hypertension I10 and Acquired hypothyroidism E03.9 [address] [address] [address] Jun, [place] [address] [address] Jun, Dementia without behavioral disturbance, unspecified dementia type F03.90 and Moderate episode of recurrent major depressive disorder F33.1 [place] [address] [address] Jun, [place] [address] [address] Jun, Exercise counseling Z71.82 [place] [address] [address] Jun, [place] [address] [address] Jun, [place] [address] [address] Jun, [place] [address] [address] Jun, Moderate episode of recurrent major depr essive disorder F33.1 and Dementia without behavioral disturbance, unspecified dementia type F03.90 [address] [address] [address] Jun, [place] [address] [address] May, [place] [address] [address] May, [place] [address] [address] May, Type 2 diabetes mellitus with other diab etic kidney complication E11.29 [facility] [address] [address] May, [facility] [address] [address] May, [facility] [address] [address] May, Type 2 diabetes mellitus with other diab etic kidney complication E11.29 [facility] [address] [address] May, [facility] [address] [address] May, [facility] [address] [address] May, [place] [address] [address] May, Type 2 diabetes mellitus with other diab etic kidney complication E11.29 ; Right thyroid nodule E04.1 ; Essential hypertension I10 and Acquired hypothyroidism E03.9 [address] [address] [address] 18 Apr, 2018 Right thyroid nodule E04.1 [address] [address] [address] Apr, Thyroid mass E07.9 [address] [address] [address] Apr, Vitamin D deficiency E55.9 [address] [address] [address] Mar, Non-insulin dependent type 2 diabetes me llitus E11.9 ; Moderate episode of recurrent major depressive disorder F33.1 ; Gastroesophageal reflux disease without esophagitis K21.9 ; Dementia without behavioral disturbance, unspecified dementia type F03.90 ; Right thyroid nodule E04.1 and Vitamin D deficiency E55.9 [address] [address] [address] Mar, Moderate episode of recurrent major depr essive disorder F33.1 and Dementia without behavioral disturbance, unspecified dementia type F03.90 [address] [address] [address] Mar, Dementia without behavioral disturbance, unspecified dementia type F03.90 and Moderate episode of recurrent major depressive disorder F33.1 [address] [place] [address] [address] Feb, [address] [address] [address] Feb, Dementia without behavioral disturbance, unspecified dementia type F03.90 and Moderate episode of recurrent major depressive disorder F33.1 [address] [place] [address] [address] Jan, Dementia without behavioral disturbance, unspecified dementia type F03.90 and Moderate episode of recurrent major depressive disorder F33.1 [address] [place] [address] [address] Jan, Non-insulin dependent type 2 diabetes me llitus E11.9 ; Memory loss R41.3 ; Vitamin D deficiency E55.9 ; Moderate episode of recurrent major depressive disorder F33.1 ; Diabetic polyneuropathy associated with type 2 diabetes mellitus E11.42 and Tremor R25.1 [address] [place] [address] [address] Jan, Dementia without behavioral disturbance, unspecified dementia type F03.90 [address] [place] [address] [address] Dec, Vitamin D deficiency E55.9 [address] [place] [address] [address] Dec, [address] [address] [address] Dec, Vitamin D deficiency E55.9 [address] [address] [address] Dec, [address] [id number] [place] [address] Dec, [address] [place] [address] [address] Oct, [address] [id number] [place] [address] Oct, Non-insulin dependent type 2 diabetes me llitus E11.9 ; Memory loss R41.3 and Mixed hyperlipidemia E78.2 [address] [place] [address] [address] Oct, [address] [address] [address] Sep, [address] [address] [address] Sep, Vitamin D deficiency E55.9 [address] [address] [address] Sep, [address] [id number] [place] [address] Aug, Non-insulin dependent type 2 diabetes me llitus E11.9 ; Vitamin D deficiency E55.9 ; Memory loss R41.3 ; Polyneuropathy G62.9 ; Status post fracture of hip Z87.81 and Rectal bleeding K62.5 [place] [id number] [place] [address] July, Vitamin D deficiency E55.9 [address] [id number] [place] [address] July, Tongue swelling R22.0 [facility] [address] [id number] [place] [address] July, [address] [place] [id number] [place] [address] July, Tongue swelling R22.0 [address] [place] [address] [address] July, Non-insulin dependent type 2 diabetes me llitus E11.9 ; Mixed hyperlipidemia E78.2 ; Closed fracture of left hip, sequela S72.002S ; Wheezing R06.2 ; Thyromegaly E01.0 and Dizziness R42 [address] [address] [address] July, Non-insulin dependent type 2 diabetes me llitus E11.9 [address] [place] [address] [address] July, Non-insulin dependent type 2 diabetes me llitus E11.9 ; Mixed hyperlipidemia E78.2 ; Closed fracture of left hip, sequela S72.002S ; Wheezing R06.2 ; Thyromegaly E01.0 and Dizziness R42 [address] [place] [address] Jun, [address] [address] [address] Jun, [address] [address] [address] May, Type 2 diabetes mellitus with other diab etic kidney complication E11.29 ; Diabetic polyneuropathy associated with type 2 diabetes mellitus E11.42 ; Mixed hyperlipidemia E78.2 ; Essential hypertension I10 and Closed fracture of left hip with routine healing, subsequent encounter S72.002D [address] [address] [address] May, [address] [address] [address] May, [address] [place] [address] [address] May, [address] [address] [address] Apr, [address] [address] [address] Apr, Mixed hyperlipidemia E78.2 [address] [place] [address] [address] Apr, Type 2 diabetes mellitus with other diab etic kidney complication E11.29 [facility] [address] [address] Mar, Right thyroid nodule E04.1 [facility] [address] [address] Mar, [facility] [address] [address] Mar, [facility] [address] [address] Mar, Diabetic polyneuropathy associated with type 2 diabetes mellitus E11.42 [facility] [address] [address] Mar, Essential hypertension I10 ; Type 2 diab etes mellitus with other diabetic kidney complication E11.29 ; Heartburn R12 ; Mixed hyperlipidemia E78.2 ; Acquired hypothyroidism E03.9 ; Renal insufficiency N28.9 ; Diabetic polyneuropathy associated with type 2 diabetes mellitus E11.42 and Enlargement of thyroid E04.9 [facility] [address] [address] Mar, [facility] [address] [address] Mar, Acquired hypothyroidism E03.9 [facility] [address] [address] Feb, Essential hypertension I10 ; Type 2 diab etes mellitus with other diabetic kidney complication E11.29 ; Heartburn R12 ; Enlargement of thyroid E04.9 ; Mixed hyperlipidemia E78.2 ; Acquired hypothyroidism E03.9 ; Renal insufficiency N28.9 and Diabetic polyneuropathy associated with type 2 diabetes mellitus E11.42 [facility] [address] [address] 07 Feb, 2016 [facility] [address] [address] Jan, [facility] [address] [address] Jan, [facility] [address] [address] Jan, [facility] [address] [address] Dec, Chest pain, unspecified type R07.9 ; Ess ential hypertension I10 ; Mixed hyperlipidemia E78.2 and Type 2 diabetes mellitus with other diabetic kidney complication E11.29 [facility] [address] [address] Dec, [facility] [address] [address] 30 Nov, 2015 [facility] [address] [address] Nov, [address] [address] [address] Nov, Essential hypertension I10 ; Type 2 diab etes mellitus with other diabetic kidney complication E11.29 ; Proteinuria, unspecified R80.9 ; Heartburn R12 ; Enlargement of thyroid E04.9 ; Mixed hyperlipidemia E78.2 ; Acquired hypothyroidism E03.9 and Renal insufficiency N28.9 [address] [address] [address] Nov, [facility] [address] [address] Nov, [facility] [address] [address] Nov, [facility] [address] [address] Nov, Renal insufficiency N28.9 [address] [address] [address] 19 Nov, 2015 Renal insufficiency N28.9 [facility] [address] [address] 16 Nov, 2015 Encounter for well woman exam Z01.419 ; Screening for STD sexually transmitted disease Z11.3 ; Encounter for screening breast examination Z12.39 ; Screening mammogram, encounter for Z12.31 and Ventral hernia without obstruction or gangrene K43.9 [address] [address] [address] 13 Nov, 2015 Essential hypertension I10 ; Type 2 diab etes mellitus with other diabetic kidney complication E11.29 ; Proteinuria, unspecified R80.9 ; Heartburn R12 ; Enlargement of thyroid E04.9 ; Mixed hyperlipidemia E78.2 ; Acquired hypothyroidism E03.9 and Renal insufficiency N28.9 [address] [address] [address] Oct, Essential hypertension I10 ; Type 2 diab etes mellitus with other diabetic kidney complication E11.29 ; Proteinuria, unspecified R80.9 ; Heartburn R12 ; Abnormal thyroid blood test R94.6 ; Enlargement of thyroid E04.9 and Mixed hyperlipidemia E78.2 [address] [address] [address] Oct, [place] [address] [address] Oct, Enlargement of thyroid E04.9 [address] [address] [address] Oct, [address] [address] [address] Oct, Essential hypertension I10 ; Type 2 diab etes mellitus with other diabetic kidney complication E11.29 ; Proteinuria, unspecified R80.9 ; Heartburn R12 ; Abnormal thyroid blood test R94.6 ; Mixed hyperlipidemia E78.2 and Enlargement of thyroid E04.9 [facility] [id number] [place] [id number] 05 Oct, 2015 Dental examination Z01.20 [facility] [address] [address] 14 Jun, 2014 [address] [place] [address] [address] Jun, [facility] [address] [id number] [place] [address] 03 Jun, 2012 [facility] [address] [id number] [place] [address] 25 May, 2012 [facility] [address] [id number] [place] [address] May, [facility] [address] [id number] [place] [address] 18 Feb, 2012 [facility] [address] [id number] [place] [address] 18 Feb, 2012 [facility] [address] [id number] [place] [address] 17 Feb, 2012 [facility] [address] [id number] [place] [address] Feb, [facility] [id number] [place] [address] 14 Feb, 2012 [facility] [address] [id number] [place] [address] 14 Feb, 2012 [facility] [address] [id number] [place] [address] Feb, [facility] [address] [id number] [place] [address] 06 Feb, 2012 [facility] [address] [id number] [place] [address] Dec, [facility] [address] [id number] [place] [address] 17 Dec, 2011 [facility] [address] [id number] [place] [address] Dec, [facility] [address] [id number] [place] [address] Dec, [facility] [address] [id number] [place] [address] 17 Sep, 2011 [facility] [address] [id number] [place] [address] Sep, [facility] [address] [id number] [place] [address] Sep, [facility] [address] [id number] [place] [address] Jun, [facility] [address] [id number] [place] [address] May, [facility] [address] [id number] [place] [address] May, [facility] [address] [id number] [place] [address] May, [facility] [address] [id number] [place] [address] May, [facility] [address] [id number] [place] [address] May, [facility] [address] [id number] [place] [address] Apr, [facility] [address] [id number] [place] [address] Mar, [facility] [address] [id number] [place] [address] Mar, [facility] [address] [id number] [place] [address] Mar, [facility] [address] [id number] [place] [address] Mar, [facility] [address] [id number] [place] [address] Feb, [facility] [address] [id number] [place] [address] Feb, [facility] [address] [id number] [place] [address] Feb, [facility] [address] [id number] [place] [address] Feb, [facility] [address] [id number] [place] [address] Feb, [facility] [address] [id number] [place] [address] Feb, [facility] [address] [id number] [place] [address] Feb, [facility] [address] [id number] [place] [address] Feb, IMMUNIZATIONS No Known Immunizations SOCIAL HISTORY Never Assessed REASON FOR VISIT Requests return call PLAN OF CARE VITAL SIGNS MEDICATIONS Medication Instructions Dosage Frequency Start Date End Date Duration S ghazal Glimepiride 4 MG Orally 2 times a day with meals 1 tablet Nov Active RESULTS No Results PROCEDURES No Known [...]
--- OUTSIDE RECORDS SUMMARY | 2019-08-25 22:12 | XMS REPORT | Continuity of Care Document ---
Demographics Preferred Language Unknown Marital Status Unknown Orthodox Affiliation Unknown Race Unknown Ethnic Group Unknown Author Organization Unknown Address Unknown Phone Unavailable Allergies Active Description Code Type Severity Reaction Onset Reported/Identified Relationship to Patient Clinical Status Yes Adama Inhibitors Drug Allergy 10/26/2010 Yes lisinopril Drug Allergy 10/26/2010 Yes Victoza 0.6 mg/0.1 mL (18 mg/3 mL) Pen I njector Drug Allergy 09/09 Yes No Known Drug Allergies [id number] Drug Allergy Unknown N/A 10/03/2014 Yes liraglutide [id number] Drug Aller gy Mild NAUSEA 10/15/2017 Medications There is no data. Problems Date Dx Coded Attending Type Code Diagnosis Diagnosed By 02/01/1440 SHEYLA TREJO DO Ot S72.01 2D UNSP INTRACAP FX LEFT FEMUR, SUBS FOR CL 02/01/1440 SHEYLA TREJO DO Ot W19.XX XD UNSPECIFIED FALL, SUBSEQUENT ENCOUNTER 10/26/2010 250.00 CHAVA BETES MELLITUS TYPE 2 10/26/2010 272.4 HYPE RLIPIDEMIA 10/26/2010 401.9 HYPE RTENSION (SYSTEMIC) 10/26/2010 V69.2 sexu ally active with persons at risk for HIV-related disease 10/26/2010 250.00 CHAVA BETES MELLITUS TYPE 2 10/26/2010 272.4 HYPE RLIPIDEMIA 10/26/2010 401.9 HYPE RTENSION (SYSTEMIC) 10/26/2010 V69.2 sexu ally active with persons at risk for HIV-related disease 10/26/2010 TELLO CARTER DO 250.00 DIABETES MELLITUS TYPE 2 10/26/2010 TELLO CARTER DO 272.4 HYPERLIPIDEMIA 10/26/2010 TELLO CARTER DO 401.9 HYPERTENSION (SYSTEMIC) 10/26/2010 TELLO CARTER DO V69.2 sexually active with persons at risk for HIV-related disease 02/28/2011 786.50 UNS PECIFIED CHEST PAIN 02/28/2011 786.50 UNS PECIFIED CHEST PAIN 02/28/2011 TELLO CARTER DO 786.50 UNSPECIFIED CHEST PAIN 05/07/2011 244.9 UNSP ECIFIED ACQUIRED HYPOTHYROIDISM 05/07/2011 780.79 OT ER MALAISE AND FATIGUE 05/07/2011 244.9 UNSP ECIFIED ACQUIRED HYPOTHYROIDISM 05/07/2011 780.79 OT ER MALAISE AND FATIGUE 05/07/2011 TELLO CARTER DO 244.9 UNSPECIFIED ACQUIRED HYPOTHYROIDISM 05/07/2011 TELLO CARTER DO K 780.79 OTHER MALAISE AND FATIGUE 02/15/2012 057.9 SHEREEN L EXANTHEM UNSPECIFIED 02/15/2012 782.1 RASH 02/15/2012 TELLO CARTER DO K 057.9 VIRAL EXANTHEM UNSPECIFIED 02/15/2012 TELLO CARTER DO K 782.1 RASH 06/04/2012 TELLO CARTER DO K 239.3 BREAST MASS 06/04/2012 CARTER TELLO K 611.71 BREAST PAIN 10/03/2014 Ot 240.9 10/03/2014 [...] 02/12/2015 Ot 611.71 02/12/2015 Ot 611.72 10/18/2015 MADL, 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 Ot I10 ESSENTIAL (PRIMARY) HYPERTENSION 10/19/2015 MADL, 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 Ot I10 ESSENTIAL (PRIMARY) HYPERTENSION 10/19/2015 MADL, 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 Ot I10 ESSENTIAL (PRIMARY) HYPERTENSION 10/21/2015 Ot 611.71 MAS TODYNIA 10/21/2015 Ot 611.72 LUM P OR MASS IN BREAST 10/21/2015 MADL, 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 Ot I10 ESSENTIAL (PRIMARY) HYPERTENSION 10/24/2015 MADL, 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 Ot I10 ESSENTIAL (PRIMARY) HYPERTENSION 11/16/2015 Ot 611.71 MAS TODYNIA 11/16/2015 Ot 611.72 LUM P OR MASS IN BREAST 11/16/2015 MADL, 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 Ot I10 ESSENTIAL (PRIMARY) HYPERTENSION 11/24/2015 Ot 611.71 MAS TODYNIA 11/24/2015 Ot 611.72 LUM P OR MASS IN BREAST 11/24/2015 MADL, 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 Ot I10 ESSENTIAL (PRIMARY) HYPERTENSION 11/25/2015 TERRENCE MONTALVO APRN Ot Z12.31 ENCNTR SCREEN MAMMOGRAM FOR MALIGNANT NE 03/23/2016 Ot 611.71 MAS TODYNIA 03/23/2016 Ot 611.72 LUM P OR MASS IN BREAST 03/23/2016 MADL, 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 Ot I10 ESSENTIAL (PRIMARY) HYPERTENSION 03/23/2016 TERRENCE MONTALVO APRN Ot Z12.31 ENCNTR SCREEN MAMMOGRAM FOR MALIGNANT NE 03/28/2016 MADL, 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 Ot E04 .9 NONTOXIC GOITER, UNSPECIFIED 04/05/2016 MADL, 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 Ot E04 .9 NONTOXIC GOITER, UNSPECIFIED 04/05/2016 Ot 611.71 MAS TODYNIA 04/05/2016 Ot 611.72 LUM P OR MASS IN BREAST 04/05/2016 MADL, 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 Ot I10 ESSENTIAL (PRIMARY) HYPERTENSION 04/05/2016 TERRENCE MONTALVO APRN Ot Z12.31 ENCNTR SCREEN MAMMOGRAM FOR MALIGNANT NE 04/05/2016 MADL, 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 Ot E04 .9 NONTOXIC GOITER, UNSPECIFIED 04/06/2016 MADL, 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 Ot E04 .9 NONTOXIC GOITER, UNSPECIFIED 05/03/2016 MADL, 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 Ot E04 .9 NONTOXIC GOITER, UNSPECIFIED 05/03/2016 MADL, 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 Ot E04 .1 NONTOXIC SINGLE THYROID NODULE 05/08/2016 MADL, 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 Ot E04 .1 NONTOXIC SINGLE THYROID NODULE 03/11/2017 MADL, 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 Ot E04 .1 NONTOXIC SINGLE THYROID NODULE 05/12/2017 Ot 611.71 MAS TODYNIA 05/12/2017 Ot 611.72 LUM P OR MASS IN BREAST 05/12/2017 MADL, 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 Ot I10 ESSENTIAL (PRIMARY) HYPERTENSION 05/12/2017 TERRENCE MONTALVO APRN Ot Z12.31 ENCNTR SCREEN MAMMOGRAM FOR MALIGNANT NE 05/12/2017 MADL, 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 Ot E04 .9 NONTOXIC GOITER, UNSPECIFIED 05/12/2017 MADL, 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 Ot E04 .1 NONTOXIC SINGLE THYROID NODULE 05/12/2017 Ot 611.71 MAS TODYNIA 05/12/2017 Ot 611.72 LUM P OR MASS IN BREAST 05/12/2017 MADL, 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 Ot I10 ESSENTIAL (PRIMARY) HYPERTENSION 05/12/2017 TERRENCE MONTALVO APRN Ot Z12.31 ENCNTR SCREEN MAMMOGRAM FOR MALIGNANT NE 05/12/2017 MADL, 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 Ot E04 .9 NONTOXIC GOITER, UNSPECIFIED 05/12/2017 MADL, 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 Ot E04 .1 NONTOXIC SINGLE THYROID NODULE 05/14/2017 Ot 611.71 MAS TODYNIA 05/14/2017 Ot 611.72 LUM P OR MASS IN BREAST 05/14/2017 MADL, 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 Ot I10 ESSENTIAL (PRIMARY) HYPERTENSION 05/14/2017 TERRENCE MONTALVO APRN Ot Z12.31 ENCNTR SCREEN MAMMOGRAM FOR MALIGNANT NE 05/14/2017 MADL, 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 Ot E04 .9 NONTOXIC GOITER, UNSPECIFIED 05/14/2017 MADROZINA Leslie L FOLDER MACHINE OPERATOR Ot E04 .1 NONTOXIC SINGLE THYROID NODULE 05/16/2017 [facility] CORONADO Ot D64.9 ANEMIA, UNSPECIFIED 05/16/2017 [facility] GONZALO CORONADO Ot E04.9 NONTOXIC GOITER, UNSPECIFIED 05/16/2017 [facility] GONZALO CORONADO Ot E11.9 TYPE 2 DIABETES MELLITUS WITHOUT COMPLIC 05/16/2017 [facility] E78.00 PURE HYPERCHOLESTEROLEMIA, UNSPECIFIED 05/16/2017 [facility] DOGONZALO Ot I10 ESSENTIAL (PRIMARY) HYPERTENSION 05/16/2017 [facility] GONZALO CORONADO Ot K21.9 GASTRO-ESOPHAGEAL REFLUX DISEASE WITHOUT 05/16/2017 [facility] N30.01 ACUTE CYSTITIS WITH HEMATURIA 05/16/2017 [facility] Ot S72.012A UNSP INTRACAPSULAR FRACTURE OF LEFT FEMU 05/16/2017 [facility] Ot W19.XXXA UNSPECIFIED FALL, INITIAL ENCOUNTER 05/16/2017 [facility] GONZALO CORONADO Ot Z87.891 PERSONAL HISTORY OF NICOTINE DEPENDENCE 07/05/2017 Ot 611.71 MAS TODYNIA 07/05/2017 Ot 611.72 LUM P OR MASS IN BREAST 07/05/2017 KIKI, 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 Ot I10 ESSENTIAL (PRIMARY) HYPERTENSION 07/05/2017 TERRENCE MONTALVO APRN Ot Z12.31 ENCNTR SCREEN MAMMOGRAM FOR MALIGNANT NE 07/05/2017 MADLJOSE JUANA L FOLDER MACHINE OPERATOR Ot E04 .9 NONTOXIC GOITER, UNSPECIFIED 07/05/2017 MADLJOSE JUANA L FOLDER MACHINE OPERATOR Ot E04 .1 NONTOXIC SINGLE THYROID NODULE 07/16/2017 Ot 611.71 MAS TODYNIA 07/16/2017 Ot 611.72 LUM P OR MASS IN BREAST 07/16/2017 MADL, 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 Ot I10 ESSENTIAL (PRIMARY) HYPERTENSION 07/16/2017 TERRENCE MONTALVO APRN Ot Z12.31 ENCNTR SCREEN MAMMOGRAM FOR MALIGNANT NE 07/16/2017 ROZINA SWANSON FOLDER MACHINE OPERATOR Ot E04 .9 NONTOXIC GOITER, UNSPECIFIED 07/16/2017 ROZINA SWANSON FOLDER MACHINE OPERATOR Ot E04 .1 NONTOXIC SINGLE THYROID NODULE 09/02/2017 SHEYLA TREJO DO Ot S72.01 2D UNSP INTRACAP FX LEFT FEMUR, SUBS FOR CL 09/02/2017 SHEYLA TREJO DO Ot W19.XX XD UNSPECIFIED FALL, SUBSEQUENT ENCOUNTER 10/15/2017 Ot Z01.818 EN COUNTER FOR OTHER PREPROCEDURAL EXAMIN 10/21/2017 Ot Z01.818 EN COUNTER FOR OTHER PREPROCEDURAL EXAMIN 10/22/2017 SREE BOCANEGRA DO Ot D12. 8 BENIGN NEOPLASM OF RECTUM 10/22/2017 SREE BOCANEGRA DO Ot E11. 42 TYPE 2 DIABETES MELLITUS WITH DIABETIC P 10/22/2017 SREE BOCANEGRA DO Ot K21. 0 GASTRO-ESOPHAGEAL REFLUX DISEASE WITH ES 10/22/2017 SREE BOCANEGRA DO Ot K29. 70 GASTRITIS, UNSPECIFIED, WITHOUT BLEEDING 10/22/2017 SREE BOCANEGRA DO Ot K44. 9 DIAPHRAGMATIC HERNIA WITHOUT OBSTRUCTION 10/22/2017 SREE BOCANEGRA DO Ot K52. 9 NONINFECTIVE GASTROENTERITIS AND COLITIS 10/22/2017 SREE BOCANEGRA DO Ot K64. 4 RESIDUAL HEMORRHOIDAL SKIN TAGS 10/22/2017 SREE BOCANEGRA DO Ot Z79. 84 SQL SSRS SSIS DEVELOPER (CURRENT) USE OF ORAL HYPOGLYC 10/22/2017 SREE BOCANEGRA DO Ot Z86. 19 PERSONAL HISTORY OF OTHER INFECTIOUS AND 10/28/2017 SREE BOCANEGRA DO Ot D12. 8 BENIGN NEOPLASM OF RECTUM 10/28/2017 SREE BOCANEGRA DO Ot E11. 42 TYPE 2 DIABETES MELLITUS WITH DIABETIC P 10/28/2017 SREE BOCANEGRA DO Ot K21. 0 GASTRO-ESOPHAGEAL REFLUX DISEASE WITH ES 10/28/2017 SREE BOCANEGRA DO Ot K29. 70 GASTRITIS, UNSPECIFIED, WITHOUT BLEEDING 10/28/2017 SREE BOCANEGRA DO Ot K44. 9 DIAPHRAGMATIC HERNIA WITHOUT OBSTRUCTION 10/28/2017 SREE BOCANEGRA DO Ot K52. 9 NONINFECTIVE GASTROENTERITIS AND COLITIS 10/28/2017 BOCANEGRA DO, SREE D Ot K64. 4 RESIDUAL HEMORRHOIDAL SKIN TAGS 10/28/2017 BOCANEGRA DO, SREE D Ot Z79. 84 SQL SSRS SSIS DEVELOPER (CURRENT) USE OF ORAL HYPOGLYC 10/28/2017 BOCANEGRA DO, SREE D Ot Z86. 19 PERSONAL HISTORY OF OTHER INFECTIOUS AND 10/29/2017 BOCANEGRA DO, SREE D Ot D12. 8 BENIGN NEOPLASM OF RECTUM 10/29/2017 BOCANEGRA DO, SREE D Ot E11. 42 TYPE 2 DIABETES MELLITUS WITH DIABETIC P 10/29/2017 BOCANEGRA DO, SREE D Ot K21. 0 GASTRO-ESOPHAGEAL REFLUX DISEASE WITH ES 10/29/2017 BOCANEGRA DO, SREE D Ot K29. 70 GASTRITIS, UNSPECIFIED, WITHOUT BLEEDING 10/29/2017 BOCANEGRA DO, SREE D Ot K44. 9 DIAPHRAGMATIC HERNIA WITHOUT OBSTRUCTION 10/29/2017 BOCANEGRA DO, SREE D Ot K52. 9 NONINFECTIVE GASTROENTERITIS AND COLITIS 10/29/2017 BOCANEGRA DO, SREE D Ot K64. 4 RESIDUAL HEMORRHOIDAL SKIN TAGS 10/29/2017 BOCANEGRA DO, SREE D Ot Z79. 84 CORRECTION (CURRENT) USE OF ORAL HYPOGLYC 10/29/2017 BOCANEGRA DO, SREE D Ot Z86. 19 PERSONAL HISTORY OF OTHER INFECTIOUS AND 10/30/2017 BOCANEGRA DO, SREE D Ot D12. 8 BENIGN NEOPLASM OF RECTUM 10/30/2017 BOCANEGRA DO, SREE D Ot E11. 42 TYPE 2 DIABETES MELLITUS WITH DIABETIC P 10/30/2017 BOCANEGRA DO, SREE D Ot K21. 0 GASTRO-ESOPHAGEAL REFLUX DISEASE WITH ES 10/30/2017 BOCANEGRA DO, SREE D Ot K29. 70 GASTRITIS, UNSPECIFIED, WITHOUT BLEEDING 10/30/2017 BOCANEGRA DO, SREE D Ot K44. 9 DIAPHRAGMATIC HERNIA WITHOUT OBSTRUCTION 10/30/2017 BOCANEGRA DO, SREE D Ot K52. 9 NONINFECTIVE GASTROENTERITIS AND COLITIS 10/30/2017 BOCANEGRA DO, SREE D Ot K64. 4 RESIDUAL HEMORRHOIDAL SKIN TAGS 10/30/2017 BOCANEGRA DO, SREE D Ot Z79. 84 CORRECTION (CURRENT) USE OF ORAL HYPOGLYC 10/30/2017 BOCANEGRA DO, SREE D Ot Z86. 19 PERSONAL HISTORY OF OTHER INFECTIOUS AND 01/09/2018 ROZINA SWANSON FOLDER MACHINE OPERATOR Ot I10 ESSENTIAL (PRIMARY) HYPERTENSION 01/09/2018 TERRENCE MONTALVO EGG GRADER Ot Z12.31 ENCNTR SCREEN MAMMOGRAM FOR MALIGNANT NE 01/09/2018 ROZINA SWANSON FOLDER MACHINE OPERATOR Ot E04 .9 NONTOXIC GOITER, UNSPECIFIED 01/09/2018 MADLROZINA FOLDER MACHINE OPERATOR Ot E04 .1 NONTOXIC SINGLE THYROID NODULE 03/13/2018 BOCANEGRA DOBONILLATT D Ot D12. 8 BENIGN NEOPLASM OF RECTUM 03/13/2018 BOCANEGRA DO, SREE D Ot E11. 42 TYPE 2 DIABETES MELLITUS WITH DIABETIC P 03/13/2018 BOCANEGRA DO, SREE D Ot K21. 0 GASTRO-ESOPHAGEAL REFLUX DISEASE WITH ES 03/13/2018 BOCANEGRA DO, SREE D Ot K29. 70 GASTRITIS, UNSPECIFIED, WITHOUT BLEEDING 03/13/2018 BOCANEGRA DO, SREE D Ot K44. 9 DIAPHRAGMATIC HERNIA WITHOUT OBSTRUCTION 03/13/2018 [facility], SREE D Ot K52. 9 NONINFECTIVE GASTROENTERITIS AND COLITIS 03/13/2018 [facility] SREE D Ot K64. 4 RESIDUAL HEMORRHOIDAL SKIN TAGS 03/13/2018 [place] DO, SREE D Ot Z79. 84 SQL SSRS SSIS DEVELOPER (CURRENT) USE OF ORAL HYPOGLYC 03/13/2018 [facility], SREE D Ot Z86. 19 PERSONAL HISTORY OF OTHER INFECTIOUS AND 04/07/2018 MADROZINA Leslie L FOLDER MACHINE OPERATOR Ot I10 ESSENTIAL (PRIMARY) HYPERTENSION 04/07/2018 TERRENCE MONTALVO EGG GRADER Ot Z12.31 ENCNTR SCREEN MAMMOGRAM FOR MALIGNANT NE 04/07/2018 ROZINA SWANSON FOLDER MACHINE OPERATOR Ot E04 .9 NONTOXIC GOITER, UNSPECIFIED 04/07/2018 MADL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 Ot E04 .1 NONTOXIC SINGLE THYROID NODULE 04/08/2018 ANDREW PLATT MD Ot E04.1 NONTOXIC SINGLE THYROID NODULE 04/24/2018 ANDREW PLATT MD Ot E04.1 NONTOXIC SINGLE THYROID NODULE 12/12/2018 MADROZINA Leslie L FOLDER MACHINE OPERATOR Ot I10 ESSENTIAL (PRIMARY) HYPERTENSION 12/12/2018 TERRENCE MONTALVO EGG GRADER Ot Z12.31 ENCNTR SCREEN MAMMOGRAM FOR MALIGNANT NE 12/12/2018 ROZINA SWANSON L FOLDER MACHINE OPERATOR Ot E04 .9 NONTOXIC GOITER, UNSPECIFIED 12/12/2018 ROZINA SWANSON FOLDER MACHINE OPERATOR Ot E04 .1 NONTOXIC SINGLE THYROID NODULE 12/12/2018 ANDREW PLATT MD Ot E04.1 NONTOXIC SINGLE THYROID NODULE 12/17/2018 ANDREW PLATT MD Ot Z12.3 1 ENCNTR SCREEN MAMMOGRAM FOR MALIGNANT NE 02/15/2019 EVERETT ESPINAL APRN Ot E11 .9 TYPE 2 DIABETES MELLITUS WITHOUT COMPLIC 02/15/2019 EVERETT ESPINAL APRN Ot E78.00 PURE HYPERCHOLESTEROLEMIA, UNSPECIFIED 02/15/2019 EVERETT ESPINAL APRN Ot F32 .9 MAJOR DEPRESSIVE DISORDER, SINGLE EPISOD 02/15/2019 EVERETT ESPINAL APRN Ot F41 .9 ANXIETY DISORDER, UNSPECIFIED 02/15/2019 EVERETT ESPINAL APRN Ot I10 ESSENTIAL (PRIMARY) HYPERTENSION 02/15/2019 EVERETT ESPINAL APRN Ot J44 .1 CHRONIC OBSTRUCTIVE PULMONARY DISEASE W 02/15/2019 EVERETT ESPINAL APRN Ot K21 .9 GASTRO-ESOPHAGEAL REFLUX DISEASE WITHOUT 02/15/2019 EVERETT ESPINAL APRN Ot R05 COUGH 02/15/2019 EVERETT ESPINAL APRN Ot Z79.84 CORRECTION (CURRENT) USE OF ORAL HYPOGLYC 02/15/2019 EVERETT ESPINAL APRN Ot Z82.49 FAMILY HX OF ISCHEM HEART DIS AND OTH DI 02/15/2019 EVERETT ESPINAL APRN Ot Z87.891 PERSONAL HISTORY OF NICOTINE DEPENDENCE 02/15/2019 EVERETT ESPINAL APRN Ot Z88 .8 ALLERGY STATUS TO OTH DRUG/MEDS/BIOL SUB 02/15/2019 EVERETT ESPINAL APRN Ot Z90.49 ACQUIRED ABSENCE OF OTHER SPECIFIED PART 02/15/2019 EVERETT ESPINAL APRN Ot Z90.710 ACQUIRED ABSENCE OF BOTH CERVIX AND UTER 02/15/2019 EVERETT ESPINAL APRN Ot Z90.89 ACQUIRED ABSENCE OF OTHER ORGANS 02/15/2019 ROZINA SWANSON FOLDER MACHINE OPERATOR Ot I10 ESSENTIAL (PRIMARY) HYPERTENSION 02/15/2019 TERRENCE MONTALVO EGG GRADER Ot Z12.31 ENCNTR SCREEN MAMMOGRAM FOR MALIGNANT NE 02/15/2019 ROZINA SWANSON FOLDER MACHINE OPERATOR Ot E04 .9 NONTOXIC GOITER, UNSPECIFIED 02/15/2019 ROZINA SWANSON FOLDER MACHINE OPERATOR Ot E04 .1 NONTOXIC SINGLE THYROID NODULE 02/15/2019 ANDREW PLATT MD Ot E04.1 NONTOXIC SINGLE THYROID NODULE 02/15/2019 ANDREW PLATT MD Ot Z12.3 1 ENCNTR SCREEN MAMMOGRAM FOR MALIGNANT NE 02/18/2019 EVERETT ESPINAL APRN Ot E11 .9 TYPE 2 DIABETES MELLITUS WITHOUT COMPLIC 02/18/2019 EVERETT ESPINAL APRN Ot E78.00 PURE HYPERCHOLESTEROLEMIA, UNSPECIFIED 02/18/2019 EVERETT ESPINAL APRN Ot F32 .9 MAJOR DEPRESSIVE DISORDER, SINGLE EPISOD 02/18/2019 EVERETT ESPINAL APRN Ot F41 .9 ANXIETY DISORDER, UNSPECIFIED 02/18/2019 EVERETT ESPINAL APRN Ot I10 ESSENTIAL (PRIMARY) HYPERTENSION 02/18/2019 EVERETT ESPINAL APRN Ot J44 .1 CHRONIC OBSTRUCTIVE PULMONARY DISEASE W 02/18/2019 EVERETT ESPINAL APRN Ot K21 .9 GASTRO-ESOPHAGEAL REFLUX DISEASE WITHOUT 02/18/2019 EVERETT ESPINAL APRN Ot R05 COUGH 02/18/2019 EVERETT ESPINAL APRN Ot Z79.84 CORRECTION (CURRENT) USE OF ORAL HYPOGLYC 02/18/2019 EVERETT ESPINAL APRN Ot Z82.49 FAMILY HX OF ISCHEM HEART DIS AND OTH DI 02/18/2019 EVERETT ESPINAL APRN Ot Z87.891 PERSONAL HISTORY OF NICOTINE DEPENDENCE 02/18/2019 EVERETT ESPINAL APRN Ot Z88 .8 ALLERGY STATUS TO OTH DRUG/MEDS/BIOL SUB 02/18/2019 EVERETT ESPINAL APRN Ot Z90.49 ACQUIRED ABSENCE OF OTHER SPECIFIED PART 02/18/2019 EVERETT ESPINAL APRN Ot Z90.710 ACQUIRED ABSENCE OF BOTH CERVIX AND UTER 02/18/2019 EVERETT ESPINAL APRN Ot Z90.89 ACQUIRED ABSENCE OF OTHER ORGANS 03/25/2019 ROZINA SWANSON FOLDER MACHINE OPERATOR Ot I10 ESSENTIAL (PRIMARY) HYPERTENSION 03/25/2019 TERRENCE MONTAVLO EGG GRADER Ot Z12.31 ENCNTR SCREEN MAMMOGRAM FOR MALIGNANT NE 03/25/2019 MADL, 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 Ot E04 .9 NONTOXIC GOITER, UNSPECIFIED 03/25/2019 TORYL, 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 Ot E04 .1 NONTOXIC SINGLE THYROID NODULE 03/25/2019 ANDREW PLATT MD Ot E04.1 NONTOXIC SINGLE THYROID NODULE 03/25/2019 ANDREW PLATT MD Ot Z12.3 1 ENCNTR SCREEN MAMMOGRAM FOR MALIGNANT NE 04/01/2019 MADL, 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 Ot I10 ESSENTIAL (PRIMARY) HYPERTENSION 04/01/2019 EMMA MONTALVOELE Morro EGG GRADER Ot Z12.31 ENCNTR SCREEN MAMMOGRAM FOR MALIGNANT NE 04/01/2019 TORYL, 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 Ot E04 .9 NONTOXIC GOITER, UNSPECIFIED 04/01/2019 TORYL, 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 Ot E04 .1 NONTOXIC SINGLE THYROID NODULE 04/01/2019 ANDREW PLATT MD Ot E04.1 NONTOXIC SINGLE THYROID NODULE 04/01/2019 ANDREW PLATT MD Ot Z12.3 1 ENCNTR SCREEN MAMMOGRAM FOR MALIGNANT NE 06/16/2019 ANDREW PLATT MD Ot Z12.3 1 ENCNTR SCREEN MAMMOGRAM FOR MALIGNANT NE Procedures Code Description [place] [address] A1C (IN-HOUSE) 02/15/2012 79757 ROUT INE VENIPUNCTURE 02/18/2012 79995 MAMM OGRAM DX, THOMAS 02/18/2012 66236 MAMM OGRAM, SCREENING 02/18/2012 00835 A1C (RML) 02/19/2012 43934 TSH 02/19/2012 59052 CMP 02/19/2012 [id number] GF R CALC (RESULT ONLY) 02/19/2012 14735 CBC 02/19/2012 26799 LIPI D PANEL 02/19/2012 [id number] RE POSITION LEFT UPPER FEMUR WITH INT FIX 05/13/2017 Results Test Result Range CBC With Differential/Platelet - 7 11:11 WBC 10.9 x10E3/uL 3.4-10.8 RBC 4.70 x10E6/uL 3.77-5.28 Hemoglobin 13.1 g/dL 11.1-15.9 Hematocrit 39.3 % 34.0-46.6 MCV 84 fL 79-97 MCH 27.9 pg 26.6-33.0 MCHC 33.3 g/dL 31.5-35.7 RDW 15.3 % 12.3-15.4 Platelets 483 x10E3/uL 150-379 Neutrophils 63 % Lymphs 33 % Monocytes 3 % Eos 1 % Basos 0 % Neutrophils (Absolute) 6.8 x10E3/uL 1.4- 7.0 Lymphs (Absolute) 3.6 x10E3/uL 0.7-3.1 Monocytes(Absolute) 0.3 x10E3/uL 0.1-0.9 Eos (Absolute) 0.1 x10E3/uL 0.0-0.4 Baso (Absolute) 0.0 x10E3/uL 0.0-0.2 Immature Granulocytes 0 % Immature Grans (Abs) 0.0 x10E3/uL 0.0-0. 1 Comp. Metabolic Panel (14) - 11/15/16 11 :11 Glucose, Serum 121 mg/dL 65-99 BUN 9 mg/dL 6-24 Creatinine, Serum 0.71 mg/dL 0.57-1.00 eGFR If NonAfricn Am 105 mL/min/1.73 >59 eGFR If Africn Am 121 mL/min/1.73 >5 9 BUN/Creatinine Ratio 13 9-23 Sodium, Serum 142 mmol/L 134-144 Potassium, Serum 4.2 mmol/L 3.5-5.2 Chloride, Serum 102 mmol/L 96-106 Carbon Dioxide, Total 21 mmol/L 18-29 Calcium, Serum 9.2 mg/dL 8.7-10.2 Protein, Total, Serum 6.8 g/dL 6.0-8.5 Albumin, Serum 4.3 g/dL 3.5-5.5 Globulin, Total 2.5 g/dL 1.5-4.5 A/G Ratio 1.7 1.2-2.2 Bilirubin, Total 0.3 mg/dL 0.0-1.2 Alkaline Phosphatase, S 106 IU/L 39-117 AST (SGOT) 11 IU/L 0-40 ALT (SGPT) 10 IU/L 0-32 Lipid Panel - 11/15/16 11:11 Cholesterol, Total 272 mg/dL 100-199 Triglycerides 404 mg/dL 0-149 HDL Cholesterol 41 mg/dL >39 VLDL Cholesterol Ady Comment mg/dL 5-40 LDL Cholesterol Calc Comment mg/dL 0-99 HCV Antibody - 11/15/16 11:11 Hep C Virus Ab <0.1 s/co ratio 0.0-0.9 Genital Culture, Routine - 11/18/15 14:0 5 Genital Culture, Routine Note Comp. Metabolic Panel (14) - 11/23/15 09 :20 Glucose, Serum 475 mg/dL 65-99 BUN 29 mg/dL 6-24 Creatinine, Serum 1.02 mg/dL 0.57-1.00 eGFR If NonAfricn Am 63 mL/min/1.73 >59 eGFR If Africn Am 72 mL/min/1.73 >59 BUN/Creatinine Ratio 28 9-23 Sodium, Serum 132 mmol/L 134-144 Potassium, Serum 5.2 mmol/L 3.5-5.2 Chloride, Serum 92 mmol/L 97-108 Carbon Dioxide, Total 19 mmol/L 18-29 Calcium, Serum 9.7 mg/dL 8.7-10.2 Protein, Total, Serum 7.6 g/dL 6.0-8.5 Albumin, Serum 4.6 g/dL 3.5-5.5 Globulin, Total 3.0 g/dL 1.5-4.5 A/G Ratio 1.5 1.1-2.5 Bilirubin, Total 0.2 mg/dL 0.0-1.2 Alkaline Phosphatase, S 110 IU/L 39-117 AST (SGOT) 18 IU/L 0-40 ALT (SGPT) 28 IU/L 0-32 Comp. Metabolic Panel (14) - 12/01/15 09 :13 Glucose, Serum 174 mg/dL 65-99 BUN 21 mg/dL 6-24 Creatinine, Serum 0.74 mg/dL 0.57-1.00 eGFR If NonAfricn Am 92 mL/min/1.73 >59 eGFR If Africn Am 106 mL/min/1.73 >5 9 BUN/Creatinine Ratio 28 9-23 Sodium, Serum 140 mmol/L 134-144 Potassium, Serum 4.6 mmol/L 3.5-5.2 Chloride, Serum 99 mmol/L 97-108 Carbon Dioxide, Total 21 mmol/L 18-29 Calcium, Serum 10.5 mg/dL 8.7-10.2 Protein, Total, Serum 7.7 g/dL 6.0-8.5 Albumin, Serum 4.9 g/dL 3.5-5.5 Globulin, Total 2.8 g/dL 1.5-4.5 A/G Ratio 1.8 1.1-2.5 Bilirubin, Total 0.3 mg/dL 0.0-1.2 Alkaline Phosphatase, S 104 IU/L 39-117 AST (SGOT) 39 IU/L 0-40 ALT (SGPT) 50 IU/L 0-32 Comp. Metabolic Panel (14) - 02/16/16 14 :03 Glucose, Serum 137 mg/dL 65-99 BUN 19 mg/dL 6-24 Creatinine, Serum 0.65 mg/dL 0.57-1.00 eGFR If NonAfricn Am 101 mL/min/1.73 >59 eGFR If Africn Am 116 mL/min/1.73 >5 9 BUN/Creatinine Ratio 29 9-23 Sodium, Serum 141 mmol/L 134-144 Potassium, Serum 4.7 mmol/L 3.5-5.2 Chloride, Serum 100 mmol/L 96-106 Carbon Dioxide, Total 21 mmol/L 18-29 Calcium, Serum 9.8 mg/dL 8.7-10.2 Protein, Total, Serum 7.5 g/dL 6.0-8.5 Albumin, Serum 4.9 g/dL 3.5-5.5 Globulin, Total 2.6 g/dL 1.5-4.5 A/G Ratio 1.9 1.1-2.5 Bilirubin, Total <0.2 mg/dL 0.0-1.2 Alkaline Phosphatase, S 99 IU/L 39-117 AST (SGOT) 27 IU/L 0-40 ALT (SGPT) 24 IU/L 0-32 Lipid Panel - 02/16/16 14:03 Cholesterol, Total 164 mg/dL 100-199 Triglycerides 367 mg/dL 0-149 HDL Cholesterol 32 mg/dL >39 VLDL Cholesterol Ady 73 mg/dL 5-40 LDL Cholesterol Calc 59 mg/dL 0-99 TSH - 02/16/16 14:03 TSH 3.520 uIU/mL 0.450-4.500 Comp. Metabolic Panel (14) - 03/21/16 08 :38 Glucose, Serum 101 mg/dL 65-99 BUN 22 mg/dL 6-24 Creatinine, Serum 0.93 mg/dL 0.57-1.00 eGFR If NonAfricn Am 70 mL/min/1.73 >59 eGFR If Africn Am 81 mL/min/1.73 >59 BUN/Creatinine Ratio 24 9-23 Sodium, Serum 141 mmol/L 134-144 Potassium, Serum 4.5 mmol/L 3.5-5.2 Chloride, Serum 98 mmol/L 96-106 Carbon Dioxide, Total 20 mmol/L 18-29 Calcium, Serum 10.4 mg/dL 8.7-10.2 Protein, Total, Serum 7.6 g/dL 6.0-8.5 Albumin, Serum 5.1 g/dL 3.5-5.5 Globulin, Total 2.5 g/dL 1.5-4.5 A/G Ratio 2.0 1.1-2.5 Bilirubin, Total 0.3 mg/dL 0.0-1.2 Alkaline Phosphatase, S 106 IU/L 39-117 AST (SGOT) 31 IU/L 0-40 ALT (SGPT) 27 IU/L 0-32 Lipid Panel - 03/21/16 08:38 Cholesterol, Total 271 mg/dL 100-199 Triglycerides 536 mg/dL 0-149 HDL Cholesterol 31 mg/dL >39 VLDL Cholesterol Ady Comment mg/dL 5-40 LDL Cholesterol Calc Comment mg/dL 0-99 Complete blood count (CBC) with automate d white blood cell (WBC) differential - 05/12/17 11:50 Blood leukocytes automated count (number/volume) 9.5 10*3/uL 4.3-11.0 Blood erythrocytes automated count (number/volume) 4.38 10*6/uL 4.35-5.85 Venous blood hemoglobin measurement (mass/volume) 12.4 g/dL 11.5-16.0 Blood hematocrit (volume fraction) 36 % 35-52 Automated erythrocyte mean corpuscular volume 81 [ foz_us] 80-99 Automated erythrocyte mean corpuscular h emoglobin (mass per erythrocyte) 28 pg 25-34 Automated erythrocyte mean corpuscular h emoglobin concentration measurement (mass/volume) 35 g/dL 32-36 Automated erythrocyte distribution width ratio 14. 0 % 10.0- 14.5 Automated blood platelet count (count/volume) 211 10*3/uL 130-400 Automated blood platelet mean volume measurement 11.1 [foz_us] 7.4-10.4 Automated blood neutrophils/100 leukocytes 70 % 42-75 Automated blood lymphocytes/100 leukocytes 22 % 12-44 Blood monocytes/100 leukocytes 6 % 0-12 Automated blood eosinophils/100 leukocytes 2 % 0-10 Automated blood basophils/100 leukocytes 0 % 0-10 Blood neutrophils automated count (number/volume) 6.6 10*3 1.8-7.8 Blood lymphocytes automated count (number/volume) 2.1 10*3 1.0-4.0 Blood monocytes automated count (number/volume) 0. 5 10*3 0.0-1.0 Automated eosinophil count 0.2 10*3/uL 0 .0-0.3 Automated blood basophil count (count/volume) 0.0 10*3/uL 0.0-0.1 PT panel in platelet poor plasma by coag ulation assay - 05/12/17 11:50 Prothrombin time (PT) in platelet poor plasma by coagu lation assay 13.3 s 12.2-14.7 INR in platelet poor plasma or blood by coagulation as say 1.0 0.8-1.4 Activated partial thromboplastin time (a PTT) in platelet poor plasma bycoagulation assay - 05/12/17 11:50 Activated partial thromboplastin time (a PTT) in platelet poor plasma bycoagulation assay 26 s 24-35 Hemoglobin A1c - 05/12/17 11:50 Blood hemoglobin A1C measurement (mass/volume) 13. 1 % 4.0- 5.6 MEAN BLOOD GLUCOSE 329 % <=126 Complete urinalysis with reflex to cultu re - 05/12/17 12:30 Urine color determination YELLOW NRG Urine clarity determination SLIGHTLY CLOUDY NRG Urine pH measurement by test strip 5 5-9 Specific gravity of urine by test strip 1.015 1.016-1.022 Urine protein assay by test strip, semi-quantitative 2+ NEGATIVE Urine glucose detection by automated test strip 4+ NEGATIVE Erythrocytes detection in urine sediment by light micr oscopy NEGATIVE NEGATIVE Urine ketones detection by automated test strip NE GATIVE NEGATIVE Urine nitrite detection by test strip NEGATIVE NEGATIVE Urine total bilirubin detection by test strip NEGA TIVE NEGATIVE Urine urobilinogen measurement by automated test strip (mass/volume) NORMAL NORMAL Urine leukocyte esterase detection by dipstick NEG ATIVE NEGATIVE Automated urine sediment erythrocyte cou nt by microscopy (number/high power field) [HPF] NRG Automated urine sediment leukocyte count by microscopy (number/high power field) [HPF] NRG Bacteria detection in urine sediment by light microsco py FEW NRG Crystals detection in urine sediment by light microsco py PRESENT NRG Casts detection in urine sediment by light microscopy NONE NRG Mucus detection in urine sediment by light microscopy NEGATIVE NRG Complete urinalysis with reflex to culture YES NRG Amorphous sediment detection in urine sediment by ligh t microscopy LARGE СВЕТЛАНА URATES NRG Bacterial urine culture - 05/12/17 12:30 Bacterial urine culture [id number] NRG COLONY COUNT >100,000/ML NRG FTX;REPORTABLE SENSITIVITY REPORTED 05/13 16:35 NRG Bacterial susceptibility panel - 8 12:30 Oxacillin susceptibility test by minimum inhibitory co ncentration <= NRG Gentamicin susceptibility test by minimum inhibitory c oncentration <= NRG Trimethoprim/sulfamethoxazole susceptibi lity test by minimum inhibitoryconcentration S NRG Vancomycin susceptibility test by minimum inhibitory c oncentration <= NRG Levofloxacin susceptibility test by minimum inhibitory concentration <= NRG Rifampin susceptibility test by minimum inhibitory con centration <= NRG Tetracycline susceptibility test by minimum inhibitory concentration <= NRG Comprehensive metabolic panel - 05/12/17 13:07 Serum or plasma sodium measurement (moles/volume) 130 mmol/L 135-145 Serum or plasma potassium measurement (moles/volume) 4.1 mmol/L 3.6-5.0 Serum or plasma chloride measurement (moles/volume) 98 mmol/L 98-107 Carbon dioxide 18 mmol/L 21-32 Serum or plasma anion gap determination (moles/volume) 14 mmol/L 5-14 Serum or plasma urea nitrogen measurement (mass/volume ) 26 mg/dL 7-18 Serum or plasma creatinine measurement (mass/volume) 0.95 mg/dL 0.60-1.30 Serum or plasma urea nitrogen/creatinine mass ratio 27 NRG Serum or plasma creatinine measurement w ith calculation of estimated glomerular filtration rate > NRG Serum or plasma glucose measurement (mass/volume) 464 mg/dL 70-105 Serum or plasma calcium measurement (mass/volume) 9.3 mg/dL 8.5-10.1 Serum or plasma total bilirubin measurement (mass/volu me) 0.3 mg/dL 0.1-1.0 Serum or plasma alkaline phosphatase kameron surement (enzymatic activity/volume) 150 U/L 40-136 Serum or plasma aspartate aminotransfera se measurement (enzymatic activity/volume) 20 U/L 5-34 Serum or plasma alanine aminotransferase measurement (enzymatic activity/volume) 25 U/L 0-55 Serum or plasma protein measurement (mass/volume) 8.1 g/dL 6.4-8.2 Serum or plasma albumin measurement (mass/volume) 4.0 g/dL 3.2-4.5 THYROID STIMULATING HORMONE - 05/12/17 1 3:07 THYROID STIMULATING HORMONE 2.12 u[iU]/mL 0.35-4.94 Blood type T Indirect antibody screen pa chapis - 05/12/17 13:07 ABO+Rh group OP NRG Transfusion band number [id number] NRG Blood group antibody screen NEGATIVE NR G Capillary blood glucose measurement by g lucometer (mass/volume) - 05/12/17 14:59 Capillary blood glucose measurement by glucometer (mas s/volume) 296 mg/dL 70-110 Capillary blood glucose measurement by g lucometer (mass/volume) - 05/12/17 15:15 Capillary blood glucose measurement by glucometer (mas s/volume) 292 mg/dL 70-110 Capillary blood glucose measurement by g lucometer (mass/volume) - 05/12/17 19:22 Capillary blood glucose measurement by glucometer (mas s/volume) 329 mg/dL 70-110 Capillary blood glucose measurement by g lucometer (mass/volume) - 05/12/17 20:36 Capillary blood glucose measurement by glucometer (mas s/volume) 358 mg/dL 70-110 Capillary blood glucose measurement by g lucometer (mass/volume) - 05/13/17 01:28 Capillary blood glucose measurement by glucometer (mas s/volume) 236 mg/dL 70-110 Complete blood count (CBC) with automate d white blood cell (WBC) differential - 05/13/17 05:26 Blood leukocytes automated count (number/volume) 7.5 10*3/uL 4.3-11.0 Blood erythrocytes automated count (number/volume) 4.25 10*6/uL 4.35-5.85 Venous blood hemoglobin measurement (mass/volume) 11.9 g/dL 11.5-16.0 Blood hematocrit (volume fraction) 35 % 35-52 Automated erythrocyte mean corpuscular volume 81 [ foz_us] 80-99 Automated erythrocyte mean corpuscular h emoglobin (mass per erythrocyte) 28 pg 25-34 Automated erythrocyte mean corpuscular h emoglobin concentration measurement (mass/volume) 34 g/dL 32-36 Automated erythrocyte distribution width ratio 13. 6 % 10.0- 14.5 Automated blood platelet count (count/volume) 198 10*3/uL 130-400 Automated blood platelet mean volume measurement 10.9 [foz_us] 7.4-10.4 Automated blood neutrophils/100 leukocytes 65 % 42-75 Automated blood lymphocytes/100 leukocytes 24 % 12-44 Blood monocytes/100 leukocytes 7 % 0-12 Automated blood eosinophils/100 leukocytes 4 % 0-10 Automated blood basophils/100 leukocytes 0 % 0-10 Blood neutrophils automated count (number/volume) 4.9 10*3 1.8-7.8 Blood lymphocytes automated count (number/volume) 1.8 10*3 1.0-4.0 Blood monocytes automated count (number/volume) 0. 5 10*3 0.0-1.0 Automated eosinophil count 0.3 10*3/uL 0 .0-0.3 Automated blood basophil count (count/volume) 0.0 10*3/uL 0.0-0.1 Whole blood basic metabolic panel - 05/02 04/21 05:26 Serum or plasma sodium measurement (moles/volume) 132 mmol/L 135-145 Serum or plasma potassium measurement (moles/volume) 3.8 mmol/L 3.6-5.0 Serum or plasma chloride measurement (moles/volume) 103 mmol/L 98-107 Carbon dioxide 18 mmol/L 21-32 Serum or plasma anion gap determination (moles/volume) 11 mmol/L 5-14 Serum or plasma urea nitrogen measurement (mass/volume ) 13 mg/dL 7-18 Serum or plasma creatinine measurement (mass/volume) 0.71 mg/dL 0.60-1.30 Serum or plasma urea nitrogen/creatinine mass ratio 18 NRG Serum or plasma creatinine measurement w ith calculation of estimated glomerular filtration rate > NRG Serum or plasma glucose measurement (mass/volume) 293 mg/dL 70-105 Serum or plasma calcium measurement (mass/volume) 8.9 mg/dL 8.5-10.1 Magnesium - 05/13/17 05:26 Magnesium 1.8 mg/dL 1.8-2.4 Lipid 1996 panel - 05/13/17 05:26 Serum or plasma triglyceride measurement (mass/volume) 1599 mg/dL <150 Serum or plasma cholesterol measurement (mass/volume) 424 mg/dL < 200 Serum or plasma cholesterol in HDL measurement (mass/v olume) 32 mg/dL 40-60 Cholesterol in LDL [mass/volume] in serum or plasma by direct assay 88 mg/dL 1-129 Serum or plasma cholesterol in VLDL measurement (mass/ volume) 320 mg/dL 5-40 Capillary blood glucose measurement by g lucometer (mass/volume) - 05/13/17 05:26 Capillary blood glucose measurement by glucometer (mas s/volume) 290 mg/dL 70-110 Capillary blood glucose measurement by g lucometer (mass/volume) - 05/13/17 10:33 Capillary blood glucose measurement by glucometer (mas s/volume) 302 mg/dL 70-110 Methicillin resistant Staphylococcus aur eus (MRSA) screening culture - 05/13/17 12:00 Methicillin resistant Staphylococcus aureus (MRSA) scr eening culture NEG NRG Urine drug screening test - 05/13/17 12: 15 Urine phencyclidine detection by screening method NEGATIVE NEGATIVE Urine benzodiazepines detection by screening method NEGATIVE NEGATIVE Urine cocaine detection NEGATIVE NEGATI VE Urine amphetamines detection by screening method N EGATIVE NEGATIVE Urine methamphetamine detection by screening method NEGATIVE NEGATIVE Urine cannabinoids detection by screening method N EGATIVE NEGATIVE Urine opiates detection by screening method NEGATI VE NEGATIVE Urine barbiturates detection NEGATIVE N EGATIVE Screening urine tricyclic antidepressants detection NEGATIVE NEGATIVE Urine methadone detection by screening method NEGA TIVE NEGATIVE Urine oxycodone detection NEGATIVE NEGA TIVE Urine propoxyphene detection NEGATIVE N EGATIVE Capillary blood glucose measurement by g lucometer (mass/volume) - 05/13/17 16:08 Capillary blood glucose measurement by glucometer (mas s/volume) 255 mg/dL 70-110 Capillary blood glucose measurement by g lucometer (mass/volume) - 05/13/17 20:44 Capillary blood glucose measurement by glucometer (mas s/volume) 394 mg/dL 70-110 Capillary blood glucose measurement by g lucometer (mass/volume) - 05/14/17 05:28 Capillary blood glucose measurement by glucometer (mas s/volume) 287 mg/dL 70-110 Complete blood count (CBC) with automate d white blood cell (WBC) differential - 05/14/17 05:40 Blood leukocytes automated count (number/volume) 8.2 10*3/uL 4.3-11.0 Blood erythrocytes automated count (number/volume) 3.97 10*6/uL 4.35-5.85 Venous blood hemoglobin measurement (mass/volume) 11.1 g/dL 11.5-16.0 Blood hematocrit (volume fraction) 33 % 35-52 Automated erythrocyte mean corpuscular volume 83 [ foz_us] 80-99 Automated erythrocyte mean corpuscular h emoglobin (mass per erythrocyte) 28 pg 25-34 Automated erythrocyte mean corpuscular h emoglobin concentration measurement (mass/volume) 34 g/dL 32-36 Automated erythrocyte distribution width ratio 13. 6 % 10.0- 14.5 Automated blood platelet count (count/volume) 187 10*3/uL 130-400 Automated blood platelet mean volume measurement 10.9 [foz_us] 7.4-10.4 Automated blood neutrophils/100 leukocytes 75 % 42-75 Automated blood lymphocytes/100 leukocytes 19 % 12-44 Blood monocytes/100 leukocytes 6 % 0-12 Automated blood eosinophils/100 leukocytes 1 % 0-10 Automated blood basophils/100 leukocytes 0 % 0-10 Blood neutrophils automated count (number/volume) 6.1 10*3 1.8-7.8 Blood lymphocytes automated count (number/volume) 1.5 10*3 1.0-4.0 Blood monocytes automated count (number/volume) 0. 5 10*3 0.0-1.0 Automated eosinophil count 0.1 10*3/uL 0 .0-0.3 Automated blood basophil count (count/volume) 0.0 10*3/uL 0.0-0.1 Comprehensive metabolic panel - 05/14/17 05:40 Serum or plasma sodium measurement (moles/volume) 133 mmol/L 135-145 Serum or plasma potassium measurement (moles/volume) 3.7 mmol/L 3.6-5.0 Serum or plasma chloride measurement (moles/volume) 102 mmol/L 98-107 Carbon dioxide 22 mmol/L 21-32 Serum or plasma anion gap determination (moles/volume) 9 mmol/L 5-14 Serum or plasma urea nitrogen measurement (mass/volume ) 9 mg/dL 7-18 Serum or plasma creatinine measurement (mass/volume) 0.76 mg/dL 0.60-1.30 Serum or plasma urea nitrogen/creatinine mass ratio 12 NRG Serum or plasma creatinine measurement w ith calculation of estimated glomerular filtration rate > NRG Serum or plasma glucose measurement (mass/volume) 281 mg/dL 70-105 Serum or plasma calcium measurement (mass/volume) 8.8 mg/dL 8.5-10.1 Serum or plasma total bilirubin measurement (mass/volu me) 0.3 mg/dL 0.1-1.0 Serum or plasma alkaline phosphatase kameron surement (enzymatic activity/volume) 103 U/L 40-136 Serum or plasma aspartate aminotransfera se measurement (enzymatic activity/volume) 13 U/L 5-34 Serum or plasma alanine aminotransferase measurement (enzymatic activity/volume) 19 U/L 0-55 Serum or plasma protein measurement (mass/volume) 6.5 g/dL 6.4-8.2 Serum or plasma albumin measurement (mass/volume) 3.5 g/dL 3.2-4.5 Capillary blood glucose measurement by g lucometer (mass/volume) - 05/14/17 11:19 Capillary blood glucose measurement by glucometer (mas s/volume) 296 mg/dL 70-110 Capillary blood glucose measurement by g lucometer (mass/volume) - 05/14/17 15:59 Capillary blood glucose measurement by glucometer (mas s/volume) 304 mg/dL 70-110 Capillary blood glucose measurement by g lucometer (mass/volume) - 05/14/17 20:30 Capillary blood glucose measurement by glucometer (mas s/volume) 245 mg/dL 70-110 Capillary blood glucose measurement by g lucometer (mass/volume) - 05/15/17 05:46 Capillary blood glucose measurement by glucometer (mas s/volume) 284 mg/dL 70-110 Complete blood count (CBC) with automate d white blood cell (WBC) differential - 05/15/17 05:50 Blood leukocytes automated count (number/volume) 7.4 10*3/uL 4.3-11.0 Blood erythrocytes automated count (number/volume) 3.71 10*6/uL 4.35-5.85 Venous blood hemoglobin measurement (mass/volume) 10.3 g/dL 11.5-16.0 Blood hematocrit (volume fraction) 31 % 35-52 Automated erythrocyte mean corpuscular volume 84 [ foz_us] 80-99 Automated erythrocyte mean corpuscular h emoglobin (mass per erythrocyte) 28 pg 25-34 Automated erythrocyte mean corpuscular h emoglobin concentration measurement (mass/volume) 33 g/dL 32-36 Automated erythrocyte distribution width ratio 13. 5 % 10.0- 14.5 Automated blood platelet count (count/volume) 163 10*3/uL 130-400 Automated blood platelet mean volume measurement 10.3 [foz_us] 7.4-10.4 Automated blood neutrophils/100 leukocytes 61 % 42-75 Automated blood lymphocytes/100 leukocytes 27 % 12-44 Blood monocytes/100 leukocytes 8 % 0-12 Automated blood eosinophils/100 leukocytes 4 % 0-10 Automated blood basophils/100 leukocytes 0 % 0-10 Blood neutrophils automated count (number/volume) 4.6 10*3 1.8-7.8 Blood lymphocytes automated count (number/volume) 2.0 10*3 1.0-4.0 Blood monocytes automated count (number/volume) 0. 6 10*3 0.0-1.0 Automated eosinophil count 0.3 10*3/uL 0 .0-0.3 Automated blood basophil count (count/volume) 0.0 10*3/uL 0.0-0.1 Comprehensive metabolic panel - 05/15/17 05:50 Serum or plasma sodium measurement (moles/volume) 136 mmol/L 135-145 Serum or plasma potassium measurement (moles/volume) 3.5 mmol/L 3.6-5.0 Serum or plasma chloride measurement (moles/volume) 103 mmol/L 98-107 Carbon dioxide 23 mmol/L 21-32 Serum or plasma anion gap determination (moles/volume) 10 mmol/L 5-14 Serum or plasma urea nitrogen measurement (mass/volume ) 10 mg/dL 7-18 Serum or plasma creatinine measurement (mass/volume) 0.74 mg/dL 0.60-1.30 Serum or plasma urea nitrogen/creatinine mass ratio 14 NRG Serum or plasma creatinine measurement w ith calculation of estimated glomerular filtration rate > NRG Serum or plasma glucose measurement (mass/volume) 291 mg/dL 70-105 Serum or plasma calcium measurement (mass/volume) 8.7 mg/dL 8.5-10.1 Serum or plasma total bilirubin measurement (mass/volu me) 0.4 mg/dL 0.1-1.0 Serum or plasma alkaline phosphatase kameron surement (enzymatic activity/volume) 106 U/L 40-136 Serum or plasma aspartate aminotransfera se measurement (enzymatic activity/volume) 13 U/L 5-34 Serum or plasma alanine aminotransferase measurement (enzymatic activity/volume) 14 U/L 0-55 Serum or plasma protein measurement (mass/volume) 6.0 g/dL 6.4-8.2 Serum or plasma albumin measurement (mass/volume) 3.3 g/dL 3.2-4.5 Capillary blood glucose measurement by g lucometer (mass/volume) - 05/15/17 10:58 Capillary blood glucose measurement by glucometer (mas s/volume) 281 mg/dL 70-110 Capillary blood glucose measurement by g lucometer (mass/volume) - 05/15/17 16:15 Capillary blood glucose measurement by glucometer (mas s/volume) 285 mg/dL 70-110 Capillary blood glucose measurement by g lucometer (mass/volume) - 05/15/17 20:07 Capillary blood glucose measurement by glucometer (mas s/volume) 332 mg/dL 70-110 Capillary blood glucose measurement by g lucometer (mass/volume) - 05/16/17 05:12 Capillary blood glucose measurement by glucometer (mas s/volume) 312 mg/dL 70-110 Complete blood count (CBC) with automate d white blood cell (WBC) differential - 05/16/17 05:45 Blood leukocytes automated count (number/volume) 7.4 10*3/uL 4.3-11.0 Blood erythrocytes automated count (number/volume) 3.74 10*6/uL 4.35-5.85 Venous blood hemoglobin measurement (mass/volume) 10.5 g/dL 11.5-16.0 Blood hematocrit (volume fraction) 31 % 35-52 Automated erythrocyte mean corpuscular volume 83 [ foz_us] 80-99 Automated erythrocyte mean corpuscular h emoglobin (mass per erythrocyte) 28 pg 25-34 Automated erythrocyte mean corpuscular h emoglobin concentration measurement (mass/volume) 34 g/dL 32-36 Automated erythrocyte distribution width ratio 13. 5 % 10.0- 14.5 Automated blood platelet count (count/volume) 170 10*3/uL 130-400 Automated blood platelet mean volume measurement 10.5 [foz_us] 7.4-10.4 Automated blood neutrophils/100 leukocytes 62 % 42-75 Automated blood lymphocytes/100 leukocytes 26 % 12-44 Blood monocytes/100 leukocytes 7 % 0-12 Automated blood eosinophils/100 leukocytes 4 % 0-10 Automated blood basophils/100 leukocytes 0 % 0-10 Blood neutrophils automated count (number/volume) 4.6 10*3 1.8-7.8 Blood lymphocytes automated count (number/volume) 2.0 10*3 1.0-4.0 Blood monocytes automated count (number/volume) 0. 6 10*3 0.0-1.0 Automated eosinophil count 0.3 10*3/uL 0 .0-0.3 Automated blood basophil count (count/volume) 0.0 10*3/uL 0.0-0.1 Comprehensive metabolic panel - 05/16/17 05:45 Serum or plasma sodium measurement (moles/volume) 133 mmol/L 135-145 Serum or plasma potassium measurement (moles/volume) 4.1 mmol/L 3.6-5.0 Serum or plasma chloride measurement (moles/volume) 101 mmol/L 98-107 Carbon dioxide 21 mmol/L 21-32 Serum or plasma anion gap determination (moles/volume) 11 mmol/L 5-14 Serum or plasma urea nitrogen measurement (mass/volume ) 10 mg/dL 7-18 Serum or plasma creatinine measurement (mass/volume) 0.71 mg/dL 0.60-1.30 Serum or plasma urea nitrogen/creatinine mass ratio 14 NRG Serum or plasma creatinine measurement w ith calculation of estimated glomerular filtration rate > NRG Serum or plasma glucose measurement (mass/volume) 307 mg/dL 70-105 Serum or plasma calcium measurement (mass/volume) 9.3 mg/dL 8.5-10.1 Serum or plasma total bilirubin measurement (mass/volu me) 0.4 mg/dL 0.1-1.0 Serum or plasma alkaline phosphatase kameron surement (enzymatic activity/volume) 139 U/L 40-136 Serum or plasma aspartate aminotransfera se measurement (enzymatic activity/volume) 23 U/L 5-34 Serum or plasma alanine aminotransferase measurement (enzymatic activity/volume) 21 U/L 0-55 Serum or plasma protein measurement (mass/volume) 6.5 g/dL 6.4-8.2 Serum or plasma albumin measurement (mass/volume) 3.4 g/dL 3.2-4.5 Capillary blood glucose measurement by g lucometer (mass/volume) - 05/16/17 11:15 Capillary blood glucose measurement by glucometer (mas s/volume) 300 mg/dL 70-110 VITAMIN D, 25-H - 07/04/17 09:17 VITAMIN D,25-OH,TOTAL,IA 10 ng/mL 30-10 0 VITAMIN D, 25-H - 08/27/17 11:26 VITAMIN D,25-OH,TOTAL,IA 24 ng/mL 30-10 0 VITAMIN D, 25-H - 12/26/17 12:14 VITAMIN D,25-OH,TOTAL,IA 33 ng/mL 30-10 0 VITAMIN D, 25-H - 07/15/18 08:14 VITAMIN D,25-OH,TOTAL,IA 21 ng/mL 30-10 0 A1C - 07/15/18 08:14 HEMOGLOBIN A1c 9.5 % of total Hgb <5.7 CULTURE, GENITAL - 12/03/18 04:48 CULTURE, GENITAL SEE NOTE NRG SUREPATH PAP AND HPV mRNA E6/E7 - 06:32 CLINICAL INFORMATION: NRG LMP: NRG PREV. PAP: NRG PREV. BX: NRG SOURCE: Cervix NR STATEMENT OF ADEQUACY: NR INTERPRETATION/RESULT: NR WELLNESS COORDINATOR: NRG HPV mRNA E6/E7, SUREPATH VIAL Not Detected NOT DETECTED COMMENT NRG Influenza virus A and B antigen detectio n - 02/15/19 18:27 FLU RESULT NEGATIVE FOR INFLUENZA A AND B ANTIGENS BY IA NRG CBC - 08/06/19 09:46 WHITE BLOOD CELL COUNT 7.8 Thousand/uL 3 .8-10.8 RED BLOOD CELL COUNT 4.23 Million/uL 3.8 0-5.10 HEMOGLOBIN 11.2 g/dL 11.7-15.5 HEMATOCRIT 35.0 % 35.0-45.0 MCV 82.7 fL 80.0-100.0 MCH 26.5 pg 27.0-33.0 MCHC 32.0 g/dL 32.0-36.0 RDW 13.9 % 11.0-15.0 PLATELET COUNT 233 Thousand/uL 140-400 MPV 10.8 fL 7.5-12.5 ABSOLUTE NEUTROPHILS 4282 cells/uL 1500- 7800 ABSOLUTE LYMPHOCYTES 2707 cells/uL 850-3 900 ABSOLUTE MONOCYTES 491 cells/uL 200-950 ABSOLUTE EOSINOPHILS 281 cells/uL 15-500 ABSOLUTE BASOPHILS 39 cells/uL 0-200 NEUTROPHILS 54.9 % NRG LYMPHOCYTES 34.7 % NRG MONOCYTES 6.3 % NRG EOSINOPHILS 3.6 % NRG BASOPHILS 0.5 % NRG Encounters ACCT No. Visit Date/Time Discharge Status Pt. Type Provider Facility Loc./Unit Complaint [id number] 03/22/2016 10:05:00 Document Registration [id number] 11/21/2015 10:05:00 Document Registration [id number] 04/01/2019 07:20:00 23:59:59 CLS Outpatient ANDREW PLATT MD [facility] RAD ACQUIRED HYPOTHYROIDISM [id number] 02/15/2019 17:48:00 19:02:00 DIS Emergency EVERETT ESPINAL APRN [facility] ER COPD/COUGH/SOB [id number] 12/12/2018 10:24:00 23:59:59 CLS Outpatient ANDREW PLATT MD [facility] RAD SCREENING [id number] 11/28/2018 10:11:00 23:59:59 CLS Preadmit ANDREW PLATT MD [facility] RAD ACQUIRED HYPOTHYROIDISM [id number] 10/29/2018 13:00:00 23:59:59 CLS Preadmit ANDREW PLATT MD [facility] RAD RIGHT THYROID NODULE [id number] 04/11/2018 10:55:00 23:59:59 CLS PreadANDREW Proctor MD [facility] RAD THYROID MASS E07.9 [id number] 04/07/2018 14:17:00 23:59:59 CLS Outpatient ANDREW PLATT MD [facility] RAD RT THYROID NODULE [id number] 10/22/2017 07:25:00 10:02:00 DIS Outpatient SREE BOCANEGRA DO [facility] ENDO RECTAL BLEEDING/GERD [id number] 08/20/2017 08:18:00 018 14:41:00 DIS Outpatient SHEYLA TREJO DO [facility] REHAB S/P LEFT FEMORAL NECK F RACTURE [id number] 05/12/2017 12:30:00 018 13:35:00 DIS Inpatient GONZALO NORRIS DO [facility] 4TH NONDISPLACED L SUBCAPITAL HIP FX,TYPE 2 DM,UTI,HYP [id number] 04/10/2016 11:50:00 017 23:59:59 CLS Outpatient 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, 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 [facility] RAD RT THYROID NODULE [id number] 03/23/2016 10:31:00 017 23:59:59 CLS Outpatient 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, 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 [facility] RAD ENLARGEMENT OF THYROID [id number] 11/24/2015 10:31:00 016 23:59:59 CLS Outpatient TERRENCE MONTALVO APRN [facility] RAD SCREENING [id number] 10/18/2015 08:39:00 016 23:59:59 CLS Outpatient 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, 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 [facility] RAD ESSENTIAL HTN [id number] 10/03/2014 19:35:00 015 22:45:00 DIS Emergency DALLAS BURKS DO [facility] ER CHEST PAIN [id number] 10/15/2017 05:35:00 Document Registration [id number] 06/04/2012 09:29:00 Document Registration [id number] 12/21/2009 11:56:00 Document Registration [id number] 08/20/2019 08:30:00 08/20/2019 23:59:5 9 CLS Outpatient ANDREW PLATT [facility] [id number] 08/06/2019 09:00:00 Document Registration [id number] 12/02/2018 10:20:00 Document Registration [id number] 07/15/2018 08:40:00 Document Registration [id number] 12/26/2017 11:40:00 Document Registration [id number] 08/27/2017 10:20:00 Document Registration [id number] 07/04/2017 09:20:00 Document Registration [id number] 12/02/2015 08:07:00 Document Registration [id number] 02/18/2012 08:02:00 02/18/2012 23:59: 59 CLS Outpatient TELLO CARTER DO [id number] 02/15/2012 10:47:00 02/15/2012 23:59: 59 CLS Outpatient [id number] 09/11/2011 08:12:00 09/11/2011 23:59: 59 CLS Outpatient [id number] 11/16/2016 13:06:00 Document Registration [id number] 11/16/2015 07:06:00 Document Registration [id number] 02/17/2016 10:05:00 Document Registration [id number] 11/24/2015 07:06:00 Document Registration
== END 2019-08-25 19:14 | disposition home or self-care (01) ==
LOC: EDUNIT# 16:50 → ER 16:53
DX: R51 Headache (principal); R53.1 Weakness; J44.9 Chronic obstructive pulmonary disease, unspecified; I10 Essential (primary) hypertension; E13.319 Other specified diabetes mellitus with unspecified 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 macular edema; K21.9 Gastro-esophageal reflux disease without esophagitis; Z88.8 Allergy status to other drugs, medicaments and biological substances; Z79.84 Long term (current) use of oral hypoglycemic drugs; Z79.52 Long term (current) use of systemic steroids; Z87.891 Personal history of nicotine dependence; Z82.49 Family history of ischemic heart disease and other diseases of the circulatory system
CPT/HCPCS: 36415; 80053; 81000; 84439; 84443; 84484; 85025; 86141; 96374

== ENCOUNTER → 2020-11-30 | Outpatient (CLI) | payer MEDICAID ==
[~2020-11-30] MED LIST changes: -CALC600T12 PO; +CALC600T91 PO; +CATHETER FLUSH 10 ML SYR IV PRN; +REGADENOSON 0.4 MG/5 ML SYR (LEXISCAN) IV ONE
[2020-11-30 12:42] VITALS: BP 114/69
--- NOTE | 2020-11-30 15:15 | Cardiology Stress Test Report ---
Stress Test Report Date of Procedure/Referring: Date of Procedure: Nov 30, 2020 PCP Alysa Chi MD Admitting Physician Alysa Chi MD Indications: CP Baseline Heart Rate: 84 Baseline Blood Pressure: Blood Pressure Systolic: 114 Blood Pressure Diastolic: 69 Baseline Vitals Vital Signs Date Time Temp Pulse Resp B/P (MAP) Pulse Ox O2 Delivery O2 Flow Rate FiO2 11/30/20 12:42 86 18 114/69 (84) 97 Room Air Baseline EKG: Baseline EKG: NSR Summary After explaining the procedure to the patient, she signed a consent and then brought to the stress nuclear laboratory. Patient received 0.4 mg Lexiscan for stress test, ECG, heart rate and blood pressure were monitored continuously. Resting and stress dose of radio tracer were injected, imaging was acquired and reviewed in short axis, horizontal long axis and vertical long axis views. TID: 1.11 SSS: 7 SDS: 7 EF: 69 1. Patient tolerated Lexiscan well 2. Reversible ischemia involving the mid to apical inferior wall and inferolateral wall 3. Normal left ventricular size with normal contractility, EF 69% MATEO BROWN MD Nov 30, 2020 15:15
== END ==
LOC: CARD 11:14
PROVIDERS: ATTEND Family Medicine
DX: R07.89 Other chest pain (principal)
CPT/HCPCS: 78452; 93017; A9502

== ENCOUNTER 2020-12-14 08:06 | Day surgery (SDC) | payer MEDICAID ==
[2020-12-14] VITALS (13 sets, daily range): BP systolic 101–137; BP diastolic 56–93
[~2020-12-14] VITALS: Ht 152.4 cm; Wt 75.2 kg
[~2020-12-14 08:06] MED LIST changes: -CATHETER FLUSH 10 ML SYR IV PRN; -REGADENOSON 0.4 MG/5 ML SYR (LEXISCAN) IV ONE
[2020-12-14] MEDS ORDERED: HEParin (CATH LAB) 2,000 ML IV ONE (08:11)
[2020-12-14] MEDS ORDERED: LIDOCAINE 1% INJ 20 ML 20 ML VIAL ONE (08:11)
[2020-12-14] MEDS ORDERED: NS IV 1000 ML 1,000 ML ONE (08:11)
[2020-12-14] MEDS ORDERED: NS IV 1000 ML 1,000 ML IV SCH (08:30)
[2020-12-14 08:35] LABS: HEMATOCRIT 38 % (35-52); HEMOGLOBIN 11.9 g/dL (11.5-16.0); MEAN CORPUSCULAR HEMOGLOBIN 27 pg (25-34); MEAN CORPUSCULAR HGB CONC 32 g/dL (32-36); MEAN CORPUSCULAR VOLUME 85 fL (80-99); MEAN PLATELET VOLUME 10.5 fL (9.0-12.2); PLATELET COUNT 241 10^3/uL (130-400); WHITE BLOOD COUNT 10.4 10^3/uL (4.3-11.0)
--- NOTE | 2020-12-14 08:44 | Diagnostic Imaging Report ---
INDICATION: Pre-heart catheterization. TIME OF EXAM: 8:42 AM Correlation is made with prior chest 05/12/2017. The heart size is normal. The pulmonary vascularity is unremarkable. The lungs are clear. No infiltrate, effusion or pneumothorax is detected. Impression: No acute cardiopulmonary process is detected. Dictated by: Dictated on workstation # [id number]
[2020-12-14 08:46] LABS: PROTHROMBIN TIME PATIENT 13.1 SEC (12.2-14.7)
[2020-12-14 08:57] LABS: ALBUMIN 4.5 GM/DL (3.2-4.5); BILIRUBIN,TOTAL 0.4 MG/DL (0.1-1.0); CALCIUM 9.8 MG/DL (8.5-10.1); CREATININE SERUM 1.16 MG/DL (0.60-1.30); POTASSIUM 3.9 MMOL/L (3.6-5.0); TOTAL PROTEIN 7.9 GM/DL (6.4-8.2)
[2020-12-14] MEDS ORDERED: CANA300T PO (09:00)
[2020-12-14] MEDS ORDERED: PANT40TA52 PO (09:00)
[2020-12-14] MEDS ORDERED: CITA10TA7 PO (09:00)
[2020-12-14] MEDS ORDERED: FLUT1AER IH (09:00)
[2020-12-14] MEDS ORDERED: EXEN2AUT SQ (09:00)
[2020-12-14] MEDS ORDERED: ROSU10TA28 PO (09:00)
[2020-12-14] MEDS ORDERED: METF-399 PO (09:00)
[2020-12-14] MEDS ORDERED: TOPI50TA13 PO (09:00)
[2020-12-14] MEDS ORDERED: LEVO50CA4 PO (09:00)
[2020-12-14] MEDS ORDERED: INSU100I29 SQ (09:00)
[2020-12-14] MEDS ORDERED: GLIM4TAB5 PO (09:00)
--- NOTE | 2020-12-14 09:30 | Conscious Sedation/ASA ---
Conscious Sedation Pre-Proced Time 09:30 ASA Score 3 For ASA 3 and 4: Consider anesthesia and medical clearance. Also, for patients with a history of failed moderate sedation consider anesthesia. Airway Lungs Heart ASA score ASA 1: a normal healthy patient ASA 2: a patient with a mild systemic disease (mid diabetes, controlled hypertension, obesity x ASA 3: a patient with a severe systemic disease that limits activity (angina, COPD, prior Myocardial infarction) ASA 4: a patient with an incapacitating disease that is a constant threat to life (CHF, renal failure) ASA 5: a moribund patient not expected to survive 24 hrs. (ruptured aneurysm) ASA 6: a declared brain- patient whose organs are being harvested. For emergent operations, add the letter E after the classification Mallampati Classification Grade 3 Sedation Plan Analgesia, Amnesia, Plan communicated to team members, Discussed options with patient/fam, Discussed risks with patient/fam The patient is an appropriate candidate to undergo the planned procedure, sedation, and anesthesia. The patient immediately re-assessed prior to indication. MATEO BROWN MD Dec 14, 2020 09:30
[2020-12-14] MEDS ORDERED: fentaNYL INJ 100 MCG/2 ML AMP ONE (09:36)
[2020-12-14] MEDS ORDERED: MIDAZOLAM 5 MG/5 ML (VERSED) VIAL ONE (09:36)
[2020-12-14] MEDS ORDERED: HEParin 1000 UNIT/ML (10ML VIAL) FOR BOLUS ONE (10:03)
[2020-12-14] MEDS ORDERED: ADENOSINE 90 MG/30 ML (ADENOSCAN) VIAL IV ONE (10:08)
[2020-12-14] MEDS ORDERED: NITRO DRIP 25000 MCG/D5W 250 ML IV ONE (10:11)
[2020-12-14] MEDS ORDERED: ASPIRIN 325 MG (5 GR) TABLET ONE (10:40)
[2020-12-14] MEDS ORDERED: CLOPIDOGREL 300 MG (PLAVIX) TABLET PO ONE (10:40)
--- NOTE | 2020-12-14 10:54 | Cardiac Cath Report ---
Cardiac Cath Report Physician (s)/Business Computers Teacher (s) Physician MATEO BROWN MD Pre-Procedure Diagnosis Pre-Procedure Diagnosis: Coronary artery disease Post-Procedure Note Procedure Start Date: Dec 14, 2020 Name of Procedure: Left heart catheterization Stenting to the LAD Stenting to the right coronary artery Findings/Procedure Note PROCEDURE NOTE: 60 years old lady with history of hypertension, hyperlipidemia and diabetes mellitus, had an abnormal stress test, scheduled for cardiac catheterization possible PTCA. After explaining the procedure to the patient, all pros and cons were explained, all questions were answered. The patient signed the consent and then she was placed on the cardiac catheterization laboratory. Groin was prepped SL fashion local anesthesia was used. Sheath placed in the right femoral artery. Sergo right and left catheter were used to access the coronary system. Pigtail was used to access the left ventricular cavity. Patient has multivessel coronary artery disease. She received total of 5000 units of heparin, Sergo left guide was advanced to the left coronary system, I was planning to do FFR to the LAD but the equipment did not work, there was a borderline to severe lesion in the mid LAD, after the lack of FFR I decided to proceed with primary stenting. BMW wire was advanced then Lizeth 2.5 x 15 mm d eployed and expanded to 2.71 mm, angiogram showed excellent results. The circumflex artery has a borderline lesion that will be monitored Right coronary artery was subtotally occluded receiving collaterals from the left, I advanced Sergo the right guide and whisper medium support advanced to the distal right coronary artery predilated with a balloon using 2.0 x 15 mm balloon significant improvement in the artery with dissection in the mid right coronary artery was noted. I proceeded with deployment of 2 overlapping resolute [place] drug-eluting stent 2.0 x 22 and 2.0 x 18 expanded proximally to 2.3 and distally 2.1 with excellent results. Left ventriculogram was not done, pressure was measured Aortic arch angiogram was done to evaluate the calcification in the aortic arch and the origin of the carotids At the end of the procedure the sheath was removed. Closure device was deployed FINDINGS: Hemodynamics LV 167/20, end-diastolic pressure of 20 Aorta 164/79 mean of 115 ANATOMY: Left Main is free of obstructive disease Left Anterior Descending has moderate to severe lesion in the mid LAD successful primary stenting using Lizeth 2.5 x 15 mm expanded to 2.71 mm with excellent results Left Circumflex has 50 to 60% proximal stenosis, will be monitored closely Right Coronary Artery is subtotally occluded at the midportion receiving collaterals from the left, the artery expanded into good size artery after balloon angioplasty I proceeded with deployment of 2 overlapping resolute Saul stent 2.0 x 22 followed by 2.0 x 18 expanded proximally to 2.3 mm and distally 2.1 mm with excellent results LV Gram was not done, pressure was measured Aorta evaluation done with aortic arch angiogram showing calcification in the aortic arch, no dissection or aneurysm, there is a shared origin of the brachiocephalic artery and left subclavian artery with some tortuosity and calcification, no obstructive disease, the left subclavian artery is calcified with no obstructive disease CONCLUSION: 1. Moderate to severe stenosis in the mid LAD successful primary stenting using Lizeth 2.5 x 50 mm expanded to 2.71 mm 2. Subtotal occlusion in the mid right coronary artery successful balloon angioplasty and deployment of 2 overlapping resolute Saul stents 2.0 x 22 followed by 2.0 x 18 expanded to 2.3 mm proximally and 2.1 mm distally 3. Moderate stenosis in the proximal circumflex artery, borderline lesion, will be monitored closely 4. Calcification in the aortic arch and great vessels of the neck, no obstructive disease was noted DISCUSSION AND RECOMMENDATION: Patient was started on aspirin and Plavix, will continue maximizing medical therapy Anesthesia Type: Conscious Sedation Estimated blood loss (mL): 25 ml Contrast Amount: 145 ml Total Radiation Dose: 786 mGy Post-Procedure Diagnosis Post-operative diagnosis: Chest pain Coronary artery disease Hypertension Hyperlipidemia Diabetes mellitus MATEO BROWN MD Dec 14, 2020 10:54
[2020-12-14] MEDS ORDERED: NON-FORMULARY MEDICATION 1 EA EA (Exenatide Microspheres (Bydureon Bcise) 2 MG) SQ SCH (11:00)
[2020-12-14] MEDS ORDERED: PATIENT MAY USE OWN MEDS, ALL PO SCH (11:00)
[2020-12-14] MEDS: NS IV 1000 ML 1,000 ML IV SCH ×2 (11:15→16:49)
[2020-12-14] MEDS ORDERED: FLU QUADRIvalent (3YOA+) 60 mcg/0.5 ml 2021-22(AFLURIA) IM ONE (11:30)
[2020-12-14] MEDS ORDERED: PANTOPRAZOLE 40 MG (PROTONIX) TAB PO NR (12:15)
[2020-12-14] MEDS ORDERED: GLIMEPIRIDE 4 MG (AMARYL) TAB PO SCH (17:00)
[2020-12-14] MEDS ORDERED: FENOFIBRATE 134 MG (LOFIBRA) CAPSULE PO SCH (21:00)
[2020-12-14] MEDS ORDERED: diphenhydrAMINE 25 MG TAB (BENADRYL) PO ONE (22:00)
[2020-12-15 00:33] VITALS: BP 124/64
[2020-12-15 05:06] LABS: HEMATOCRIT 33 % (35-52); HEMOGLOBIN 10.3 g/dL (11.5-16.0); MEAN CORPUSCULAR HEMOGLOBIN 27 pg (25-34); MEAN CORPUSCULAR HGB CONC 32 g/dL (32-36); MEAN CORPUSCULAR VOLUME 86 fL (80-99); MEAN PLATELET VOLUME 10.6 fL (9.0-12.2); PLATELET COUNT 190 10^3/uL (130-400); WHITE BLOOD COUNT 8.7 10^3/uL (4.3-11.0)
[2020-12-15 05:23] LABS: POTASSIUM 3.8 MMOL/L (3.6-5.0)
[2020-12-15 05:24] LABS: CALCIUM 9.3 MG/DL (8.5-10.1)
[2020-12-15 06:03] VITALS: BP 139/86
[2020-12-15] MEDS ORDERED: LEVOTHYROXINE 50 MCG (LEVOTHROID) TAB PO SCH (06:30)
[2020-12-15] MEDS ORDERED: ASPI-1238 PO (06:50)
[2020-12-15] MEDS ORDERED: FENO134C PO (06:50)
[2020-12-15] MEDS ORDERED: CLOP75TA28 PO (06:50)
--- NOTE | 2020-12-15 06:52 | Discharge Inst-Post CATH ---
Discharge Inst-CATH/EP Problems Reviewed?: Yes Post Cardiac Cath/EP D/C Inst Follow Up/Plan Hold Metformin for [address] Nascimento in 2-4 weeks <b>CARDIAC CATH/EP PROCEDURE DISCHARGE INSTRUCTIONS</b> ACTIVITY * Go Home directly and rest. * Limit activity of the leg (or wrist if it was used) for 7 days including aerobics, swimming, jogging, bicycling, etc. * Restrict stair-climbing for 7 days if possible, if not, climb up with your non-cath leg, then bring together on the same step. * Avoid lifting, pushing, pulling or excessive movement of the affected extremity for 7 days. * Customary sexual activity may be resumed after 2 days-use caution not to use a position that strains or causes pain to the affected extremity. * No driving for 24 hours. * NO SMOKING. * Avoid straining for bowel movements for 7 days. * Gentle walking on level ground is allowed. * Returning to work will depend on the type of procedure and the results. Your doctor will discuss this with you. CALL YOUR DOCTOR FOR ANY OF THE FOLLOWING: *If bleeding from the puncture site occurs- Apply gentle pressure to site with clean cloth and call your doctor or EMS. * If a knot or lump forms under the skin, increases in size, or causes pain. * If bruising appears to be worsening or moving further down your leg instead of disappearing. * Temperature above 101 F. CARE OF YOUR GROIN INCISION; * Bruising or purple discoloration of the skin near the puncture site is common. * You may shower only, no bathtub bathing for 5 days. Be careful to avoid slipping as your leg may feel stiff. * If a closure device was used on your femoral artery, please see the attached guide regarding care of the device and your leg. * Leave dressing on FOR 24 hours. CARE OF YOUR WRIST INCISION; * Bruising or purple discoloration of the skin near the puncture site is common. * You may shower. * DO NOT submerge wrist. * Leave dressing on FOR 24 hours. MATEO NASCIMENTO MD Dec 15, 2020 06:52
[2020-12-15] MEDS: NS IV 1000 ML 1,000 ML IV SCH (07:11)
[2020-12-15 07:30] VITALS: BP 135/67
--- NOTE | 2020-12-15 08:44 | Cardiology Progress Note ---
Subjective Date Seen by Provider: Dec 15, 2020 Time Seen by Provider: 08:42 Subjective/Events-last exam Patient was seen and evaluated, feeling well. No new complaint. Groin is healing well. Review of Systems General: No Chills, No Night Sweats, No Fatigue, No Malaise, No Appetite, No Ot her HEENT: No Head Aches, No Visual Changes, No Eye Pain, No Ear Pain, No Dysp hasia, No Sinus Congestion, No Post Nasal Drip, No Sore Throat, No Other Pulmonary: No Dyspnea, No Cough, No Pleuritic Chest Pain, No Other Cardiovascular: No: Chest Pain, Palpitations, Orthopnea, Paroxysmal Noc. Dyspnea, Edema, Lt Headedness, Other Objective-Cardiology Exam Last Set of Vital Signs Vital Signs 12/15/20 12/15/20 07:30 07:57 Temp 37.1 Pulse 75 Resp 15 B/P (MAP) 135/67 (89) Pulse Ox 98 O2 Delivery Room Air I&O Intake and Output 12/15/20 00:00 Intake Total 1550 ml Output Total 0 ml Balance 1550 ml Intake Oral 550 ml IV Total 1000 ml Output Urine Total 0 ml # Voids 2 Daily Weight Change Yes, 2-13 lbs General: Alert, Oriented X3, Cooperative HEENT: Atraumatic, PERRLA Neck: Supple, No JVD, No Thyromegaly Lungs: Clear to Auscultation, Normal Air Movement Heart: Regular Rate, Normal S1, Normal S2, No Murmurs Abdomen: Normal Bowel Sounds, Soft, No Tenderness, No Hepatosplenomegaly, No Masses Extremities: No Clubbing, No Cyanosis, No Edema, Normal Pulses, No Tenderness/Swelling Skin: No Rashes, No Breakdown, No Significant Lesion Neuro: Normal Gait, Normal Speech, Strength at 5/5 X4 Ext, Normal Tone, Sensation Intact Psych/Mental Status: Mental Status NL, Mood NL Results Lab Laboratory Tests 12/15/20 05:00 A/P-Cardiology Admission Diagnosis Chest pain Coronary artery disease Hypertension Hyperlipidemia Diabetes mellitus Assessment/Plan Chest pain, reporting improvement. Coronary artery disease, multivessel disease, 1. Moderate to severe stenosis in the mid LAD successful primary stenting using Lizeth 2.5 x 50 mm expanded to 2.71 mm 2. Subtotal occlusion in the mid right coronary artery successful balloon angioplasty and deployment of 2 overlapping resolute Saul stents 2.0 x 22 followed by 2.0 x 18 expanded to 2.3 mm proximally and 2.1 mm distally 3. Moderate stenosis in the proximal circumflex artery, borderline lesion, will be monitored closely 4. Calcification in the aortic arch and great vessels of the neck, no obstructive disease was noted Hypertension, continue current medication Hyperlipidemia, added fenofibrate to her current medication. Diabetes mellitus, educated on diet, hold Metformin for 48 hours MATEO BROWN MD Dec 15, 2020 08:44
[2020-12-15] MEDS ORDERED: ROSUVASTATIN 10 MG (CRESTOR) TABLET PO SCH (09:00)
[2020-12-15] MEDS ORDERED: PANTOPRAZOLE 40 MG (PROTONIX) TAB PO SCH ×2 (09:00)
[2020-12-15] MEDS ORDERED: CLOPIDOGREL 75 MG (PLAVIX) TABLET PO SCH (09:00)
[2020-12-15] MEDS ORDERED: NON-FORMULARY MEDICATION 1 EA EA (Insulin Detemir (Levemir Flextouch) 15 UNIT) SQ SCH (09:00)
[2020-12-15] MEDS ORDERED: toPIRamate 25 MG (TOPAMAX) TAB PO SCH (09:00)
[2020-12-15] MEDS ORDERED: NON-FORMULARY MEDICATION 1 EA EA (Levothyroxine Sodium (Levothyroxine) 50 MCG) PO SCH (09:00)
[2020-12-15] MEDS ORDERED: NON-FORMULARY MEDICATION 1 EA EA (Topiramate 50 MG) PO SCH (09:00)
[2020-12-15] MEDS ORDERED: FLUTICASONE/VILANTEROL 100 MCG 14'S (BREO) IH SCH (09:00)
[2020-12-15] MEDS ORDERED: ASPIRIN E.C. 81 MG (ECOTRIN) TAB PO SCH (09:00)
[2020-12-15] MEDS ORDERED: NON-FORMULARY MEDICATION 1 EA EA (Canagliflozin (Invokana) 300 MG) PO SCH (09:00)
== END 2020-12-15 09:50 | disposition home or self-care (01) ==
LOC: CATH 08:06 → CSD 11:07 → CATH 12-15 09:50
PROVIDERS: ATTEND Internal Medicine Cardiovascular Disease
DX: R07.89 Other chest pain (principal); I25.10 Atherosclerotic heart disease of native coronary artery without angina pectoris; E11.9 Type 2 diabetes mellitus without complications; J44.9 Chronic obstructive pulmonary disease, unspecified; I10 Essential (primary) hypertension; E78.5 Hyperlipidemia, unspecified; I65.23 Occlusion and stenosis of bilateral carotid arteries; I70.0 Atherosclerosis of aorta; Z79.84 Long term (current) use of oral hypoglycemic drugs; Z79.4 Long term (current) use of insulin; Z87.891 Personal history of nicotine dependence
CPT/HCPCS: 36221; 71045; 80048; 80053; 80061; 82947; 85027 ×2; 85347; 85610; 85730; 87081; 93005; 93458; C1725; C1760; C1769 ×2; C1874 ×3; C1887 ×2; C1894; C9600; C9601; 36415

== ENCOUNTER → 2021-05-15 | Outpatient (CLI) | payer MEDICAID ==
[~2021-05-15] MED LIST changes: +ASPI-1238 PO; +CANA300T PO; +CITA10TA9 PO; +CLOP75TA28 PO; +EXEN2AUT SQ; +FENO134C PO; +FLUT1AER IH; +GLIM4TAB5 PO; +INSU100I29 SQ; +LEVO50CA4 PO; +PANT40TA52 PO; +REGADENOSON 0.4 MG/5 ML SYR (LEXISCAN) IV ONE; +ROSU10TA28 PO; +TOPI50TA13 PO
[2021-05-15] MEDS: CATHETER FLUSH 10 ML SYR IVP PRN ×2 (07:14→09:05)
[2021-05-15 09:02] VITALS: BP 136/68
--- NOTE | 2021-05-15 11:19 | Cardiology Stress Test Report ---
Stress Test Report Date of Procedure/Referring: Date of Procedure: May 15, 2021 PCP Mateo Nascimento MD Admitting Physician Alysa Chi MD Indications: CAD Baseline Heart Rate: 72 Baseline Blood Pressure: Blood Pressure Systolic: 136 Blood Pressure Diastolic: 68 Baseline Vitals Vital Signs Date Time Temp Pulse Resp B/P (MAP) Pulse Ox O2 Delivery O2 Flow Rate FiO2 05/15/21 09:02 75 20 136/68 (90) 97 Room Air Summary After explaining the procedure to the patient, she signed a consent and then brought to the stress nuclear laboratory. Patient received 0.4 mg Lexiscan for stress test, ECG, heart rate and blood pressure were monitored continuously. Resting and stress dose of radio tracer were injected, imaging was acquired and reviewed in short axis, horizontal long axis and vertical long axis views. TID: 1.09 SSS: 3 SDS: 3 EF: 73 1. Patient tolerated Lexiscan well 2. No significant ischemia or infarction on SPECT images 3. Normal left ventricular size, EF 73 MATEO NASCIMENTO MD May 15, 2021 11:19
== END ==
LOC: CARD 07:30
PROVIDERS: ATTEND Internal Medicine Cardiovascular Disease
DX: I25.10 Atherosclerotic heart disease of native coronary artery without angina pectoris (principal)
CPT/HCPCS: 78452; 93017; A9502

== ENCOUNTER → 2022-01-02 | Outpatient (CLI) | payer MEDICAID ==
[~2022-01-02] MED LIST changes: -FENO134C PO; +FENO134C21 PO; -REGADENOSON 0.4 MG/5 ML SYR (LEXISCAN) IV ONE
== END ==
LOC: CARD 13:30
PROVIDERS: ATTEND Internal Medicine Cardiovascular Disease
DX: I11.9 Hypertensive heart disease without heart failure (principal); I34.0 Nonrheumatic mitral (valve) insufficiency
CPT/HCPCS: 93306